=== PATIENT | female | born 1965 | race African-American/Black ===

== ENCOUNTER 2020-06-09 10:21 | Outpatient (REF) | payer MEDICAID, SELFPAY | END 2020-06-09 10:22 | disposition home or self-care (01) | LOC: HO.LAB 10:21 | PROVIDERS: Visit Provider Internal Medicine | DX: Z20.828 Contact with and (suspected) exposure to other viral communicable diseases (principal) | CPT/HCPCS: 87635 ==

== ENCOUNTER 2020-07-16 10:42 | Outpatient (REF) | payer MEDICAID, SELFPAY | END 2020-07-16 10:43 | disposition home or self-care (01) | LOC: HO.LAB 10:42 | PROVIDERS: Visit Provider Internal Medicine | DX: Z20.828 Contact with and (suspected) exposure to other viral communicable diseases (principal) | CPT/HCPCS: C9803; U0003 ==

== ENCOUNTER → 2020-08-24 13:26 | Outpatient (BNVA) | payer MEDICAID, SELFPAY | PROVIDERS: Visit Provider Orthopaedic Surgery | DX: M75.51 Bursitis of right shoulder (principal) | CPT/HCPCS: 20610; 99212; J1100 ==

== ENCOUNTER 2020-10-16 10:00 | Outpatient (RCR) | payer MEDICAID, SELFPAY ==
--- NOTE | 2020-09-09 13:52 | MHC.PT.EP ---
[facility] [place] Office [place] Office [place] Office [address] [phone] F: [phone] F: [phone] F: [phone] F: [phone] Physical Therapy Plan of Care Date of Evaluation: 09/09/20 Date of Surgery: Diagnosis: (R) Shoulder Bursitis Assessment: Pt is a 55 y.o.f. with chief complain of (R) shoulder pain with pain radiating into elbow and wrist. PMH is significant for prior ? (L) RTC repair following what the patient describes as similar pain. Pt presents today with significant limitations in ROM, strength deficits, pain located in anterior shoulder with supraspinatus, infraspinatus, coracoid process TTP. Pt ROM and strength currently limited due to severe pain. Pt emotionally labile throughout evaluation. Pt sxs are consistent with bursitisand ? RTC tear that has resulted in pain with movement and has limited ADLs. Pt will benefit from skilled physical therapy 2x/week for 5 weeks to improve pain, ROM, and strength withing (R) shoulder to aid in return to caregiver duties, playing with grandchildren, and assist in ADLs. Frequency and Duration: The patient will be seen 2x/week for 5 weeks Short Term Goals: 3 weeks: 1. I with HEP 2, Pt will demonstrate shoulder flexion and abduction AROM improvements by 15 degrees or greater Head Of Marketing Analytics Goals: 5 weeks: 1. I with HEP and self management of sx 2. Pt will be able to reach overhead and perform grooming tasks c pain < 3/10 3. Pt will improve shoulder abduction to >120 to be able to don/doff jacket with pain < 3/10 Treatment Plan: Modalities to reduce pain, spasms and effusion. Manual therapy to restore motion and function. Therapeutic exercise to improve strength and flexibility. Neuromuscular re-education for posture and balance. Therapeutic activities to return to functional activities of daily living. Electronically signed by: Christianne Brownlee PT DPT Please sign and return to therapist. Thank you for your referral.
--- NOTE | 2020-11-04 11:10 | MHC.PT.DC ---
[facility] [place] Office [place] Office [place] Office [address] Joe Sweet [address] [phone] F: [phone] F: [phone] F: [phone] F: [phone] Physical Therapy Discharge Report Diagnosis: (R) Shoulder Bursitis Date of Surgery: Date of Evaluation: 09/09/20 Date of Discharge: 11/04/20 Treatments to Date: 6 Cancellations to Date: 4 No Shows to Date: 2 Discharge Status: Visit Non-compliance Discharge Summary: Pt d/c secondary to noncompliance with scheduling policy with 4 cancels and 2 no shows. At time of last attended appointment, discussed compliance with HEP consistently and consistent attendance. Electronically signed by: Christianne Brownlee PT Please sign and return to therapist. Thank you for your referral.
== END 2020-11-04 11:11 | disposition home or self-care (01) ==
LOC: HO.PT 10:00
PROVIDERS: PCP Family Medicine; Visit Provider Orthopaedic Surgery
DX: M75.51 Bursitis of right shoulder (principal)
CPT/HCPCS: 97014; 97033; 97110; 97140; 97162

== ENCOUNTER → 2020-10-22 10:44 | Outpatient (BNVA) | payer MEDICAID, SELFPAY | PROVIDERS: Visit Provider Orthopaedic Surgery | DX: M75.01 Adhesive capsulitis of right shoulder (principal) | CPT/HCPCS: 99212 ==

== ENCOUNTER → 2020-11-09 09:06 | Outpatient (BNVA) | payer MEDICAID, SELFPAY | PROVIDERS: PCP Family Medicine; Referring Provider Family Medicine; Visit Provider Physician Assistant ==

== ENCOUNTER 2020-12-09 12:00 | Outpatient (RCR) | payer MEDICAID, SELFPAY ==
--- NOTE | 2020-11-18 15:30 | MHC.PT.EP ---
[facility] [place] Office [place] Office [place] Office [address] Joe Sweet [address] [phone] F: [phone] F: [phone] F: [phone] F: [phone] Physical Therapy Plan of Care Date of Evaluation: 11/18/20 Date of Surgery: N/A Diagnosis: R Shoulder Adhesive Capsulitis Assessment: Anuradha is a 55-year-old female presenting to physical therapy with a diagnosis of adhesive capsulitis. She presents with deficits in R shoulder ROM, R UE strength, impaired posture, and very high pain levels. She was repeatedly brought to tears do to pain during the evaluation. 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 Frequency and Duration: The patient will be seen 2 visits per week for 5 weeks. Short Term Goals: -Pt will report <2/10 pain at rest to allow her to sleep comfortably through the night within 3 weeks. -Pt will be able to lift arm overhead to be able to wash her hair within 3 weeks. Manager Ccu Goals: -Pt will be able to lift and carry 10 lbs. as needed for csm consultant within 5 weeks. -Pt will be independent with HEP for symptom management and maintenance following discharge from therapy within 5 weeks. Treatment Plan: Modalities to reduce pain, spasms and effusion. Manual therapy to restore motion and function. Therapeutic exercise to improve strength and flexibility. Neuromuscular re-education for posture and balance. Therapeutic activities to return to functional activities of daily living. Electronically signed by: Susy Mack PT,DPT Please sign and return to therapist. Thank you for your referral.
--- NOTE | 2021-01-06 15:54 | MHC.PT.DC ---
[facility] [place] Office [place] Office [place] Office [address] Joe Sweet [address] [phone] F: [phone] F: [phone] F: [phone] F: [phone] Physical Therapy Discharge Report Diagnosis: R Shoulder Adhesive Capsulitis Date of Surgery: N/A Date of Evaluation: 11/18/20 Date of Discharge: 12/21/20 Treatments to Date: 3 Cancellations to Date: 1 No Shows to Date: 3 Discharge Status: Visit Non-compliance Discharge Summary: Anuradha has missed 4 PT appointments. She has been d/c for non compliance. Electronically signed by: Susy Mack PT DPT Please sign and return to therapist. Thank you for your referral.
== END 2021-01-06 15:54 | disposition other institution (70) ==
LOC: HO.PT 12:00
PROVIDERS: PCP Family Medicine; Visit Provider Orthopaedic Surgery
DX: M75.01 Adhesive capsulitis of right shoulder (principal)
CPT/HCPCS: 97110; 97161; 97530

== ENCOUNTER → 2020-12-15 07:42 | Outpatient (BNVA) | payer MEDICAID, SELFPAY | PROVIDERS: Visit Provider Physician Assistant ==

== ENCOUNTER → 2020-12-30 11:20 | Outpatient (BNVA) | payer MEDICAID, SELFPAY | PROVIDERS: PCP Family Medicine; Referring Provider Family Medicine; Visit Provider Internal Medicine Cardiovascular Disease | DX: Z01.810 Encounter for preprocedural cardiovascular examination (principal); I25.10 Atherosclerotic heart disease of native coronary artery without angina pectoris | CPT/HCPCS: 93005; 99212 ==

== ENCOUNTER → 2021-01-22 09:57 | Day surgery (SDC) | payer MEDICAID, SELFPAY ==
--- NOTE | 2021-01-20 14:07 | HO.ANESPROP2 ---
HPI - Anesthesia Eval Consult details Narrative: 55yo F for Colonoscopy Cardiac cleared @ [facility]. OK to stop Plavix. Not to interrupt ASA. PMFSH Active Problems Active Problems: All Active Problems (Updated 01/18/21 @ 14:46 by Verónica Gilman) Encounter for screening colonoscopy (Acute) On chronic clopidogrel therapy (Acute) Poor historian (Acute) Coronary artery disease (Acute) Preoperative cardiovascular examination (Acute) Adhesive capsulitis of right shoulder (Acute) Bursitis of right shoulder (Acute) Past Medical History Medical History (Updated 01/20/21 @ 14:09 by Regina García) Adhesive capsulitis of right shoulder Back pain Bursitis of right shoulder CAD (coronary artery disease) Diabetes GERD (gastroesophageal reflux disease) Hepatitis C High cholesterol History of MRSA infection Hx of drug abuse Hyperthyroidism NSTEMI (non-ST elevated myocardial infarction) On beta tiffanie at home Family History Family History Father No problems noted. Mother No problems noted. Surgical History Surgical History (Updated 01/18/21 @ 14:44 by Verónica Gilman) History of back surgery History of umbilical hernia repair Hx of cholecystectomy Hx of heart artery stent Hx of repair of left rotator cuff Social History Social History Household Members: Spouse Alcohol intake: current Alcohol intake frequency: does not drink Cigarettes Per Day: 5 Advance Directives: No Advance Directives Information Provided: Yes Current occupational status: disabled Current occupation: right handed Meds Allergies Allergy/AdvReac Type Severity Reaction Status Date / Time No Known Allergies Allergy Verified 01/18/21 14:34 [No Known Allergies*] Home Medications Medication Instructions Recorded Confirmed Last Taken Type aspirin 81 mg tablet,delayed 81 mg PO DAILY 11/09/20 01/18/21 Unknown History release atorvastatin 80 mg tablet 80 mg PO DAILY 11/09/20 01/18/21 Unknown History furosemide 20 mg tablet 20 mg PO DAILY 11/09/20 01/18/21 Unknown History levothyroxine 88 mcg capsule 88 mcg PO DAILY 11/09/20 01/18/21 Unknown History metoprolol succinate 25 mg 25 mg PO BID 11/09/20 01/18/21 Unknown History tablet,extended release 24 hr metformin 500 mg tablet,extended 500 mg PO DAILY 12/30/20 01/18/21 Unknown History release 24 hr Exam Exam Date and Time: January 20, 2021 1407 Narrative Narrative: EKG 12/2020 Normal sinus rhythm, 88 beats per minute, normal axis, QTC 452 milliseconds. Assessment and Plan Assessment Anesthesia Assessment: Chart Reviewed
[2021-01-22] MEDS: Sodium Phosphate,Mono-Dibasic 133 ML ENEMA PR (10:15)
--- NOTE | 2021-01-22 10:26 | PC.NURSE ---
Patient ate spagetti and soup yesterday at 2:3-[address] Mooney informed. Fleets enema given with formed stool as a result, Dr Mooney informed. Procedure cancelled. Patient will follow up with office and reschedule.
== END ==
PROVIDERS: PCP Family Medicine; Visit Provider Internal Medicine Gastroenterology
DX: Z12.11 Encounter for screening for malignant neoplasm of colon (principal); Z53.8 Procedure and treatment not carried out for other reasons

== ENCOUNTER 2021-02-06 18:15 | Emergency (ER) | payer MEDICAID, SELFPAY ==
--- NOTE | ~2021-02-06 | XR_ITS ---
EXAMINATION: XR ABDOMEN KUB CLINICAL INDICATION: Left-sided abdominal pain and constipation COMPARISON: CT abdomen pelvis 06/19/2019 TECHNIQUE: AP view of the abdomen. FINDINGS: The bowel gas pattern is normal with no evidence of ileus or obstruction. A large stool burden does not appear to be present in the colon. Surgical clips present in the gallbladder fossa. Lumbar spine fixation hardware seen. Bilateral renal calculi or, much better visible on the left. Bilateral nonobstructing renal calculi were seen at the time of the prior CT scan. XR/XR abdomen 1V IMPRESSION: Unremarkable bowel gas pattern. Bilateral renal calculi, left greater than right
--- NOTE | ~2021-02-06 | CT_ITS ---
EXAMINATION: CT ABDOMEN AND PELVIS WITH CONTRAST CLINICAL INFORMATION: Abdominal pain. COMPARISON: CT of the abdomen and pelvis dated 04/15/2019. TECHNIQUE: Multidetector volumetric images were obtained from the superior aspect of the liver through the pubic symphysis following administration 85 mL of Omnipaque 350 intravenous contrast. Sagittal and coronal reformatted images were obtained on the technologist's workstation. Oral contrast: No This CT examination was performed using dose optimization techniques as appropriate, variously including the following: *Automated exposure control *Adjustment of mA and/or kV according to patient size (this includes techniques or standardized protocols for targeted exams where dose is matched to indication/reason for exam; i.e. extremities or head) *Use of iterative reconstruction technique DLP: 943 mGy-cm FINDINGS: LINES AND TUBES: None. LOWER THORAX: Lung bases are clear. Heart is normal in size. No pericardial effusion or thickening. HEPATOBILIARY: The liver is increased in size measuring up to 20 cm craniocaudal. Liver contour is normal. Hepatic attenuation is normal. No focal hepatic lesion. Gallbladder surgically absent. No intrahepatic or extra hepatic biliary ductal dilation. SPLEEN: Normal. PANCREAS: Normal. ADRENALS: Normal. KIDNEYS/URETERS: Bilateral nonobstructing nephrolithiasis with calculi noted in the upper mid and lower poles of the kidneys bilaterally. The largest calculus in the lower pole of left kidney measures up to 0.8 cm. Largest calculus in the right kidney is in the inferior pole measuring up to 0.4 cm. No hydronephrosis. No solid enhancing lesions. Symmetric nephrograms. The ureters are normal throughout their course bilaterally. BLADDER: Normal. No urinary bladder calculi. PELVIC ORGANS: Anteverted uterus. No adnexal mass. GI TRACT: Left lower quadrant approximately 5.4 cm segment of large bowel wall thickening mild fat stranding and mesenteric vascular congestion. No associated intraperitoneal free air or intra-abdominal collection. No dilated or thick walled loops of bowel. Appendix is mildly dilated and is noted along the right peritoneum inferior to the liver. Appearance of the appendix is of the same relative to comparison 06/19/2019 examination. PERITONEUM/RETROPERITONEUM AND MESENTERY: No free air or fluid. LYMPH NODES: No pathologically enlarged lymph nodes. VESSELS: Normal in caliber. Mild aortoiliac atherosclerotic calcification. BONES AND SOFT TISSUES: No aggressive osseous lesions. Postsurgical changes of L4-S1 posterior instrumentation. Hardware components are intact. Right breast asymmetric soft tissue (3:1). Correlate with prior mammographic examinations. No prior comparisons are available. Mammographic examination is recommended for further follow-up. Findings of this examination were discussed with and acknowledged by Dr. Antonio Lucas at 10:20 PM 02/06/2021. CT/CT abdomen pelvis w con IMPRESSION: Approximately 5.4 cm segment of large bowel wall thickening and mild associated fat stranding. Colonoscopy is recommended to exclude neoplasm in this location. No colonic diverticula in this location are appreciated to suggest acute diverticulitis. Asymmetric soft tissue attenuation in the right breast. Follow-up mammographic examination or comparison to prior mammographic examinations is recommended for further evaluation. Hepatomegaly. Cholecystectomy. Bilateral nonobstructive nephrolithiasis. No ureteral or urinary bladder calculi. L5/S1 posterior instrumentation without hardware abnormality.
[2021-02-06 18:16] VITALS: BP 127/69; PULSE 95; RESP 16; TEMP 36.7; O2SAT 99; BMI 41.1
--- NOTE | 2021-02-06 18:31 | ED.ABDPAIN ---
HPI - Abdominal Pain General Chief Complaint: Abdominal Pain Stated Complaint: ABD PAIN Time Seen by Provider: 02/06/21 18:26 Source: patient Mode of arrival: ambulatory Limitations: no limitations History of Present Illness HPI narrative: 55-year-old female with past medical history that is significant for diabetes, hepatitis c, hypercholesteremia, MRSA infection, hypothyroidism as well as other medical and surgical history as noted below she presents ambulatory via triage with complaint of left-sided abdominal pain going on for past 3 days. States she feels like she is constipated and this morning had bowel movement after forcing that was small and hard. She denies any rectal bleeding. States he has similar issues in the MD elicited complaint: abdominal pain Pertinent past history: constipation Onset (ago): day(s) Location: LLQ Severity: moderate Quality: aching Radiation: none Migration to: no migration Exacerbating factors: nothing Relieving factors: nothing Associated symptoms: denies other symptoms Related Data Home Medications Medication Instructions Recorded Confirmed aspirin 81 mg tablet,delayed 81 mg PO DAILY 11/09/20 01/18/21 release atorvastatin 80 mg tablet 80 mg PO DAILY 11/09/20 01/18/21 furosemide 20 mg tablet 20 mg PO DAILY 11/09/20 01/18/21 levothyroxine 88 mcg capsule 88 mcg PO DAILY 11/09/20 01/18/21 metoprolol succinate 25 mg 25 mg PO BID 11/09/20 01/18/21 tablet,extended release 24 hr metformin 500 mg tablet,extended 500 mg PO DAILY 12/30/20 01/18/21 release 24 hr Previous Rx's Medication Instructions Recorded acetaminophen 650 mg 650 mg PO Q8H PRN #60 tab 09/29/20 tablet,extended release clopidogrel 75 mg tablet 75 mg PO DAILY 90 Days #90 tab 11/13/20 bisacodyl 5 mg tablet,delayed 10 mg PO ONCE 1 Days #2 tab 02/04/21 release polyethylene glycol 3350 17 238 g PO ONCE 1 Days #238 g 02/04/21 gram/dose oral powder dicyclomine 20 mg PO BID PRN #20 tab 02/07/21 Allergies Allergy/AdvReac Type Severity Reaction Status Date / Time No Known Allergies Allergy Verified 01/18/21 14:34 [No Known Allergies*] Review of Systems Review of Systems Constitutional: No Weight loss, No Fever, No Chills, No Night Sweats, No Fatigue, No Malaise ENT/Mouth: No Hearing loss, No Ear Pain, No Nasal Congestion, No Sinus Pain, No Hoarseness, No sore throat, No Rhinorrhea, No Swallowing Difficulty Eyes: No Eye Pain, No Swelling, No Redness, No Foreign Body, No Discharge, No Vision Changes Cardiovascular: No Chest Pain, No SOB, No Dyspnea on Exertion, No Orthopnea, No Edema, No Palpitations Respiratory: No Cough, No Sputum, No Wheezing, No Smoke Exposure, No Dyspnea Gastrointestinal: No Nausea, No Vomiting, No Diarrhea, + Constipation, + abdominal Pain, No Hematochezia, No Melena Genitourinary: no irregular bleeding, No Dysuria, No Urinary Frequency, No Hematuria, No Urinary Incontinence, No Urgency, No Flank Pain, No Urinary Flow Changes, No Hesitancy Musculoskeletal: No joint pain, No Myalgias, No Joint Swelling Skin: No Skin Lesions, No rash Neuro: No Weakness, No Numbness, No Paresthesias, No Loss of Consciousness, No Dizziness, No Headache Psych: No Social Issues Heme/Lymph: No Bruising, No Bleeding,No Lymphadenopathy Endocrine: No Polyuria, No Polydipsia, No Temperature Intolerance Yes all other systems are reviewed and are negative Physical Exam Vital Signs: Vital Signs: Last Vital Signs Temp 98.2 F 02/06/21 22:00 Pulse 79 02/06/21 22:00 Resp 16 02/06/21 22:00 BP 128/67 02/06/21 22:00 Pulse Ox 96 02/06/21 22:00 Body Mass Index 41.1 Reviewed Const: General: cooperative; No acute distress or intoxicated appearing Nutritional Appearance: average body habitus Orientation/consciousness: patient oriented x3 HENMT: Head: Yes normal to inspection Ears: hearing grossly normal bilaterally Eyes: General: appearance normal, both eyes and all related structures Visual Benavidez: normal visual benavidez by confrontation Neck: Neck: Yes normal visual inspection, No positive Brudzinski's sign, No positive Kernig's sign and No tender Thyroid: Thyroid normal Chest: Chest palpation & inspection: normal inspection of the chest Resp: Effort & Inspection: normal respiratory effort Auscultation: clear to auscultation bilaterally Cardio: Jugular venous distension: no JVD Rhythm: regular rhythm Heart sounds: S1 normal heart sound present and S2 normal heart sound present GI: Inspection: Yes normal to inspection Palpation (GI): Soft to palpation and Tenderness to palpation present (GI) in the LUQ Percussion: Yes normal to percussion Auscultation: normal bowel sounds : General: Yes no CVA tenderness Back/Spine/Pelvis: Back: no CVA tenderness Skin: General skin exam: no rashes or lesions noted Neuro: General: patient oriented x3 Extrem: General: Yes normal to inspection Course Reevaluation(s) Reevaluation #1: initially reported this is a new issue for her constipated x-ray of the abdomen was negative. States she continues to have pain after drinking MiraLax did have bowel movement. Her pain was disproportionate to someone having constipation does EMR was reviewed and it appears that she has had this pain for several months now she was phos have colonoscopy and mist for some reason twice states 2nd time she did not drink her prep properly and was rescheduled for February 16. Given the indication for the colonoscopy was rule out neoplasm labs were ordered an abdominal pelvis CT was ordered as well. Reevaluation #2: Abdominal pelvis CT findings as noted Approximately 5.4 cm segment of large bowel wall thickening and mild associated fat stranding. Colonoscopy is recommended to exclude neoplasm in this location. No colonic diverticula in this location are appreciated to suggest acute diverticulitis. Asymmetric soft tissue attenuation in the right breast. Follow-up mammographic examination or comparison to prior mammographic examinations is recommended for further evaluation. Hepatomegaly. Cholecystectomy. Bilateral nonobstructive nephrolithiasis. No ureteral or urinary bladder calculi. L5/S1 posterior instrumentation without hardware abnormality page placed to GI Dr. Burnett Consultations Consultation #1: case reviewed with GI Dr. Burnett recommendation for close follow-up in the office known scheduled for colonoscopy to call office f/u closely with Dr. Mooney. Patient educated on CT findings concerning for neoplasm importance of needing to follow up and having colonoscopy to rule out cancerous cause of these findings and her symptoms. States she has an appointment on February 16 but she will call Monday to schedule appointment sooner. Copy of her CT scan was provided to her and urgency and importance of the findings were discussed with the patient in detail and she was given opportunity to ask questions. MDM - Abdominal Pain Lab Data Result diagrams: 02/06/21 20:17 02/06/21 20:17 Labs: Lab Results 06/02/06/21 02/06/21 Range/Units 20:12 20:17 20:17 WBC 11.1 H (4.8-10.8) X10*3/uL RBC 4.40 (4.20-5.50) X10*6/uL Hgb 13.1 (12.0-16.0) g/dl Hct 39.6 (37-47) % MCV 90.0 (80-98) fL MCH 29.8 (27.0-33.0) pg MCHC 33.1 (31.0-35.0) g/dl RDW 12.7 (11.0-16.0) % Plt Count 239 (160-400) X10*3/uL MPV 10.8 (9.4-12.3) fL Immature Gran % (Auto) 0.5 H (0.0-0.4) % Neut % (Auto) 75.3 H (45-73) % Lymph % (Auto) 16.9 L (20-40) % [place] % (Auto) 5.4 (2-11) % Eos % (Auto) 1.6 (0-4) % Baso % (Auto) 0.3 (0-2) % Lymph # (Auto) 1.9 (1.2-4.9) X10*3/uL [place] # (Auto) 0.6 (0.1-1.2) X10*3/uL Eos # (Auto) 0.2 (0.0-0.4) X10*3/uL Baso # (Auto) 0.0 (0.0-0.2) X10*3/uL Abs Immat Gran (auto) 0.05 H (0.00-0.03) X10*3/uL Absolute Neuts (auto) 8.4 H (2.0-8.3) X10*3/uL Absolute Nucleated RBC 0.000 (0.0-0.012) X10*3/uL Nucleated RBC % (auto) 0.0 (0.0-0.2) /100WBC Sodium 138 (135-145) mmol/L Potassium 4.9 (3.3-5.1) mmol/L Chloride 104 (96-108) mmol/L Carbon Dioxide 22 (22-29) mmol/L Anion Gap 17 (12-20) BUN 19 H (9-16) mg/dL Creatinine 1.03 (0.5-1.4) mg/dL Estim Creat Clear Calc 76.1 Estimated GFR 56 Random Glucose 165 H (60-115) mg/dL Calcium 9.6 (8.4-10.2) mg/dL Total Bilirubin 0.2 (0.0-1.0) mg/dL AST 78 H (5-31) U/L ALT 85 H (0-31) U/L Alkaline Phosphatase 146 H (39-117) U/L Total Protein 7.7 (6.5-8.0) g/dL Albumin 4.2 (3.5-5.0) g/dL Urine Color YELLOW Urine Appearance CLEAR Urine pH 7.5 (5.0-8.0) Ur Specific [place] 1.015 (1.005-1.025) Urine Protein NEG (NEG-TRACE) MG/DL Urine Glucose (UA) NEG (NEG) MG/DL Urine Ketones NEG (NEG) MG/DL Urine Blood NEG (NEG) Urine Nitrite NEG (NEG) Ur Leukocyte Esterase NEG (NEG) Discharge Plan Discharge Clinical Impression: Abdominal pain Patient Disposition: Home, Self-Care Instructions: Abdominal Pain (ED) Additional Instructions: please follow-up with her cylinder die machine operator for colonoscopy to evaluate and make sure that the abnormal findings on the CT scan are not reflecting any sort of cancer. It is very important for you to follow-up with cylinder die machine operator to have this colonoscopy so we can do a biopsy. In the meantime drink plenty of fluids high-fiber diet call this cylinder die machine operator on Monday to make an appointment- return if any concerns or worsening symptoms thank you Prescriptions: New dicyclomine 20 mg tablet 20 mg PO BID PRN (Reason: abdominal pain) Qty: 20 RF: 0 No Action acetaminophen 650 mg tablet extended release 650 mg PO Q8H PRN (Reason: for pain) Qty: 60 RF: 1 clopidogrel 75 mg tablet 75 mg PO DAILY 90 Days Qty: 90 RF: 1 polyethylene glycol 3350 [Miralax] 17 gram/dose powder 238 g PO ONCE 1 Days Qty: 238 RF: 0 bisacodyl [Dulcolax (bisacodyl)] 5 mg tablet,delayed release (DR/EC) 10 mg PO ONCE 1 Days Qty: 2 RF: 0 aspirin 81 mg tablet,delayed release (DR/EC) 81 mg PO DAILY RF: 0 metoprolol succinate 25 mg tablet extended release 24 hr 25 mg PO BID RF: 0 furosemide 20 mg tablet 20 mg PO DAILY RF: 0 atorvastatin 80 mg tablet 80 mg PO DAILY RF: 0 levothyroxine 88 mcg capsule 88 mcg PO DAILY RF: 0 metformin 500 mg tablet extended release 24 hr 500 mg PO DAILY RF: 0 Referrals: Trisha Mooney MD [Physician] - 2 days (Approximately 5.4 cm segment of large bowel wall thickening and mild associated fat stranding. Colonoscopy is recommended to exclude neoplasm in this location. No colonic diverticula in this location are appreciated to suggest acute diverticulitis. ) Interventions: ED Discharge Assessment Last Done: 02/07/21 00:45 Discharge Date/Time: 02/07/21 00:48 [facility] Past Medical History Medical History (Updated 02/07/21 @ 00:34 by Antonio Lucas NP) Adhesive capsulitis of right shoulder Back pain Bursitis of right shoulder CAD (coronary artery disease) Diabetes GERD (gastroesophageal reflux disease) Hepatitis C High cholesterol History of MRSA infection Hx of drug abuse Hyperthyroidism NSTEMI (non-ST elevated myocardial infarction) On beta tiffanie at home Surgical History (Updated 01/18/21 @ 14:44 by Verónica Gilman) History of back surgery History of umbilical hernia repair Hx of cholecystectomy Hx of heart artery stent Hx of repair of left rotator cuff Family History Family History Father No problems noted. Mother No problems noted. Social History Social History Household Members: Spouse Alcohol intake: current Alcohol intake frequency: does not drink Cigarettes Per Day: 5 Advance Directives: No Advance Directives Information Provided: Yes Patient : No Current occupational status: disabled Current occupation: right handed
[2021-02-06] MEDS: Magnesium Citrate 300 ML SOLUTION PO (18:50)
[2021-02-06 20:23] LABS: MANUAL DIFF FLAG NO
[2021-02-06 20:24] LABS: Basophils Percent Auto 0.3 % (0-2); Eosinophils Absolute Auto 0.2 X10*3/uL (0.0-0.4); Eosinophils Percent Auto 1.6 % (0-4); Hematocrit 39.6 % (37-47); Hemoglobin 13.1 g/dl (12.0-16.0); Imm Gran Abs Auto 0.05 X10*3/uL (0.00-0.03); Imm Gran Pct Auto 0.5 % (0.0-0.4); Lymphocytes Absolute Auto 1.9 X10*3/uL (1.2-4.9); Lymphocytes Percent Auto 16.9 % (20-40); Mean Corpuscular HGB Conc 33.1 g/dl (31.0-35.0); Mean Corpuscular Hemoglobin 29.8 pg (27.0-33.0); Mean Platelet Volume 10.8 fL (9.4-12.3); Monocytes Absolute Auto 0.6 X10*3/uL (0.1-1.2); Monocytes Percent Auto 5.4 % (2-11); Neutrophils Absolute Auto 8.4 X10*3/uL (2.0-8.3); Neutrophils Percent Auto 75.3 % (45-73); Platelet Count 239 X10*3/uL (160-400); Red Cell Distribution Width 12.7 % (11.0-16.0); White Blood Count 11.1 X10*3/uL (4.8-10.8)
[2021-02-06 20:28] LABS: Appearance Urine CLEAR; Color Urine YELLOW; Glucose Urine UA NEG (NEG); Leukocyte Esterase Urine NEG (NEG); Nitrite Urine NEG (NEG); PH 7.5 (5.0-8.0); Specific Gravity - Urine 1.015 (1.005-1.025); Urine Blood NEG (NEG); Urine Ketones NEG (NEG); Urine Protein NEG (NEG-TRACE)
[2021-02-06] MEDS: 0.9 % Sodium Chloride 1,000 ML 999 ML IV (20:32)
[2021-02-06 20:48] LABS: Alanine Aminotransferase 85 U/L (0-31); Albumin Level 4.2 g/dL (3.5-5.0); Alkaline Phosphatase 146 U/L (39-117); Anion Gap 17 (12-20); Aspartate Amino Transferase 78 U/L (5-31); Bilirubin Total 0.2 mg/dL (0.0-1.0); Blood Urea Nitrogen 19 mg/dL (9-16); Calcium 9.6 mg/dL (8.4-10.2); Carbon Dioxide 22 mmol/L (22-29); Chloride 104 mmol/L (96-108); Creatinine Clr Calc Pharmacy 76.1; Estimated Glomerular Filt Rate 56; Glucose Random 165 mg/dL (60-115); Potassium 4.9 mmol/L (3.3-5.1); Sodium 138 mmol/L (135-145); Total Protein 7.7 g/dL (6.5-8.0)
[2021-02-06] MEDS: Ketorolac Tromethamine 30 MG/ML VIAL IVPUSH (20:57)
[2021-02-06] MEDS: ondansetron HCL 4 MG/2 ML VIAL IVPUSH (21:49)
[2021-02-06 22:00] VITALS: BP 128/67; PULSE 79; RESP 16; TEMP 36.8; O2SAT 96
[2021-02-06] MEDS: iohexoL 350 MG/ML 100 ML INFUS..BTL IV (22:03)
[2021-02-06] MEDS: oxyCODONE HCl Immed Release 5 MG TABLET PO (23:32)
== END 2021-02-07 00:48 | disposition home or self-care (01) ==
PROVIDERS: Nurse Practitioner Primary Care; Emergency Provider Internal Medicine; PCP Family Medicine
DX: R10.9 Unspecified abdominal pain (principal); R93.3 Abnormal findings on diagnostic imaging of other parts of digestive tract; E11.9 Type 2 diabetes mellitus without complications; Z79.84 Long term (current) use of oral hypoglycemic drugs
CPT/HCPCS: 36415; 74018; 74177; 80053; 81003; 85025; 96361; 96374; 96375; 99285; J1885; J2405; Q9967

== ENCOUNTER 2021-02-10 07:34 | Day surgery (SDC) | payer MEDICAID, SELFPAY ==
--- NOTE | 2021-02-09 10:01 | HO.ANESPROP2 ---
HPI - Anesthesia Eval Consult details Narrative: 55yo F for Colonoscopy Cardiac cleared @ [facility]. OK to stop Plavix. Not to interrupt ASA. PMFSH Active Problems Active Problems: All Active Problems (Updated 02/08/21 @ 00:01 by Chaz Gonzalez) Encounter for screening colonoscopy (Acute) On chronic clopidogrel therapy (Acute) Poor historian (Acute) Coronary artery disease (Acute) Preoperative cardiovascular examination (Acute) Adhesive capsulitis of right shoulder (Acute) Bursitis of right shoulder (Acute) Past Medical History Medical History Adhesive capsulitis of right shoulder Back pain Bursitis of right shoulder CAD (coronary artery disease) Diabetes GERD (gastroesophageal reflux disease) Hepatitis C High cholesterol History of MRSA infection Hx of drug abuse Hyperthyroidism NSTEMI (non-ST elevated myocardial infarction) On beta tiffanie at home Family History Family History Father No problems noted. Mother No problems noted. Surgical History Surgical History History of back surgery History of umbilical hernia repair Hx of cholecystectomy Hx of heart artery stent Hx of repair of left rotator cuff Social History Social History Household Members: Spouse Alcohol intake: current Alcohol intake frequency: does not drink Patient Tobacco Use Status: Former Tobacco user Cigarettes Per Day: 5 Current occupational status: disabled Current occupation: right handed Meds Allergies Allergy/AdvReac Type Severity Reaction Status Date / Time No Known Allergies Allergy Verified 01/18/21 14:34 [No Known Allergies*] Home Medications Medication Instructions Recorded Confirmed Last Taken Type aspirin 81 mg tablet,delayed 81 mg PO DAILY 11/09/20 01/18/21 Unknown History release atorvastatin 80 mg tablet 80 mg PO DAILY 11/09/20 01/18/21 Unknown History furosemide 20 mg tablet 20 mg PO DAILY 11/09/20 01/18/21 Unknown History levothyroxine 88 mcg capsule 88 mcg PO DAILY 11/09/20 01/18/21 Unknown History metoprolol succinate 25 mg 25 mg PO BID 11/09/20 01/18/21 Unknown History tablet,extended release 24 hr metformin 500 mg tablet,extended 500 mg PO DAILY 12/30/20 01/18/21 Unknown History release 24 hr Exam Exam Date and Time: February 09, 2021 1001 Pertinent Lab Results Pertinent Lab Results: Laboratory Tests 02/06/21 02/06/21 20:17 20:17 WBC 11.1 H Hgb 13.1 Hct 39.6 Plt Count 239 Sodium 138 Potassium 4.9 Chloride 104 Carbon Dioxide 22 BUN 19 H Creatinine 1.03 Narrative Narrative: EKG 12/2020 Normal sinus rhythm, 88 beats per minute, normal axis, QTC 452 milliseconds. Assessment and Plan Assessment Anesthesia Assessment: Chart Reviewed
[2021-02-10 07:45] VITALS: BMI 40.3
[2021-02-10 07:53] LABS: Glucose, Whole Blood 210 mg/dL (60-115)
[2021-02-10 07:57] VITALS: BP 113/73; PULSE 90; RESP 18; TEMP 36.8; O2SAT 99
--- NOTE | 2021-02-10 08:07 | P.CONAN_ITS ---
[facility] Active Problems Active Problems: All Active Problems (Updated 02/08/21 @ 00:01 by Background Vik quarles) Encounter for screening colonoscopy (Acute) On chronic clopidogrel therapy (Acute) Poor historian (Acute) Coronary artery disease (Acute) Preoperative cardiovascular examination (Acute) Adhesive capsulitis of right shoulder (Acute) Bursitis of right shoulder (Acute) Past Medical History Medical History Adhesive capsulitis of right shoulder Back pain Bursitis of right shoulder CAD (coronary artery disease) Diabetes GERD (gastroesophageal reflux disease) Hepatitis C High cholesterol History of MRSA infection Hx of drug abuse Hyperthyroidism NSTEMI (non-ST elevated myocardial infarction) On beta tiffanie at home Family History Family History Father No problems noted. Mother No problems noted. Surgical History Surgical History History of back surgery History of umbilical hernia repair Hx of cholecystectomy Hx of heart artery stent Hx of repair of left rotator cuff Social History Social History Household Members: Spouse Alcohol intake: current Alcohol intake frequency: does not drink Patient Tobacco Use Status: Former Tobacco user Cigarettes Per Day: 5 Use of substances other than those prescribed or required for medical reasons: No Have you been hit, kicked, punched, or otherwise hurt by someone within the past year? If so, by whom?: No Are you DNR?: No Advance Directives: No Advance Directives Information Provided: Yes Current occupational status: disabled Current occupation: right handed Meds Allergies Allergy/AdvReac Type Severity Reaction Status Date / Time No Known Allergies Allergy Verified 01/18/21 14:34 [No Known Allergies*] Active Medications: Current Medications Generic Name Dose Route Start Last Admin Trade Name Freq PRN Reason Stop Dose Admin Albuterol Sulfate 2.5 mg 02/10/21 06:08 Albuterol Sulfate (0.083%) 2.5 Mg/3 Ml Vial.Neb INHALE ONCE PRN Shortness of Breath/Wheezing Lactated Ringer's 1,000 mls @ 100 mls/hr 02/10/21 06:15 Lr IVCONT .Q10H DARCY Home Medications Medication Instructions Recorded Confirmed Last Taken Type aspirin 81 mg tablet,delayed 81 mg PO DAILY 11/09/20 01/18/21 Unknown History release atorvastatin 80 mg tablet 80 mg PO DAILY 11/09/20 01/18/21 Unknown History furosemide 20 mg tablet 20 mg PO DAILY 11/09/20 01/18/21 Unknown History levothyroxine 88 mcg capsule 88 mcg PO DAILY 11/09/20 01/18/21 Unknown History metoprolol succinate 25 mg 25 mg PO BID 11/09/20 01/18/21 Unknown History tablet,extended release 24 hr metformin 500 mg tablet,extended 500 mg PO DAILY 12/30/20 01/18/21 Unknown History release 24 hr Exam Exam Date and Time: February 10, 2021 0807 Height,Weight and Vital Signs: Height 5 ft 4 in Weight 106.594 kg Last Vital Signs Temp 98.3 F 02/10/21 07:57 Pulse 90 02/10/21 07:57 Resp 18 02/10/21 07:57 BP 113/73 02/10/21 07:57 Pulse Ox 99 02/10/21 07:57 Pertinent Lab Results Pertinent Lab Results: Laboratory Tests 02/10/21 07:48 POC Glucose 210 H Airway Mallampati Class: IV TM Dist: >3cm Neck ROM: Full Denture: Upper and Lower Heart: RRR Lungs: CTA
--- NOTE | 2021-02-10 08:16 | PC.NURSE ---
PATIENT DRANK ALMOST A FULL BOTTLE OF WATER THIS AM. DR. XAVIER NOTIFIED AND IS OKAY WITH THE AMOUNT OF WATER THE PATIENT DRANK. PATIENT GIVEN A FLEETS ENEMA AT THIS TIME. PATIENT STATES SOFT STOOL HER LAST BOWEL MOVEMENT.
--- NOTE | 2021-02-10 08:22 | PC.NURSE ---
PATIENT'S BOWEL OUTPUT CLEAR AFTER FLEETS ENEMA GIVEN.
[2021-02-10] MEDS: Lactated Ringers 1,000 ML 100 ML IVCONT (08:31)
--- NOTE | 2021-02-10 08:36 | MHC.SHP ---
Pre-Procedural Eval Section A Date of Service: 02/10/21 Section B Chief Complaint: Screening Details of Present Illness: CT scan with abn left sided colon Relevant Family History (Specify if Yes): No Relevant Social History: Tobacco Use Present Medications: see Short Stay Collaborative assessment Medical History: Significant History (Adhesive capsulitis of right shoulder Back pain Bursitis of right shoulder CAD (coronary artery disease) Diabetes GERD (gastroesophageal reflux disease) Hepatitis C High cholesterol History of MRSA infection Hx of drug abuse Hyperthyroidism NSTEMI (non-ST elevated myocardial infarction) On beta bloc) History of Previous Operations: Relevant previous surgery/procedure and date(s) (istory of back surgery History of umbilical hernia repair Hx of cholecystectomy Hx of heart artery stent Hx of repair of left rotator cuff) Allergies: Allergies Allergy/AdvReac Type Severity Reaction Status Date / Time No Known Allergies Allergy Verified 01/18/21 14:34 [No Known Allergies*] Review of Systems Sugical H&P ROS: Negative: Constitution, Cardiovascular, Respiratory, Neurological, Psychiatric, Hem-Onc, Allergic/Immunologic, Gastrointestinal, Genitourinary, Musculoskeletal, Integumentary, Endocrine and Eyes/Ears/Nose/Throat Exam Surgical H&P Exam: Normal: HEENT, Normal: Heart, Normal: Lungs, Normal: Extremities, Normal: Abdomen, Normal: Skin and Normal: Neurological Plan Diagnosis/Plan: Unchanged I have reviewed the history and physical and performed a pertinent physical examination on my patient. No changes have occurred unless specified.
[2021-02-10] MEDS: Sodium Phosphate,Mono-Dibasic 133 ML ENEMA PR (08:40)
--- NOTE | 2021-02-10 09:33 | P.OP_ITS ---
Operative Note Operative Note Date of Service: 02/10/21 Narrative: Operative Information Procedure Description: Colonoscopy COLONOSCOPY Instrument: Olympus variable stiffness pediatric scope 190L Colonoscopy Monitoring: Vital signs and clinical assessment, continuous EKG monitoring, Pulse oximetry, Carbon Dioxide monitoring and blood pressure monitoring were done throughout the procedure. Colon withdrawal time was 13 minutes. Procedure: The patient was placed in the left lateral decubitis position and pre-procedure medications were administered. After a digital rectal examination of the ano-rectum, the video colonoscope was inserted into the rectum and advanced through the colon to the cecum/TI. The colonoscope was slowly withdrawn in a retrograde panoramic fashion and the colon mucosa was carefully examined including a retroflexed view of the rectum. Findings and interventions are described below. Procedure Difficulty:moderate Findings: Terminal Ileum-normal, bx taken random colon bx taken Cecum:normal Ascending Colon: 10 mm sessile polyp removed with cold snare Transverse Colon -normal Descending Colon: x 2 sessile polyps removed 8-10 mm, one was removed with cold snare and the other with forceps Sigmoid Colon: normal Rectum: Retroflexion done, nothing could be seen due to the poor prep Anorectum - normal Colon preparation: [place] Bowel Preparation Scale Right colon; 2 Transverse colon: 1 Left colon; 0 (0 = Unprepared colon segment with mucosa not seen due to solid stool that cannot be cleared. 1 = Portion of mucosa of the colon segment seen, but other areas of the colon segment not well seen due to staining, residual stool and/or opaque liquid. 2 = Minor amount of residual staining, small fragments of stool and/or opaque liquid, but mucosa of colon segment seen well. 3 = Entire mucosa of colon segment seen well with no residual staining, small fragments of stool or opaque liquid) Impression and Post Procedure Diagnosis: polyps poor prep Plan: Repeat Colonoscopy in 2-4 weeks and review prep, within limitations of prep no obvious large mass or luminal lesion seen. Above findings were reviewed with the patient and relevant handouts were provided if indicated.
--- NOTE | 2021-02-10 09:33 | PM.OP ---
Brief Operative Note Date of Service: 02/10/21 Pre-op diagnosis: abn imaging Post-op diagnosis: same Procedure: see op note Surgeon: Frank Walters MD Anesthesia: MAC Was an Associate Principal used for this Procedure?: No Estimated blood loss (mL): 0 Condition: stable Disposition: PACU
[2021-02-10 09:39] VITALS: BP 116/75; PULSE 94; RESP 16; TEMP 36.1; O2SAT 100
[2021-02-10 09:54] VITALS: BP 107/64; PULSE 88; RESP 18; O2SAT 99
== END 2021-02-10 10:49 | disposition home or self-care (01) ==
PROVIDERS: PCP Family Medicine; Visit Provider Internal Medicine Gastroenterology
PROC: 0DJD8ZZ Inspection of Lower Intestinal Tract, Via Natural or Artificial Opening Endoscopic (ICD-10-PCS; CPT 45378; principal; 2021-02-10 08:30)
DX: Z12.11 Encounter for screening for malignant neoplasm of colon (principal); D12.2 Benign neoplasm of ascending colon; K63.5 Polyp of colon; K59.00 Constipation, unspecified; K21.9 Gastro-esophageal reflux disease without esophagitis; E11.9 Type 2 diabetes mellitus without complications; B19.20 Unspecified viral hepatitis C without hepatic coma; I25.10 Atherosclerotic heart disease of native coronary artery without angina pectoris; Z98.61 Coronary angioplasty status; E78.00 Pure hypercholesterolemia, unspecified; Z86.14 Personal history of Methicillin resistant Staphylococcus aureus infection; M75.01 Adhesive capsulitis of right shoulder; Z79.82 Long term (current) use of aspirin; Z79.899 Other long term (current) drug therapy; Z90.49 Acquired absence of other specified parts of digestive tract; Z87.891 Personal history of nicotine dependence
CPT/HCPCS: 45385; 45380; 82947; 88305

== ENCOUNTER 2021-02-23 20:06 | Emergency (ER) | payer MEDICAID, SELFPAY ==
--- NOTE | ~2021-02-23 | XR_ITS ---
EXAMINATION: XR CHEST CLINICAL INFORMATION: Chest pain COMPARISON: Chest x-ray January 30, 2020 TECHNIQUE: Frontal portable view of the chest was obtained. 9:53 PM FINDINGS: No significant abnormality is noted involving the heart, lungs, mediastinum, bony thorax or soft tissues. XR/XR chest 1V IMPRESSION: Unremarkable examination.
--- NOTE | 2021-02-23 08:01 | ECG_ITS ---
Test Reason : CP Blood Pressure : / mmHG Vent. Rate : 103 BPM Atrial Rate : 103 BPM P-R Int : 124 ms QRS Dur : 070 ms QT Int : 354 ms P-R-T Axes : 047 054 051 degrees QTc Int : 463 ms Sinus tachycardia Otherwise normal ECG When compared to the previous EKG of No significant changes seen Referred By: Chitra Cedillo Electronically Signed By:Lex Escudero
[2021-02-23 21:25] VITALS: BP 99/78; PULSE 102; RESP 16; TEMP 36.8; O2SAT 98; BMI 38.6
[2021-02-23 21:51] LABS: Basophils Absolute Auto 0.1 X10*3/uL (0.0-0.2); Basophils Percent Auto 0.4 % (0-2); Eosinophils Absolute Auto 0.3 X10*3/uL (0.0-0.4); Eosinophils Percent Auto 2.4 % (0-4); Hematocrit 41.7 % (37-47); Hemoglobin 13.8 g/dl (12.0-16.0); Imm Gran Abs Auto 0.04 X10*3/uL (0.00-0.03); Imm Gran Pct Auto 0.3 % (0.0-0.4); Lymphocytes Absolute Auto 3.6 X10*3/uL (1.2-4.9); Lymphocytes Percent Auto 28.9 % (20-40); Mean Corpuscular HGB Conc 33.1 g/dl (31.0-35.0); Mean Corpuscular Hemoglobin 29.1 pg (27.0-33.0); Mean Corpuscular Volume 87.8 fL (80-98); Mean Platelet Volume 11.1 fL (9.4-12.3); Monocytes Absolute Auto 0.8 X10*3/uL (0.1-1.2); Monocytes Percent Auto 6.4 % (2-11); Neutrophils Absolute Auto 7.7 X10*3/uL (2.0-8.3); Neutrophils Percent Auto 61.6 % (45-73); Platelet Count 276 X10*3/uL (160-400); Red Blood Count 4.75 X10*6/uL (4.20-5.50); Red Cell Distribution Width 12.6 % (11.0-16.0); White Blood Count 12.5 X10*3/uL (4.8-10.8)
[2021-02-23 21:52] LABS: MANUAL DIFF FLAG NO
[2021-02-23 22:12] LABS: Anion Gap 17 (12-20); Blood Urea Nitrogen 16 mg/dL (9-16); Calcium 9.9 mg/dL (8.4-10.2); Carbon Dioxide 20 mmol/L (22-29); Chloride 108 mmol/L (96-108); Creatinine Clr Calc Pharmacy 58.1; Estimated Glomerular Filt Rate 43; Glucose Random 314 mg/dL (60-115); Potassium 4.8 mmol/L (3.3-5.1); Sodium 140 mmol/L (135-145)
[2021-02-23 22:18] LABS: Troponin-I High Sensitivity < 3.5 ng/L (<3.5-17.0)
[2021-02-23 22:55] VITALS: BP 102/63; PULSE 114; RESP 16; O2SAT 95
--- NOTE | 2021-02-23 23:57 | ED.CHESTPAIN ---
HPI - Chest Pain General Chief Complaint: Chest Pain Stated Complaint: cp Time Seen by Provider: 02/23/21 23:44 Source: patient Mode of arrival: ambulatory Limitations: no limitations History of Present Illness HPI narrative: Comes emergency room for an episode of chest pain that started 12 hours ago. Patient states she was at rest, had a sharp 8/10 pain, then resolved. Patient states that this time, she has achiness over the right and left side of the chest. Patient states she took aspirin prior to arrival and Advil. Patient denies shortness of breath, no abdominal pain. Related Data Home Medications Medication Instructions Recorded Confirmed aspirin 81 mg tablet,delayed 81 mg PO DAILY 11/09/20 01/18/21 release atorvastatin 80 mg tablet 80 mg PO DAILY 11/09/20 01/18/21 furosemide 20 mg tablet 20 mg PO DAILY 11/09/20 01/18/21 levothyroxine 88 mcg capsule 88 mcg PO DAILY 11/09/20 01/18/21 metoprolol succinate 25 mg 25 mg PO BID 11/09/20 01/18/21 tablet,extended release 24 hr metformin 500 mg tablet,extended 500 mg PO DAILY 12/30/20 01/18/21 release 24 hr Previous Rx's Medication Instructions Recorded acetaminophen 650 mg 650 mg PO Q8H PRN #60 tab 09/29/20 tablet,extended release clopidogrel 75 mg tablet 75 mg PO DAILY 90 Days #90 tab 11/13/20 polyethylene glycol 3350 17 238 g PO ONCE 1 Days #238 g 02/04/21 gram/dose oral powder dicyclomine 20 mg PO BID PRN #20 tab 02/07/21 bisacodyl 5 mg tablet,delayed 20 mg PO ONCE 1 Days #4 tab 02/10/21 release bisacodyl 5 mg tablet,delayed 10 mg PO ONCE 1 Days #2 tab 02/11/21 release polyethylene glycol 3350 17 238 g PO ONCE #238 g 02/11/21 gram/dose oral powder Allergies Allergy/AdvReac Type Severity Reaction Status Date / Time No Known Allergies Allergy Verified 02/23/21 21:24 [No Known Allergies*] Review of Systems Review of Systems: Constitutional : No Weight loss, No Fever, No Chills, No Night Sweats, No Fatigue, No Malaise ENT/Mouth : No Hearing loss, No Ear Pain, No Nasal Congestion, No Sinus Pain, No Hoarseness, No sore throat, No Rhinorrhea, No Swallowing Difficulty Eyes: No Eye Pain, No Swelling, No Redness, No Foreign Body, No Discharge, No Vision Changes Cardiovascular : Complaining of chest pain that is gradually improving, No SOB, No Dyspnea on Exertion, No Orthopnea, No Edema, No Palpitations Respiratory : No Cough, No Sputum, No Wheezing, No Smoke Exposure, No Dyspnea Gastrointestinal : No Nausea, No Vomiting, No Diarrhea, No Constipation, No abdominal Pain, No Hematochezia, No Melena Genitourinary : no irregular bleeding, No Dysuria, No Urinary Frequency, No Hematuria, No Urinary Incontinence, No Urgency, No Flank Pain, No Urinary Flow Changes, No Hesitancy Musculoskeletal : No joint pain, No Myalgias, No Joint Swelling Skin : No Skin Lesions, No rash Neuro : No Weakness, No Numbness, No Paresthesias, No Loss of Consciousness, No Dizziness, No Headache Psych : No Anxiety/Panic, No Depression, No SI/HI/AH/VH, No Social Issues, Heme/Lymph: No Bruising, No Bleeding,No Lymphadenopathy Endocrine : No Polyuria, No Polydipsia, No Temperature Intolerance [facility] Past Medical History Medical History Adhesive capsulitis of right shoulder Back pain Bursitis of right shoulder CAD (coronary artery disease) Diabetes GERD (gastroesophageal reflux disease) Hepatitis C High cholesterol History of MRSA infection Hx of drug abuse Hyperthyroidism NSTEMI (non-ST elevated myocardial infarction) On beta tiffanie at home Surgical History History of back surgery History of umbilical hernia repair Hx of cholecystectomy Hx of heart artery stent Hx of repair of left rotator cuff Family History Family History Father No problems noted. Mother No problems noted. Social History Social History Household Members: Spouse Alcohol intake: current Alcohol intake frequency: does not drink Patient Tobacco Use Status: Former Tobacco user Cigarettes Per Day: 5 Advance Directives: No Current occupational status: disabled Current occupation: right handed Physical Exam Vital Signs: Vital Signs: Last Vital Signs Temp 98.3 F 02/23/21 21:25 Pulse 98 07/14/21 00:43 Resp 16 02/24/21 00:37 BP 100/52 L 02/24/21 00:43 Pulse Ox 98 02/24/21 00:37 Body Mass Index 38.6 Appearance: Alert. Oriented X3. No acute distress. Sleeping comfortably, easily arousable Eyes: Pupils equal, round and reactive to light. ENT: Pharynx normal. Neck: Normal inspection. Neck supple. No lymph nodes noted. No crepitus CVS: Normal heart rate and rhythm. Pulses normal. Normal S1 and S2 Respiratory: No respiratory distress. Breath sounds normal. No Wheezing. No rales Abdomen: Soft and nontender. No rigidity. No distention. good BS x4 Skin: Skin warm and dry. Normal skin color. Normal skin turgor. Extremities: No lower extremity edema. No Lacerations. No Rash Neuro: Oriented X 3. No motor deficit. No sensory deficit. Moving all extermities. No slurred speech. Course Course Course Narrative: Patient continues sleeping comfortably, patient's troponin 3.8, negative, thus in Delta 50 increased. Patient instructed to follow-up with his primary care physician. MDM - Chest Pain Lab Data Result diagrams: 02/23/21 21:44 02/23/21 21:44 Labs: Lab Results 02/23/21 02/23/21 02/23/21 Range/Units 21:44 21:44 21:44 WBC 12.5 H (4.8-10.8) X10*3/uL RBC 4.75 (4.20-5.50) X10*6/uL Hgb 13.8 (12.0-16.0) g/dl Hct 41.7 (37-47) % MCV 87.8 (80-98) fL MCH 29.1 (27.0-33.0) pg MCHC 33.1 (31.0-35.0) g/dl RDW 12.6 (11.0-16.0) % Plt Count 276 (160-400) X10*3/uL MPV 11.1 (9.4-12.3) fL Immature Gran % (Auto) 0.3 (0.0-0.4) % Neut % (Auto) 61.6 (45-73) % Lymph % (Auto) 28.9 (20-40) % Pickett % (Auto) 6.4 (2-11) % Eos % (Auto) 2.4 (0-4) % Baso % (Auto) 0.4 (0-2) % Lymph # (Auto) 3.6 (1.2-4.9) X10*3/uL Pickett # (Auto) 0.8 (0.1-1.2) X10*3/uL Eos # (Auto) 0.3 (0.0-0.4) X10*3/uL Baso # (Auto) 0.1 (0.0-0.2) X10*3/uL Abs Immat Gran (auto) 0.04 H (0.00-0.03) X10*3/uL Absolute Neuts (auto) 7.7 (2.0-8.3) X10*3/uL Absolute Nucleated RBC 0.000 (0.0-0.012) X10*3/uL Nucleated RBC % (auto) 0.0 (0.0-0.2) /100WBC Sodium 140 (135-145) mmol/L Potassium 4.8 (3.3-5.1) mmol/L Chloride 108 (96-108) mmol/L Carbon Dioxide 20 L (22-29) mmol/L Anion Gap 17 (12-20) BUN 16 (9-16) mg/dL Creatinine 1.30 (0.5-1.4) mg/dL Estim Creat Clear Calc 58.1 Estimated GFR 43 Random Glucose 314 H D (60-115) mg/dL Calcium 9.9 (8.4-10.2) mg/dL Troponin I High Sens < 3.5 (<3.5-17.0) ng/L 02/24/21 Range/Units 00:47 WBC (4.8-10.8) X10*3/uL RBC (4.20-5.50) X10*6/uL Hgb (12.0-16.0) g/dl Hct (37-47) % MCV (80-98) fL MCH (27.0-33.0) pg MCHC (31.0-35.0) g/dl RDW (11.0-16.0) % Plt Count (160-400) X10*3/uL MPV (9.4-12.3) fL Immature Gran % (Auto) (0.0-0.4) % Neut % (Auto) (45-73) % Lymph % (Auto) (20-40) % Pickett % (Auto) (2-11) % Eos % (Auto) (0-4) % Baso % (Auto) (0-2) % Lymph # (Auto) (1.2-4.9) X10*3/uL Pickett # (Auto) (0.1-1.2) X10*3/uL Eos # (Auto) (0.0-0.4) X10*3/uL Baso # (Auto) (0.0-0.2) X10*3/uL Abs Immat Gran (auto) (0.00-0.03) X10*3/uL Absolute Neuts (auto) (2.0-8.3) X10*3/uL Absolute Nucleated RBC (0.0-0.012) X10*3/uL Nucleated RBC % (auto) (0.0-0.2) /100WBC Sodium (135-145) mmol/L Potassium (3.3-5.1) mmol/L Chloride (96-108) mmol/L Carbon Dioxide (22-29) mmol/L Anion Gap (12-20) BUN (9-16) mg/dL Creatinine (0.5-1.4) mg/dL Estim Creat Clear Calc Estimated GFR Random Glucose (60-115) mg/dL Calcium (8.4-10.2) mg/dL Troponin I High Sens 3.8 (<3.5-17.0) ng/L Imaging Data Chest x-ray: Radiologist's impression: No significant abnormality is noted involving the heart, lungs, mediastinum, bony thorax or soft tissues. XR/XR chest 1V IMPRESSION: Unremarkable examination. ECG Data ECG #1: Attestation: I personally reviewed and interpreted this ECG as follows: (Sinus rhythm, heart rate 103, no ST segment depression or elevation, no T-wave inversion, QTC 463) Discharge Plan Discharge Clinical Impression: Atypical chest pain Patient Disposition: Home, Self-Care Instructions: Chest Pain (ED) Additional Instructions: Please follow-up with your primary care physician tomorrow. If you have any worsening or new symptoms, please return to the emergency room or call 911 Prescriptions: No Action acetaminophen 650 mg tablet extended release 650 mg PO Q8H PRN (Reason: for pain) Qty: 60 RF: 1 clopidogrel 75 mg tablet 75 mg PO DAILY 90 Days Qty: 90 RF: 1 polyethylene glycol 3350 [Miralax] 17 gram/dose powder 238 g PO ONCE 1 Days Qty: 238 RF: 0 bisacodyl [Dulcolax (bisacodyl)] 5 mg tablet,delayed release (DR/EC) 20 mg PO ONCE 1 Days Qty: 4 RF: 0 bisacodyl [Dulcolax (bisacodyl)] 5 mg tablet,delayed release (DR/EC) 10 mg PO ONCE 1 Days Qty: 2 RF: 0 polyethylene glycol 3350 [Miralax] 17 gram/dose powder 238 g PO ONCE Qty: 238 RF: 0 dicyclomine 20 mg tablet 20 mg PO BID PRN (Reason: abdominal pain) Qty: 20 RF: 0 aspirin 81 mg tablet,delayed release (DR/EC) 81 mg PO DAILY RF: 0 metoprolol succinate 25 mg tablet extended release 24 hr 25 mg PO BID RF: 0 furosemide 20 mg tablet 20 mg PO DAILY RF: 0 atorvastatin 80 mg tablet 80 mg PO DAILY RF: 0 levothyroxine 88 mcg capsule 88 mcg PO DAILY RF: 0 metformin 500 mg tablet extended release 24 hr 500 mg PO DAILY RF: 0
[2021-02-24 00:37] VITALS: BP 103/33; PULSE 104; RESP 16; O2SAT 98
[2021-02-24 00:43] VITALS: BP 100/52; PULSE 98
[2021-02-24 01:17] LABS: Troponin-I High Sensitivity 3.8 ng/L (<3.5-17.0)
== END 2021-02-24 01:40 | disposition home or self-care (01) ==
PROVIDERS: Emergency Provider Emergency Medicine; PCP Family Medicine
DX: R07.89 Other chest pain (principal); E11.9 Type 2 diabetes mellitus without complications; E78.5 Hyperlipidemia, unspecified; Z79.82 Long term (current) use of aspirin; Z79.02 Long term (current) use of antithrombotics/antiplatelets; Z79.84 Long term (current) use of oral hypoglycemic drugs
CPT/HCPCS: 36415; 71045; 80048; 84484; 85025; 93005; 99283; 99284

== ENCOUNTER 2021-02-25 12:29 | Day surgery (SDC) | payer MEDICAID, SELFPAY ==
--- NOTE | 2021-02-24 12:09 | HO.ANESPROP2 ---
Documented by User: Regina García 02/24/21 12:15 HPI - Anesthesia Eval Consult details Narrative: 55yo F for Colonoscopy Pt in [facility] [place]23[place]21 with atypical CP. EKG, CXR, and trops WNL. Discharged home. Reviewed with Dr Syed. OK to proceed. Cardiology cleared 12/2020. (Reviewed ED visit with Dr Escudero. OK to proceed at [facility] as long as pt remains without symptoms.) [facility] Active Problems Active Problems: All Active Problems (Updated 02/24/21 @ 01:27 by Chitra Cedillo MD) Atypical chest pain (Acute) Encounter for screening colonoscopy (Acute) On chronic clopidogrel therapy (Acute) Poor historian (Acute) Coronary artery disease (Acute) Preoperative cardiovascular examination (Acute) Adhesive capsulitis of right shoulder (Acute) Bursitis of right shoulder (Acute) Past Medical History Medical History Adhesive capsulitis of right shoulder Back pain Bursitis of right shoulder CAD (coronary artery disease) Diabetes GERD (gastroesophageal reflux disease) Hepatitis C High cholesterol History of MRSA infection Hx of drug abuse Hyperthyroidism NSTEMI (non-ST elevated myocardial infarction) On beta tiffanie at home Family History Family History Father No problems noted. Mother No problems noted. Surgical History Surgical History History of back surgery History of umbilical hernia repair Hx of cholecystectomy Hx of heart artery stent Hx of repair of left rotator cuff Social History Social History Household Members: Spouse Alcohol intake: current Alcohol intake frequency: does not drink Patient Tobacco Use Status: Former Tobacco user Cigarettes Per Day: 5 Use of substances other than those prescribed or required for medical reasons: No Are you DNR?: No Advance Directives: No Advance Directives Information Provided: Yes Current occupational status: disabled Current occupation: right handed Meds Allergies Allergy/AdvReac Type Severity Reaction Status Date / Time No Known Allergies Allergy Verified 02/23/21 21:24 [No Known Allergies*] Home Medications Medication Instructions Recorded Confirmed Last Taken Type aspirin 81 mg tablet,delayed 81 mg PO DAILY 11/09/20 01/18/21 Unknown History release atorvastatin 80 mg tablet 80 mg PO DAILY 11/09/20 01/18/21 Unknown History furosemide 20 mg tablet 20 mg PO DAILY 11/09/20 01/18/21 Unknown History levothyroxine 88 mcg capsule 88 mcg PO DAILY 11/09/20 01/18/21 Unknown History metoprolol succinate 25 mg 25 mg PO BID 11/09/20 01/18/21 Unknown History tablet,extended release 24 hr metformin 500 mg tablet,extended 500 mg PO DAILY 12/30/20 01/18/21 Unknown History release 24 hr Exam Exam Date and Time: February 24, 2021 1209 Pertinent Lab Results Pertinent Lab Results: Laboratory Tests 02/23/21 02/23/21 21:44 21:44 WBC 12.5 H Hgb 13.8 Hct 41.7 Plt Count 276 Sodium 140 Potassium 4.8 Chloride 108 Carbon Dioxide 20 L BUN 16 Creatinine 1.30 Narrative Narrative: EKG 02/2021 Vent. Rate : 103 BPM Atrial Rate : 103 BPM P-R Int : 124 ms QRS Dur : 070 ms QT Int : 354 ms P-R-T Axes : 047 054 051 degrees QTc Int : 463 ms Sinus tachycardia Otherwise normal ECG Assessment and Plan Assessment Anesthesia Assessment: Chart Reviewed Documented by User: Manolo Darby MD 02/25/21 14:17 [facility] Past Medical History Medical History Adhesive capsulitis of right shoulder Back pain Bursitis of right shoulder CAD (coronary artery disease) Diabetes GERD (gastroesophageal reflux disease) Hepatitis C High cholesterol History of MRSA infection Hx of drug abuse Hyperthyroidism NSTEMI (non-ST elevated myocardial infarction) On beta tiffanie at home Family History Family History Father No problems noted. Mother No problems noted. Surgical History Surgical History History of back surgery History of umbilical hernia repair Hx of cholecystectomy Hx of heart artery stent Hx of repair of left rotator cuff Social History Social History Household Members: Spouse Alcohol intake: current Alcohol intake frequency: does not drink Patient Tobacco Use Status: Former Tobacco user Cigarettes Per Day: 5 Use of substances other than those prescribed or required for medical reasons: No Are you DNR?: No Advance Directives: No Advance Directives Information Provided: Yes Current occupational status: disabled Current occupation: right handed Meds Allergies Allergy/AdvReac Type Severity Reaction Status Date / Time No Known Allergies Allergy Verified 02/23/21 21:24 [No Known Allergies*] Home Medications Medication Instructions Recorded Confirmed Last Taken Type aspirin 81 mg tablet,delayed 81 mg PO DAILY 11/09/20 01/18/21 Unknown History release atorvastatin 80 mg tablet 80 mg PO DAILY 11/09/20 01/18/21 Unknown History furosemide 20 mg tablet 20 mg PO DAILY 11/09/20 01/18/21 Unknown History levothyroxine 88 mcg capsule 88 mcg PO DAILY 11/09/20 01/18/21 Unknown History metoprolol succinate 25 mg 25 mg PO BID 11/09/20 01/18/21 Unknown History tablet,extended release 24 hr metformin 500 mg tablet,extended 500 mg PO DAILY 12/30/20 01/18/21 Unknown History release 24 hr Exam Airway Mallampati Class: II TM Dist: >3cm Neck ROM: Full Assessment and Plan Assessment Anesthesia Assessment: Anesthesia Plan Discussed and Chart Reviewed (Mena richardson CP) Final Anesthetic Review NPO: Yes ASA Class: III Final Preanesthetic Review: No Changes in Pt Med Stat, Meds/Allgs Chart Reviewed, Consent Obtained/Reviewed and Anes Risks/Benef Reviewed Patient Risk: High Procedure Risk: Low Anesthetic Plan Anesthetic Plan: MAC: Disposition: Standard PACU
[2021-02-25 12:41] VITALS: BMI 38.6
--- NOTE | 2021-02-25 12:47 | P.HPSUR_ITS ---
Pre-Procedural Eval Section A Date of Service: 02/25/21 Section B Chief Complaint: Screening Relevant Family History (Specify if Yes): No Relevant Social History: None (ex smoker) Present Medications: see Short Stay Collaborative assessment Medical History: Significant History (Adhesive capsulitis of right shoulder Back pain Bursitis of right shoulder CAD (coronary artery disease) Diabetes GERD (gastroesophageal reflux disease) Hepatitis C High cholesterol History of MRSA infection Hx of drug abuse Hyperthyroidism NSTEMI (non-ST elevated myocardial infarction) On beta bloc) History of Previous Operations: Relevant previous surgery/procedure and date(s) (History of back surgery History of umbilical hernia repair Hx of cholecystectomy Hx of heart artery stent Hx of repair of left rotator cuff) Allergies: Allergies Allergy/AdvReac Type Severity Reaction Status Date / Time No Known Allergies Allergy Verified 02/23/21 21:24 [No Known Allergies*] Review of Systems Sugical H&P ROS: Negative: Constitution, Cardiovascular, Respiratory, Neurological, Psychiatric, Hem-Onc, Allergic/Immunologic, Gastrointestinal, Genitourinary, Musculoskeletal, Integumentary, Endocrine and Eyes/Ears/Nose/Throat Exam Surgical H&P Exam: Normal: HEENT, Normal: Heart, Normal: Lungs, Normal: Extrem ities, Normal: Abdomen, Normal: Skin and Normal: Neurological Plan Diagnosis/Plan: Unchanged I have reviewed the history and physical and performed a pertinent physical examination on my patient. No changes have occurred unless specified.
[2021-02-25 12:55] LABS: Glucose, Whole Blood 285 mg/dL (60-115)
[2021-02-25 13:02] VITALS: BP 133/89; PULSE 110; RESP 18; TEMP 35.8; O2SAT 98
--- NOTE | 2021-02-25 13:08 | PM.OP ---
Brief Operative Note Date of Service: 02/25/21 Pre-op diagnosis: prior colonoscopy with poor prep--abn imaging Post-op diagnosis: same Procedure: see op note Surgeon: Frank Walters MD Anesthesia: MAC Was an Assembled [employer] Repairer used for this Procedure?: No Estimated blood loss (mL): 0 Condition: stable Disposition: PACU
--- NOTE | 2021-02-25 13:08 | W.PM.OPN ---
Operative Note Operative Note Date of Service: 02/25/21 Narrative: Operative Information Procedure Description: Colonoscopy COLONOSCOPY Instrument: Olympus variable stiffness pediatric scope 190L Colonoscopy Monitoring: Vital signs and clinical assessment, continuous EKG monitoring, Pulse oximetry, Carbon Dioxide monitoring and blood pressure monitoring were done throughout the procedure. Colon withdrawal time was 30 minutes. Procedure: The patient was placed in the left lateral decubitis position and pre-procedure medications were administered. After a digital rectal examination of the ano-rectum, the video colonoscope was inserted into the rectum and advanced through the colon to the cecum/TI. The colonoscope was slowly withdrawn in a retrograde panoramic fashion and the colon mucosa was carefully examined including a retroflexed view of the rectum. Findings and interventions are described below. Procedure Difficulty: easy Findings: Terminal Ileum-normal Cecum:normal Ascending Colon: normal Transverse Colon - 10 mm sessile polyp removed with cold snare, 15 mm sessile polyp removed with cold snare, Descending Colon: normal Sigmoid Colon: mass lesion noted with ulcerated and excavated mid portion at 28-32 cm from anal verge, semi circumferential. Biopsies taken and bryn ink marked at distal and proximal margins. x 2 polyps removed with cold snare 8-10 mm. Rectum: Retroflexion with moderate sized internal hemorrhoids, grade I Anorectum - normal Colon preparation: Ballinger Bowel Preparation Scale Right colon; 2 Transverse colon: 2 Left colon; 2 (0 = Unprepared colon segment with mucosa not seen due to solid stool that cannot be cleared. 1 = Portion of mucosa of the colon segment seen, but other areas of the colon segment not well seen due to staining, residual stool and/or opaque liquid. 2 = Minor amount of residual staining, small fragments of stool and/or opaque liquid, but mucosa of colon segment seen well. 3 = Entire mucosa of colon segment seen well with no residual staining, small fragments of stool or opaque liquid) Impression and Post Procedure Diagnosis: sigmoid mass polyps internal hemorrhoids Plan: High fiber diet leaflet Avoid straining at stool, epsom salts and sitz bath, anusol supps or cream Repeat Colonoscopy in 1 year, refer colorectal surgery Above findings were reviewed with the patient and relevant handouts were provided if indicated.
[2021-02-25] MEDS: Lactated Ringers 1,000 ML 100 ML IVCONT (13:21)
[2021-02-25 14:17] VITALS: BP 102/62; PULSE 87; RESP 18; TEMP 37.1; O2SAT 98
[2021-02-25 14:32] VITALS: BP 102/71; PULSE 91; RESP 20; O2SAT 100
== END 2021-02-25 15:00 | disposition home or self-care (01) ==
PROVIDERS: PCP Family Medicine; Visit Provider Internal Medicine Gastroenterology
PROC: 0DJD8ZZ Inspection of Lower Intestinal Tract, Via Natural or Artificial Opening Endoscopic (ICD-10-PCS; CPT 45378; principal; 2021-02-25 13:40)
DX: Z12.11 Encounter for screening for malignant neoplasm of colon (principal); D12.3 Benign neoplasm of transverse colon; D12.5 Benign neoplasm of sigmoid colon; D37.4 Neoplasm of uncertain behavior of colon; K64.0 First degree hemorrhoids; K21.9 Gastro-esophageal reflux disease without esophagitis; E11.9 Type 2 diabetes mellitus without complications; I25.10 Atherosclerotic heart disease of native coronary artery without angina pectoris; Z98.61 Coronary angioplasty status; I25.2 Old myocardial infarction; B18.2 Chronic viral hepatitis C; Z79.84 Long term (current) use of oral hypoglycemic drugs; Z79.82 Long term (current) use of aspirin; Z86.14 Personal history of Methicillin resistant Staphylococcus aureus infection; Z90.49 Acquired absence of other specified parts of digestive tract; Z87.891 Personal history of nicotine dependence
CPT/HCPCS: 45385; 45380; 45381; 82947; 88305

== ENCOUNTER 2021-03-03 09:23 | Emergency (ER) | payer MEDICAID, SELFPAY ==
--- NOTE | ~2021-03-03 | CT_ITS ---
EXAMINATION: CT ABDOMEN AND PELVIS WITHOUT CONTRAST CLINICAL INFORMATION: Recent diagnosis of colon cancer. Pain constipation. Evaluate for obstruction. COMPARISON: Previous CT of the abdomen and pelvis most recent January 2021 TECHNIQUE: Multidetector volumetric imaging was performed from the superior aspect of the liver through the pubic symphysis. Sagittal and coronal reformatted images were obtained on the technologist's workstation. This CT examination was performed using dose optimization techniques as appropriate, variously including the following: *Automated exposure control *Adjustment of mA and/or kV according to patient size (this includes techniques or standardized protocols for targeted exams where dose is matched to indication/reason for exam; i.e. extremities or head) *Use of iterative reconstruction technique DLP: 763 mGy-cm FINDINGS: LUNG BASES: The visualized lung bases are unremarkable. LIVER, GALLBLADDER, AND BILIARY TREE: The liver is enlarged and low in attenuation suggestive of fatty infiltration. No focal liver lesion is seen. The gallbladder is been removed. There is no biliary duct dilatation. PANCREAS: Unremarkable. SPLEEN: Unremarkable. ADRENAL GLANDS: Unremarkable. KIDNEYS AND URETERS: There are numerous small bilateral renal stones. No hydronephrosis, ureteral dilatation or ureteral stone is seen BLADDER: Unremarkable. GASTROINTESTINAL TRACT: There is mild diverticulosis of the colon. There is an area of wall thickening of the proximal sigmoid colon again concerning for neoplasm. There is a stool in the colon suggestive of mild constipation. No caliber change or transition zone is seen to suggest mechanical obstruction. Small bowel is normal in the appendix is normal. The stomach is normal. ABDOMINAL WALL: No significant hernia is appreciated. LYMPH NODES: Normal. VASCULAR: Unremarkable. PELVIC VISCERA: Unremarkable. OSSEOUS STRUCTURES: There are postsurgical changes to the spine with anterior fusion hardware from L3 to S1 and disc interspace her at L3 L4-L5. There is degenerative disc disease at L5-S1. No fracture or bone lesion is seen. CT/CT abdomen pelvis wo con IMPRESSION: Constipation. Short segment wall thickening of the proximal sigmoid colon again worrisome for neoplasm. There is no caliber change to suggest mechanical obstruction. Diverticulosis of the colon. No evidence of diverticulitis. Multiple bilateral renal stones. No hydronephrosis. Enlarged fatty liver.
[2021-03-03 09:30] VITALS: BP 118/80; PULSE 108; RESP 20; TEMP 37.1; O2SAT 99; BMI 38.6
--- NOTE | 2021-03-03 09:53 | ED_ITS ---
HPI - Abdominal Pain General Chief Complaint: Abdominal Pain Stated Complaint: Cough abdominal pain Time Seen by Provider: 03/03/21 09:39 Source: patient Mode of arrival: ambulatory Limitations: no limitations History of Present Illness HPI narrative: 85-year-old female here with complaints of lower abdominal pain which she has had for quite some time. The patient tells me that she was seen here in this emergency department on February [address] scan that was concerning for a colon mass. She had a colonoscopy done on February 25 and was diagnosed after pathology with colon cancer. She has a follow-up on March [address] Grajeda as to discuss her surgical options. She tells me for the last few days she has had worsening pain in left lower abdomen. She does have chronic constipation and was able to have small bowel movement this morning. She is on MiraLax and Colace daily. She is passing gas. She denies any nausea or vomiting or fevers or chills. also c/o dry cough. No chest pain or shortness of breath. Using inhaler with continued cough MD elicited complaint: abdominal pain Related Data Home Medications Medication Instructions Recorded Confirmed aspirin 81 mg tablet,delayed 81 mg PO DAILY 11/09/20 01/18/21 release atorvastatin 80 mg tablet 80 mg PO DAILY 11/09/20 01/18/21 furosemide 20 mg tablet 20 mg PO DAILY 11/09/20 01/18/21 levothyroxine 88 mcg capsule 88 mcg PO DAILY 11/09/20 01/18/21 metoprolol succinate 25 mg 25 mg PO BID 11/09/20 01/18/21 tablet,extended release 24 hr metformin 500 mg tablet,extended 500 mg PO DAILY 12/30/20 01/18/21 release 24 hr Previous Rx's Medication Instructions Recorded acetaminophen 650 mg 650 mg PO Q8H PRN #60 tab 09/29/20 tablet,extended release clopidogrel 75 mg tablet 75 mg PO DAILY 90 Days #90 tab 11/13/20 polyethylene glycol 3350 17 238 g PO ONCE 1 Days #238 g 02/04/21 gram/dose oral powder dicyclomine 20 mg PO BID PRN #20 tab 02/07/21 bisacodyl 5 mg tablet,delayed 20 mg PO ONCE 1 Days #4 tab 02/10/21 release bisacodyl 5 mg tablet,delayed 10 mg PO ONCE 1 Days #2 tab 02/11/21 release polyethylene glycol 3350 17 238 g PO ONCE #238 g 02/11/21 gram/dose oral powder oxycodone 5 mg PO Q6H PRN #10 tab 03/03/21 prednisone 40 mg PO DAILY #10 tab 03/03/21 Allergies Allergy/AdvReac Type Severity Reaction Status Date / Time No Known Allergies Allergy Verified 02/23/21 21:24 [No Known Allergies*] Review of Systems Review of Systems Yes all other systems are reviewed and are negative Constitutional: Reports no additional constitutional complaints, Denies body ache(s), Denies chills, Denies fever(s), Denies headache(s) and Denies weakness Eyes: Reports no additional eye complaints and Denies change in vision Reports system reviewed and no additional complaints, except as documented, Denies dizziness, Denies headache(s), Denies nasal congestion, Denies nasal discharge and Denies neck pain Cardiovascular: Reports no additional cardiovascular complaints, Denies chest pain, Denies leg edema and Denies dyspnea Respiratory: Reports no additional respiratory complaints, Reports cough and Denies dyspnea Gastrointestinal: Reports no additional gastrointestinal complaints, Reports abdominal pain, Reports constipation, Denies diarrhea, Denies nausea and Denies vomiting Genitourinary: Reports no additional female genitourinary complaints and Denies urinary incontinence Musculoskeletal: Reports no additional musculoskeletal complaints, Denies back pain, Denies arthralgias, Denies joint swelling, Denies neck pain, Denies numbness and Denies tingling Skin/Breast: Reports system reviewed and no additional complaints, except as docu and Denies rash Reports system reviewed and no additional complaints, except as documented, Denies Abnormal speech present, Denies dizziness, Denies headache(s), Denies numbness, Denies tingling and Denies weakness Physical Exam Vital Signs: Vital Signs: Last Vital Signs Temp 98.7 F 03/03/21 10:57 Pulse 97 03/03/21 10:57 Resp 20 03/03/21 10:57 BP 122/73 03/03/21 10:57 Pulse Ox 99 03/03/21 10:57 Body Mass Index 38.6 Const: General: cooperative, healthy appearing, comfortable and no acute distress Orientation/consciousness: patient oriented x3 Limitations: no limitations HENMT: Head: Yes normal to inspection Ears: hearing grossly normal bilaterally General nose exam: Normal external nose present Face and sinus: Yes normal facial exam Mouth: Normal oral and palatal mucosa present Throat: Yes posterior oropharynx normal Eyes: General: appearance normal, both eyes and all related structures Pupils: Equal, round and reactive pupils present Neck: Neck: Yes normal visual inspection Chest: Chest palpation & inspection: normal inspection of the chest Resp: Effort & Inspection: normal respiratory effort Auscultation: clear to auscultation bilaterally Cardio: Rate: regular rate Rhythm: regular rhythm Peripheral pulses: Peripheral pulses 2+ throughout GI: Inspection: Yes normal to inspection Palpation (GI): Soft to palpation and Tenderness to palpation present (GI) (Tenderness moderate left lower quadrant. No rebound or guarding) Auscultation: normal bowel sounds Back/Spine/Pelvis: Thoracic/Lumbar Spine: thoracic and lumbar spine normal to inspection Skin: General skin exam: no rashes or lesions noted Neuro: General: patient oriented x3, no focal motor deficits and normal sensation to monofilament Cranial nerves: Yes Equal, round and reactive pupils present Cognition (Neuro): normal cognition Speech: No Abnormal speech present Gait exam (Neuro): Normal gait present Motor exam (neuro): 5/5 motor strength present throughout Extrem: General: Yes normal to inspection Course Course Course Narrative: 55-year-old female here with complaints of chronic abdominal pain worsening over the last 3 days with constipation. Of note, recent diagno sis of colon cancer pending surgical appointment March 08. Here due to pain. Did have small bowel movement this morning and is passing gas and denies any nausea or vomiting. Will check CT to rule out obstruction. Provide analgesia and re-assess. Also complaining of dry cough which patient contributes to her asthma not being well controlled. She is on albuterol MDI. No shortness of breath or chest pain. Stable saturation. Will need burst of prednisone 1140- CT shows IMPRESSION: Constipation. Short segment wall thickening of the proximal sigmoid colon again worrisome for neoplasm. There is no caliber change to suggest mechanical obstruction. Diverticulosis of the colon. No evidence of diverticulitis. Multiple bilateral renal stones. No hydronephrosis. Enlarged fatty liver. Pain is improved after receiving IM narcotic. Patient does have a opiate tolerance and is on Suboxone daily. Therefore, her and I had a discussion about pain management moving forward. She tells me that Motrin and Tylenol do not work for her. She feels like her pain is not well controlled at home. We discussed prescribing a short course of oxycodone and holding her Suboxone until she can follow-up with her outpatient providers. Again, she does have an appointment to discuss her surgical options on March 08. Reviewed worrisome signs and symptoms and when to return to the emergency department. Comfortable discharge home. MDM - Abdominal Pain Differential Diagnosis Differential diagnosis: Likely small bowel obstruction Medical Records Attestation: I reviewed the patient's medical records. Lab Data Attestation: I reviewed the patient's lab results. Labs: Lab Results 03/03/21 03/03/21 Range/Units 09:58 09:58 Urine Color YELLOW Cancelled Urine Appearance CLEAR Cancelled Urine pH 6.5 Cancelled (5.0-8.0) Ur Specific [place] 1.010 Cancelled (1.005-1.025) Urine Protein NEG Cancelled (NEG-TRACE) MG/DL Urine Glucose (UA) NEG Cancelled (NEG) MG/DL Urine Ketones NEG Cancelled (NEG) MG/DL Urine Blood 2+ H Cancelled (NEG) Urine Nitrite NEG Cancelled (NEG) Ur Leukocyte Esterase NEG Cancelled (NEG) Urine RBC 30-49 H (0) /HPF Urine WBC 0-2 (0-4) /HPF Ur Squamous Epith Cells 2+ /LPF Urine Bacteria TRACE /LPF Imaging Data CT scan - abdomen: Attestation: I personally reviewed and interpreted this imaging study as follows: Radiologist's impression: IMPRESSION: Constipation. Short segment wall thickening of the proximal sigmoid colon again worrisome for neoplasm. There is no caliber change to suggest mechanical obstruction. Diverticulosis of the colon. No evidence of diverticulitis. Multiple bilateral renal stones. No hydronephrosis. Enlarged fatty liver. Discharge Plan Discharge Clinical Impression: Colon neoplasm, Constipation, Asthma Patient Disposition: Home, Self-Care Instructions: Asthma (ED), Constipation (ED), Colorectal Cancer (DC) Additional Instructions: While taking the narcotic you need to increase your MiraLax and Colace to twice daily Continue to follow-up with Dr. Warner is a scheduled You need to let your suboxone prescriber that you are taking narcotic pain medication. We are only able to give you a small supply from the emergency department and if you need more you will need to follow-up with your outpatient providers. Prescriptions: New oxycodone 5 mg tablet 5 mg PO Q6H PRN (Reason: pain) Qty: 10 RF: 0 prednisone 20 mg tablet 40 mg PO DAILY Qty: 10 RF: 0 No Action acetaminophen 650 mg tablet extended release 650 mg PO Q8H PRN (Reason: for pain) Qty: 60 RF: 1 clopidogrel 75 mg tablet 75 mg PO DAILY 90 Days Qty: 90 RF: 1 polyethylene glycol 3350 [Miralax] 17 gram/dose powder 238 g PO ONCE 1 Days Qty: 238 RF: 0 bisacodyl [Dulcolax (bisacodyl)] 5 mg tablet,delayed release (DR/EC) 20 mg PO ONCE 1 Days Qty: 4 RF: 0 bisacodyl [Dulcolax (bisacodyl)] 5 mg tablet,delayed release (DR/EC) 10 mg PO ONCE 1 Days Qty: 2 RF: 0 polyethylene glycol 3350 [Miralax] 17 gram/dose powder 238 g PO ONCE Qty: 238 RF: 0 dicyclomine 20 mg tablet 20 mg PO BID PRN (Reason: abdominal pain) Qty: 20 RF: 0 aspirin 81 mg tablet,delayed release (DR/EC) 81 mg PO DAILY RF: 0 metoprolol succinate 25 mg tablet extended release 24 hr 25 mg PO BID RF: 0 furosemide 20 mg tablet 20 mg PO DAILY RF: 0 atorvastatin 80 mg tablet 80 mg PO DAILY RF: 0 levothyroxine 88 mcg capsule 88 mcg PO DAILY RF: 0 metformin 500 mg tablet extended release 24 hr 500 mg PO DAILY RF: 0 Referrals: Ericka Phillips DO [Primary Care Provider] - 2 days Interventions: ED Discharge Assessment Last Done: 03/03/21 11:39 Discharge Date/Time: 03/03/21 11:39 [facility] Past Medical History Attestation statement: The following information was validated with the patient. Source: old records reviewed and nursing notes reviewed Medical History Adhesive capsulitis of right shoulder Back pain Bursitis of right shoulder CAD (coronary artery disease) Diabetes GERD (gastroesophageal reflux disease) Hepatitis C High cholesterol History of MRSA infection Hx of drug abuse Hyperthyroidism NSTEMI (non-ST elevated myocardial infarction) On beta tiffanie at home Surgical History History of back surgery History of umbilical hernia repair Hx of cholecystectomy Hx of heart artery stent Hx of repair of left rotator cuff Family History Family History Father No problems noted. Mother No problems noted. Social History Social History Household Members: Spouse Alcohol intake: current Alcohol intake frequency: does not drink Patient Tobacco Use Status: Former Tobacco user Cigarettes Per Day: 5 Advance Directives: No Advance Directives Information Provided: Yes Patient : No Current occupational status: disabled Current occupation: right handed
[2021-03-03] MEDS: Acetaminophen 325 MG TABLET 975 MG PO (09:55)
[2021-03-03] MEDS: oxyCODONE HCl Immed Release 5 MG TABLET PO (09:56)
[2021-03-03 10:06] LABS: Glucose Urine UA NEG (NEG); Leukocyte Esterase Urine NEG (NEG); Nitrite Urine NEG (NEG); PH 6.5 (5.0-8.0); Urine Blood 2+ (NEG); Urine Ketones NEG (NEG); Urine Protein NEG (NEG-TRACE)
[2021-03-03 10:07] LABS: Appearance Urine CLEAR; Color Urine YELLOW
[2021-03-03 10:14] LABS: Bacteria Urine TRACE /LPF; RBC Urine 30-49 /HPF (0); Squamous Epithelial Cell Urine 2+ /LPF; WBC Urine 0-2 /HPF (0-4)
[2021-03-03] MEDS: Morphine Sulfate 4 MG/ML CARTRIDGE IM (10:56)
[2021-03-03 10:57] VITALS: BP 122/73; PULSE 97; RESP 20; TEMP 37.1; O2SAT 99
== END 2021-03-03 11:39 | disposition home or self-care (01) ==
PROVIDERS: Nurse Practitioner Family; Emergency Provider Emergency Medicine; PCP Family Medicine
DX: K59.00 Constipation, unspecified (principal); C18.9 Malignant neoplasm of colon, unspecified; J45.909 Unspecified asthma, uncomplicated; E11.9 Type 2 diabetes mellitus without complications; I25.2 Old myocardial infarction; Z79.82 Long term (current) use of aspirin; Z79.84 Long term (current) use of oral hypoglycemic drugs; Z79.899 Other long term (current) drug therapy
CPT/HCPCS: 74176; 81001; 96372; 99284; J2270

== ENCOUNTER → 2021-03-08 15:17 | Outpatient (BNVA) | payer MEDICAID, SELFPAY | PROVIDERS: PCP Family Medicine; Referring Provider Family Medicine; Visit Provider Surgery | DX: K63.89 Other specified diseases of intestine (principal) | CPT/HCPCS: 99202 ==

== ENCOUNTER 2021-03-30 11:18 | Inpatient (IN) | payer MEDICAID, SELFPAY ==
--- NOTE | 2021-03-18 12:07 | HO.ANESPROP2 ---
Documented by User: Regina García NP 03/19/21 11:57 HPI - Anesthesia Eval Consult details Narrative: 55yo F for Hand Assisted Laparoscopic Bowel Resection, Poss Open, Poss Stoma Pt with NSTEMI/SAMY 2020. Remains on DAPT. Cardiac cleared at [facility], [place] to hold plavix preop. Pt denies any cardiac symptoms. >4 mets Suboxone daily. Pt with plan to stop 03/28 PMFSH Active Problems Active Problems: All Active Problems (Updated 03/04/21 @ 00:02 by Background Lisa) Colonic mass (Acute) Encounter for screening colonoscopy (Acute) On chronic clopidogrel therapy (Acute) Poor historian (Acute) Coronary artery disease (Acute) Preoperative cardiovascular examination (Acute) Adhesive capsulitis of right shoulder (Acute) Bursitis of right shoulder (Acute) Past Medical History Medical History Adhesive capsulitis of right shoulder Back pain Bursitis of right shoulder CAD (coronary artery disease) Diabetes GERD (gastroesophageal reflux disease) Hepatitis C High cholesterol History of MRSA infection Hx of drug abuse Hyperthyroidism NSTEMI (non-ST elevated myocardial infarction) On beta tiffanie at home Family History Family History Father No problems noted. Mother No problems noted. Family history of problems with anesthesia: No Surgical History Surgical History History of back surgery History of umbilical hernia repair Hx of cholecystectomy Hx of colonoscopy Hx of heart artery stent Hx of repair of left rotator cuff History of Problems with Anesthesia: No Social History Social History Household Members: Spouse Are you a primary special needs child caregiver to a significant other at home: No Do you presently have visiting nurse or other home services: No Alcohol intake: current Alcohol intake frequency: does not drink Patient Tobacco Use Status: Current someday Tobacco user Tobacco use type: Cigarette Cigarette Packs Per Day: 0 Cigarettes Per Day: 0 Years Smoked: 35 Smoked in Last 30 Days: Yes Patient Interested in Nicotine Replacement: Yes (On chantix) Patient Given Instructions on How to Stop Smoking: Yes Date Education Initiated: 03/18/21 Second Hand Smoke Exposure: Yes Use of substances other than those prescribed or required for medical reasons: No Substance Use Type Other:: Quit 13 yrs ago - On Suboxone Have you been hit, kicked, punched, or otherwise hurt by someone within the past year? If so, by whom?: No Are you DNR?: No Advance Directives: No Advance Directives Information Provided: No Advance Directives on File: No Recently lost weight without trying: No Eating poorly because of decreased appetite: No Nutrition Risks: No Nutritional Risk Patient : No Current occupational status: disabled Current occupation: right handed Narrative Narrative: No recent illness. Mild nonproductive cough r/t asthma. Will notify surgeon if cough worsens or becomes productive. No CP/SOB with activity. >4 mets (climbs 2 flights of stairs to apartment) Meds Allergies Allergy/AdvReac Type Severity Reaction Status Date / Time No Known Allergies Allergy Verified 03/30/21 06:09 [No Known Allergies*] Home Medications Medication Instructions Recorded Confirmed Last Taken Type aspirin 81 mg tablet,delayed 81 mg PO DAILY 11/09/20 03/18/21 03/23/21 History release atorvastatin 80 mg tablet 80 mg PO DAILY 11/09/20 03/18/21 Unknown History furosemide 20 mg tablet 20 mg PO DAILY 11/09/20 03/18/21 Unknown History levothyroxine 88 mcg capsule 88 mcg PO DAILY 11/09/20 03/18/21 Unknown History metoprolol succinate 25 mg 25 mg PO BID 11/09/20 03/18/21 Unknown History tablet,extended release 24 hr metformin 500 mg tablet,extended 500 mg PO DAILY 12/30/20 03/18/21 Unknown History release 24 hr buprenorphine 8 mg-naloxone 2 mg 2 film BUCCAL DAILY 03/08/21 03/18/21 03/22/21 History sublingual film (Suboxone) albuterol sulfate 1 amp INHALATION Q6H PRN 03/18/21 03/18/21 Unknown History albuterol sulfate 90 mcg/actuation 2 puff PO Q4-6H PRN 03/18/21 03/18/21 Unknown History aerosol inhaler (ProAir HFA) baclofen 10 mg tablet 1 tab PO TID PRN 03/18/21 03/18/21 Unknown History fluticasone propionate 220 2 puff PO BID 03/18/21 03/18/21 Unknown History mcg/actuation HFA aerosol inhaler (Flovent HFA) fluticasone propionate 50 2 spray INTRANASAL DAILY 03/18/21 03/18/21 Unknown History mcg/actuation nasal spray,suspension gabapentin 300 mg capsule 1 cap PO TID 03/18/21 03/18/21 Unknown History insulin glargine 100 unit/mL (3 50 unit SUBCUT DAILY 03/18/21 03/18/21 Unknown History mL) subcutaneous pen (Lantus Solostar U-100 Insulin) insulin lispro 100 unit/mL unit SUBCUT 03/18/21 Unknown History subcutaneous pen (Humalog KwikPen (U-100) Insulin) quetiapine 100 mg tablet 1 tab PO BEDTIME 03/18/21 03/18/21 Unknown History varenicline 1 mg tablet (Chantix) 1 tab PO BID 03/18/21 03/18/21 Unknown History Exam Exam Date and Time: March 18, 2021 1207 Pertinent Lab Results Pertinent Lab Results: Laboratory Tests 02/23/21 02/23/21 21:44 21:44 WBC 12.5 H Hgb 13.8 Hct 41.7 Plt Count 276 Sodium 140 Potassium 4.8 Chloride 108 Carbon Dioxide 20 L BUN 16 Creatinine 1.30 Lab Results 03/18/21 03/18/21 Range/Units 13:55 13:55 Estimat Average Glucose 214 mg/dL Hemoglobin A1c % 9.1 % Blood Type B Positive Antibody Screen NEGATIVE (Previous A1C = 11% in 2018) Narrative Narrative: EKG 02/2021 Vent. Rate : 103 BPM ? ? Atrial Rate : 103 BPM ?? P-R Int : 124 ms? QRS Dur : 070 ms ? ? QT Int : 354 ms ? ? ? P-R-T Axes : 047 054 051 degrees ?? QTc Int : 463 ms ? Sinus tachycardia Otherwise normal ECG Airway Mallampati Class: II TM Dist: >3cm Neck ROM: Full Denture: Upper Partial: Lower Heart: RRR Lungs: CTAB Assessment and Plan Assessment Anesthesia Assessment: Anesthesia Plan Discussed (Discussed increase risk for periop and post op PR and to seek medical care for any cardiac symptoms once discharged home), Smoking Cess. Discussed and PAT Visit Final Anesthetic Review Family History of Problems with Anesthesia: No History of Problems with Anesthesia: No Documented by User: Jesenia Tineo MD 03/30/21 07:02 [facility] Past Medical History Medical History Adhesive capsulitis of right shoulder Back pain Bursitis of right shoulder CAD (coronary artery disease) Diabetes GERD (gastroesophageal reflux disease) Hepatitis C High cholesterol History of MRSA infection Hx of drug abuse Hyperthyroidism NSTEMI (non-ST elevated myocardial infarction) On beta tiffanie at home Family History Family History Father No problems noted. Mother No problems noted. Surgical History Surgical History History of back surgery History of umbilical hernia repair Hx of cholecystectomy Hx of colonoscopy Hx of heart artery stent Hx of repair of left rotator cuff Social History Social History Household Members: Spouse Are you a primary special needs child caregiver to a significant other at home: No Do you presently have visiting nurse or other home services: No Alcohol intake: current Alcohol intake frequency: does not drink Patient Tobacco Use Status: Current someday Tobacco user Tobacco use type: Cigarette Cigarette Packs Per Day: 0 Cigarettes Per Day: 0 Years Smoked: 35 Smoked in Last 30 Days: Yes Patient Interested in Nicotine Replacement: Yes (On chantix) Patient Given Instructions on How to Stop Smoking: Yes Date Education Initiated: 03/18/21 Second Hand Smoke Exposure: Yes Use of substances other than those prescribed or required for medical reasons: No Substance Use Type Other:: Quit 13 yrs ago - On Suboxone Have you been hit, kicked, punched, or otherwise hurt by someone within the past year? If so, by whom?: No Are you DNR?: No Advance Directives: No Advance Directives Information Provided: No Advance Directives on File: No Recently lost weight without trying: No Eating poorly because of decreased appetite: No Nutrition Risks: No Nutritional Risk Patient : No Current occupational status: disabled Current occupation: right handed Meds Allergies Allergy/AdvReac Type Severity Reaction Status Date / Time No Known Allergies Allergy Verified 03/30/21 06:09 [No Known Allergies*] Home Medications Medication Instructions Recorded Confirmed Last Taken Type aspirin 81 mg tablet,delayed 81 mg PO DAILY 11/09/20 03/18/21 03/23/21 History release atorvastatin 80 mg tablet 80 mg PO DAILY 11/09/20 03/18/21 Unknown History furosemide 20 mg tablet 20 mg PO DAILY 11/09/20 03/18/21 Unknown History levothyroxine 88 mcg capsule 88 mcg PO DAILY 11/09/20 03/18/21 Unknown History metoprolol succinate 25 mg 25 mg PO BID 11/09/20 03/18/21 Unknown History tablet,extended release 24 hr metformin 500 mg tablet,extended 500 mg PO DAILY 12/30/20 03/18/21 Unknown History release 24 hr buprenorphine 8 mg-naloxone 2 mg 2 film BUCCAL DAILY 03/08/21 03/18/21 03/22/21 History sublingual film (Suboxone) albuterol sulfate 1 amp INHALATION Q6H PRN 03/18/21 03/18/21 Unknown History albuterol sulfate 90 mcg/actuation 2 puff PO Q4-6H PRN 03/18/21 03/18/21 Unknown History aerosol inhaler (ProAir HFA) baclofen 10 mg tablet 1 tab PO TID PRN 03/18/21 03/18/21 Unknown History fluticasone propionate 220 2 puff PO BID 03/18/21 03/18/21 Unknown History mcg/actuation HFA aerosol inhaler (Flovent HFA) fluticasone propionate 50 2 spray INTRANASAL DAILY 03/18/21 03/18/21 Unknown History mcg/actuation nasal spray,suspension gabapentin 300 mg capsule 1 cap PO TID 03/18/21 03/18/21 Unknown History insulin glargine 100 unit/mL (3 50 unit SUBCUT DAILY 03/18/21 03/18/21 Unknown History mL) subcutaneous pen (Lantus Solostar U-100 Insulin) insulin lispro 100 unit/mL unit SUBCUT 03/18/21 Unknown History subcutaneous pen (Humalog KwikPen (U-100) Insulin) quetiapine 100 mg tablet 1 tab PO BEDTIME 03/18/21 03/18/21 Unknown History varenicline 1 mg tablet (Chantix) 1 tab PO BID 03/18/21 03/18/21 Unknown History Assessment and Plan Final Anesthetic Review NPO: Yes ASA Class: III Final Preanesthetic Review: No Changes in Pt Med Stat, Meds/Allgs Chart Reviewed, Consent Obtained/Reviewed and Anes Risks/Benef Reviewed Patient Risk: Intermediate Procedure Risk: Intermediate Assessment/Block/Sedation in SS: Assess/Block/Sedation-SS Anesthetic Plan Anesthetic Plan: GA Disposition: Standard PACU
[2021-03-18 12:12] VITALS: BP 115/65; PULSE 94; RESP 20; O2SAT 97; BMI 40.5
[2021-03-18 14:33] LABS: Estimated Average Glucose 214 mg/dL; Hemoglobin A1c % 9.1 %
[2021-03-30] VITALS (47 sets, daily range): BP systolic 78–127; BP diastolic 28–90; PULSE 93–112; RESP 10–106; TEMP 36.3–37.1; O2SAT 91–98
[2021-03-30] MEDS: Lactated Ringers 1,000 ML 100 ML IVCONT (06:45)
[2021-03-30 06:49] LABS: COVID-19 Test Negative (Negative)
--- NOTE | 2021-03-30 07:26 | MHC.SHP ---
Pre-Procedural Eval Section A Date of Service: 03/30/21 Section B Chief Complaint: Colonic Mass Allergies: Allergies Allergy/AdvReac Type Severity Reaction Status Date / Time No Known Allergies Allergy Verified 03/30/21 06:09 [No Known Allergies*] Plan I have reviewed the history and physical and performed a pertinent physical examination on my patient. No changes have occurred unless specified.
[2021-03-30 08:06] LABS: Glucose, Whole Blood 213 mg/dL (60-115)
--- NOTE | 2021-03-30 11:03 | P.OP_ITS ---
Operative Note Operative Note Date of Service: 03/30/21 Narrative: Preop diagnosis: Colon cancer, at the sigmoid Postop diagnosis: Colon cancer, at the sigmoid Procedure: Hand assisted laparoscopic sigmoid resection, with extensive lysis of adhesions, partial mobilization of the splenic flexure Surgeon: Glenroy Warner MD diversional therapist's assistant: IRAM Mullen The patient is a 55-year-old female who had recently undergone colonoscopy with Dr. Walters was noted to have mass in the sigmoid at level 32 cm. Biopsies of this showed an invasive adenocarcinoma. I therefore explained to her the technique of hand assisted laparoscopic sigmoid resection, with possible stoma. I reviewed the risks including but not limited to bleeding, infections, bowel injury, anastomotic leak, injury to the urinary tract, as well as benefits and alternatives. She understood that her perioperative risks were higher than average in view of her morbid obesity. She had given consent She was brought to the operating room and placed in modified lithotomy position under general anesthesia via endotracheal tube. We made sure that all pressure points on the extremities were protected. A surgical time-out was done. The patient received Cefotan 2 g IV preoperatively. A Sharma catheter was inserted. The abdomen and the perianal area were prepped and draped in the usual sterile fashion. I made a short low midline incision using blade 10 and this was carried down through the full-thickness of the skin and subcutaneous fat. The patient was morbidly obese so we had to go through very thick layer of subcutaneous fat before able to visualize the fascia. The fascia was incised. This was also lengthen to optimize the skin incision. The peritoneum was entered therefore. Immediately, we had noticed a lot of adhesions in the lower abdomen on both sides and this specially in the right side. The patient likely had a hysterectomy in the past as there was note of very dense adhesions. I carefully released the adhesions with electrocautery just enough so we could apply the Anson wound retractor. The Anson wound retractor and the GelPort were placed. We insufflated to a pressure of 15 mmHg through port on the GelPort. At this point, using a 30 degree angled scope. We were able to see most of the right lower quadrant please so I was able to insert 5 soft with male port through this via small stab incision. Examination of the rest of the abdomen showed very dense adhesions as well in the epigastric area and the right upper quadrant from her previous open cholecystectomy. I had to therefore angle the laparoscope to allow as to see the epigastric area clearly. I was able to see a window were in I safely could another 5 says mm port. I then moved the camera to this epigastric port. I examined the lower abdomen. Again there was note of dense adhesions in the pelvis. With my hand through the GelPort, proceeded to apply traction and counter traction to allow me to divide this adherent omentum from the pelvis. The patient at this point is being placed in head-down position to retract the bowel loops away from the pelvis. This part of the procedure took an extended period time because of the amount of dense adhesions. With careful dissection using the [place] LigaSure, I was able to achieve enough visualization of the lower abdomen to allow me to visualize the sigmoid and the rectum. The tattooed marking on the sigmoid at what appeared to be the mid sigmoid was noted. I was able to feel a bulky mass in this area as well. The sigmoid was looped on itself and was elongated. The area of the tattoo along with the bulky mass was also very adherently connected to the left pelvic sidewall. I therefore had to carefully divide the peritoneum of the pelvic sidewall adjacent to this segment of the sigmoid to allowed me to mobilize this and make sure that we have enough radial margins. There was note of was what appeared to be inflammatory versus desmoplastic changes on this segment so we had to carefully divide the attachments away from the radial margins of the sigmoid itself. This part of the procedure also took an extended period of time. Eventually, I was able to release this segment of sigmoid from the pelvic sidewall. I was able to pull it up and define this. I was able to see a lot more adhesions involving omentum to the area distal to the tumor. We had to do a lot more lysis of adhesions to separate this omentum off of the distal sigmoid. Eventually was able to reflect the omentum off of the distal sigmoid and achieve better visualization of the rectosigmoid margin At this point with the patient in head-down position and right side up position, I then proceeded to divide the ligamentous attachments along the white line of Toldt of the sigmoid and the left colon. We continued with dissection using the [place] LigaSure. I proceeded to separate the left colon from the retroperitoneum all the way to part of the splenic flexure to allow me to be able to bring this segment down and reach the pelvis for anastomosis. We carefully proceeded with this dissection, dividing more of the filamentous attachments of the left colon with the LigaSure off of the retroperitoneum. Eventually, I felt that we had adequate mobilization and enough length to allow as an some anastomosis. I had to divide more of the attachments of the sigmoid to the left pelvic sidewall with the LigaSure. I continued with the dissection on the lateral margin of there rectal sigmoid to allow more visualization distally Furthermore, the sigmoid was looped on itself in the distal sigmoid so we had to separate these adhesions with careful this section with him LigaSure to separate these loops from each other. Eventually was able to gain more length. I tested the length of the mobilized colon by bringing this down into the pelvis and appeared that we would be able to create a good end-to-end anastomosis all the way to the distal sigmoid from the left colon or proximal sigmoid. I therefore chose a point of resection in the very distal sigmoid. I incised the peritoneal lining on this segment. I created a mesenteric window. I then used an Endo-LUIS 60 linear stapler through the right lower quadrant port to divide this segment I then proceeded to use my point of dissection proximally. I created a mesenteric window on clear area of the proximal sigmoid/left colon and used an Endo-LUIS 60 mm stapler to divide this as well I then marked my planned line of dissection on the mesentery using the LigaSure to incise the peritoneum on the medial surface. I then serially divided the attached mesentery using the LigaSure, alternating sometimes from proximal to distal, following my marking earlier to make sure that we were including an adequate lymph node basin. I was able to then reach what appeared to be a pedicle so I dissected this carefully until I was able to apply the LigaSure across this. This was also divided. I observed for hemostasis. There seemed to be some oozing areas which I controlled with the LigaSure. I then proceeded to retrieve this sigmoid colon. I marked the proximal side and this was sent for immediate gross exam I replaced the ports including the GelPort. We examined both staple lines carefully. I brought down the proximal staple line down to the pelvis and the seemed to reach adequately I therefore had a 1st psychiatric technician assistant IRAM Mullen advance 25 mm dilator through the rectum and were able to follow this all the way to the staple line. We replaced this with the 28 mm stapler and this appeared to advance well with any problems although there was some angulation in the promontory. I then proceeded to prepare the proximal stump for anastomosis. I desufflated and removed the GelPort. I excised the staple line to enter the lumen. I created a pursestring using a Prolene 3-0 stitch. I used a 28 mm anvil and this was positioned into the lumen. The pursestring was tied and made snug around the anvil. This stump appeared to be viable and nonischemic. I replaced the anvil back into the peritoneal cavity. I replaced the GelPort. We then had the 1st psychiatric technician assistant advance the 28 mm EEA apparatus throughthe anus, into the rectum following the sacral promontory all the way to the very beginning of the long stump. The spike was activated on the anterior margin of the staple line. I connected the anvil into the spike and locked this into place. We gradually tighten the circular stapler, with care being taken so as to make sure that we were not catching any other bowel loop nor mesentery within the circular stapler. We were therefore directly visualizing as we tightened the staple line. I examined staple line as this was tightened. Once we confirmed that there was no bowel entrapped and that the circular stapler in good position, this was fired. The EEA stapler was then pulled out gently. I examined the anastomotic donuts and both appeared to be intact and complete I repositioned the GelPort. I immersed the staple line in irrigation fluid and had the 1st psychiatric technician assistant insufflate through the rectum with the bulb syringe until we were able to clearly see distension of the left colon. There was no bubbling from the staple line. I suctioned out the irrigant fluid. I then examined all 4 quadrants. Once we had observed good hemostasis on the area of dissection in the left side, proceeded to then desufflate through the port sites. We then removed all ports. I then incision the omentum into the lower abdomen. I removed the Anson wound retractor. I closed the fascia with the running Maxon 1 stitch. All skin incisions were then closed with skin olive All incisions were infiltrated with Marcaine 0.5% for postop analgesia. Dressings were applied and the procedure was completed The patient tolerated procedure well. There were no complication noted. Initial fine counts of sponges and instruments were correct. Estimated blood loss about 100 cc The patient is extubated without difficulty and transferred to recovery room with stable vital signs. Prior to completion of the case, we discussed the immediate gross exam of the specimen with the pathologist, Dr. Gilliland. There were more adequate proximal distal margins. He stated the radial margin appeared close so I removed more of this on the peritoneal side on the left sidewall and this was sent as additional radial margins.
--- NOTE | 2021-03-30 11:16 | P.BOP_ITS ---
Brief Operative Note Date of Service: 03/30/21 Pre-op diagnosis: colon CA Post-op diagnosis: same Procedure: hand assisted laparoscopic sigmoid resection Surgeon: AZRA MATHEWS MD Anesthesia: GETA Was an Chief Cloth Finishing Range Operator used for this Procedure?: No Chief Cloth Finishing Range Operator: Alia Mullen Estimated blood loss (mL): 300 Pathology: other (sigmoid) Condition: stable Disposition: PACU
[2021-03-30] MEDS: HYDROmorphone HCl 0.5 MG/0.5 ML SYRINGE IVPUSH ×9 (11:18→16:59)
--- NOTE | 2021-03-30 11:23 | P.BOP_ITS ---
Brief Operative Note Date of Service: 03/30/21 Pre-op diagnosis: Sigmoid cancer Post-op diagnosis: same Procedure: Hand assisted laparoscopic sigmoid resection Surgeon: Glenroy Warner MD Anesthesia: GETA Was an Cryptologic Support Specialist used for this Procedure?: Yes Cryptologic Support Specialist: Alia Mullen Estimated blood loss (mL): 100 Pathology: other (1. Sigmoid 2. Additional radial margin ) Condition: stable Disposition: PACU
[2021-03-30] MEDS: fentaNYL citrate/PF 100 MCG/2 ML VIAL 50 MCG IVPUSH ×2 (13:22→13:29)
[2021-03-30] MEDS: Lactated Ringers 1,000 ML 80 ML IVCONT (13:53)
[2021-03-30] MEDS: LORazepam 2 MG/ML VIAL 1 MG IVPUSH (14:04)
[2021-03-30] MEDS: 0.9 % Sodium Chloride Flush 3 ML SYRINGE IVFLUSH (16:22)
[2021-03-30 16:32] LABS: Glucose, Whole Blood 259 mg/dL (60-115)
--- NOTE | 2021-03-30 16:35 | P.CONCC_ITS ---
History of Present Illness Data of Consult Service Date: 03/30/21 Requesting physician: Glenroy Warner Primary Care Provider: DO JOSE ELIAS Montenegro Reason for consult: Suboxone dependent with difficult pain control 55-year-old obese type 2 diabetic and replaced hypothyroid with history of coronary disease and cardiac stent on clopidogrel and aspirin with underlying hypertension and now status post sigmoid resection for carcinoma done laparoscopically and has been off of her Suboxone and having difficulty with pain control but long periods of apnea and oxygen desaturation after narcotic Review of Systems Review of Systems: Abdominal pain noted in the hypogastric am with positive colonoscopy for sigmoid carcinoma now status post resection Most importantly no history of exertional nor recumbent dyspnea nor premature chest discomfort and no history of sleep apnea Yes all other systems are reviewed and are negative [facility] Past Medical History Medical History (Updated 03/30/21 @ 16:40 by Jaiden August MD) Adhesive capsulitis of right shoulder Back pain Bursitis of right shoulder CAD (coronary artery disease) Diabetes Diabetes mellitus GERD (gastroesophageal reflux disease) Hepatitis C High cholesterol History of MRSA infection Hx of drug abuse Hypertensive cardiovascular disease Hyperthyroidism Hypothyroidism NSTEMI (non-ST elevated myocardial infarction) On beta tiffanie at home Family History Family History Father No problems noted. Mother No problems noted. Surgical History Surgical History (Updated 03/30/21 @ 16:40 by Jaiden August MD) History of back surgery History of umbilical hernia repair Hx of cholecystectomy Hx of colonoscopy Hx of heart artery stent Hx of repair of left rotator cuff Stented coronary artery Social History Social History Household Members: Spouse Are you a primary long term care social worker to a significant other at home: No Do you presently have visiting nurse or other home services: No Alcohol intake: current Alcohol intake frequency: does not drink Patient Tobacco Use Status: Current someday Tobacco user Tobacco use type: Cigarette Cigarette Packs Per Day: 0 Cigarettes Per Day: 0 Years Smoked: 35 Smoked in Last 30 Days: Yes Patient Interested in Nicotine Replacement: Yes (On chantix) Patient Given Instructions on How to Stop Smoking: Yes Date Education Initiated: 03/18/21 Second Hand Smoke Exposure: Yes Use of substances other than those prescribed or required for medical reasons: No Substance Use Type Other:: Quit 13 yrs ago - On Suboxone Currently Displaying Signs/Symptoms of Drug Intoxication Withdrawal: No Have you been hit, kicked, punched, or otherwise hurt by someone within the past year? If so, by whom?: No Are you DNR?: No Advance Directives: No Advance Directives Information Provided: No Advance Directives on File: No Do you have thoughts of harming others: None Do you have a plan to hurt others: No Plan Recently lost weight without trying: No Eating poorly because of decreased appetite: No Nutrition Risks: No Nutritional Risk Patient : No Current occupational status: disabled Current occupation: right handed Meds Allergies Allergy/AdvReac Type Severity Reaction Status Date / Time No Known Allergies Allergy Verified 03/30/21 06:09 [No Known Allergies*] Active Medications: Current Medications Generic Name Dose Route Start Last Admin Trade Name Freq PRN Reason Stop Dose Admin Albuterol Sulfate 2.5 mg 03/30/21 06:08 Albuterol Sulfate (0.083%) 2.5 Mg/3 Ml Vial.Neb INHALE ONCE PRN Shortness of Breath/Wheezing Albuterol Sulfate 2.5 mg 03/30/21 15:33 Albuterol Sulfate (0.083%) 2.5 Mg/3 Ml Vial.Neb INHALE Q6H PRN Wheezing Albuterol Sulfate 2 puff 03/30/21 15:33 Albuterol Sulfate 90 Mcg 8 Gm Inhaler INHALE Q4H PRN wheezing Aspirin 81 mg 03/31/21 09:00 Aspirin Enteric Coated 81 Mg Tablet. PO DAILY [facility] Atorvastatin Calcium 80 mg 03/31/21 09:00 Atorvastatin Calcium 80 Mg Tablet PO DAILY [facility] Dextrose 25 gm 03/30/21 11:26 Dextrose 50 % 25 Gm/50 Ml Vial IVPUSH Q15M PRN per Hypoglycemia Standing Ord. Protocol Fluticasone Propionate 2 puff 03/30/21 20:00 Fluticasone Propionate 250 Mcg Blst.W.Dev INHALE RBID [facility] Fluticasone Propionate 2 spray 03/31/21 09:00 Fluticasone Propionate Nasal 16 Gm [place] NOSTRIL-B DAILY [facility] Glucose 15 gm 03/30/21 11:26 Glucose Gel 15 Gm Gel..Gram. PO Q15M PRN per Hypoglycemia Standing Ord. Protocol Heparin Sodium (Porcine) 5,000 unit 03/31/21 12:00 Heparin Sodium,Porcine 5,000 Unit/Ml Vial SUBCUT Q12H DARCY Hydromorphone HCl 0.5 mg 03/30/21 13:14 Hydromorphone Hcl 0.5 Mg/0.5 Ml Syringe IVPUSH Q3H PRN Pain, Severe (Pain Scale 7-10) Protocol Lactated Ringer's 1,000 mls @ 125 mls/hr 03/30/21 11:30 03/30/21 16:29 Lr IVCONT 500 mls/hr .Q8H DARCY Infusion Acetaminophen 1,000 mg in 100 mls @ 400 mls/hr 03/30/21 11:30 03/30/21 14:15 Ofirmev IV Infused Q6H [facility] Infusion Lactated Ringer's 500 mls @ 999 mls/hr 03/30/21 16:45 Lr IV 03/30/21 17:15 .Q31M [facility] Insulin Human Lispro 0 unit 03/30/21 11:30 03/30/21 15:39 Insulin Lispro 100 Unit/Ml 3 Ml Vial SUBCUT Not Given QIDACHS [facility] Protocol Levothyroxine Sodium 37.5 mcg 03/31/21 06:00 Levothyroxine Sodium 100 Mcg/5 Ml Vial IVPUSH DAILY@0600 [facility] Ondansetron HCl 4 mg 03/30/21 11:20 Ondansetron Hcl 4 Mg/2 Ml Vial IVPUSH Q8H PRN Nausea and Vomiting Quetiapine Fumarate 100 mg 03/30/21 21:00 Quetiapine Fumarate 100 Mg Tablet PO BEDTIME [facility] Sodium Chloride 3 ml 03/30/21 16:00 03/30/21 16:22 0.9 % Sodium Chloride Flush 3 Ml Syringe IVFLUSH 3 ml [facility] Administration Sodium Chloride 3 ml 03/31/21 00:00 0.9 % Sodium Chloride Flush 3 Ml Syringe IVFLUSH QSTHE [facility] Home Medications Medication Instructions Recorded Confirmed Last Taken Type aspirin 81 mg tablet,delayed 81 mg PO DAILY 11/09/20 03/18/21 03/23/21 History release atorvastatin 80 mg tablet 80 mg PO DAILY 11/09/20 03/18/21 Unknown History furosemide 20 mg tablet 20 mg PO DAILY 11/09/20 03/18/21 Unknown History levothyroxine 88 mcg capsule 88 mcg PO DAILY 11/09/20 03/18/21 Unknown History metoprolol succinate 25 mg 25 mg PO BID 11/09/20 03/18/21 Unknown History tablet,extended release 24 hr metformin 500 mg tablet,extended 500 mg PO DAILY 12/30/20 03/18/21 Unknown History release 24 hr buprenorphine 8 mg-naloxone 2 mg 2 film BUCCAL DAILY 03/08/21 03/18/21 03/22/21 History sublingual film (Suboxone) albuterol sulfate 1 amp INHALATION Q6H PRN 03/18/21 03/18/21 Unknown History albuterol sulfate 90 mcg/actuation 2 puff PO Q4-6H PRN 03/18/21 03/18/21 Unknown History aerosol inhaler (ProAir HFA) baclofen 10 mg tablet 1 tab PO TID PRN 03/18/21 03/18/21 Unknown History fluticasone propionate 220 2 puff PO BID 03/18/21 03/18/21 Unknown History mcg/actuation HFA aerosol inhaler (Flovent HFA) fluticasone propionate 50 2 spray INTRANASAL DAILY 03/18/21 03/18/21 Unknown History mcg/actuation nasal spray,suspension gabapentin 300 mg capsule 1 cap PO TID 03/18/21 03/18/21 Unknown History insulin glargine 100 unit/mL (3 50 unit SUBCUT DAILY 03/18/21 03/18/21 Unknown History mL) subcutaneous pen (Lantus Solostar U-100 Insulin) insulin lispro 100 unit/mL unit SUBCUT 03/18/21 Unknown History subcutaneous pen (Humalog KwikPen (U-100) Insulin) quetiapine 100 mg tablet 1 tab PO BEDTIME 03/18/21 03/18/21 Unknown History varenicline 1 mg tablet (Chantix) 1 tab PO BID 03/18/21 03/18/21 Unknown History Physical Exam Vital Signs: Vital Signs: Last Vital Signs Temp 97.3 F 03/30/21 15:40 Pulse 105 H 03/30/21 15:40 Resp 106 H 03/30/21 15:40 BP 102/57 L 03/30/21 15:40 Pulse Ox 95 03/30/21 15:40 Body Mass Index 40.5 Currently awake and alert but on Ringer's lactate 80 cc/hour with blood pressure 80/50 with sinus tachycardia and of course complaining of pain Alert oriented x3 and nonfocal neurologically Abdomen is silent and distended Cardiac exam with no gallops no murmurs no neck vein distension and good bilateral carotid upstrokes Chest without adventitious sounds Assessment and Plan (1) On chronic clopidogrel therapy: Status: Acute (2) Coronary artery disease: Status: Acute (3) Stented coronary artery: Status: Acute (4) Colonic mass: Status: Acute (5) Diabetes mellitus: Status: Acute (6) Hypertensive cardiovascular disease: Status: Acute (7) Hypothyroidism: Status: Acute Will observe after some hydromorphone for pain control and because of anastomosis surgery wishes that we not use any nonsteroidals and if we do have apneic issues we might initiate CPAP
[2021-03-30] MEDS: Lactated Ringers 500 ML 999 ML IV (16:36)
[2021-03-30] MEDS: Insulin Lispro 100 UNIT/ML 3 ML VIAL SUBCUT ×2 (16:40→22:21)
--- NOTE | 2021-03-30 16:49 | PM.EVENT ---
Event Note Date of Service: 03/30/21 Event Note: Patient seen multiple times postop She underwent hand assisted laparoscopic sigmoid resection with extensive lysis of adhesions for colon cancer Has had very poor pain control immediately postop Has required large amounts of narcotics Some decrease in O2 sats, blood pressure her for noticed Patient is on Suboxone at home In view of this, I discussed case with the data architect manager It is best for the patient to stay in the ICU overnight in view of high narcotic requirements Family updated - Ana Aguillonvedo, sister [phone]
[2021-03-30] MEDS: Fluticasone Propionate 250 MCG BLST.W.DEV 2 PUFF INHALE (19:58)
[2021-03-30] MEDS: QUEtiapine Fumarate 100 MG TABLET PO (20:24)
[2021-03-30] MEDS: Morphine Sulfate 2 MG/ML CARTRIDGE IVPUSH (20:25)
[2021-03-30] MEDS: Lactated Ringers 1,000 ML 125 ML IVCONT (20:27)
[2021-03-30] MEDS: Morphine Sulfate 2 MG/ML CARTRIDGE 1 MG IVPUSH (20:47)
[2021-03-30 21:32] LABS: Glucose, Whole Blood 210 mg/dL (60-115)
[2021-03-30] MEDS: Lactated Ringers 1,000 ML 999 ML IV (22:16)
[2021-03-31] VITALS (17 sets, daily range): BP systolic 89–137; BP diastolic 47–89; PULSE 99–109; RESP 14–20; TEMP 36.1–36.8; O2SAT 92–98; BMI 40.4
[2021-03-31] MEDS: HYDROmorphone HCl 0.5 MG/0.5 ML SYRINGE IVPUSH ×5 (02:25→22:15)
[2021-03-31] MEDS: Lactated Ringers 1,000 ML 125 ML IVCONT ×3 (03:32→15:28)
[2021-03-31 05:25] LABS: MANUAL DIFF FLAG NO
[2021-03-31 05:29] LABS: Basophils Percent Auto 0.2 % (0-2); Eosinophils Percent Auto 0.1 % (0-4); Hematocrit 32.4 % (37-47); Hemoglobin 10.4 g/dl (12.0-16.0); Imm Gran Abs Auto 0.04 X10*3/uL (0.00-0.03); Imm Gran Pct Auto 0.4 % (0.0-0.4); Lymphocytes Absolute Auto 1.7 X10*3/uL (1.2-4.9); Lymphocytes Percent Auto 17.3 % (20-40); Mean Corpuscular HGB Conc 32.1 g/dl (31.0-35.0); Mean Corpuscular Hemoglobin 29.3 pg (27.0-33.0); Mean Corpuscular Volume 91.3 fL (80-98); Mean Platelet Volume 11.2 fL (9.4-12.3); Monocytes Absolute Auto 0.8 X10*3/uL (0.1-1.2); Monocytes Percent Auto 8.6 % (2-11); Neutrophils Absolute Auto 7.2 X10*3/uL (2.0-8.3); Neutrophils Percent Auto 73.4 % (45-73); Platelet Count 204 X10*3/uL (160-400); Red Blood Count 3.55 X10*6/uL (4.20-5.50); Red Cell Distribution Width 13.3 % (11.0-16.0); White Blood Count 9.8 X10*3/uL (4.8-10.8)
[2021-03-31 05:29] LABS: VBG Base Excess -4.9 mmol/L; VBG HCO3 18 mmol/L (22-26); VBG pCO2 27 mmHg; VBG pH 7.42 (7.32-7.43); VBG pO2 67 mmHg
[2021-03-31 05:59] LABS: Anion Gap 12 (12-20); Blood Urea Nitrogen 17 mg/dL (9-16); Calcium 8.2 mg/dL (8.4-10.2); Carbon Dioxide 18 mmol/L (22-29); Chloride 114 mmol/L (96-108); Creatinine Clr Calc Pharmacy 80.1; Estimated Glomerular Filt Rate > 60; Glucose Random 119 mg/dL (60-115); Potassium 4.1 mmol/L (3.3-5.1); Sodium 140 mmol/L (135-145)
[2021-03-31] MEDS: Levothyroxine Sodium 100 MCG VIAL 37.5 MCG IVPUSH (06:11)
--- NOTE | 2021-03-31 06:42 | PM.CCPN ---
Subjective Subjective Date of Service: 03/31/21 Interval History: 55-year-old female now 1 day status post laparoscopic sigmoid resection for carcinoma which was uncomplicated but brought to the ICU because of difficulty with pain control She was on an outpatient Suboxone program which she has not taken for several days because she has been on oxycodone and and she required a lot of combined fentanyl and hydromorphone and they gave her Ativan as well because they thought there was a superimposed anxiety and she was having apneic periods that was completely resolved overnight she has been either exclusively on hydromorphone or instead morphine doing well no hypoxia blood pressure currently 114/62 just repaired on IV fluids Just has a mild hyperchloremic metabolic acidosis which is a non gap acidosis with preserved renal function Tolerating clear liquids and diet will be advanced by surgery Critical Care Time (minutes): 25 Physical Exam Vital Signs: Vital Signs: Last Vital Signs Temp 98.2 F 03/31/21 03:49 Pulse 106 H 03/31/21 05:53 Resp 14 03/31/21 05:53 BP 115/57 L 03/31/21 05:53 Pulse Ox 97 03/31/21 05:53 Body Mass Index 40.4 Awake alert and oriented and nonfocal neurologically Lungs clear bilaterally no adventitious sounds Abdomen obese and no audible bowel sounds but soft no organomegaly Skin intact Cardiac exam with good bilateral carotid upstrokes and symmetric and no neck vein distension and no gallops Objective Data Labs CBC & Chem 7: 03/31/21 05:18 03/31/21 05:18 Labs: Laboratory Results - last 24 hr 03/30/21 03/30/21 03/30/21 06:18 06:24 16:26 WBC RBC Hgb Hct MCV MCH MCHC RDW Plt Count MPV Immature Gran % (Auto) Neut % (Auto) Lymph % (Auto) Mcpherson % (Auto) Eos % (Auto) Baso % (Auto) Lymph # (Auto) Mcpherson # (Auto) Eos # (Auto) Baso # (Auto) Abs Immat Gran (auto) Absolute Neuts (auto) Absolute Nucleated RBC Nucleated RBC % (auto) VBG pH VBG pCO2 VBG pO2 VBG HCO3 VBG O2 Saturation VBG Base Excess Sodium Potassium Chloride Carbon Dioxide Anion Gap BUN Creatinine Estim Creat Clear Calc Estimated GFR POC Glucose 213 H 259 H Random Glucose Calcium COVID-19 (MYKE) Negative COVID-19 Clin Com See Note 03/30/21 03/31/21 03/31/21 21:03 05:18 05:18 WBC 9.8 RBC 3.55 L D Hgb 10.4 L D Hct 32.4 L D MCV 91.3 MCH 29.3 MCHC 32.1 RDW 13.3 Plt Count 204 D MPV 11.2 Immature Gran % (Auto) 0.4 Neut % (Auto) 73.4 H Lymph % (Auto) 17.3 L Mcpherson % (Auto) 8.6 Eos % (Auto) 0.1 Baso % (Auto) 0.2 Lymph # (Auto) 1.7 Mcpherson # (Auto) 0.8 Eos # (Auto) 0.0 Baso # (Auto) 0.0 Abs Immat Gran (auto) 0.04 H Absolute Neuts (auto) 7.2 Absolute Nucleated RBC 0.000 Nucleated RBC % (auto) 0.0 VBG pH VBG pCO2 VBG pO2 VBG HCO3 VBG O2 Saturation VBG Base Excess Sodium 140 Potassium 4.1 Chloride 114 H Carbon Dioxide 18 L Anion Gap 12 BUN 17 H Creatinine 0.97 Estim Creat Clear Calc 80.1 Estimated GFR > 60 POC Glucose 210 H Random Glucose 119 H D Calcium 8.2 L D COVID-19 (MYKE) COVID-[employer] 03/31/21 05:20 WBC RBC Hgb Hct MCV MCH MCHC RDW Plt Count MPV Immature Gran % (Auto) Neut % (Auto) Lymph % (Auto) Mcpherson % (Auto) Eos % (Auto) Baso % (Auto) Lymph # (Auto) Mcpherson # (Auto) Eos # (Auto) Baso # (Auto) Abs Immat Gran (auto) Absolute Neuts (auto) Absolute Nucleated RBC Nucleated RBC % (auto) VBG pH 7.42 VBG pCO2 27 VBG pO2 67 VBG HCO3 18 L VBG O2 Saturation 91.0 VBG Base Excess -4.9 Sodium Potassium Chloride Carbon Dioxide Anion Gap BUN Creatinine Estim Creat Clear Calc Estimated GFR POC Glucose Random Glucose Calcium COVID-19 (MYKE) COVID-19 [employer] Quality Stroke Does the patient have a stroke diagnosis?: No VTE Prior VTE?: No VTE Risk Level:: Medical - moderate - high VTE Device Contraindication: Treatment Not Indicated VTE Drug Contraindication: N/A - Med Ordered Progress Note: A&P Assessment and plan (1) Hypothyroidism: Status: Acute (2) Hypertensive cardiovascular disease: Status: Acute (3) Diabetes mellitus: Status: Acute (4) Stented coronary artery: Status: Acute (5) On chronic clopidogrel therapy: Status: Acute (6) Coronary artery disease: Status: Acute (7) Colonic mass: Status: Acute Assessment and Plan: Plan is to transfer to the floor and have diet advanced and activity advanced per surgery and Pain Management hopefully with tapering opioids and and a return to her buprenorphine
[2021-03-31 06:56] LABS: Venous Blood Gas Refer to POC result
--- NOTE | 2021-03-31 07:12 | PC.NURSE ---
Assumed care of pt at 1900. Pt A&O x3. Was asking for morphine instead of dilaudid for pain control. Provider Inés WALDEN at bedside and spoke to pt. Pt received a dose of morphine 2 mg IV but was still having 8/10 pain. Another 1 mg IV given and pt had good effect but BP dropped. Pt received 1 liter LR IV bolus. Pt also received seroquel at HS and was in a deep sleep with low Bp's. O2 sats dropped to low 80's while asleep and o2 was applied at 2L via NC with good response. There is a question of sleep apnea. Monitor showed SR-ST, 80-110, no ectopy. U/O good via gallegos cath, dilute urine 200-400 ml/hr. LR infusing at 125 ml/hr. Exercise Rider Dr August in this morning and orders given to tx pt to med-surg. Report given to Sharda QUEVEDO and pt transferred to room 354 at 0700.
[2021-03-31 07:59] LABS: Glucose, Whole Blood 127 mg/dL (60-115)
[2021-03-31] MEDS: Atorvastatin Calcium 80 MG TABLET PO (09:43)
[2021-03-31] MEDS: Aspirin Enteric Coated 81 MG TABLET.DR PO (09:43)
[2021-03-31] MEDS: Heparin Sodium,Porcine 5,000 UNIT/ML VIAL 5000 UNIT SUBCUT (11:29)
--- NOTE | 2021-03-31 11:55 | PM.PNGS ---
Subjective Subjective Date of Service: 04/01/21 Interval history: Was sent to the ICU postop for pain management as she was requiring high doses of narcotics Had good pain control overnight Transferred to the regular floor this morning She says she feels well Denies flatus Physical Exam Vital Signs: Vital Signs: Last Vital Signs Temp 96.9 F 03/31/21 11:46 Pulse 103 H 03/31/21 11:46 Resp 16 03/31/21 11:46 BP 134/67 03/31/21 11:46 Pulse Ox 96 03/31/21 11:46 Body Mass Index 40.4 Const: Other: Chemistry 03/31/21 05:18 Sodium 140 Potassium 4.1 Carbon Dioxide 18 L BUN 17 H Creatinine 0.97 Calcium 8.2 L D Hematology 03/31/21 05:18 WBC 9.8 Hgb 10.4 L D Plt Count 204 D General: comfortable and no acute distress Resp: Effort & Inspection: normal respiratory effort Cardio: Rate: regular rate GI: Other: Soft, no guarding or rebound, incisions tender but clean Procedures Date of Service Date of Service: 03/31/21 Progress Note: A&P Assessment and plan (1) Colon cancer: Status: Acute Assessment and Plan: Status post sigmoid resection Now with better control Ambulate Keep on clear liquids Incentive spirometry Continue pain management Await return of GI functions Followed the hospitalist service in view of multiple medical problems Fall Risk Details Current Medications: Current Medications Generic Name Dose Route Start Last Admin Trade Name Freq PRN Reason Stop Dose Admin Albuterol Sulfate 2.5 mg 03/30/21 06:08 Albuterol Sulfate (0.083%) 2.5 Mg/3 Ml Vial.Neb INHALE ONCE PRN Shortness of Breath/Wheezing Albuterol Sulfate 2.5 mg 03/30/21 15:33 Albuterol Sulfate (0.083%) 2.5 Mg/3 Ml Vial.Neb INHALE Q6H PRN Wheezing Albuterol Sulfate 2 puff 03/30/21 15:33 Albuterol Sulfate 90 Mcg 8 Gm Inhaler INHALE Q4H PRN wheezing Aspirin 81 mg 03/31/21 09:00 03/31/21 09:43 Aspirin Enteric Coated 81 Mg Tablet. PO 81 mg DAILY DARCY Administration Atorvastatin Calcium 80 mg 03/31/21 09:00 03/31/21 09:43 Atorvastatin Calcium 80 Mg Tablet PO 80 mg DAILY DARCY Administration Dextrose 25 gm 03/30/21 11:26 Dextrose 50 % 25 Gm/50 Ml Vial IVPUSH Q15M PRN per Hypoglycemia Standing Ord. Protocol Fluticasone Propionate 2 puff 03/30/21 20:00 03/31/21 08:16 Fluticasone Propionate 250 Mcg Blst.W.Dev INHALE Not Given RBID [facility] Fluticasone Propionate 2 spray 03/31/21 09:00 03/31/21 10:55 Fluticasone Propionate Nasal 16 Gm [place] NOSTRIL-B Not Given DAILY [facility] Glucose 15 gm 03/30/21 11:26 Glucose Gel 15 Gm Gel..Gram. PO Q15M PRN per Hypoglycemia Standing Ord. Protocol Heparin Sodium (Porcine) 5,000 unit 03/31/21 12:00 03/31/21 11:29 Heparin Sodium,Porcine 5,000 Unit/Ml Vial SUBCUT 5,000 unit Q12H DARCY Administration Hydromorphone HCl 0.5 mg 03/30/21 13:14 03/31/21 09:42 Hydromorphone Hcl 0.5 Mg/0.5 Ml Syringe IVPUSH 0.5 mg Q3H PRN Administration Pain, Severe (Pain Scale 7-10) Protocol Lactated Ringer's 1,000 mls @ 125 mls/hr 03/30/21 11:30 03/31/21 11:21 Lr IVCONT 125 mls/hr .Q8H DARCY Administration Acetaminophen 1,000 mg in 100 mls @ 400 mls/hr 03/30/21 11:30 03/31/21 11:21 Ofirmev IV 400 mls/hr Q6H D[facility]Y Administration Insulin Human Lispro 0 unit 03/30/21 11:30 03/31/21 09:55 Insulin Lispro 100 Unit/Ml 3 Ml Vial SUBCUT Not Given QIDACHS [facility] Protocol Levothyroxine Sodium 37.5 mcg 03/31/21 06:00 03/31/21 06:11 Levothyroxine Sodium 100 Mcg Vial IVPUSH 37.5 mcg DAILY@0600 DARCY Administration Ondansetron HCl 4 mg 03/30/21 11:20 Ondansetron Hcl 4 Mg/2 Ml Vial IVPUSH Q8H PRN Nausea and Vomiting Quetiapine Fumarate 100 mg 03/30/21 21:00 03/30/21 20:24 Quetiapine Fumarate 100 Mg Tablet PO 100 mg BEDTIME DARCY Administration Sodium Chloride 3 ml 03/30/21 16:00 03/31/21 09:55 0.9 % Sodium Chloride Flush 3 Ml Syringe IVFLUSH Not Given QSHIFT DARCY Sodium Chloride 3 ml 03/31/21 00:00 03/31/21 09:55 0.9 % Sodium Chloride Flush 3 Ml Syringe IVFLUSH Not Given QSHIFT DARCY Time Spent With Patient Time: Total time spent is greater than 50% in coordination of care (as documented) at patient's floor/unit and/or counseling patient: Time with patient: 15 - 24 minutes Quality Stroke Does the patient have a stroke diagnosis?: No VTE Prior VTE?: No VTE Risk Level:: Medical - moderate - high VTE Device Contraindication: Treatment Not Indicated VTE Drug Contraindication: N/A - Med Ordered
[2021-03-31 11:58] LABS: Glucose, Whole Blood 176 mg/dL (60-115)
[2021-03-31] MEDS: Insulin Lispro 100 UNIT/ML 3 ML VIAL SUBCUT ×3 (12:18→20:41)
--- NOTE | 2021-03-31 14:55 | HO.POSTANES ---
Post Anesthesia Evaluation Post Anesthesia Evaluation Vital Signs: Vital Signs Temp Pulse Resp BP Pulse Ox 03/31/21 11:46 96.9 F 103 H 16 134/67 96 03/31/21 07:00 97.5 F 108 H 16 118/55 L 94 03/31/21 05:53 106 H 14 115/57 L 97 03/31/21 04:58 108 H 14 106/58 L 96 03/31/21 04:06 91/50 L 03/31/21 03:49 98.2 F 103 H 18 89/47 L 96 03/31/21 02:57 103 H 18 89/49 L 95 Anesthesia: General Endotracheal-GETA Mental Status: Awake Pain Control: Satisfactory (improved, was admitted last night to ICU for pain control) Nausea/Vomiting: Mild Hydration: Adequate Anesthesia-Related Issues: No Anes. Related Issues
[2021-03-31] MEDS: oxyCODONE HCl Immed Release 5 MG TABLET PO ×2 (15:29→20:42)
--- NOTE | 2021-03-31 16:09 | HO.PM.IMPN ---
Subjective Subjective Date of Service: 03/31/21 Interval History: Patient is status post laparoscopic sigmoid resection for carcinoma. Patient was on Suboxone 2 weeks ago and was off since 2 weeks and was managing with the pain medications so far as per the patient. Review of Systems Some Still has abdominal soreness on the left side but otherwise denies any nausea vomiting or fever or chills or cough or phlegm. Physical Exam Vital Signs: Vital Signs: Last Vital Signs Temp 97.2 F 03/31/21 15:23 Pulse 105 H 03/31/21 15:23 Resp 19 03/31/21 15:23 BP 137/77 03/31/21 15:23 Pulse Ox 93 03/31/21 15:23 Body Mass Index 40.4 Awake alert and oriented and nonfocal neurologically Lungs clear bilaterally no adventitious sounds cvs: rrr,s1s2 heard. Abdomen obese and no audible bowel sounds but soft no organomegaly Skin intact ext: no caynosis or edema Objective Data Current Medications Generic Name Dose Route Start Last Admin Trade Name Freq PRN Reason Stop Dose Admin Albuterol Sulfate 2.5 mg 03/30/21 15:33 Albuterol Sulfate (0.083%) 2.5 Mg/3 Ml Vial.Neb INHALE Q6H PRN Wheezing Albuterol Sulfate 2 puff 03/30/21 15:33 Albuterol Sulfate 90 Mcg 8 Gm Inhaler INHALE Q4H PRN wheezing Aspirin 81 mg 03/31/21 09:00 03/31/21 09:43 Aspirin Enteric Coated 81 Mg Tablet.Dr PO 81 mg DAILY DARCY Administration Atorvastatin Calcium 80 mg 03/31/21 09:00 03/31/21 09:43 Atorvastatin Calcium 80 Mg Tablet PO 80 mg DAILY DARCY Administration Dextrose 25 gm 03/30/21 11:26 Dextrose 50 % 25 Gm/50 Ml Vial IVPUSH Q15M PRN per Hypoglycemia Standing Ord. Protocol Fluticasone Propionate 2 puff 03/30/21 20:00 03/31/21 08:16 Fluticasone Propionate 250 Mcg Blst.W.Dev INHALE Not Given RBID DARYC Fluticasone Propionate 2 spray 03/31/21 09:00 03/31/21 10:55 Fluticasone Propionate Nasal 16 Gm [place] NOSTRIL-B Not Given DAILY [facility] Glucose 15 gm 03/30/21 11:26 Glucose Gel 15 Gm Gel..Gram. PO Q15M PRN per Hypoglycemia Standing Ord. Protocol Heparin Sodium (Porcine) 5,000 unit 03/31/21 12:00 03/31/21 11:29 Heparin Sodium,Porcine 5,000 Unit/Ml Vial SUBCUT 5,000 unit Q12H DARCY Administration Hydromorphone HCl 0.5 mg 03/30/21 13:14 03/31/21 12:45 Hydromorphone Hcl 0.5 Mg/0.5 Ml Syringe IVPUSH 0.5 mg Q3H PRN Administration Pain, Severe (Pain Scale 7-10) Protocol Lactated Ringer's 1,000 mls @ 80 mls/hr 03/30/21 11:30 03/31/21 15:28 Lr IVCONT 125 mls/hr .[id number] DARCY Administration Acetaminophen 1,000 mg in 100 mls @ 400 mls/hr 03/30/21 11:30 03/31/21 12:01 Ofirmev IV Infused Q6H DARCY Infusion Insulin Human Lispro 0 unit 03/30/21 11:30 03/31/21 12:18 Insulin Lispro 100 Unit/Ml 3 Ml Vial SUBCUT 2 unit QIDACHS DARCY Administration Protocol Levothyroxine Sodium 37.5 mcg 03/31/21 06:00 03/31/21 06:11 Levothyroxine Sodium 100 Mcg Vial IVPUSH 37.5 mcg DAILY@0600 DARCY Administration Ondansetron HCl 4 mg 03/30/21 11:20 Ondansetron Hcl 4 Mg/2 Ml Vial IVPUSH Q8H PRN Nausea and Vomiting Oxycodone HCl 5 mg 03/31/21 14:37 03/31/21 15:29 Oxycodone Hcl Immed Release 5 Mg Tablet PO 5 mg Q4H PRN Administration Pain, Moderate (Pain Scale 4-6 Quetiapine Fumarate 100 mg 03/30/21 21:00 03/30/21 20:24 Quetiapine Fumarate 100 Mg Tablet PO 100 mg BEDTIME DARCY Administration Sodium Chloride 3 ml 03/30/21 16:00 03/31/21 15:28 0.9 % Sodium Chloride Flush 3 Ml Syringe IVFLUSH Not Given QSHIFT DARCY Sodium Chloride 3 ml 03/31/21 00:00 03/31/21 15:29 0.9 % Sodium Chloride Flush 3 Ml Syringe IVFLUSH Not Given QSHIFT [facility] Labs CBC & Chem 7: 03/31/21 05:18 03/31/21 05:18 Labs: Laboratory Results - last 24 hr 03/30/21 03/30/21 03/31/21 16:26 21:03 05:18 MCV 91.3 MCH 29.3 MCHC 32.1 RDW 13.3 Plt Count 204 D MPV 11.2 Immature Gran % (Auto) 0.4 Neut % (Auto) 73.4 H Lymph % (Auto) 17.3 L [place] % (Auto) 8.6 Eos % (Auto) 0.1 Baso % (Auto) 0.2 Lymph # (Auto) 1.7 [place] # (Auto) 0.8 Eos # (Auto) 0.0 Baso # (Auto) 0.0 Abs Immat Gran (auto) 0.04 H Absolute Neuts (auto) 7.2 Absolute Nucleated RBC 0.000 Nucleated RBC % (auto) 0.0 VBG pH VBG pCO2 VBG pO2 VBG HCO3 VBG O2 Saturation VBG Base Excess Anion Gap Estim Creat Clear Calc Estimated GFR POC Glucose 259 H 210 H Random Glucose Calcium 03/31/21 03/31/21 03/31/21 05:18 05:20 07:39 MCV MCH MCHC RDW Plt Count MPV Immature Gran % (Auto) Neut % (Auto) Lymph % (Auto) [place] % (Auto) Eos % (Auto) Baso % (Auto) Lymph # (Auto) [place] # (Auto) Eos # (Auto) Baso # (Auto) Abs Immat Gran (auto) Absolute Neuts (auto) Absolute Nucleated RBC Nucleated RBC % (auto) VBG pH 7.42 VBG pCO2 27 VBG pO2 67 VBG HCO3 18 L VBG O2 Saturation 91.0 VBG Base Excess -4.9 Anion Gap 12 Estim Creat Clear Calc 80.1 Estimated GFR > 60 POC Glucose 127 H Random Glucose 119 H D Calcium 8.2 L D 03/31/21 11:53 MCV MCH MCHC RDW Plt Count MPV Immature Gran % (Auto) Neut % (Auto) Lymph % (Auto) [place] % (Auto) Eos % (Auto) Baso % (Auto) Lymph # (Auto) [place] # (Auto) Eos # (Auto) Baso # (Auto) Abs Immat Gran (auto) Absolute Neuts (auto) Absolute Nucleated RBC Nucleated RBC % (auto) VBG pH VBG pCO2 VBG pO2 VBG HCO3 VBG O2 Saturation VBG Base Excess Anion Gap Estim Creat Clear Calc Estimated GFR POC Glucose 176 H Random Glucose Calcium Assessment and Plan (1) Colon cancer: Status: Acute (2) Diabetes mellitus: Status: Acute Assessment and Plan: Patient is status post laparoscopic sigmoid resection for carcinoma. Continue pain management, weight GI return Drug use: Quit around 10 years ago- was on Suboxone 2 weeks ago and was off since 2 weeks and was managing with the pain medications so far as per the patient. Was in ICU overnight because of increased opioid use-advised for increases activity, pain management with hopefully tapering opioid and return to her Suboxone, today she refused to go back on Suboxone. Will add care team a evaluation Diabetes mellitus: in 160-200's: Fingersticks with coverage. CAD (coronary artery disease): On aspirin and atorvastatin, will add metoprolol home dose back, Plavix can be added back as per his surgery. High cholesterol: Continue statin Hypertension: Added metoprolol home dose. Hypothyroidism: Continue levothyroxine. Quality Stroke Does the patient have a stroke diagnosis?: No VTE Prior VTE?: No VTE Risk Level:: Medical - moderate - high VTE Device Contraindication: Treatment Not Indicated VTE Drug Contraindication: N/A - Med Ordered
[2021-03-31 16:15] LABS: Glucose, Whole Blood 163 mg/dL (60-115)
[2021-03-31] MEDS: Fluticasone Propionate 250 MCG BLST.W.DEV 2 PUFF INHALE (19:21)
[2021-03-31 20:09] LABS: Glucose, Whole Blood 163 mg/dL (60-115)
[2021-03-31] MEDS: QUEtiapine Fumarate 100 MG TABLET PO (20:42)
[2021-03-31] MEDS: Lactated Ringers 1,000 ML 80 ML IVCONT (23:46)
[2021-04-01] VITALS (12 sets, daily range): BP systolic 122–155; BP diastolic 62–84; PULSE 94–113; RESP 14–20; TEMP 36.1–37.3; O2SAT 95–97; BMI 39.8
[2021-04-01] MEDS: Heparin Sodium,Porcine 5,000 UNIT/ML VIAL 5000 UNIT SUBCUT ×2 (00:41→12:58)
[2021-04-01] MEDS: HYDROmorphone HCl 0.5 MG/0.5 ML SYRINGE IVPUSH ×6 (01:17→20:31)
[2021-04-01] MEDS: Omeprazole 20 MG CAPSULE.DR PO (06:37)
[2021-04-01] MEDS: Levothyroxine Sodium 100 MCG VIAL 37.5 MCG IVPUSH (06:37)
[2021-04-01 07:55] LABS: Glucose, Whole Blood 195 mg/dL (60-115)
--- NOTE | 2021-04-01 08:02 | PM.PNGS ---
Subjective Subjective Date of Service: 04/01/21 <Alia Mullen PA-C - Last Filed: 04/01/21 08:08> 04/01/21 <Glenroy Warner MD - Last Filed: 04/01/21 08:44> Interval history: Reports having pain at incision site. Medication helps but wears off too quickly. She is able to get up and OOB and ambulate on own per nursing. Tolerating clear liquids. Denies nausea. Denies flatus. <Alia Mullen PA-C - Last Filed: 04/01/21 08:08> Physical Exam Vital Signs: Vital Signs: Last Vital Signs Temp 97.0 F 04/01/21 03:36 Pulse 103 H 04/01/21 03:36 Resp 20 04/01/21 05:56 BP 133/65 04/01/21 03:36 Pulse Ox 95 04/01/21 03:36 Body Mass Index 39.8 <Alia Mullen PA-C - Last Filed: 04/01/21 08:08> Const: General: no acute distress and alert <Alia Mullen PA-C - Last Filed: 04/01/21 08:08> Orientation/consciousness: patient oriented x3 <Alia Mullen PA-C - Last Filed: 04/01/21 08:08> Resp: Effort & Inspection: normal respiratory effort <Alia Mullen PA-C - Last Filed: 04/01/21 08:08> Cardio: Rate: regular rate <Alia Mullen PA-C - Last Filed: 04/01/21 08:08> GI: Inspection: No distended, Yes incision (clean) and Yes other (round) <Alia Mullen PA-C - Last Filed: 04/01/21 08:08> Palpation (GI): Soft to palpation, Tenderness to palpation present (GI) (incisional), no guarding, not rigid and No Rebound tenderness present <LINDSEY Ibrahim Last Filed: 04/01/21 08:08> Percussion: Yes normal to percussion <LINDSEY Ibrahim Last Filed: 04/01/21 08:08> Skin: General skin exam: no rashes or lesions noted <Alia Mullen PA-C - Last Filed: 04/01/21 08:08> Neuro: General: patient oriented x3 <Alia Mullen PA-C - Last Filed: 04/01/21 08:08> Extrem: General: Yes no clubbing, cyanosis or edema <Alia Mullen PA-C - Last Filed: 04/01/21 08:08> Procedures Date of Service Date of Service: 04/01/21 <Alia Mullen PA-C - Last Filed: 04/01/21 08:08> Progress Note: A&P Assessment and plan (1) Colon cancer: Status: Acute <LINDSEY Ibrahim Last Filed: 04/01/21 08:08> (2) Status post laparoscopic-assisted sigmoidectomy: Status: Acute <Alia Mullen PA-C - Last Filed: 04/01/21 08:08> Assessment and Plan: Continues to have pain issues from incision Denies flatus Looks well otherwise Has been ambulating Abdomen soft Incisions clean Await return of GI function Keep on clear liquids Patient seen and examined - agree with IRAM Mullen <Glenroy Warner MD - Last Filed: 04/01/21 08:44> (3) Diabetes mellitus: Status: Acute <Alia Mullen PA-C - Last Filed: 04/01/21 08:08> (4) Coronary artery disease: Status: Acute <Alia Mullen PA-C - Last Filed: 04/01/21 08:08> Assessment and Plan: 55 year old female with multiple medical comorbidities admitted s/p ROSE sigmoid resection for colon CA. She is doing fairly well post op. Incision clean, appropriate post op tenderness. Reports analgesics wearing off too quickly- will add oxycodone 10mg. Encouraged OOB/ambulation. Await return of GI function- continue clear liquids. Cont IVF. Await pathology. Hospitalists following for medical comorbidities. Appreciate recs. <LINDSEY Ibrahim Last Filed: 04/01/21 08:08> Fall Risk Details Current Medications: Current Medications Generic Name Dose Route Start Last Admin Trade Name Freq PRN Reason Stop Dose Admin Albuterol Sulfate 2.5 mg 03/30/21 15:33 Albuterol Sulfate (0.083%) 2.5 Mg/3 Ml Vial.Neb INHALE Q6H PRN Wheezing Albuterol Sulfate 2 puff 03/30/21 15:33 Albuterol Sulfate 90 Mcg 8 Gm Inhaler INHALE Q4H PRN wheezing Aspirin 81 mg 03/31/21 09:00 03/31/21 09:43 Aspirin Enteric Coated 81 Mg Tablet. PO 81 mg DAILY DARCY Administration Atorvastatin Calcium 80 mg 03/31/21 09:00 03/31/21 09:43 Atorvastatin Calcium 80 Mg Tablet PO 80 mg DAILY DARCY Administration Dextrose 25 gm 03/30/21 11:26 Dextrose 50 % 25 Gm/50 Ml Vial IVPUSH Q15M PRN per Hypoglycemia Standing Ord. Protocol Fluticasone Propionate 2 puff 03/30/21 20:00 03/31/21 19:21 Fluticasone Propionate 250 Mcg Blst.W.Dev INHALE 2 puff RBID DARCY Administration Fluticasone Propionate 2 spray 03/31/21 09:00 03/31/21 10:55 Fluticasone Propionate Nasal 16 Gm [place] NOSTRIL-B Not Given DAILY DARCY Glucose 15 gm 03/30/21 11:26 Glucose Gel 15 Gm Gel..Gram. PO Q15M PRN per Hypoglycemia Standing Ord. Protocol Heparin Sodium (Porcine) 5,000 unit 03/31/21 12:00 04/01/21 00:41 Heparin Sodium,Porcine 5,000 Unit/Ml Vial SUBCUT 5,000 unit Q12H DARCY Administration Hydromorphone HCl 0.5 mg 03/30/21 13:14 04/01/21 04:30 Hydromorphone Hcl 0.5 Mg/0.5 Ml Syringe IVPUSH 0.5 mg Q3H PRN Administration Pain, Severe (Pain Scale 7-10) Protocol Lactated Ringer's 1,000 mls @ 80 mls/hr 03/30/21 11:30 03/31/21 23:46 Lr IVCONT 80 mls/hr .[id number] DARCY Administration Acetaminophen 1,000 mg in 100 mls @ 400 mls/hr 03/30/21 11:30 04/01/21 06:55 Ofirmev IV Infused Q6H DARCY Infusion Insulin Human Lispro 0 unit 03/30/21 11:30 03/31/21 20:41 Insulin Lispro 100 Unit/Ml 3 Ml Vial SUBCUT 2 unit QIDACHS [facility] Administration Protocol Levothyroxine Sodium 37.5 mcg 03/31/21 06:00 04/01/21 06:37 Levothyroxine Sodium 100 Mcg Vial IVPUSH 37.5 mcg DAILY@0600 [facility] Administration Metoprolol Succinate 25 mg 04/01/21 09:00 Metoprolol Succinate Er 25 Mg Tab.Er.24h PO DAILY [facility] Protocol Omeprazole 20 mg 04/01/21 06:30 04/01/21 06:37 Omeprazole 20 Mg Capsule.Dr PO 20 mg DAILY@0630 [facility] Administration Ondansetron HCl 4 mg 03/30/21 11:20 Ondansetron Hcl 4 Mg/2 Ml Vial IVPUSH Q8H PRN Nausea and Vomiting Oxycodone HCl 5 mg 03/31/21 14:37 03/31/21 20:42 Oxycodone Hcl Immed Release 5 Mg Tablet PO 5 mg Q4H PRN Administration Pain, Moderate (Pain Scale 4-6 Quetiapine Fumarate 100 mg 03/30/21 21:00 03/31/21 20:42 Quetiapine Fumarate 100 Mg Tablet PO 100 mg BEDTIME [facility] Administration Sodium Chloride 3 ml 03/30/21 16:00 03/31/21 23:45 0.9 % Sodium Chloride Flush 3 Ml Syringe IVFLUSH Not Given QSHIFT DARCY Sodium Chloride 3 ml 03/31/21 00:00 03/31/21 23:45 0.9 % Sodium Chloride Flush 3 Ml Syringe IVFLUSH Not Given QSHIFT [facility] <Alia Mullen PA-C - Last Filed: 04/01/21 08:08> Time Spent With Patient Time: Total time spent is greater than 50% in coordination of care (as documented) at patient's floor/unit and/or counseling patient: <LINDSEY Ibrahim Last Filed: 04/01/21 08:08> Time with patient: 15 - 24 minutes <LINDSEY Ibrahim Last Filed: 04/01/21 08:08> Quality Stroke Does the patient have a stroke diagnosis?: No <LINDSEY Ibrahim Last Filed: 04/01/21 08:08> VTE Prior VTE?: No <Alia Mullen PA-C - Last Filed: 04/01/21 08:08> VTE Risk Level:: Medical - moderate - high <Alia Mullen PA-C - Last Filed: 04/01/21 08:08> VTE Device Contraindication: Treatment Not Indicated <LINDSEY Ibrahim Last Filed: 04/01/21 08:08> VTE Drug Contraindication: N/A - Med Ordered <LINDSEY Ibrahim Last Filed: 04/01/21 08:08>
[2021-04-01] MEDS: Fluticasone Propionate Nasal 16 GM SPRAY 2 SPRAY NOSTRIL-B (08:06)
[2021-04-01] MEDS: Aspirin Enteric Coated 81 MG TABLET.DR PO (08:06)
[2021-04-01] MEDS: Metoprolol Succinate ER 25 MG TAB.ER.24H PO (08:06)
[2021-04-01] MEDS: Atorvastatin Calcium 80 MG TABLET PO (08:06)
[2021-04-01] MEDS: Insulin Lispro 100 UNIT/ML 3 ML VIAL SUBCUT ×4 (08:07→20:31)
[2021-04-01] MEDS: Fluticasone Propionate 250 MCG BLST.W.DEV 2 PUFF INHALE ×2 (09:21→19:49)
--- NOTE | 2021-04-01 10:00 | MHC.RECOVRN ---
55 year old female admitted to [facility] s/p?ROSE sigmoid resection for colon CA. Prior to admission, pt reported being prescribed Suboxone.?T/w met with pt in 354 after consult placed to Addiction Medicine. Pt reports being a patient at the [facility] and receiving Suboxone, 8/2 mg BID x a few months. Per [facility], last script filled 03/16 for a 21 day supply.? Pt reports prior to that had been on and off Suboxone for some time. Most recently, pt reports taking 's oxycodone which prompted patient to reconnect with [facility]. Pt reports last Suboxone dose was over 1 week ago. Pt would like to return to [facility] and restart Suboxone after acute pain management.? Discussed with Dee Escalante APRN. Will continue to follow.??
--- NOTE | 2021-04-01 10:26 | PC.NURSE ---
Skin assessment completed today. Patient has midline bandage and 3 large band-aids from surgery. No other skin issues noted at this time.
[2021-04-01 11:47] LABS: Glucose, Whole Blood 217 mg/dL (60-115)
[2021-04-01] MEDS: Lactated Ringers 1,000 ML 80 ML IVCONT (12:56)
--- NOTE | 2021-04-01 15:03 | P.PNIM_ITS ---
Subjective Subjective Date of Service: 04/01/21 Interval History: Passing flatus, no bowel movement asking for regular food , offers no other acute complaints. Review of Systems General no headache, no dizziness, no fever chills. CVS no chest pain, no palpitation. Respiratory no cough, no sob. Gastrointestinal no nausea, no vomiting, abdominal pain at site of incision Physical Exam Vital Signs: Vital Signs: Last Vital Signs Temp 99.1 F 04/01/21 11:45 Pulse 107 H 04/01/21 11:45 Resp 17 04/01/21 11:45 BP 133/62 04/01/21 11:45 Pulse Ox 95 04/01/21 11:45 Body Mass Index 39.8 General resting comfortably in no acute distress. Neck supple no JVD. CVS regular rate rhythm, Respiratory lungs clear to auscultation, no respiratory distress Gastrointestinal abdomen soft, mild tenderness at site of incision,bowel sounds audible, no guarding , no rigidity. Extremities no edema. Neuro nonfocal Skin no rash Objective Data Current Medications Generic Name Dose Route Start Last Admin Trade Name Freq PRN Reason Stop Dose Admin Albuterol Sulfate 2.5 mg 03/30/21 15:33 Albuterol Sulfate (0.083%) 2.5 Mg/3 Ml Vial.Neb INHALE Q6H PRN Wheezing Albuterol Sulfate 2 puff 03/30/21 15:33 Albuterol Sulfate 90 Mcg 8 Gm Inhaler INHALE Q4H PRN wheezing Aspirin 81 mg 03/31/21 09:00 04/01/21 08:06 Aspirin Enteric Coated 81 Mg Tablet. PO 81 mg DAILY DARCY Administration Atorvastatin Calcium 80 mg 03/31/21 09:00 04/01/21 08:06 Atorvastatin Calcium 80 Mg Tablet PO 80 mg DAILY DARCY Administration Dextrose 25 gm 03/30/21 11:26 Dextrose 50 % 25 Gm/50 Ml Vial IVPUSH Q15M PRN per Hypoglycemia Standing Ord. Protocol Fluticasone Propionate 2 puff 03/30/21 20:00 04/01/21 09:21 Fluticasone Propionate 250 Mcg Blst.W.Dev INHALE 2 puff RBID DARCY Administration Fluticasone Propionate 2 spray 03/31/21 09:00 04/01/21 08:06 Fluticasone Propionate Nasal 16 Gm [place] NOSTRIL-B 2 spray DAILY DARCY Administration Glucose 15 gm 03/30/21 11:26 Glucose Gel 15 Gm Gel..Gram. PO Q15M PRN per Hypoglycemia Standing Ord. Protocol Heparin Sodium (Porcine) 5,000 unit 03/31/21 12:00 04/01/21 12:58 Heparin Sodium,Porcine 5,000 Unit/Ml Vial SUBCUT 5,000 unit Q12H DARCY Administration Hydromorphone HCl 0.5 mg 03/30/21 13:14 04/01/21 11:55 Hydromorphone Hcl 0.5 Mg/0.5 Ml Syringe IVPUSH 0.5 mg Q3H PRN Administration Pain, Severe (Pain Scale 7-10) Protocol Lactated Ringer's 1,000 mls @ 80 mls/hr 03/30/21 11:30 04/01/21 12:56 Lr IVCONT 80 mls/hr .[id number] DARCY Administration Acetaminophen 1,000 mg in 100 mls @ 400 mls/hr 03/30/21 11:30 04/01/21 12:53 Ofirmev IV Infused Q6H [facility] Infusion Insulin Human Lispro 0 unit 03/30/21 11:30 04/01/21 11:54 Insulin Lispro 100 Unit/Ml 3 Ml Vial SUBCUT 4 unit QIDACHS [facility] Administration Protocol Levothyroxine Sodium 37.5 mcg 03/31/21 06:00 04/01/21 06:37 Levothyroxine Sodium 100 Mcg Vial IVPUSH 37.5 mcg DAILY@0600 [facility] Administration Metoprolol Succinate 12.5 mg 04/01/21 09:00 04/01/21 11:47 Metoprolol Succinate Er 12.5 Mg Halftab.Er.24h PO Not Given DAILY [facility] Protocol Omeprazole 20 mg 04/01/21 06:30 04/01/21 06:37 Omeprazole 20 Mg Capsule.Dr PO 20 mg DAILY@0630 [facility] Administration Ondansetron HCl 4 mg 03/30/21 11:20 Ondansetron Hcl 4 Mg/2 Ml Vial IVPUSH Q8H PRN Nausea and Vomiting Oxycodone HCl 5 mg 03/31/21 14:37 03/31/21 20:42 Oxycodone Hcl Immed Release 5 Mg Tablet PO 5 mg Q4H PRN Administration Pain, Moderate (Pain Scale 4-6 Oxycodone HCl 10 mg 04/01/21 08:01 Oxycodone Hcl Immed Release 5 Mg Tablet PO Q4H PRN Pain, Severe (Pain Scale 7-10) Quetiapine Fumarate 100 mg 03/30/21 21:00 03/31/21 20:42 Quetiapine Fumarate 100 Mg Tablet PO 100 mg BEDTIME DARCY Administration Sodium Chloride 3 ml 03/30/21 16:00 04/01/21 10:50 0.9 % Sodium Chloride Flush 3 Ml Syringe IVFLUSH Not Given QSHIFT DARCY Sodium Chloride 3 ml 03/31/21 00:00 04/01/21 10:50 0.9 % Sodium Chloride Flush 3 Ml Syringe IVFLUSH Not Given QSHIFT DARCY Labs CBC & Chem 7: 03/31/21 05:18 03/31/21 05:18 Labs: Laboratory Results - last 24 hr 03/31/21 03/31/21 04/01/21 16:06 20:04 07:43 POC Glucose 163 H 163 H 195 H 04/01/21 11:22 POC Glucose 217 H Assessment and Plan (1) Status post laparoscopic-assisted sigmoidectomy: Status: Acute (2) Colon cancer: Status: Acute (3) Hypothyroidism: Status: Acute (4) Hypertensive cardiovascular disease: Status: Acute (5) Diabetes mellitus: Status: Acute Assessment and Plan: Patient is status post laparoscopic sigmoid resection for colon cancer Good pain control, passing flatus, no bowel movement, diet as per General surgery, continue IV fluid History of substance use:? Quit around 10 years ago-? was on Suboxone 2 weeks ago,and was managing with pain medications,was in ICU overnight because of increased opioid use-advised for increases activity, continue current pain medication and wean gradually ,return to her Suboxone, once better pain control Diabetes mellitus: BS 160-200 range Continue insulin sliding scale and monitor blood sugar CAD (coronary artery disease):? On aspirin , metoprolol and atorvastatin, will resume Plavix as per General surgery High cholesterol:? Continue statin Hypertension:? Noted to have low blood pressure therefore will lower dose of metoprolol to 12.5 b.i.d. mild tachycardia likely due to pain and anxiety Hypothyroidism:? Continue levothyroxine. Quality Stroke Does the patient have a stroke diagnosis?: No VTE Prior VTE?: No VTE Risk Level:: Medical - moderate - high VTE Device Contraindication: Treatment Not Indicated VTE Drug Contraindication: N/A - Med Ordered
[2021-04-01 16:24] LABS: Glucose, Whole Blood 152 mg/dL (60-115)
--- NOTE | 2021-04-01 16:40 | PM.EVENT ---
Event Note Date of Service: 04/01/21 Event Note: Seen on afternoon rounds Says she has been ambulating Still has pain issues with the incision Says that she has passed flatus and had a bowel movement Encouraged to ambulate more Continue pain management Doing well overall Advance diet slowly
[2021-04-01 20:17] LABS: Glucose, Whole Blood 194 mg/dL (60-115)
[2021-04-01] MEDS: QUEtiapine Fumarate 100 MG TABLET PO (20:31)
[2021-04-02] VITALS (9 sets, daily range): BP systolic 104–163; BP diastolic 59–82; PULSE 100–112; RESP 18–20; TEMP 36.1–37.1; O2SAT 92–98; BMI 38.3
[2021-04-02] MEDS: 0.9 % Sodium Chloride Flush 3 ML SYRINGE IVFLUSH ×2 (00:22)
[2021-04-02] MEDS: Heparin Sodium,Porcine 5,000 UNIT/ML VIAL 5000 UNIT SUBCUT (00:23)
[2021-04-02] MEDS: HYDROmorphone HCl 0.5 MG/0.5 ML SYRINGE IVPUSH ×2 (00:36→09:06)
[2021-04-02] MEDS: Levothyroxine Sodium 100 MCG VIAL 37.5 MCG IVPUSH (05:29)
[2021-04-02] MEDS: Lactated Ringers 1,000 ML 80 ML IVCONT (05:33)
[2021-04-02] MEDS: Omeprazole 20 MG CAPSULE.DR PO (06:27)
[2021-04-02] MEDS: oxyCODONE HCl Immed Release 5 MG TABLET 10 MG PO (06:37)
[2021-04-02 07:52] LABS: Glucose, Whole Blood 225 mg/dL (60-115)
[2021-04-02] MEDS: Metoprolol Succinate ER 12.5 MG HALFTAB.ER.24H PO ×2 (08:09→09:07)
[2021-04-02] MEDS: Aspirin Enteric Coated 81 MG TABLET.DR PO (08:09)
[2021-04-02] MEDS: Atorvastatin Calcium 80 MG TABLET PO (08:09)
[2021-04-02] MEDS: Insulin Lispro 100 UNIT/ML 3 ML VIAL SUBCUT ×2 (08:10→11:45)
--- NOTE | 2021-04-02 08:10 | PM.PNGS ---
Subjective Subjective Date of Service: 04/02/21 <Alia Mullen PA-C - Last Filed: 04/02/21 08:15> 04/02/21 <Glenroy Warner MD - Last Filed: 04/02/21 09:30> Interval history: Feeling better this morning. Had multiple loose BM yesterday. Feels hungry. Pain better controlled. <Alia Mullen PA-C - Last Filed: 04/02/21 08:15> Physical Exam Vital Signs: Vital Signs: Last Vital Signs Temp 96.9 F 04/02/21 07:27 Pulse 100 04/02/21 07:27 Resp 18 04/02/21 07:27 BP 144/82 H 04/02/21 07:27 Pulse Ox 98 04/02/21 07:27 Body Mass Index 38.3 <LINDSEY Ibrahim Last Filed: 04/02/21 08:15> Const: General: comfortable and no acute distress <Alia Mullen PA-C - Last Filed: 04/02/21 08:15> Orientation/consciousness: patient oriented x3 <Alia Mullen PA-C - Last Filed: 04/02/21 08:15> Resp: Effort & Inspection: normal respiratory effort <Alia Mullen PA-C - Last Filed: 04/02/21 08:15> GI: Inspection: No distended, Yes incision (clean) and Yes other (protuberant) <Alia Mullen PA-C - Last Filed: 04/02/21 08:15> Palpation (GI): Soft to palpation, Tenderness to palpation present (GI) (incisional), no guarding and not rigid <Alia Mullen PA-C - Last Filed: 04/02/21 08:15> Percussion: Yes normal to percussion <LINDSEY Ibrahim Last Filed: 04/02/21 08:15> Skin: General skin exam: no rashes or lesions noted <LINDSEY Ibrahim Last Filed: 04/02/21 08:15> Neuro: General: patient oriented x3 <LINDSEY Ibrahim Last Filed: 04/02/21 08:15> Procedures Date of Service Date of Service: 04/02/21 <Alia Mullen PA-C - Last Filed: 04/02/21 08:15> Progress Note: A&P Assessment and plan (1) Status post laparoscopic-assisted sigmoidectomy: Status: Acute <Alia Mullen PA-C - Last Filed: 04/02/21 08:15> Assessment and Plan: Continues to have good flatus Has had BMs Says pain is well controlled Says she feels well Abdomen soft Incisions clean and dry Clinically looks well Advance diet If she continues do well, likely home later today or tomorrow Seen and examined - agree with IRAM Mullen <Glenroy Warner MD - Last Filed: 04/02/21 09:30> (2) Colon cancer: Status: Acute <Alia Mullen PA-C - Last Filed: 04/02/21 08:15> (3) Diabetes mellitus: Status: Acute <Alia Mullen PA-C - Last Filed: 04/02/21 08:15> Assessment and Plan: 55 year old female with multiple medical comorbidities admitted s/p ROSE sigmoid resection for colon CA. She continues to do well post op. Incision clean, appropriate post op tenderness. Now with good GI function. Will advance to low residue diet. D/c IVF. If tolerating diet, possible home later today. Patient comfortable with plan. Resume home metformin, plavix. Await pathology. Hospitalists following for medical comorbidities. Appreciate recs. <Alia Mullen PA-C - Last Filed: 04/02/21 08:15> Fall Risk Details Current Medications: Current Medications Generic Name Dose Route Start Last Admin Trade Name Freq PRN Reason Stop Dose Admin Albuterol Sulfate 2.5 mg 03/30/21 15:33 Albuterol Sulfate (0.083%) 2.5 Mg/3 Ml Vial.Neb INHALE Q6H PRN Wheezing Albuterol Sulfate 2 puff 03/30/21 15:33 Albuterol Sulfate 90 Mcg 8 Gm Inhaler INHALE Q4H PRN wheezing Aspirin 81 mg 03/31/21 09:00 04/01/21 08:06 Aspirin Enteric Coated 81 Mg Tablet. PO 81 mg DAILY DARCY Administration Atorvastatin Calcium 80 mg 03/31/21 09:00 04/01/21 08:06 Atorvastatin Calcium 80 Mg Tablet PO 80 mg DAILY DARCY Administration Dextrose 25 gm 03/30/21 11:26 Dextrose 50 % 25 Gm/50 Ml Vial IVPUSH Q15M PRN per Hypoglycemia Standing Ord. Protocol Fluticasone Propionate 2 puff 03/30/21 20:00 04/01/21 19:49 Fluticasone Propionate 250 Mcg Blst.W.Dev INHALE 2 puff RBID DARCY Administration Fluticasone Propionate 2 spray 03/31/21 09:00 04/01/21 08:06 Fluticasone Propionate Nasal 16 Gm [place] NOSTRIL-B 2 spray DAILY DARCY Administration Glucose 15 gm 03/30/21 11:26 Glucose Gel 15 Gm Gel..Gram. PO Q15M PRN per Hypoglycemia Standing Ord. Protocol Heparin Sodium (Porcine) 5,000 unit 03/31/21 12:00 04/02/21 00:23 Heparin Sodium,Porcine 5,000 Unit/Ml Vial SUBCUT 5,000 unit Q12H DARCY Administration Hydromorphone HCl 0.5 mg 03/30/21 13:14 04/02/21 00:36 Hydromorphone Hcl 0.5 Mg/0.5 Ml Syringe IVPUSH 0.5 mg Q3H PRN Administration Pain, Severe (Pain Scale 7-10) Protocol Lactated Ringer's 1,000 mls @ 80 mls/hr 03/30/21 11:30 04/02/21 05:33 Lr IVCONT 80 mls/hr .[id number] DARCY Administration Acetaminophen 1,000 mg in 100 mls @ 400 mls/hr 03/30/21 11:30 04/02/21 05:49 Ofirmev IV Infused Q6H DARCY Infusion Insulin Human Lispro 0 unit 03/30/21 11:30 04/01/21 20:31 Insulin Lispro 100 Unit/Ml 3 Ml Vial SUBCUT 2 unit QIDACHS DARCY Administration Protocol Levothyroxine Sodium 37.5 mcg 03/31/21 06:00 04/02/21 05:29 Levothyroxine Sodium 100 Mcg Vial IVPUSH 37.5 mcg DAILY@0600 DARCY Administration Metoprolol Succinate 12.5 mg 04/01/21 09:00 04/01/21 11:47 Metoprolol Succinate Er 12.5 Mg Halftab.Er.24h PO Not Given DAILY DARCY Protocol Omeprazole 20 mg 04/01/21 06:30 04/02/21 06:27 Omeprazole 20 Mg Capsule.Dr PO 20 mg DAILY@0630 DARCY Administration Ondansetron HCl 4 mg 03/30/21 11:20 Ondansetron Hcl 4 Mg/2 Ml Vial IVPUSH Q8H PRN Nausea and Vomiting Oxycodone HCl 5 mg 03/31/21 14:37 03/31/21 20:42 Oxycodone Hcl Immed Release 5 Mg Tablet PO 5 mg Q4H PRN Administration Pain, Moderate (Pain Scale 4-6 Oxycodone HCl 10 mg 04/01/21 08:01 04/02/21 06:37 Oxycodone Hcl Immed Release 5 Mg Tablet PO 10 mg Q4H PRN Administration Pain, Severe (Pain Scale 7-10) Quetiapine Fumarate 100 mg 03/30/21 21:00 04/01/21 20:31 Quetiapine Fumarate 100 Mg Tablet PO 100 mg BEDTIME DARCY Administration Sodium Chloride 3 ml 03/30/21 16:00 04/02/21 00:22 0.9 % Sodium Chloride Flush 3 Ml Syringe IVFLUSH 3 ml QSHIFT DARCY Administration Sodium Chloride 3 ml 03/31/21 00:00 04/02/21 00:22 0.9 % Sodium Chloride Flush 3 Ml Syringe IVFLUSH 3 ml QSHIFT DARCY Administration <Alia Mullen PA-C - Last Filed: 04/02/21 08:15> Time Spent With Patient Time: Total time spent is greater than 50% in coordination of care (as documented) at patient's floor/unit and/or counseling patient: <LINDSEY Ibrahim Last Filed: 04/02/21 08:15> Time with patient: 15 - 24 minutes <Alia Mullen PA-C - Last Filed: 04/02/21 08:15> Quality Stroke Does the patient have a stroke diagnosis?: No <LINDSEY Ibrahim Last Filed: 04/02/21 08:15> VTE Prior VTE?: No <LINDSEY Ibrahim Last Filed: 04/02/21 08:15> VTE Risk Level:: Medical - moderate - high <Alia Mullen PA-C - Last Filed: 04/02/21 08:15> VTE Device Contraindication: Treatment Not Indicated <Alia Mullen PA-C - Last Filed: 04/02/21 08:15> VTE Drug Contraindication: N/A - Med Ordered <Alia Mullen PA-C - Last Filed: 04/02/21 08:15>
[2021-04-02] MEDS: Fluticasone Propionate 250 MCG BLST.W.DEV 2 PUFF INHALE (08:34)
[2021-04-02] MEDS: metFORMIN HCl ER 500 MG TAB.ER.24H PO (09:06)
[2021-04-02] MEDS: Clopidogrel Bisulfate 75 MG TABLET PO (09:07)
--- NOTE | 2021-04-02 09:35 | MHC.CM.PN ---
PATIENT LIVES WITH HER SPOUSE. SHE USES A CANE AND A WALKER. NO VNA SERVICES. SHE DOES USE [facility] FOR HER SUBOXONE PATIENT EDUCATED ON IMPORTANCE OF HCP DESIGNATION. PATIENT DENIES NEED FOR COMPLETING ONE AT THIS TIME. SPOUSE WILL PROVIDE TRANSPORT HOME. PATIENT IS HOPING THAT SHE IS DISCHARGED TODAY. CASE MANAGEMENT FOLLOWING. CURRENTLY NO SERVICES NEEDED.
--- NOTE | 2021-04-02 09:40 | MHC.CLN ---
FOLLOW UP DIET ADVANCED TO DIABETIC 1800 KCAL, LOW RESIDUE/SOFT. GOOD INTAKE NOTED X 2 MEALS. CONTINUE TO FOLLOW.
--- NOTE | 2021-04-02 11:21 | MHC.CM.PN ---
PLAN IS FOR G.I. INPUT AND LIKELY DISCHARGE TO HOME TODAY - SELF CARE. SPOUSE TO PROVIDE TRANSPORTATION.
[2021-04-02 11:43] LABS: Glucose, Whole Blood 200 mg/dL (60-115)
--- NOTE | 2021-04-02 12:19 | PM.EVENT ---
Event Note Date of Service: 04/02/21 Event Note: continues to feel well tolerating diet denies significant pain abd soft incisions clean looks well she states she wants to go home ok to dc given discharge instructions ffup in office dw hospitalist
--- NOTE | 2021-04-02 13:21 | HO.PM.IMPN ---
Subjective Subjective Date of Service: 04/02/21 Interval History: Feels better this morning eating breakfast, had a regular bowel movement, less abdominal pain. Review of Systems General no headache, no dizziness, no fever chills.? CVS no chest pain, no palpitation.? Respiratory no cough, no sob.? Gastrointestinal no nausea, no vomiting,mild abdominal pain at site of incision Physical Exam Vital Signs: Vital Signs: Last Vital Signs Temp 97.3 F 04/02/21 11:24 Pulse 107 H 04/02/21 11:24 Resp 18 04/02/21 11:24 BP 104/62 04/02/21 11:24 Pulse Ox 96 04/02/21 11:24 Body Mass Index 38.3 General resting comfortably in no acute distress.? Neck supple no JVD. CVS? regular rate rhythm, Respiratory lungs clear to auscultation, no respiratory distress Gastrointestinal abdomen soft, mild tenderness at site of incision,bowel sounds audible, no guarding , no rigidity. Extremities no edema. Neuro nonfocal Skin no rash Objective Data Current Medications Generic Name Dose Route Start Last Admin Trade Name Freq PRN Reason Stop Dose Admin Albuterol Sulfate 2.5 mg 03/30/21 15:33 Albuterol Sulfate (0.083%) 2.5 Mg/3 Ml Vial.Neb INHALE Q6H PRN Wheezing Albuterol Sulfate 2 puff 03/30/21 15:33 Albuterol Sulfate 90 Mcg 8 Gm Inhaler INHALE Q4H PRN wheezing Aspirin 81 mg 03/31/21 09:00 04/02/21 08:09 Aspirin Enteric Coated 81 Mg Tablet. PO 81 mg DAILY DARCY Administration Atorvastatin Calcium 80 mg 03/31/21 09:00 04/02/21 08:09 Atorvastatin Calcium 80 Mg Tablet PO 80 mg DAILY DARCY Administration Clopidogrel Bisulfate 75 mg 04/02/21 09:00 04/02/21 09:07 Clopidogrel Bisulfate 75 Mg Tablet PO 75 mg DAILY DARCY Administration Dextrose 25 gm 03/30/21 11:26 Dextrose 50 % 25 Gm/50 Ml Vial IVPUSH Q15M PRN per Hypoglycemia Standing Ord. Protocol Fluticasone Propionate 2 puff 03/30/21 20:00 04/02/21 08:34 Fluticasone Propionate 250 Mcg Blst.W.Dev INHALE 2 puff RBID DARCY Administration Fluticasone Propionate 2 spray 03/31/21 09:00 04/02/21 09:12 Fluticasone Propionate Nasal 16 Gm [place] NOSTRIL-B Not Given DAILY REPLACED BY [facility] Glucose 15 gm 03/30/21 11:26 Glucose Gel 15 Gm Gel..Gram. PO Q15M PRN per Hypoglycemia Standing Ord. Protocol Insulin Human Lispro 0 unit 03/30/21 11:30 04/02/21 11:45 Insulin Lispro 100 Unit/Ml 3 Ml Vial SUBCUT 2 unit QIDACHS REPLACED BY [facility] Administration Protocol Levothyroxine Sodium 37.5 mcg 03/31/21 06:00 04/02/21 05:29 Levothyroxine Sodium 100 Mcg Vial IVPUSH 37.5 mcg DAILY@0600 REPLACED BY [facility] Administration Metformin HCl 500 mg 04/02/21 09:00 04/02/21 09:06 Metformin Hcl Er 500 Mg Tab.Er.24h PO 500 mg DAILY DARCY Administration Metoprolol Succinate 25 mg 04/03/21 09:00 Metoprolol Succinate Er 25 Mg Tab.Er.24h PO DAILY REPLACED BY [facility] Protocol Omeprazole 20 mg 04/01/21 06:30 04/02/21 06:27 Omeprazole 20 Mg Capsule.Dr PO 20 mg DAILY@0630 REPLACED BY [facility] Administration Ondansetron HCl 4 mg 03/30/21 11:20 Ondansetron Hcl 4 Mg/2 Ml Vial IVPUSH Q8H PRN Nausea and Vomiting Oxycodone HCl 5 mg 03/31/21 14:37 03/31/21 20:42 Oxycodone Hcl Immed Release 5 Mg Tablet PO 5 mg Q4H PRN Administration Pain, Moderate (Pain Scale 4-6 Oxycodone HCl 10 mg 04/01/21 08:01 04/02/21 06:37 Oxycodone Hcl Immed Release 5 Mg Tablet PO 10 mg Q4H PRN Administration Pain, Severe (Pain Scale 7-10) Quetiapine Fumarate 100 mg 03/30/21 21:00 04/01/21 20:31 Quetiapine Fumarate 100 Mg Tablet PO 100 mg BEDTIME REPLACED BY [facility] Administration Sodium Chloride 3 ml 03/30/21 16:00 04/02/21 08:11 0.9 % Sodium Chloride Flush 3 Ml Syringe IVFLUSH Not Given QSHIFT REPLACED BY [facility] Sodium Chloride 3 ml 03/31/21 00:00 04/02/21 09:03 0.9 % Sodium Chloride Flush 3 Ml Syringe IVFLUSH Not Given QSHIFT DARCY Labs CBC & Chem 7: 03/31/21 05:18 03/31/21 05:18 Labs: Laboratory Results - last 24 hr 04/01/21 04/01/21 04/02/21 16:19 20:12 07:27 POC Glucose 152 H 194 H 225 H 04/02/21 11:24 POC Glucose 200 H Assessment and Plan (1) Status post laparoscopic-assisted sigmoidectomy: Status: Acute (2) Colon cancer: Status: Acute (3) Hypothyroidism: Status: Acute (4) Diabetes mellitus: Status: Acute (5) Hypertensive cardiovascular disease: Status: Acute Assessment and Plan: Patient is status post laparoscopic sigmoid resection for colon cancer Good pain control, had a regular bowel movement tolerating diet, will DC IV fluid, DC planning as per general surgeon History of substance use:? Quit around 10 years ago-? was on Suboxone 2 weeks ago,and was managing with pain medications, postop required ICU stay because of increased opioid use Now pain under good control, being discharged home with pain medication can resume Suboxone as outpatient, will DC IV Dilaudid Diabetes mellitus: BS 200 this a.m., may resume outpatient medication Lantus and metformin may reduce dose of Lantus if have decreased by mouth intake CAD (coronary artery disease):? On aspirin , metoprolol and atorvastatin, resume Plavix once okay with General surgery High cholesterol:? Continue statin Hypertension:? Stable BP continue metoprolol home dose Hypothyroidism:? Continue levothyroxine. Patient medically stable for discharge Quality Stroke Does the patient have a stroke diagnosis?: No VTE Prior VTE?: No VTE Risk Level:: Medical - moderate - high VTE Device Contraindication: Treatment Not Indicated VTE Drug Contraindication: N/A - Med Ordered
--- NOTE | 2021-04-02 13:26 | MHC.RECOVRN ---
Pt has telehealth appt Thursday 04/05 at 2:[address] Sidhu at [facility] to discuss restarting Suboxone. Pt aware.
--- NOTE | 2021-05-06 09:29 | PM.DS ---
DS: Providers Provider Date of Service: 05/03/21 Date of admission: 03/30/21 11:18 Primary care physician: Ericka Phillips DO Attending physician on admission: Glenroy Warner Consults: 03/30/21 11:20 Consult to Hospitalist Routine Consulting Provider: Hospitalist Reason For Exam: diabetes mellitus, CAD, asthma 03/31/21 16:30 Addiction Medicine Routine Consulting Provider: Dee Escalante Reason for consultation: Drug abuse, on Suboxone Has provider been notified: No DS: Diagnosis Discharge Diagnosis (1) Status post laparoscopic-assisted sigmoidectomy: Status: Resolved (2) Colon cancer: Status: Acute (3) Hypothyroidism: Status: Acute (4) Diabetes mellitus: Status: Acute (5) Hypertensive cardiovascular disease: Status: Acute DS: Summary Hospital Course Hospital Course: BRIEF HPI: Anuradha Pinto is a 55-year-old female who had an abnormal CT scan with approximately 5.4 cm segment of large bowel wall thickening and mild associated fat stranding for abdominal pain. She had therefore undergone colonoscopy with Dr. Walters in February 2021 and was noted to have mass in the sigmoid at level 32 cm.? Biopsies of this showed an invasive adenocarcinoma.? It was therefore recommended to proceed with hand assisted laparoscopic sigmoid resection, with possible stoma. She now presents for the procedure. HOSPITAL COURSE: On 03/30/21, a hand assisted laparoscopic sigmoid resection was performed by Dr. Warner without complication. The patient tolerated the procedure well. The patient had a history of suboxone use and was having difficulty with pain in recovery as she was requiring high dose narcotics. She was therefore sent to the ICU postop for pain management. She stayed overnight and her pain management became more adequate and she was then transferred to the medical surgical floor. She had an uncomplicated recovery course following this. A hospitalist consult was obtained for management of her medical comorbidities. Her pain became better controlled on PO/IV PRN analgesics. She was ambulated. She was tolerating a clear liquid diet and began to pass flatus and had multiple bowel movements. She was then advanced to a solid diet. She was restarted on her plavix. ?The patient refused to go back on Suboxone and a Addiction Medicine evaluation was obtained. After being seen, she agreed to restart her suboxone therapy and an appointment was made at [facility] for this. On the day of discharge, the patient was tolerating a solid diet without nausea or vomiting. Her pain was well controlled. She was ambulating without difficulty. Her abdomen remained benign with clean incisions. She felt ready for discharge. She was discharged to home on 04/02/21 in stable condition. Surgical pathology was still pending at that time. Status at Discharge Functional status at discharge: independent ambulation Overall status at discharge: patient is progressing back to baseline Time Spent with Patient Time attestation: Total time spent providing and/or coordinating discharge services: Discharge coordination time: Greater than 30 minutes Quality: Stroke Does the patient have a stroke diagnosis?: No Physical Exam Vital Signs: Vital Signs: Last Vital Signs Temp 97.3 F 04/02/21 11:24 Pulse 107 H 04/02/21 11:24 Resp 18 04/02/21 11:24 BP 104/62 04/02/21 11:24 Pulse Ox 96 04/02/21 11:24 Body Mass Index 38.3 DS: Data Data Completed and Pending Completed studies during hospitalization [Text1]: Pending at discharge 03/30/21 09:59 Surgical [PTH] Routine A.? Colon, sigmoid, segmental resection: - Invasive colonic adenocarcinoma, moderately differentiated (G2), 3.5 cm. - Tumor invades through the muscularis propria into pericolorectal tissue. - Lymphovascular invasion is identified. - Surgical resection margins, negative for tumor (proximal, distal and radial/mesenteric margins). - Two of ten lymph nodes, positive for metastatic adenocarcinoma (2/10). - AJCC staging (8th edition):? [id number] B.? Colon, additional radial margin, re-excision:? Benign adipose tissue and acute serositis; negative for tumor. Procedures Resection of Sigmoid Colon, Open Approach (03/30/21) Discharge Plan Discharge Patient Disposition: Home, Self-Care Discharge Diagnosis: colon cancer Referrals: Ericka Phillips DO [Primary Care Provider] - 1 Week Discharge Medications: Continued acetaminophen 650 mg tablet extended release 650 mg PO Q8H PRN (Reason: for pain) Qty: 60 RF: 1 clopidogrel 75 mg tablet 75 mg PO DAILY 90 Days Qty: 90 RF: 1 bisacodyl [Dulcolax (bisacodyl)] 5 mg tablet,delayed release (DR/EC) 10 mg PO ONCE 1 Days Qty: 2 RF: 0 polyethylene glycol 3350 [Miralax] 17 gram/dose powder 238 g PO ONCE Qty: 238 RF: 0 dicyclomine 20 mg tablet 20 mg PO BID PRN (Reason: abdominal pain) Qty: 20 RF: 0 albuterol sulfate 2.5 mg /3 mL (0.083 %) solution for nebulization 1 amp inhalation Q6H PRN (Reason: Wheezing) RF: 0 quetiapine 100 mg tablet 1 tab PO BEDTIME RF: 0 baclofen 10 mg tablet 1 tab PO TID PRN (Reason: Pain) RF: 0 gabapentin 300 mg capsule 1 cap PO TID RF: 0 Flovent HFA 220 mcg/actuation HFA aerosol inhaler 2 puff PO BID RF: 0 albuterol sulfate [ProAir HFA] 90 mcg/actuation HFA aerosol inhaler 2 puff PO Q4-6H PRN (Reason: wheezing) RF: 0 fluticasone propionate 50 mcg/actuation spray,suspension 2 spray intranasal DAILY RF: 0 insulin lispro [Humalog KwikPen Insulin] 100 unit/mL insulin pen 100 unit subcut DAILY RF: 0 varenicline [Chantix] 1 mg tablet 1 tab PO BID RF: 0 Lantus Solostar U-100 Insulin 100 unit/mL (3 mL) insulin pen 25 unit subcut DAILY RF: 0 aspirin 81 mg tablet,delayed release (DR/EC) 81 mg PO DAILY RF: 0 metoprolol succinate 25 mg tablet extended release 24 hr 25 mg PO BID RF: 0 furosemide 20 mg tablet 20 mg PO DAILY RF: 0 atorvastatin 80 mg tablet 80 mg PO DAILY RF: 0 levothyroxine 88 mcg capsule 88 mcg PO DAILY RF: 0 metformin 500 mg tablet extended release 24 hr 500 mg PO DAILY RF: 0 Held buprenorphine-naloxone [Suboxone] 8-2 mg film 3 film buccal DAILY RF: 0 Hold Instructions: Resume on 04/07/21. No Action ondansetron HCl [Zofran] 4 mg Tablet 4 mg PO Q6H PRN (Reason: Nausea) Qty: 60 RF: 3 dexamethasone 4 mg Tablet 4 mg PO BID Qty: 30 RF: 2 Discharge Orders: Discharge Order (Routine); Ordered 04/02/21 Ordered By: Glenroy Warner Activity on Discharge: No heavy lifting Stand Alone Forms: Patient Portal Discharge page Activity Restrictions/Additional Instructions: If the incision area is tender, you may apply an ice pack for short intervals (No more than 20 minutes on, followed by at least 20 minutes off). Do not apply heat. Do not use creams, lotions, or topical antibiotics unless instructed to do so by your surgeon. These can cause infection or allergic reaction. OK to shower Okay to keep incisions open to air No lifting more than 20 lb No strenuous activities Call the office for follow-up in 2 weeks - with Dr. Warner Call Your Doctor If: -Your temperature exceeds 101.5? F -You experience excessive pain or swelling -You have an unexpected reaction to medication -You have excessive bleeding -You experience continued vomiting/nausea -Your incision begins to separate -Your incision shows signs of infection such as increased redness, swelling, excessive pain, drainage (light blood or clear fluid is normal) or heat Care Plan Goals: pain management control DM Health Concerns: blood sugar control pain management Plan of Treatment: oral pain meds ffup in office Assessment: doing very well postop Discharge Date/Time: 04/02/21 13:26
== END 2021-04-02 13:26 | disposition home or self-care (01) | DRG 231 ==
LOC: HO.SSSA 11:44 → HO.S3 14:24 → HO.ICU 15:32 → HO.S3 03-31 07:58
PROVIDERS: Nurse Practitioner; Physician Assistant; Physician Assistant Surgical; Admitting Provider Surgery; PCP Family Medicine; Visit Provider Surgery
PROC: 0DTN0ZZ Resection of Sigmoid Colon, Open Approach (ICD-10-PCS; principal; 2021-03-30 07:30)
DX: C18.7 Malignant neoplasm of sigmoid colon (principal); F11.20 Opioid dependence, uncomplicated; I11.9 Hypertensive heart disease without heart failure; E11.9 Type 2 diabetes mellitus without complications; F17.210 Nicotine dependence, cigarettes, uncomplicated; K21.9 Gastro-esophageal reflux disease without esophagitis; I25.10 Atherosclerotic heart disease of native coronary artery without angina pectoris; Z20.822 Contact with and (suspected) exposure to COVID-19; E03.9 Hypothyroidism, unspecified; I25.2 Old myocardial infarction; Z71.6 Tobacco abuse counseling; Z79.4 Long term (current) use of insulin; Z79.02 Long term (current) use of antithrombotics/antiplatelets; Z79.51 Long term (current) use of inhaled steroids; Z79.82 Long term (current) use of aspirin; Z79.890 Hormone replacement therapy; Z79.899 Other long term (current) drug therapy
CPT/HCPCS: 36415; 80048; 82803; 82947; 83036; 85025; 86850; 86900; 86901; 87635; 88309; 88329; 88341; 88342; 99024; J0131; J1100; J1170; J1885; J2060; J2250; J2270; J2370; J2405; J3010

== ENCOUNTER → 2021-04-07 13:28 | Outpatient (BNVA) | payer MEDICAID, SELFPAY | PROVIDERS: PCP Family Medicine; Visit Provider Surgery | DX: C18.9 Malignant neoplasm of colon, unspecified (principal) | CPT/HCPCS: 99212 ==

== ENCOUNTER → 2021-04-12 11:20 | Outpatient (BNVA) | payer MEDICAID, SELFPAY | PROVIDERS: PCP Family Medicine; Visit Provider Surgery | DX: Z48.815 Encounter for surgical aftercare following surgery on the digestive system (principal); Z87.19 Personal history of other diseases of the digestive system | CPT/HCPCS: 99212 ==

== ENCOUNTER → 2021-04-27 09:52 | Outpatient (BNV) | payer MEDICAID, SELFPAY | PROVIDERS: PCP Family Medicine; Referring Provider Surgery; Visit Provider Internal Medicine | DX: C18.7 Malignant neoplasm of sigmoid colon (principal); Z92.21 Personal history of antineoplastic chemotherapy; G60.9 Hereditary and idiopathic neuropathy, unspecified | CPT/HCPCS: 99204; 99213; 99214 ==

== ENCOUNTER 2021-05-10 12:31 | Day surgery (SDC) | payer MEDICAID, SELFPAY ==
--- NOTE | ~2021-05-10 | IR_ITS ---
PROCEDURE: IR INSERTION OF TUNNEL CATHETER CLINICAL INFORMATION: Colon cancer. COMPARISON: None. TECHNIQUE: Procedure and risks and benefits including bleeding, infection and pneumothorax were discussed with the patient and informed consent was obtained. The right neck and upper chest were prepped and draped in usual sterile fashion. All elements of maximal sterile barrier technique followed including use of cap, mask, sterile gown, sterile gloves, a sterile full body drape and hand hygiene. Also followed skin preparation with 2% chlorhexidine for cutaneous antisepsis, and sterile ultrasound preparation with sterile gel and probe cover when applicable. The skin and soft tissues of the right lower neck were anesthetized with 1% lidocaine with epinephrine. A small incision was made. Using ultrasound guidance and a 5 Chinese micropuncture system, right internal jugular vein access was obtained. Over a 0.018 wire, a 5 Chinese dilator was positioned in the SVC. The skin and soft tissues of the right upper anterior chest were anesthetized with 1% lidocaine with epinephrine. A small incision was made. Using blunt dissection, subcutaneous pocket was created. A subcutaneous tunnel from the chest to the neck incision was anesthetized using 1% lidocaine with epinephrine. Using a tunneler, a 6.6 Chinese single-lumen catheter was tunneled from the chest to the neck incision. The catheter was attached to the port. Port and catheter were flushed. The port was positioned in the subcutaneous pocket and secured using two 2-0 nonabsorbable sutures. A 0.035 guidewire was advanced through the 5 Chinese dilator into the IVC. The 5 Chinese dilator was exchanged for a 7 Chinese peel-away sheath. Using bent wire technique, catheter length was estimated and the catheter was cut. Catheter length is 21 cm. The catheter was fed through the peel-away sheath. The neck incision was closed using a 4-0 absorbable subcuticular suture. Chest incision was closed using three 3-0 absorbable interrupted sutures followed by a running subcuticular 4-0 absorbable suture. The port was accessed. The port had good blood return, flushed easily and was instilled with heparin 5 mL 100 unit per mL solution. Real-time ultrasound guidance was used to document vein patency and for needle entry. A formal ultrasound picture was recorded. Patient received Versed 2 mg and fentanyl 100 mcg intravenously during the procedure. Total sedation time was 33 minutes. Fluoroscopy time 0.7 minutes. DAP 199 cGy/cm2. One saved fluoroscopic image. FINDINGS: There is a right internal jugular port with tip projecting over the cavoatrial junction. IR/IR cvc insert tunnel w prt/gas desulfurizer IMPRESSION: Right internal jugular 6.6 Chinese single-lumen Dignity Port-A-Cath placement.
[2021-05-10 13:07] VITALS: BP 109/74; PULSE 93; RESP 18; TEMP 36.3; O2SAT 97; BMI 37.9
[2021-05-10 13:22] LABS: MANUAL DIFF FLAG NO
[2021-05-10 13:24] LABS: Basophils Percent Auto 0.4 % (0-2); Eosinophils Absolute Auto 0.2 X10*3/uL (0.0-0.4); Eosinophils Percent Auto 1.8 % (0-4); Hematocrit 38.7 % (37-47); Hemoglobin 12.7 g/dl (12.0-16.0); Imm Gran Abs Auto 0.04 X10*3/uL (0.00-0.03); Imm Gran Pct Auto 0.4 % (0.0-0.4); Lymphocytes Absolute Auto 2.9 X10*3/uL (1.2-4.9); Lymphocytes Percent Auto 26.9 % (20-40); Mean Corpuscular HGB Conc 32.8 g/dl (31.0-35.0); Mean Corpuscular Hemoglobin 29.3 pg (27.0-33.0); Mean Corpuscular Volume 89.2 fL (80-98); Mean Platelet Volume 11.5 fL (9.4-12.3); Monocytes Absolute Auto 0.5 X10*3/uL (0.1-1.2); Monocytes Percent Auto 4.7 % (2-11); Neutrophils Percent Auto 65.8 % (45-73); Platelet Count 279 X10*3/uL (160-400); Red Blood Count 4.34 X10*6/uL (4.20-5.50); Red Cell Distribution Width 13.2 % (11.0-16.0); White Blood Count 10.6 X10*3/uL (4.8-10.8)
[2021-05-10 13:30] LABS: Prothrombin Time 11.1 SEC (9.9-13.0)
[2021-05-10 13:33] LABS: Partial Thromboplastin Time 37.3 SEC (24.1-38.0)
[2021-05-10 13:41] LABS: Glucose, Whole Blood 186 mg/dL (60-115)
[2021-05-10 16:15] VITALS: BP 103/58; PULSE 83; RESP 16; TEMP 36.4; O2SAT 98
--- NOTE | 2021-05-10 16:29 | HO.RADPN ---
RADIOLOGY Narrative Narrative: RIJ 6.6 fr Dignity portacath placed. Tip at cavoarial junction.
[2021-05-10 16:30] VITALS: BP 107/73; PULSE 92; RESP 16; O2SAT 97
[2021-05-10 16:45] VITALS: BP 117/83; PULSE 98; RESP 18; O2SAT 100
[2021-05-10 17:00] VITALS: BP 118/76; PULSE 99; RESP 18; O2SAT 100
== END 2021-05-10 17:08 | disposition home or self-care (01) ==
LOC: HO.SSS 12:32
PROVIDERS: PCP Family Medicine; Visit Provider Radiology Diagnostic Radiology
DX: C18.7 Malignant neoplasm of sigmoid colon (principal); E11.9 Type 2 diabetes mellitus without complications; I11.9 Hypertensive heart disease without heart failure; I25.2 Old myocardial infarction; Z79.4 Long term (current) use of insulin; Z79.82 Long term (current) use of aspirin; Z79.899 Other long term (current) drug therapy
CPT/HCPCS: 36415; 36561; 76937; 82947; 85025; 85610; 85730; 99152; 99153; C1769; C1788; J0690; J1642; J2250; J3010

== ENCOUNTER 2021-05-13 13:52 | Outpatient (REF) | payer MEDICAID, SELFPAY ==
--- NOTE | ~2021-05-13 | CT_ITS ---
EXAMINATION: CT CHEST WITH CONTRAST CLINICAL INFORMATION: Colon cancer. Staging. COMPARISON: Previous chest x-ray March 02 TECHNIQUE: Multidetector volumetric CT imaging of the chest was obtained after the administration of 65 mL of Omnipaque 350 intravenous contrast without immediate adverse reactions. Axial MIP volume rendering provided. Sagittal and coronal reformatted images were obtained. This CT examination was performed using dose optimization techniques as appropriate, variously including the following: *Automated exposure control *Adjustment of mA and/or kV according to patient size (this includes techniques or standardized protocols for targeted exams where dose is matched to indication/reason for exam; i.e. extremities or head) *Use of iterative reconstruction technique DLP: 208 mGy-cm FINDINGS: LUNGS: There is a 4 mm left upper lobe nodule axial image 119 series 9. There is a 1 to 2 mm peripheral left upper lobe nodule axial image 46 series 9. The lungs are otherwise clear. MEDIASTINUM: There are small mediastinal lymph nodes. No enlarged lymph nodes are seen. Mediastinum is otherwise normal. There is a right jugular port with tip projecting over the SVC. PLEURA: There is no pleural effusion. No pleural mass or thickening. AXILLA: No lymphadenopathy. UPPER ABDOMEN: There may be fatty infiltration of the liver. The gallbladder has been removed. OSSEOUS STRUCTURES: There are postsurgical changes to the left shoulder. There are mild degenerative changes of the spine. CT/CT chest w con IMPRESSION: 2 small left upper lobe nodules or micronodules, largest measuring 4 mm.
[2021-05-13] MEDS: iohexoL 350 MG/ML 100 ML INFUS..BTL 65 ML IV (16:03)
== END 2021-05-13 13:53 | disposition home or self-care (01) ==
LOC: HO.CT 13:52
PROVIDERS: Visit Provider Internal Medicine
DX: C18.9 Malignant neoplasm of colon, unspecified (principal)
CPT/HCPCS: 71260; 99212; Q9967

== ENCOUNTER 2021-05-23 09:42 | Emergency (ER) | payer MEDICAID, SELFPAY ==
--- NOTE | ~2021-05-23 | CT_ITS ---
EXAMINATION: CT ABDOMEN AND PELVIS WITHOUT CONTRAST CLINICAL INFORMATION: Hematuria. COMPARISON: CT 03/03/2021. TECHNIQUE: Multidetector volumetric imaging was performed from the superior aspect of the liver through the pubic symphysis. Sagittal and coronal reformatted images were obtained on the technologist's workstation. This CT examination was performed using dose optimization techniques as appropriate, variously including the following: *Automated exposure control *Adjustment of mA and/or kV according to patient size (this includes techniques or standardized protocols for targeted exams where dose is matched to indication/reason for exam; i.e. extremities or head) *Use of iterative reconstruction technique DLP: 795 mGy-cm. FINDINGS: LUNG BASES: The visualized lung bases are unremarkable. LIVER, GALLBLADDER, AND BILIARY TREE: Diffuse fatty infiltration of the liver. The gallbladder is surgically absent. PANCREAS: Unremarkable. SPLEEN: Unremarkable. ADRENAL GLANDS: Unremarkable. KIDNEYS AND URETERS: Numerable small renal calculi bilaterally, which appears similar to the previous study. The largest is located in the lower pole of the left kidney and measures 6 mm. There are no ureteral calculi and there is no hydronephrosis. BLADDER: Unremarkable. No calculi. GASTROINTESTINAL TRACT: Interval surgery with sigmoid anastomosis. No obstruction. Hazy attenuation of the adjacent fat extending to the abdominal wall anteriorly, where there is soft tissue thickening over an area measuring 3.6 x 4.6 cm, presumably representing recent postsurgical changes. There is reticulation/linear stranding in the subcutaneous fat extending to the infraumbilical skin surface. Normal appendix. ABDOMINAL WALL: No significant hernia is appreciated. LYMPH NODES: Normal. VASCULAR: Scattered atherosclerotic calcifications. PELVIC VISCERA: Unremarkable. OSSEOUS STRUCTURES: No suspicious bone lesions. CT/CT abdomen pelvis wo con IMPRESSION: Bilateral nephrolithiasis, which appears similar to 03/03/2021. There is no hydronephrosis. Postsurgical changes related to recent partial sigmoid resection and anastomosis. No obstruction.
[2021-05-23 10:34] VITALS: BP 117/72; PULSE 104; RESP 18; TEMP 35.7; O2SAT 99; BMI 37.8
[2021-05-23 11:32] LABS: Appearance Urine CLOUDY; Glucose Urine UA NEG (NEG); Leukocyte Esterase Urine NEG (NEG); Nitrite Urine NEG (NEG); PH 6.5 (5.0-8.0); Specific Gravity - Urine 1.015 (1.005-1.025); UACC Culture Trigger NO; Urine Blood 3+ (NEG); Urine Ketones NEG (NEG); Urine Protein 2+ MG/DL (NEG-TRACE)
[2021-05-23 11:33] LABS: Color Urine RED
[2021-05-23 11:36] LABS: Bacteria Urine TRACE /LPF; RBC Urine TNTC /HPF (0); Squamous Epithelial Cell Urine TRACE /LPF; WBC Urine 0 /HPF (0-4)
--- NOTE | 2021-05-23 13:53 | ED.FEMALEGU ---
HPI - Female Genitourinary General Chief complaint: Urogenital-Female Stated complaint: blood in urine Time Seen by Provider: 05/23/21 13:24 Source: patient and old records reviewed History of Present Illness HPI Narrative: Patient presenting with madhavi hematuria which started last night. No prior history of hematuria. Some suprapubic discomfort but no madhavi dysuria. No fevers or chills. No significant flank discomfort. Some nausea. No vomiting. Patient has a recent diagnosis of colon cancer. She is 1 month status post partial colectomy from which he is recovering well per patient. She just started on chemotherapy 6 days ago. Related Data Home Medications Medication Instructions Recorded Confirmed aspirin 81 mg tablet,delayed 81 mg PO DAILY 11/09/20 05/17/21 release atorvastatin 80 mg tablet 80 mg PO DAILY 11/09/20 05/17/21 furosemide 20 mg tablet 20 mg PO DAILY 11/09/20 05/17/21 levothyroxine 88 mcg capsule 88 mcg PO DAILY 11/09/20 05/17/21 metoprolol succinate 25 mg 25 mg PO BID 11/09/20 05/17/21 tablet,extended release 24 hr metformin 500 mg tablet,extended 500 mg PO DAILY 12/30/20 05/17/21 release 24 hr buprenorphine 8 mg-naloxone 2 mg 3 film BUCCAL DAILY 03/08/21 04/27/21 sublingual film (Suboxone) albuterol sulfate 1 amp INHALATION Q6H PRN 03/18/21 05/17/21 albuterol sulfate 90 mcg/actuation 2 puff PO Q4-6H PRN 03/18/21 05/17/21 aerosol inhaler (ProAir HFA) baclofen 10 mg tablet 1 tab PO TID PRN 03/18/21 05/17/21 fluticasone propionate 220 2 puff PO BID 03/18/21 05/17/21 mcg/actuation HFA aerosol inhaler (Flovent HFA) fluticasone propionate 50 2 spray INTRANASAL DAILY 03/18/21 05/17/21 mcg/actuation nasal spray,suspension gabapentin 300 mg capsule 1 cap PO TID 03/18/21 05/17/21 insulin glargine 100 unit/mL (3 25 unit SUBCUT DAILY 03/18/21 04/27/21 mL) subcutaneous pen (Lantus Solostar U-100 Insulin) insulin lispro 100 unit/mL 25 unit SUBCUT DAILY 03/18/21 05/17/21 subcutaneous pen (Humalog KwikPen (U-100) Insulin) quetiapine 100 mg tablet 1 tab PO BEDTIME 03/18/21 05/17/21 Previous Rx's Medication Instructions Recorded acetaminophen 650 mg 650 mg PO Q8H PRN #60 tab 09/29/20 tablet,extended release clopidogrel 75 mg tablet 75 mg PO DAILY 90 Days #90 tab 11/13/20 dicyclomine 20 mg tablet 20 mg PO BID PRN #20 tab 02/07/21 bisacodyl 5 mg tablet,delayed 10 mg PO ONCE 1 Days #2 tab 03/15/21 release (Dulcolax (bisacodyl)) polyethylene glycol 3350 17 238 g PO ONCE #238 g 03/15/21 gram/dose oral powder (Miralax) dexamethasone 4 mg tablet 4 mg PO BID #30 tab 05/05/21 ondansetron HCl 4 mg tablet 4 mg PO Q6H PRN #60 tab 05/05/21 (Zofran) Allergies Allergy/AdvReac Type Severity Reaction Status Date / Time No Known Allergies Allergy Verified 05/13/21 10:47 [No Known Allergies*] Review of Systems Constitutional: Constitutional: Reports fatigue and Denies fever(s) Comments: Awake alert no acute distress Cardiovascular: Cardiovascular: Denies chest pain and Denies dyspnea Respiratory: Respiratory: Denies dyspnea Gastrointestinal: Comments: Nausea but no vomiting Genitourinary: Comments: Hematuria Musculoskeletal: Comments: No leg swelling Integumentary/Breasts: Comments: No rash Neurologic: Comments: No focal weakness Endocrine: Endocrine: Reports fatigue PMFSH Past Medical History Medical History Adhesive capsulitis of right shoulder Back pain Bursitis of right shoulder CAD (coronary artery disease) Colon cancer Diabetes Diabetes mellitus GERD (gastroesophageal reflux disease) Hepatitis C High cholesterol History of MRSA infection Hx of drug abuse Hypertensive cardiovascular disease Hyperthyroidism Hypothyroidism NSTEMI (non-ST elevated myocardial infarction) On beta tiffanie at home Surgical History History of back surgery History of umbilical hernia repair Hx of cholecystectomy Hx of colonoscopy Hx of heart artery stent Hx of repair of left rotator cuff Stented coronary artery Family History Family History Father No problems noted. Mother No problems noted. Social History Social History (Updated 04/27/21 @ 10:28 by Lorri Trinidad) Household Members: Spouse Are you a primary client care specialist to a significant other at home: No Do you presently have visiting nurse or other home services: No Alcohol intake: former Patient Tobacco Use Status: Current someday Tobacco user Tobacco use type: Cigarette Years Smoked: 35 Second Hand Smoke Exposure: Yes Advance Directives: No service: No Current occupational status: disabled Current occupation: right handed Physical Exam Vital Signs: Vital Signs: Last Vital Signs Temp 96.2 F L 05/23/21 10:34 Pulse 104 H 05/23/21 10:34 Resp 18 05/23/21 10:34 BP 117/72 05/23/21 10:34 Pulse Ox 99 05/23/21 10:34 Body Mass Index 37.8 Const: Other: Awake alert no acute distress Neck: Other: No meningismus Resp: Other: Clear and equal bilaterally Cardio: Other: Regular rate and rhythm without murmurs rubs or gallops GI: Other: Soft. Minimal suprapubic tenderness without guarding or rebound. No flank tenderness to percussion. Nondistended. Normal bowel sounds Skin: Other: Warm pink and dry Neuro: Other: Alert and oriented x3. No obvious focal deficits Course Course Course Narrative: Hematuria Case discussed with Dr. chow from Oncology. No obvious chemotherapeutic agents that would cause gross hematuria in the absence of coagulopathy. Await labs. Urinalysis shows hematuria but no evidence of urinary tract infection. Labs are reassuring with a normal cbc including platelets, INR of 1, and normal chemistries. Hg of 12.8 CT Scan shows no obvious cause of hematuria. She has bilateral nephrolithiasis but no evidence of hydronephrosis or ureterolithiasis. Stable for discharge home with urologic follow-up for painless hematuria MDM - Female Genitourinary Lab Data Result diagrams: 05/23/21 14:39 05/23/21 14:39 Labs: Lab Results 05/23/21 05/23/21 05/23/21 Range/Units 11:09 14:39 14:39 WBC 8.5 (4.8-10.8) X10*3/uL RBC 4.40 (4.20-5.50) X10*6/uL Hgb 12.8 (12.0-16.0) g/dl Hct 38.2 (37-47) % MCV 86.8 (80-98) fL MCH 29.1 (27.0-33.0) pg MCHC 33.5 (31.0-35.0) g/dl RDW 12.7 (11.0-16.0) % Plt Count 194 D (160-400) X10*3/uL MPV 11.2 (9.4-12.3) fL Immature Gran % (Auto) 0.2 (0.0-0.4) % Neut % (Auto) 65.2 (45-73) % Lymph % (Auto) 26.6 (20-40) % Stone % (Auto) 2.0 (2-11) % Eos % (Auto) 5.9 H (0-4) % Baso % (Auto) 0.1 (0-2) % Lymph # (Auto) 2.3 (1.2-4.9) X10*3/uL Stone # (Auto) 0.2 (0.1-1.2) X10*3/uL Eos # (Auto) 0.5 H (0.0-0.4) X10*3/uL Baso # (Auto) 0.0 (0.0-0.2) X10*3/uL Abs Immat Gran (auto) 0.02 (0.00-0.03) X10*3/uL Absolute Neuts (auto) 5.6 (2.0-8.3) X10*3/uL Absolute Nucleated RBC 0.000 (0.0-0.012) X10*3/uL Nucleated RBC % (auto) 0.0 (0.0-0.2) /100WBC Smear Tech's Comments VERIFIED PT (9.9-13.0) SEC INR (0.9-1.1) Sodium 138 (135-145) mmol/L Potassium 4.5 (3.3-5.1) mmol/L Chloride 109 H (96-108) mmol/L Carbon Dioxide 19 L (22-29) mmol/L Anion Gap 15 (12-20) BUN 18 H (9-16) mg/dL Creatinine 0.95 (0.5-1.4) mg/dL Estim Creat Clear Calc 78.6 Estimated GFR > 60 Random Glucose 224 H (60-115) mg/dL Calcium 9.1 D (8.4-10.2) mg/dL Total Bilirubin 0.5 (0.0-1.0) mg/dL AST 20 (5-31) U/L ALT 25 (0-31) U/L Alkaline Phosphatase 102 (39-117) U/L Total Protein 7.6 (6.5-8.0) g/dL Albumin 4.4 (3.5-5.0) g/dL Urine Color RED Urine Appearance CLOUDY Urine pH 6.5 (5.0-8.0) Ur Specific [place] 1.015 (1.005-1.025) Urine Protein 2+ H (NEG-TRACE) MG/DL Urine Glucose (UA) NEG (NEG) MG/DL Urine Ketones NEG (NEG) MG/DL Urine Blood 3+ H (NEG) Urine Nitrite NEG (NEG) Ur Leukocyte Esterase NEG (NEG) Urine RBC TNTC H (0) /HPF Urine WBC 0 (0-4) /HPF Ur Squamous Epith Cells TRACE /LPF Urine Bacteria TRACE /LPF 05/23/21 Range/Units 14:45 WBC (4.8-10.8) X10*3/uL RBC (4.20-5.50) X10*6/uL Hgb (12.0-16.0) g/dl Hct (37-47) % MCV (80-98) fL MCH (27.0-33.0) pg MCHC (31.0-35.0) g/dl RDW (11.0-16.0) % Plt Count (160-400) X10*3/uL MPV (9.4-12.3) fL Immature Gran % (Auto) (0.0-0.4) % Neut % (Auto) (45-73) % Lymph % (Auto) (20-40) % Stone % (Auto) (2-11) % Eos % (Auto) (0-4) % Baso % (Auto) (0-2) % Lymph # (Auto) (1.2-4.9) X10*3/uL Stone # (Auto) (0.1-1.2) X10*3/uL Eos # (Auto) (0.0-0.4) X10*3/uL Baso # (Auto) (0.0-0.2) X10*3/uL Abs Immat Gran (auto) (0.00-0.03) X10*3/uL Absolute Neuts (auto) (2.0-8.3) X10*3/uL Absolute Nucleated RBC (0.0-0.012) X10*3/uL Nucleated RBC % (auto) (0.0-0.2) /100WBC Smear Tech's Comments PT 11.6 (9.9-13.0) SEC INR 1.0 (0.9-1.1) Sodium (135-145) mmol/L Potassium (3.3-5.1) mmol/L Chloride (96-108) mmol/L Carbon Dioxide (22-29) mmol/L Anion Gap (12-20) BUN (9-16) mg/dL Creatinine (0.5-1.4) mg/dL Estim Creat Clear Calc Estimated GFR Random Glucose (60-115) mg/dL Calcium (8.4-10.2) mg/dL Total Bilirubin (0.0-1.0) mg/dL AST (5-31) U/L ALT (0-31) U/L Alkaline Phosphatase (39-117) U/L Total Protein (6.5-8.0) g/dL Albumin (3.5-5.0) g/dL Urine Color Urine Appearance Urine pH (5.0-8.0) Ur Specific [place] (1.005-1.025) Urine Protein (NEG-TRACE) MG/DL Urine Glucose (UA) (NEG) MG/DL Urine Ketones (NEG) MG/DL Urine Blood (NEG) Urine Nitrite (NEG) Ur Leukocyte Esterase (NEG) Urine RBC (0) /HPF Urine WBC (0-4) /HPF Ur Squamous Epith Cells /LPF Urine Bacteria /LPF Discharge Plan Discharge Clinical Impression: Hematuria Qualifiers: Hematuria type: gross Qualified Code(s): R31.0 - Gross hematuria Patient Disposition: Home, Self-Care Instructions: Hematuria (ED) Additional Instructions: Continue your current medications. Follow-up with your oncologist early next week. Call the urologist, Dr. Cornell, for follow-up as well. See phone number provided Prescriptions: No Action acetaminophen 650 mg tablet extended release 650 mg PO Q8H PRN (Reason: for pain) Qty: 60 RF: 1 clopidogrel 75 mg tablet 75 mg PO DAILY 90 Days Qty: 90 RF: 1 bisacodyl [Dulcolax (bisacodyl)] 5 mg tablet,delayed release (DR/EC) 10 mg PO ONCE 1 Days Qty: 2 RF: 0 polyethylene glycol 3350 [Miralax] 17 gram/dose powder 238 g PO ONCE Qty: 238 RF: 0 dicyclomine 20 mg tablet 20 mg PO BID PRN (Reason: abdominal pain) Qty: 20 RF: 0 albuterol sulfate 2.5 mg /3 mL (0.083 %) solution for nebulization 1 amp inhalation Q6H PRN (Reason: Wheezing) RF: 0 quetiapine 100 mg tablet 1 tab PO BEDTIME RF: 0 baclofen 10 mg tablet 1 tab PO TID PRN (Reason: Pain) RF: 0 gabapentin 300 mg capsule 1 cap PO TID RF: 0 Flovent HFA 220 mcg/actuation HFA aerosol inhaler 2 puff PO BID RF: 0 albuterol sulfate [ProAir HFA] 90 mcg/actuation HFA aerosol inhaler 2 puff PO Q4-6H PRN (Reason: wheezing) RF: 0 fluticasone propionate 50 mcg/actuation spray,suspension 2 spray intranasal DAILY RF: 0 insulin lispro [Humalog KwikPen Insulin] 100 unit/mL insulin pen 25 unit subcut DAILY RF: 0 Lantus Solostar U-100 Insulin 100 unit/mL (3 mL) insulin pen 25 unit subcut DAILY RF: 0 ondansetron HCl [Zofran] 4 mg Tablet 4 mg PO Q6H PRN (Reason: Nausea) Qty: 60 RF: 3 dexamethasone 4 mg Tablet 4 mg PO BID Qty: 30 RF: 2 aspirin 81 mg tablet,delayed release (DR/EC) 81 mg PO DAILY RF: 0 metoprolol succinate 25 mg tablet extended release 24 hr 25 mg PO BID RF: 0 furosemide 20 mg tablet 20 mg PO DAILY RF: 0 atorvastatin 80 mg tablet 80 mg PO DAILY RF: 0 levothyroxine 88 mcg capsule 88 mcg PO DAILY RF: 0 metformin 500 mg tablet extended release 24 hr 500 mg PO DAILY RF: 0 buprenorphine-naloxone [Suboxone] 8-2 mg film 3 film buccal DAILY RF: 0 Hold Instructions: Resume on 04/07/21. Referrals: Gavin Cornell MD [Physician] - 2 days
[2021-05-23 14:52] LABS: Hemoglobin 12.8 g/dl (12.0-16.0); Imm Gran Abs Auto 0.02 X10*3/uL (0.00-0.03); Imm Gran Pct Auto 0.2 % (0.0-0.4); MANUAL DIFF FLAG SCAN; Mean Corpuscular Volume 86.8 fL (80-98); Mean Platelet Volume 11.2 fL (9.4-12.3); PLT CLUMP 1; SCAN SMEAR FLAG 1
[2021-05-23 14:53] LABS: Basophils Percent Auto 0.1 % (0-2); Eosinophils Absolute Auto 0.5 X10*3/uL (0.0-0.4); Eosinophils Percent Auto 5.9 % (0-4); Hematocrit 38.2 % (37-47); Lymphocytes Absolute Auto 2.3 X10*3/uL (1.2-4.9); Lymphocytes Percent Auto 26.6 % (20-40); Mean Corpuscular HGB Conc 33.5 g/dl (31.0-35.0); Mean Corpuscular Hemoglobin 29.1 pg (27.0-33.0); Monocytes Absolute Auto 0.2 X10*3/uL (0.1-1.2); Neutrophils Absolute Auto 5.6 X10*3/uL (2.0-8.3); Neutrophils Percent Auto 65.2 % (45-73); Red Cell Distribution Width 12.7 % (11.0-16.0); White Blood Count 8.5 X10*3/uL (4.8-10.8)
[2021-05-23 15:00] LABS: Prothrombin Time 11.6 SEC (9.9-13.0)
[2021-05-23 15:05] LABS: Alanine Aminotransferase 25 U/L (0-31); Albumin Level 4.4 g/dL (3.5-5.0); Alkaline Phosphatase 102 U/L (39-117); Anion Gap 15 (12-20); Aspartate Amino Transferase 20 U/L (5-31); Bilirubin Total 0.5 mg/dL (0.0-1.0); Blood Urea Nitrogen 18 mg/dL (9-16); Calcium 9.1 mg/dL (8.4-10.2); Carbon Dioxide 19 mmol/L (22-29); Chloride 109 mmol/L (96-108); Creatinine Clr Calc Pharmacy 78.6; Estimated Glomerular Filt Rate > 60; Glucose Random 224 mg/dL (60-115); Potassium 4.5 mmol/L (3.3-5.1); Sodium 138 mmol/L (135-145); Total Protein 7.6 g/dL (6.5-8.0)
[2021-05-23 15:19] LABS: Platelet Count 194 X10*3/uL (160-400)
[2021-05-23 15:20] LABS: SLIDE REVIEW VERIFIED
[2021-05-23 16:34] VITALS: BP 126/85; PULSE 102; RESP 16; TEMP 36.5; O2SAT 99
== END 2021-05-23 16:48 | disposition home or self-care (01) ==
PROVIDERS: Emergency Provider Emergency Medicine; PCP Family Medicine
DX: R31.0 Gross hematuria (principal); E11.9 Type 2 diabetes mellitus without complications; I25.10 Atherosclerotic heart disease of native coronary artery without angina pectoris; Z85.038 Personal history of other malignant neoplasm of large intestine; I25.2 Old myocardial infarction; Z79.4 Long term (current) use of insulin; Z79.82 Long term (current) use of aspirin; Z79.899 Other long term (current) drug therapy
CPT/HCPCS: 36415; 74176; 80053; 81001; 85025; 85610; 99283; 99284

== ENCOUNTER → 2021-06-23 10:50 | Outpatient (BNVA) | payer MEDICAID, SELFPAY | PROVIDERS: PCP Family Medicine; Referring Provider Family Medicine; Visit Provider Internal Medicine Cardiovascular Disease ==

== ENCOUNTER 2021-07-13 12:39 | Emergency (ER) | payer MEDICAID, SELFPAY ==
--- NOTE | 2021-07-13 | ECG_ITS ---
Test Reason : CHEST PAIN Blood Pressure : / mmHG Vent. Rate : 085 BPM Atrial Rate : 085 BPM P-R Int : 140 ms QRS Dur : 078 ms QT Int : 356 ms P-R-T Axes : 026 039 038 degrees QTc Int : 423 ms Normal sinus rhythm Normal ECG No significant changes when compared with the previous EKG of 23 february 2021 Referred By: Generic ED Physician Electronically Signed By:OZ SANDHU
--- NOTE | ~2021-07-13 | XR_ITS ---
EXAMINATION: XR CHEST CLINICAL INFORMATION: Chest pain COMPARISON: Previous chest x-ray was recent February [address] April 2020 TECHNIQUE: . view of the chest was obtained. FINDINGS: The cardiac and mediastinal contours are normal. The lungs are clear. There is no pleural effusion or pneumothorax. There are degenerative changes of the spine. There is a right jugular port with tip projecting over the SVC. XR/XR chest 1V IMPRESSION: No evidence for acute disease in the chest.
[2021-07-13 12:52] VITALS: BP 77/45; BP 80/50; PULSE 85; PULSE 88; RESP 18; TEMP 36.6; O2SAT 99; BMI 36.6
--- NOTE | 2021-07-13 13:09 | ED_ITS ---
HPI - Chest Pain General Chief Complaint: Chest Pain Stated Complaint: chest pain Time Seen by Provider: 07/13/21 13:08 Source: patient and old records reviewed Mode of arrival: ambulatory Limitations: no limitations History of Present Illness HPI narrative: [age] year female came in for evaluation chest pain. Patient was at the clinic when she started to have the chest pain, pain started 90 minutes ago, pain is localized to mid chest, with no radiation, described as burning pain in the mid chest, when pain in its maximal have some shortness of breath, patient was given nitro at the clinic for chest pain causing blood pressure to drop. Pain started at rest, no aggravating factor. No other associated symptoms, patient had similar pain in the past when she had a heart attack and patient was transferred to [facility] reportedly patient was treated by placing stent in her heart's artery. Old record was reviewed patient had non STEMI with severe left circumflex artery stenosis and treated with drug eluted stent. Related Data Home Medications Medication Instructions Recorded Confirmed aspirin 81 mg tablet,delayed 81 mg PO DAILY 11/09/20 07/12/21 release atorvastatin 80 mg tablet 80 mg PO DAILY 11/09/20 07/12/21 furosemide 20 mg tablet 20 mg PO DAILY 11/09/20 07/12/21 levothyroxine 88 mcg capsule 88 mcg PO DAILY 11/09/20 07/12/21 metoprolol succinate 25 mg 25 mg PO BID 11/09/20 07/12/21 tablet,extended release 24 hr metformin 500 mg tablet,extended 500 mg PO DAILY 12/30/20 07/12/21 release 24 hr buprenorphine 8 mg-naloxone 2 mg 3 film BUCCAL DAILY 03/08/21 07/12/21 sublingual film (Suboxone) albuterol sulfate 1 amp INHALATION Q6H PRN 03/18/21 07/12/21 albuterol sulfate 90 mcg/actuation 2 puff PO Q4-6H PRN 03/18/21 07/12/21 aerosol inhaler (ProAir HFA) baclofen 10 mg tablet 1 tab PO TID PRN 03/18/21 07/12/21 fluticasone propionate 220 2 puff PO BID 03/18/21 07/12/21 mcg/actuation HFA aerosol inhaler (Flovent HFA) fluticasone propionate 50 2 spray INTRANASAL DAILY 03/18/21 07/12/21 mcg/actuation nasal spray,suspension gabapentin 300 mg capsule 1 cap PO TID 03/18/21 07/12/21 insulin glargine 100 unit/mL (3 See Rx Instructions .ROUTE .COMPLEX 03/18/21 07/12/21 mL) subcutaneous pen (Lantus Solostar U-100 Insulin) insulin lispro 100 unit/mL 25 unit SUBCUT DAILY 03/18/21 07/12/21 subcutaneous pen (Humalog KwikPen (U-100) Insulin) quetiapine 100 mg tablet 1 tab PO BEDTIME 03/18/21 07/12/21 Previous Rx's Medication Instructions Recorded acetaminophen 650 mg 650 mg PO Q8H PRN #60 tab 09/29/20 tablet,extended release clopidogrel 75 mg tablet 75 mg PO DAILY 90 Days #90 tab 11/13/20 dicyclomine 20 mg tablet 20 mg PO BID PRN #20 tab 02/07/21 bisacodyl 5 mg tablet,delayed 10 mg PO ONCE 1 Days #2 tab 03/15/21 release (Dulcolax (bisacodyl)) polyethylene glycol 3350 17 238 g PO ONCE #238 g 03/15/21 gram/dose oral powder (Miralax) dexamethasone 4 mg tablet 4 mg PO BID #30 tab 05/05/21 ondansetron HCl 4 mg tablet 4 mg PO Q6H PRN #60 tab 05/05/21 (Zofran) amoxicillin 500 mg-potassium 1 tab PO Q12H #20 tab 06/02/21 clavulanate 125 mg tablet (Augmentin) Allergies Allergy/AdvReac Type Severity Reaction Status Date / Time No Known Allergies Allergy Verified 06/23/21 10:52 [No Known Allergies*] Review of Systems Review of Systems: All other systems are reviewed and are negative Constitutional: Reports as per HPI and Reports no additional constitutional complaints Eyes: Reports as per HPI and Reports no additional eye complaints Reports system reviewed and no additional complaints, except as documented Cardiovascular: Reports as per HPI and Reports no additional cardiovascular complaints Respiratory: Reports as per HPI and Reports no additional respiratory complaints Gastrointestinal: Reports as per HPI and Reports no additional gastrointestinal complaints Genitourinary: Reports no additional female genitourinary complaints Musculoskeletal: Reports no additional musculoskeletal complaints Skin/Breast: Reports system reviewed and no additional complaints, except as docu Psychiatric: Reports no additional psychiatric complaints Endocrine: Reports no additional endocrine complaints Hematologic/Lymphatic: Reports no additional hematologic/lymphatic complaints Allergic/Immunologic: Reports no additional allergic/immunologic complaints Reports system reviewed and no additional complaints, except as documented and Reports Abnormal speech present [facility] Past Medical History Medical History Adhesive capsulitis of right shoulder Back pain Bursitis of right shoulder CAD (coronary artery disease) Colon cancer Diabetes Diabetes mellitus GERD (gastroesophageal reflux disease) Hepatitis C High cholesterol History of MRSA infection Hx of drug abuse Hypertensive cardiovascular disease Hyperthyroidism Hypothyroidism NSTEMI (non-ST elevated myocardial infarction) On beta tiffanie at home Surgical History History of back surgery History of umbilical hernia repair Hx of cholecystectomy Hx of colonoscopy Hx of heart artery stent Hx of repair of left rotator cuff Stented coronary artery Family History Family History Father No problems noted. Mother No problems noted. Social History Social History Household Members: Spouse Are you a primary resident care supervisor to a significant other at home: No Do you presently have visiting nurse or other home services: No Alcohol intake: former Patient Tobacco Use Status: Current someday Tobacco user Tobacco use type: Cigarette Years Smoked: 35 Second Hand Smoke Exposure: Yes Advance Directives: No Advance Directives Information Provided: Yes service: No Current occupational status: disabled Current occupation: right handed Physical Exam Vital Signs: Vital Signs: Last Vital Signs Temp 98 F 07/13/21 12:52 Pulse 81 07/13/21 14:38 Resp 20 07/13/21 14:38 BP 102/54 L 07/13/21 14:38 Pulse Ox 99 07/13/21 12:52 Body Mass Index 36.6 Vital signs have been reviewed as appeared to be correct. Blood pressure low after patient was given nitro. Heart rate normal. Respiration rate normal. Temperature normal. Oxygen saturation normal. Appearance: Alert. Oriented X3. No acute distress. Head: Normal external exam. Normocephalic. Atraumatic. No Andrews signs noted. No raccoon eyes noted Eyes: PERRLA. EOMI. Conjunctiva and sclera normal. Eyelids normal. ENT: TM's Normal. Pharynx normal. Uvula midline. Moist mucous membranes. No trismus noted. No drooling noted. No muffled voice noted. Neck: Normal inspection. Neck supple. FROM. No adenopathy. Thyroid Normal. No meningeal signs. No neck mass noted. CVS: Normal heart rate and rhythm. Heart sound normal. No murmurs noted. Pulses normal throughout. Respiratory: No respiratory distress. Painless inspiration. Breath sounds normal. No wheezes/rales/rhonchi noted. Chest nontender. No accessory muscle usage noted or decreased air movement noted. Abdomen: Soft and nontender. Bowel sounds normal in all 4 quadrants. No distention noted. No organomegaly noted. No visible injury noted. Back: No CVA tenderness. Full range of motion noted. Skin: Skin warm and dry. Normal skin color. Normal skin turgor. No rashes/lesions/lacerations noted. Extremities: No lower extremity edema. Extremities exhibit normal range of motion. Extremities nontender. Neuro: Oriented X 3. Cranial nerve exam: II-XII are grossly intact No motor deficit. No sensory deficit. Reflexes normal. Course Course Course Narrative: Assessment and plan. 56-year-old female history of colon cancer on chemotherapy came in for chest pain similar to her previous heart attack that require stent and her left coronary circumferentially heart rate. Patient was given nitroglycerin at the clinic which dropped her blood pressure, patient emergency room had an EKG was unremarkable, and her troponin was negative, patient needed another troponin within 3 hours apart, patient does not want to await for the 2nd troponin to be drawn. I explained the patient risk of leaving without repeating troponin that may diagnosed another heart attack. Patient understand that missing heart attack can lead to patient still insisting to be discharged against medical advic e. [facility] - Chest Pain Medical Records Data Attestation: I reviewed the patient's medical records. Lab Data Attestation: I reviewed the patient's lab results. Result diagrams: 07/13/21 13:32 07/13/21 13:32 Labs: Lab Results 07/13/21 07/13/21 07/13/21 Range/Units 13:32 13:32 13:32 WBC 10.5 (4.8-10.8) X10*3/uL RBC 3.21 L (4.20-5.50) X10*6/uL Hgb 10.1 L (12.0-16.0) g/dl Hct 31.1 L (37.0-47.0) % MCV 96.9 (80.0-98.0) fL MCH 31.5 (27.0-33.0) pg MCHC 32.5 (31.0-35.0) g/dl RDW 18.6 H (11.0-16.0) % Plt Count 125 L (160-400) X10*3/uL MPV 10.7 (9.4-12.3) fL Immature Gran % (Auto) 0.5 H (0.0-0.4) % Neut % (Auto) 62.2 (45-73) % Lymph % (Auto) 24.6 (20-40) % [place] % (Auto) 11.3 H (2-11) % Eos % (Auto) 1.1 (0-4) % Baso % (Auto) 0.3 (0-2) % Lymph # (Auto) 2.6 (1.2-4.9) X10*3/uL [place] # (Auto) 1.2 (0.1-1.2) X10*3/uL Eos # (Auto) 0.1 (0.0-0.4) X10*3/uL Baso # (Auto) 0.0 (0.0-0.2) X10*3/uL Abs Immat Gran (auto) 0.05 H (0.00-0.03) X10*3/uL Absolute Neuts (auto) 6.5 (2.0-8.3) x10*3/uL Absolute Nucleated RBC 0.000 (0.0-0.012) X10*3/uL Nucleated RBC % (auto) 0.0 (0.0-0.2) /100WBC Sodium 137 (135-145) mmol/L Potassium 4.1 (3.3-5.1) mmol/L Chloride 106 (96-108) mmol/L Carbon Dioxide 21 L (22-29) mmol/L Anion Gap 14 (12-20) BUN 22 H D (9-16) mg/dL Creatinine 1.12 (0.5-1.4) mg/dL Estim Creat Clear Calc 64.8 Estimated GFR 51 Random Glucose 191 H (60-115) mg/dL Calcium 9.2 (8.4-10.2) mg/dL Total Bilirubin 0.4 (0.0-1.0) mg/dL Direct Bilirubin 0.2 (0.0-0.5) mg/dL AST 44 H (5-31) U/L ALT 49 H (0-31) U/L Alkaline Phosphatase 102 (39-117) U/L Troponin I High Sens 4.1 (<3.5-17.0) ng/L B-Natriuretic Peptide 77 (<100) pg/mL Total Protein 6.6 (6.5-8.0) g/dL Albumin 3.9 (3.5-5.0) g/dL Lipase 27 (8-78) U/L COVID-19 ([facility]) (Negative) COVID-19 Clin Com 07/13/21 Range/Units 13:32 WBC (4.8-10.8) X10*3/uL RBC (4.20-5.50) X10*6/uL Hgb (12.0-16.0) g/dl Hct (37.0-47.0) % MCV (80.0-98.0) fL MCH (27.0-33.0) pg MCHC (31.0-35.0) g/dl RDW (11.0-16.0) % Plt Count (160-400) X10*3/uL MPV (9.4-12.3) fL Immature Gran % (Auto) (0.0-0.4) % Neut % (Auto) (45-73) % Lymph % (Auto) (20-40) % [place] % (Auto) (2-11) % Eos % (Auto) (0-4) % Baso % (Auto) (0-2) % Lymph # (Auto) (1.2-4.9) X10*3/uL [place] # (Auto) (0.1-1.2) X10*3/uL Eos # (Auto) (0.0-0.4) X10*3/uL Baso # (Auto) (0.0-0.2) X10*3/uL Abs Immat Gran (auto) (0.00-0.03) X10*3/uL Absolute Neuts (auto) (2.0-8.3) x10*3/uL Absolute Nucleated RBC (0.0-0.012) X10*3/uL Nucleated RBC % (auto) (0.0-0.2) /100WBC Sodium (135-145) mmol/L Potassium (3.3-5.1) mmol/L Chloride (96-108) mmol/L Carbon Dioxide (22-29) mmol/L Anion Gap (12-20) BUN (9-16) mg/dL Creatinine (0.5-1.4) mg/dL Estim Creat Clear Calc Estimated GFR Random Glucose (60-115) mg/dL Calcium (8.4-10.2) mg/dL Total Bilirubin (0.0-1.0) mg/dL Direct Bilirubin (0.0-0.5) mg/dL AST (5-31) U/L ALT (0-31) U/L Alkaline Phosphatase (39-117) U/L Troponin I High Sens (<3.5-17.0) ng/L B-Natriuretic Peptide (<100) pg/mL Total Protein (6.5-8.0) g/dL Albumin (3.5-5.0) g/dL Lipase (8-78) U/L COVID-19 ([facility]) Negative (Negative) COVID-19 Clin Com See Note Imaging Data Chest x-ray: Radiologist's impression: No evidence for acute disease in the chest. ECG Data ECG #1: Interpretation: Normal sinus rhythm at 85 beats per minute, normal intervals, normal axis deviation, no ST-T changes. Discharge Plan Discharge Clinical Impression: Hypotension due to drugs Chest pain Qualifiers: Chest pain type: unspecified Qualified Code(s): R07.9 - Chest pain, unspecified Patient Disposition: Left Against Medical Advice Instructions: Hypotension (ED), Chest Pain (ED) Prescriptions: No Action acetaminophen 650 mg tablet extended release 650 mg PO Q8H PRN (Reason: for pain) Qty: 60 RF: 1 clopidogrel 75 mg tablet 75 mg PO DAILY 90 Days Qty: 90 RF: 1 bisacodyl [Dulcolax (bisacodyl)] 5 mg tablet,delayed release (DR/EC) 10 mg PO ONCE 1 Days Qty: 2 RF: 0 polyethylene glycol 3350 [Miralax] 17 gram/dose powder 238 g PO ONCE Qty: 238 RF: 0 dicyclomine 20 mg tablet 20 mg PO BID PRN (Reason: abdominal pain) Qty: 20 RF: 0 albuterol sulfate 2.5 mg /3 mL (0.083 %) solution for nebulization 1 amp inhalation Q6H PRN (Reason: Wheezing) RF: 0 quetiapine 100 mg tablet 1 tab PO BEDTIME RF: 0 baclofen 10 mg tablet 1 tab PO TID PRN (Reason: Pain) RF: 0 gabapentin 300 mg capsule 1 cap PO TID RF: 0 Flovent HFA 220 mcg/actuation HFA aerosol inhaler 2 puff PO BID RF: 0 albuterol sulfate [ProAir HFA] 90 mcg/actuation HFA aerosol inhaler 2 puff PO Q4-6H PRN (Reason: wheezing) RF: 0 fluticasone propionate 50 mcg/actuation spray,suspension 2 spray intranasal DAILY RF: 0 insulin lispro [Humalog KwikPen Insulin] 100 unit/mL insulin pen 25 unit subcut DAILY RF: 0 Lantus Solostar U-100 Insulin 100 unit/mL (3 mL) insulin pen See Rx Instructions .ROUTE .COMPLEX RF: 0 ondansetron HCl [Zofran] 4 mg Tablet 4 mg PO Q6H PRN (Reason: Nausea) Qty: 60 RF: 3 dexamethasone 4 mg Tablet 4 mg PO BID Qty: 30 RF: 2 amoxicillin-pot clavulanate [Augmentin] 500-125 mg Tablet 1 tab PO Q12H Qty: 20 RF: 0 aspirin 81 mg tablet,delayed release (DR/EC) 81 mg PO DAILY RF: 0 metoprolol succinate 25 mg tablet extended release 24 hr 25 mg PO BID RF: 0 furosemide 20 mg tablet 20 mg PO DAILY RF: 0 atorvastatin 80 mg tablet 80 mg PO DAILY RF: 0 levothyroxine 88 mcg capsule 88 mcg PO DAILY RF: 0 metformin 500 mg tablet extended release 24 hr 500 mg PO DAILY RF: 0 buprenorphine-naloxone [Suboxone] 8-2 mg film 3 film buccal DAILY RF: 0 Hold Instructions: Resume on 04/07/21. Referrals: Physician,Unknown J [Primary Care Provider] - 2 days
[2021-07-13] MEDS: 0.9 % Sodium Chloride 1,000 ML 999 ML IVCONT (13:36)
[2021-07-13 13:41] LABS: MANUAL DIFF FLAG NO
[2021-07-13 13:42] LABS: Basophils Percent Auto 0.3 % (0-2); Eosinophils Absolute Auto 0.1 X10*3/uL (0.0-0.4); Eosinophils Percent Auto 1.1 % (0-4); Hematocrit 31.1 % (37.0-47.0); Hemoglobin 10.1 g/dl (12.0-16.0); Imm Gran Abs Auto 0.05 X10*3/uL (0.00-0.03); Imm Gran Pct Auto 0.5 % (0.0-0.4); Lymphocytes Absolute Auto 2.6 X10*3/uL (1.2-4.9); Lymphocytes Percent Auto 24.6 % (20-40); Mean Corpuscular HGB Conc 32.5 g/dl (31.0-35.0); Mean Corpuscular Hemoglobin 31.5 pg (27.0-33.0); Mean Corpuscular Volume 96.9 fL (80.0-98.0); Mean Platelet Volume 10.7 fL (9.4-12.3); Monocytes Absolute Auto 1.2 X10*3/uL (0.1-1.2); Monocytes Percent Auto 11.3 % (2-11); Neutrophils Absolute Auto 6.5 x10*3/uL (2.0-8.3); Neutrophils Percent Auto 62.2 % (45-73); Platelet Count 125 X10*3/uL (160-400); Red Blood Count 3.21 X10*6/uL (4.20-5.50); Red Cell Distribution Width 18.6 % (11.0-16.0); White Blood Count 10.5 X10*3/uL (4.8-10.8)
[2021-07-13 13:57] LABS: COVID-19 Test Negative (Negative)
[2021-07-13 13:58] LABS: Alanine Aminotransferase 49 U/L (0-31); Albumin Level 3.9 g/dL (3.5-5.0); Alkaline Phosphatase 102 U/L (39-117); Anion Gap 14 (12-20); Aspartate Amino Transferase 44 U/L (5-31); Bilirubin Direct 0.2 mg/dL (0.0-0.5); Bilirubin Total 0.4 mg/dL (0.0-1.0); Blood Urea Nitrogen 22 mg/dL (9-16); Calcium 9.2 mg/dL (8.4-10.2); Carbon Dioxide 21 mmol/L (22-29); Chloride 106 mmol/L (96-108); Creatinine Clr Calc Pharmacy 64.8; Estimated Glomerular Filt Rate 51; Glucose Random 191 mg/dL (60-115); Lipase 27 U/L (8-78); Potassium 4.1 mmol/L (3.3-5.1); Sodium 137 mmol/L (135-145); Total Protein 6.6 g/dL (6.5-8.0)
[2021-07-13 14:03] LABS: B Type Natriuretic Peptide 77 pg/mL (<100); Troponin-I High Sensitivity 4.1 ng/L (<3.5-17.0)
[2021-07-13 14:38] VITALS: BP 102/54; PULSE 81; RESP 20
== END 2021-07-13 15:16 | disposition left against medical advice (07) ==
PROVIDERS: Emergency Provider Emergency Medicine
DX: R07.9 Chest pain, unspecified (principal); I95.2 Hypotension due to drugs; R06.02 Shortness of breath; F11.20 Opioid dependence, uncomplicated; Z20.822 Contact with and (suspected) exposure to COVID-19; E11.9 Type 2 diabetes mellitus without complications; E78.5 Hyperlipidemia, unspecified; B19.20 Unspecified viral hepatitis C without hepatic coma; I25.2 Old myocardial infarction; F17.200 Nicotine dependence, unspecified, uncomplicated; Z79.82 Long term (current) use of aspirin; Z79.02 Long term (current) use of antithrombotics/antiplatelets; Z79.899 Other long term (current) drug therapy; Z79.4 Long term (current) use of insulin; Z86.14 Personal history of Methicillin resistant Staphylococcus aureus infection
CPT/HCPCS: 36415; 71045; 80048; 80076; 83690; 83880; 84484; 85025; 87635; 93005; 96360; 99283; 99284

== ENCOUNTER 2021-08-11 09:49 | Outpatient (REF) | payer MEDICAID, SELFPAY ==
--- NOTE | ~2021-08-11 | US_ITS ---
EXAMINATION: US RETROPERITONEAL LIMITED (RENAL ONLY) CLINICAL INFORMATION: Gross hematuria. COMPARISON: CT abdomen and pelvis 05/23/2021 TECHNIQUE: Real-time imaging of the kidneys. FINDINGS: RIGHT KIDNEY: 10.9 x 3.9 x 4.8 cm (SAG x AP x TRV). The kidney is normal in size, contour, and echogenicity. Renal cortical thickness is normal. No focal parenchymal lesions. Minimal pelviectasis without madhavi hydronephrosis.. Bilateral nonobstructing stones measuring up to 5 mm in the mid and lower pole. LEFT KIDNEY: 10.0 x 4.9 x 4.6 cm (SAG x AP x TRV). The kidney is normal in size, contour, and echogenicity. Renal cortical thickness is normal. No focal parenchymal lesions or hydronephrosis. Bilateral nonobstructing renal stones measuring up to 8 mm in the lower pole. Partially imaged liver appears echogenic. US/US renal BI IMPRESSION: Bilateral nonobstructing renal stones measuring up to 5 mm on the right and 8 mm in the left. Mild right renal pelviectasis without madhavi hydronephrosis..
== END 2021-08-11 09:50 | disposition home or self-care (01) ==
LOC: HO.US 09:49
PROVIDERS: Visit Provider Family Medicine
DX: R31.0 Gross hematuria (principal); N20.0 Calculus of kidney
CPT/HCPCS: 76775

== ENCOUNTER 2021-10-07 09:00 | Day surgery (SDC) | payer MEDICAID, SELFPAY ==
--- NOTE | ~2021-10-07 | IR_ITS ---
EXAMINATION: IR REMOVAL OF TUNNELED PORT CATHETER CLINICAL INFORMATION: Colon cancer. Chemotherapy is not needed anymore. COMPARISON: None. TECHNIQUE: Following explaining removal of Port-A-Cath procedure, benefits and risks, a written consent was obtained. 1% lidocaine was injected along the previous skin incision site along the right anterior chest wall and a skin incision performed. With blunt dissection, both stitches were identified holding the port and there were severed and removed. The port was then loosened around its borders and gently retracted with forceps and the entire chamber and catheter removed. Subcuticular 3-0 absorbable sutures were placed followed by 4-0 skin sutures. Sterile dressing was applied postprocedure. Conscious sedation with 25 mg of fentanyl and 1 mcg of Versed administered during the exam and patient monitored by the IR nurse and the radiologist. Sedation time: 30 minutes. A single image was obtained prior to the exam. Subsequent fluoroscopy revealed removal of the entire catheter. IR/IR cvc remove tunnel w prt/neck skewer FINDINGS/IMPRESSION: Successful removal of right Port-A-Cath without extensive bleeding.
[2021-10-07 09:18] VITALS: BMI 36.3
[2021-10-07 09:51] LABS: MANUAL DIFF FLAG NO
[2021-10-07 09:55] LABS: Basophils Percent Auto 0.4 % (0-2); Eosinophils Absolute Auto 0.3 X10*3/uL (0.0-0.4); Eosinophils Percent Auto 4.2 % (0-4); Hematocrit 41.8 % (37.0-47.0); Hemoglobin 13.6 g/dl (12.0-16.0); Imm Gran Abs Auto 0.05 X10*3/uL (0.00-0.03); Imm Gran Pct Auto 0.6 % (0.0-0.4); Lymphocytes Absolute Auto 2.7 X10*3/uL (1.2-4.9); Lymphocytes Percent Auto 32.6 % (20-40); Mean Corpuscular HGB Conc 32.5 g/dl (31.0-35.0); Mean Corpuscular Hemoglobin 32.6 pg (27.0-33.0); Mean Corpuscular Volume 100.2 fL (80.0-98.0); Mean Platelet Volume 10.7 fL (9.4-12.3); Monocytes Absolute Auto 0.6 X10*3/uL (0.1-1.2); Monocytes Percent Auto 6.8 % (2-11); Neutrophils Absolute Auto 4.5 x10*3/uL (2.0-8.3); Neutrophils Percent Auto 55.4 % (45-73); Platelet Count 193 X10*3/uL (160-400); Red Blood Count 4.17 X10*6/uL (4.20-5.50); White Blood Count 8.1 X10*3/uL (4.8-10.8)
[2021-10-07 10:01] LABS: INTERNATIONAL NORM RATIO 0.9 (0.9-1.1); Prothrombin Time 10.3 SEC (9.9-13.0)
[2021-10-07 10:03] LABS: Partial Thromboplastin Time 38.6 SEC (24.1-38.0)
[2021-10-07 10:08] LABS: Anion Gap 14 (12-20); Carbon Dioxide 26 mmol/L (22-29); Chloride 106 mmol/L (96-108); Potassium 4.8 mmol/L (3.3-5.1); Sodium 141 mmol/L (135-145)
[2021-10-07] MEDS: Lidocaine HCl 1 % 20 ML VIAL 5 ML INFILTRATI (11:36)
[2021-10-07 11:55] VITALS: BP 115/70; PULSE 95; RESP 16; TEMP 36.3; O2SAT 98
[2021-10-07 12:05] LABS: Glucose, Whole Blood 191 mg/dL (60-115)
[2021-10-07 12:10] VITALS: BP 129/75; PULSE 99; RESP 16; TEMP 36.4; O2SAT 98
== END 2021-10-07 12:41 | disposition home or self-care (01) ==
PROVIDERS: PCP Family Medicine; Visit Provider Radiology Diagnostic Radiology
PROC: (CPT 36590; principal; 2021-10-07 10:30)
DX: Z45.2 Encounter for adjustment and management of vascular access device (principal); C18.7 Malignant neoplasm of sigmoid colon; I25.10 Atherosclerotic heart disease of native coronary artery without angina pectoris; Z98.61 Coronary angioplasty status; I10 Essential (primary) hypertension; F17.210 Nicotine dependence, cigarettes, uncomplicated; E11.9 Type 2 diabetes mellitus without complications; Z79.4 Long term (current) use of insulin; Z79.899 Other long term (current) drug therapy
CPT/HCPCS: 36415; 36590; 80051; 82947; 85025; 85610; 85730; 99152; 99153; J2250; J3010

== ENCOUNTER → 2021-10-28 11:28 | Outpatient (BNVA) | payer MEDICAID, SELFPAY | PROVIDERS: PCP Family Medicine | DX: N20.0 Calculus of kidney (principal) | CPT/HCPCS: 99202 ==

== ENCOUNTER → 2021-11-17 14:56 | Outpatient (BNVA) | payer MEDICAID, SELFPAY | PROVIDERS: PCP Family Medicine; Referring Provider Family Medicine; Visit Provider Nurse Practitioner Family | DX: Z01.810 Encounter for preprocedural cardiovascular examination (principal); I25.10 Atherosclerotic heart disease of native coronary artery without angina pectoris; N20.0 Calculus of kidney; Z95.5 Presence of coronary angioplasty implant and graft | CPT/HCPCS: 93005; 99212 ==

== ENCOUNTER 2021-12-01 06:46 | Day surgery (SDC) | payer MEDICAID, SELFPAY ==
[2021-11-25 10:28] VITALS: BMI 38.4
--- NOTE | 2021-11-26 10:46 | HO.ANESPROP2 ---
Documented by User: Regina García NP 11/26/21 10:56 HPI - Anesthesia Eval Consult details Narrative: 56yo F for Left ESWL Optimized per cardiology. OK to hold plavix, preferably continue ASA. (NSTEMI with stent 2020) Suboxone daily PMFSH Active Problems Active Problems: All Active Problems (Updated 11/24/21 @ 11:26 by Sybil Small MD) Encounter for screening colonoscopy (Acute) On chronic clopidogrel therapy (Acute) Poor historian (Acute) Coronary artery disease (Acute) Preoperative cardiovascular examination (Acute) Stable angina (Acute) Renal calculi (Acute) Colon cancer (Chronic) Hypothyroidism (Acute) Hypertensive cardiovascular disease (Acute) Diabetes mellitus (Acute) Stented coronary artery (Acute) Adhesive capsulitis of right shoulder (Acute) Bursitis of right shoulder (Acute) Past Medical History Medical History (Updated 11/24/21 @ 11:26 by Sybil Small MD) Adhesive capsulitis of right shoulder Back pain Bursitis of right shoulder CAD (coronary artery disease) Colon cancer Diabetes Diabetes mellitus GERD (gastroesophageal reflux disease) Hepatitis C High cholesterol History of MRSA infection Hx of drug abuse Hypertensive cardiovascular disease Hyperthyroidism Hypothyroidism NSTEMI (non-ST elevated myocardial infarction) On beta tiffanie at home Renal calculi Family History Family History Father No problems noted. Mother No problems noted. Family history of problems with anesthesia: No Surgical History Surgical History (Updated 11/25/21 @ 10:27 by Doris Guardado RN) History of back surgery History of colon surgery History of umbilical hernia repair Hx of cholecystectomy Hx of colonoscopy Hx of heart artery stent Hx of repair of left rotator cuff Stented coronary artery History of Problems with Anesthesia: No Social History Social History (Updated 11/24/21 @ 11:20 by Dia Browne CMA) Household Members: Spouse Housing: Apartment Are you a primary pediatric critical care nurse to a significant other at home: No Do you presently have visiting nurse or other home services: No Alcohol intake: former Patient Tobacco Use Status: Former Tobacco user Quit Date: 09/2021 Tobacco use type: Cigarette Years Smoked: 35 Second Hand Smoke Exposure: Yes Use of substances other than those prescribed or required for medical reasons: No Have you been hit, kicked, punched, or otherwise hurt by someone within the past year? If so, by whom?: No Are you DNR?: No Advance Directives: No Advance Directives Information Provided: Yes Advance Directives on File: No service: No Current occupational status: disabled Current occupation: right handed Meds Allergies Allergy/AdvReac Type Severity Reaction Status Date / Time No Known Allergies Allergy Verified 11/25/21 10:26 [No Known Allergies*] Home Medications Medication Instructions Recorded Confirmed Last Taken Type aspirin 81 mg tablet,delayed 81 mg PO DAILY 11/09/20 11/25/21 03/23/21 History release atorvastatin 80 mg tablet 80 mg PO DAILY 11/09/20 11/25/21 Unknown History furosemide 20 mg tablet 20 mg PO DAILY 11/09/20 11/25/21 Unknown History levothyroxine 88 mcg capsule 88 mcg PO DAILY 11/09/20 11/25/21 Unknown History metoprolol succinate 25 mg 12.5 mg PO BID 11/09/20 11/25/21 Unknown History tablet,extended release 24 hr metformin 500 mg tablet,extended 500 mg PO DAILY 12/30/20 11/25/21 Unknown History release 24 hr buprenorphine 8 mg-naloxone 2 mg 3 film BUCCAL DAILY 03/08/21 11/25/21 03/22/21 History sublingual film (Suboxone) albuterol sulfate 1 amp INHALATION Q6H PRN 03/18/21 11/25/21 Unknown History albuterol sulfate 90 mcg/actuation 2 puff PO Q4-6H PRN 03/18/21 11/25/21 Unknown History aerosol inhaler (ProAir HFA) fluticasone propionate 220 2 puff PO BID 03/18/21 11/25/21 Unknown History mcg/actuation HFA aerosol inhaler (Flovent HFA) fluticasone propionate 50 2 spray INTRANASAL DAILY 03/18/21 11/25/21 Unknown History mcg/actuation nasal spray,suspension insulin glargine 100 unit/mL (3 See Rx Instructions .ROUTE .COMPLEX 03/18/21 11/25/21 Unknown History mL) subcutaneous pen (Lantus Solostar U-100 Insulin) insulin lispro 100 unit/mL 25 unit SUBCUT DAILY 03/18/21 11/25/21 Unknown History subcutaneous pen (Humalog KwikPen (U-100) Insulin) quetiapine 100 mg tablet (Seroquel) 1 tab PO BEDTIME 03/18/21 11/25/21 Unknown History blood sugar diagnostic (FreeStyle #10 ea 10/28/21 11/24/21 Unknown History Lite Strips) docusate sodium 100 mg capsule 100 mg PO BID 10/28/21 11/25/21 Unknown History lancets 33 gauge (TRUEplus Lancets) #100 ea 10/28/21 11/24/21 Unknown History loratadine 10 mg tablet 10 mg PO DAILY 10/28/21 11/25/21 Unknown History pantoprazole 40 mg tablet,delayed 40 mg PO DAILY 10/28/21 11/25/21 Unknown History release pen needle, diabetic 32 gauge x #50 ea 10/28/21 11/24/21 Unknown History (Pentips) Exam Exam Date and Time: November 26, 2021 1046 Height,Weight and Vital Signs: Height 5 ft 4 in Weight 101.605 kg Pertinent Lab Results Pertinent Lab Results: Laboratory Tests 08/23/21 10/07/21 10/07/21 08:10 09:40 09:40 WBC 8.1 Hgb 13.6 Hct 41.8 Plt Count 193 D Sodium 141 Potassium 4.8 Chloride 106 Carbon Dioxide 26 BUN 15 Creatinine 1.08 Narrative Narrative: EKG 11/2021 normal sinus rhythm, no acute ST or T-wave abnormalities, QTC 477 milliseconds, rate 95 Echocardiogram done 11/06/2019 showed EF 50-55%, regional wall motion abnormality in the RCA/circumflex territory.? A cardiac catheterization was done showing obstructive circumflex stenosis and SAMY was placed.? Assessment and Plan Assessment Anesthesia Assessment: Chart Reviewed Final Anesthetic Review Family History of Problems with Anesthesia: No History of Problems with Anesthesia: No Documented by User: Shaheen Syed MD 12/01/21 08:10 [facility] Past Medical History Medical History (Updated 11/24/21 @ 11:26 by Sybil Small MD) Adhesive capsulitis of right shoulder Back pain Bursitis of right shoulder CAD (coronary artery disease) Colon cancer Diabetes Diabetes mellitus GERD (gastroesophageal reflux disease) Hepatitis C High cholesterol History of MRSA infection Hx of drug abuse Hypertensive cardiovascular disease Hyperthyroidism Hypothyroidism NSTEMI (non-ST elevated myocardial infarction) On beta tiffanie at home Renal calculi Family History Family History Father No problems noted. Mother No problems noted. Surgical History Surgical History (Updated 11/25/21 @ 10:27 by Doris Guardado RN) History of back surgery History of colon surgery History of umbilical hernia repair Hx of cholecystectomy Hx of colonoscopy Hx of heart artery stent Hx of repair of left rotator cuff Stented coronary artery Social History Social History (Updated 11/24/21 @ 11:20 by Dia Browne CMA) Household Members: Spouse Housing: Apartment Are you a primary pediatric critical care nurse to a significant other at home: No Do you presently have visiting nurse or other home services: No Alcohol intake: former Patient Tobacco Use Status: Former Tobacco user Quit Date: 09/2021 Tobacco use type: Cigarette Years Smoked: 35 Second Hand Smoke Exposure: Yes Use of substances other than those prescribed or required for medical reasons: No Have you been hit, kicked, punched, or otherwise hurt by someone within the past year? If so, by whom?: No Are you DNR?: No Advance Directives: No Advance Directives Information Provided: Yes Advance Directives on File: No service: No Current occupational status: disabled Current occupation: right handed Meds Allergies Allergy/AdvReac Type Severity Reaction Status Date / Time No Known Allergies Allergy Verified 11/25/21 10:26 [No Known Allergies*] Home Medications Medication Instructions Recorded Confirmed Last Taken Type aspirin 81 mg tablet,delayed 81 mg PO DAILY 11/09/20 11/25/21 03/23/21 History release atorvastatin 80 mg tablet 80 mg PO DAILY 11/09/20 11/25/21 Unknown History furosemide 20 mg tablet 20 mg PO DAILY 11/09/20 11/25/21 Unknown History levothyroxine 88 mcg capsule 88 mcg PO DAILY 11/09/20 11/25/21 Unknown History metoprolol succinate 25 mg 12.5 mg PO BID 11/09/20 11/25/21 Unknown History tablet,extended release 24 hr metformin 500 mg tablet,extended 500 mg PO DAILY 12/30/20 11/25/21 Unknown History release 24 hr buprenorphine 8 mg-naloxone 2 mg 3 film BUCCAL DAILY 03/08/21 11/25/21 03/22/21 History sublingual film (Suboxone) albuterol sulfate 1 amp INHALATION Q6H PRN 03/18/21 11/25/21 Unknown History albuterol sulfate 90 mcg/actuation 2 puff PO Q4-6H PRN 03/18/21 11/25/21 Unknown History aerosol inhaler (ProAir HFA) fluticasone propionate 220 2 puff PO BID 03/18/21 11/25/21 Unknown History mcg/actuation HFA aerosol inhaler (Flovent HFA) fluticasone propionate 50 2 spray INTRANASAL DAILY 03/18/21 11/25/21 Unknown History mcg/actuation nasal spray,suspension insulin glargine 100 unit/mL (3 See Rx Instructions .ROUTE .COMPLEX 03/18/21 11/25/21 Unknown History mL) subcutaneous pen (Lantus Solostar U-100 Insulin) insulin lispro 100 unit/mL 25 unit SUBCUT DAILY 03/18/21 11/25/21 Unknown History subcutaneous pen (Humalog KwikPen (U-100) Insulin) quetiapine 100 mg tablet (Seroquel) 1 tab PO BEDTIME 03/18/21 11/25/21 Unknown History blood sugar diagnostic (FreeStyle #10 ea 10/28/21 11/24/21 Unknown History Lite Strips) docusate sodium 100 mg capsule 100 mg PO BID 10/28/21 11/25/21 Unknown History lancets 33 gauge (TRUEplus Lancets) #100 ea 10/28/21 11/24/21 Unknown History loratadine 10 mg tablet 10 mg PO DAILY 10/28/21 11/25/21 Unknown History pantoprazole 40 mg tablet,delayed 40 mg PO DAILY 10/28/21 11/25/21 Unknown History release pen needle, diabetic 32 gauge x #50 ea 10/28/21 11/24/21 Unknown History (Pentips) Exam Airway Mallampati Class: II TM Dist: >3cm Neck ROM: Full Denture: Upper and Lower Loose/Missing/Broken Teeth: Yes Heart: [id number] Lungs: cta b/l Assessment and Plan Assessment Anesthesia Assessment: Anesthesia Plan Discussed Final Anesthetic Review NPO: Yes ASA Class: III Final Preanesthetic Review: No Changes in Pt Med Stat, Meds/Allgs Chart Reviewed, Consent Obtained/Reviewed and Anes Risks/Benef Reviewed Patient Risk: Intermediate Procedure Risk: Low Assessment/Block/Sedation in SS: Assess/Block/Sedation-SS Anesthetic Plan Anesthetic Plan: MAC: and Agree w/ Assess. and Plan Disposition: Standard PACU
--- NOTE | ~2021-12-01 | XR_ITS ---
EXAMINATION: XR ABDOMEN KUB CLINICAL INDICATION: ESWL COMPARISON: CT of May 23, 2021 TECHNIQUE: AP view of the abdomen. FINDINGS: The bowel gas pattern is normal with no evidence of ileus or obstruction. Status post cholecystectomy. Overlying the region of the right L4 transverse process there is a faintly seen 4 mm densely likely representing a calculus. Other known right renal calculi are not identified as are seen on CT study. Overlying the location of the left kidney there is a 5 mm calcification, a 4 mm calcification, and 2 3 mm calcifications. About the upper portion of the left pelvis about the inferior aspect of the sacroiliac joints there are multiple calcifications present however on CT scan these appear to be vascular in nature and external to the ureters. Patient is status post pedicle screw and jose fixation L4-S1. XR/XR KUB IMPRESSION: Bilateral nephrolithiasis as described. No definite ureteral calculus appreciated.
[2021-12-01] MEDS: Acetaminophen 325 MG TABLET 650 MG PO (07:18)
[2021-12-01 07:22] VITALS: BP 123/68; PULSE 78; RESP 16; TEMP 36.6; O2SAT 99
[2021-12-01 07:22] LABS: Glucose, Whole Blood 120 mg/dL (60-115)
[2021-12-01] MEDS: Lactated Ringers 1,000 ML 100 ML IVCONT (07:26)
--- NOTE | 2021-12-01 07:42 | MHC.SHP ---
Pre-Procedural Eval Section A Date of Service: 12/01/21 The patient is an INPATIENT: No Changes since office visit: No Cold of Flu in the past 2 weeks, No New Medical Problems, No Changes in Medication and No Patient answered all questions The History & Physical has been completed within 30 days and I have reviewed it.: Yes Section B Chief Complaint: Calculus of kidney Details of Present Illness: left renal stone Allergies: Allergies Allergy/AdvReac Type Severity Reaction Status Date / Time No Known Allergies Allergy Verified 11/25/21 10:26 [No Known Allergies*] Plan Diagnosis/Plan: Unchanged (left renal ESWL) I have reviewed the history and physical and performed a pertinent physical examination on my patient. No changes have occurred unless specified.
--- NOTE | 2021-12-01 07:57 | W.PM.OPN ---
Operative Note Operative Note Date of Service: 12/01/21 Narrative: PreOperative Diagnosis: Left Renal stones Post Operative Diagnosis: Renal stones Procedure: Left ESWL Surgeon: Dr Gavin Cornell Anesthesia: mac/sedation Indications for procedure: The patient understands ESWL may be a staged procedure and subsequent intervention may be required based on imaging after ESWL. They also understand there is a risk of bleeding to the kidney, infection, damage to adjacent organs, and stone migration following the procedure. - Imaging - KUB 6 mm lower pole left Procedure: After informed consent was verified the patient was brought to the operating room and placed in a supine position. Anesthesia was performed per protocol. Safety pause time-out was performed. Imaging was displayed in the room and laterality confirmed. ESWL was performed. The 1st 500 shocks were performed at 60 hertz. These were performed with increasing power. Once maximum power was reached the rate was increased to 180 hertz. A total of 2500 shocks were given. Targetted imaging with ultrasound/fluoroscopy showed stone smudging suggestive of disintegration. The patient tolerated the procedure well and was transferred to the recovery area upon completion. Post procedure imaging will be organized. There was no evidence for flank discoloration.
[2021-12-01 08:15] VITALS: BP 115/65; PULSE 81; RESP 16; TEMP 36; O2SAT 98
[2021-12-01 08:20] VITALS: BP 105/65; PULSE 82; RESP 16; O2SAT 95
[2021-12-01 08:25] VITALS: BP 121/72; PULSE 80; RESP 16; O2SAT 96
[2021-12-01 08:30] VITALS: BP 115/82; PULSE 81; RESP 16; O2SAT 96
[2021-12-01 08:45] VITALS: BP 120/72; PULSE 86; RESP 16; TEMP 35.9; O2SAT 97
== END 2021-12-01 09:42 | disposition home or self-care (01) ==
PROVIDERS: PCP Family Medicine; Visit Provider Urology
PROC: (CPT 50590; principal; 2021-12-01 09:10)
DX: N20.0 Calculus of kidney (principal); M54.9 Dorsalgia, unspecified; E11.9 Type 2 diabetes mellitus without complications; I25.10 Atherosclerotic heart disease of native coronary artery without angina pectoris; Z98.61 Coronary angioplasty status; I11.9 Hypertensive heart disease without heart failure; E03.9 Hypothyroidism, unspecified; Z79.4 Long term (current) use of insulin; Z79.82 Long term (current) use of aspirin; Z79.899 Other long term (current) drug therapy; Z85.038 Personal history of other malignant neoplasm of large intestine; Z86.14 Personal history of Methicillin resistant Staphylococcus aureus infection; Z87.891 Personal history of nicotine dependence
CPT/HCPCS: 50590; 74018; 82947; J2250

== ENCOUNTER 2022-02-08 12:46 | Outpatient (REF) | payer MEDICAID, SELFPAY ==
--- NOTE | ~2022-02-08 | MM_ITS ---
EXAMINATION: MM SCREENING DIGITAL BREAST TOMOSYNTHESIS, BILATERAL CLINICAL INFORMATION: Screening. Asymptomatic. The lifetime risk of breast cancer based on the Tyrer-Cuzick Model is 9%. COMPARISON: Mammography: 05/20/2019, 05/14/2018, 09/07/2016 TECHNIQUE: Digital breast tomosynthesis is performed in both the craniocaudal and mediolateral oblique views along with computer-aided detection (CAD). Synthesized 2D images are generated from the tomosynthesis. FINDINGS: The breasts are heterogeneously dense, which may obscure small masses (ACR BI-RADS breast composition Category c). There is fine fibronodular parenchymal pattern similar to prior exams. No developing density or architectural abnormality. Low axillary tail nodes are stable. No abnormal calcifications. Skin contours are smooth. MM/MM tomosynthesis screening BI IMPRESSION: No mammographic evidence of malignancy. ASSESSMENT: BI-RADS 2: Benign RECOMMENDATION: Routine annual mammography screening. This patient's information was entered into a reminder system with a target due date for their next mammogram.
== END 2022-02-08 12:47 | disposition home or self-care (01) ==
LOC: HO.MAMMO 12:46
PROVIDERS: Visit Provider Family Medicine
DX: Z12.31 Encounter for screening mammogram for malignant neoplasm of breast (principal)
CPT/HCPCS: 77063; 77067

== ENCOUNTER 2022-05-12 20:02 | Emergency (ER) | payer MEDICAID, SELFPAY ==
--- NOTE | ~2022-05-12 | XR_ITS ---
EXAMINATION: XR CHEST CLINICAL INFORMATION: Pain COMPARISON: 07/13/2021 TECHNIQUE: Frontal view of the chest was obtained. FINDINGS: Normal symmetric lung volumes. No parenchymal consolidation. No pleural effusion. No pneumothorax. Cardiomediastinal silhouette and pulmonary vascularity are within normal limits. No acute osseous abnormalities. XR/XR chest 1V IMPRESSION: No acute findings
--- NOTE | ~2022-05-12 | CT_ITS ---
EXAMINATION: CT ABDOMEN AND PELVIS WITH CONTRAST CLINICAL INFORMATION: Elevated WBCs COMPARISON: CT scan abdomen pelvis 05/23/2021 TECHNIQUE: Multidetector volumetric images were obtained from the superior aspect of the liver through the pubic symphysis following administration 85 mL of Omnipaque 350 intravenous contrast. Sagittal and coronal reformatted images were obtained on the technologist's workstation. Oral contrast: No This CT examination was performed using dose optimization techniques as appropriate, variously including the following: *Automated exposure control *Adjustment of mA and/or kV according to patient size (this includes techniques or standardized protocols for targeted exams where dose is matched to indication/reason for exam; i.e. extremities or head) *Use of iterative reconstruction technique DLP: 684 mGy-cm FINDINGS: LUNG BASES: The visualized lung bases are unremarkable. LIVER, GALLBLADDER, AND BILIARY TREE: The liver is normal in size, shape, and attenuation. No focal hepatic lesion or biliary ductal dilatation is present. Status post cholecystectomy. There is no bile duct dilatation. PANCREAS: Unremarkable. SPLEEN: Unremarkable. ADRENAL GLANDS: Unremarkable. KIDNEYS AND URETERS: Numerous tiny stones present in both kidneys. There is no ureteral calculus. There is no hydronephrosis. Kidneys are normal in size and contour with normal enhancement of the cortex. BLADDER: Unremarkable. GASTROINTESTINAL TRACT: Status post partial sigmoidectomy. Anastomosis intact. No acute change of the bowel. No bowel obstruction. No bowel wall thickening or edema. Moderate volume of stool in the colon. The appendix is normal. The small bowel loops are unremarkable. Stomach is normal ABDOMINAL WALL: No significant hernia is appreciated. LYMPH NODES: Normal. VASCULAR: Small volume of scattered vascular calcifications of the abdomen and the pelvis. There is no aneurysm. PELVIC VISCERA: Unremarkable. OSSEOUS STRUCTURES: Status post fusion and laminectomy lower lumbar spine L4-S1. Disc spacer at L4-L5. No acute osseous abnormality. CT/CT abdomen pelvis w IV con IMPRESSION: Bilateral nephrolithiasis. Status post partial sigmoidectomy. No acute abnormality of the bowel. Status post cholecystectomy. No acute abnormality the abdomen or the pelvis. Fleischner guidelines were followed.
--- NOTE | 2022-05-12 20:07 | ED_ITS ---
HPI - Abdominal Pain General Chief Complaint: Nausea/Vomiting/Diarrhea Stated Complaint: epigastric pain Source: patient and EMS Mode of arrival: EMS Limitations: no limitations History of Present Illness HPI narrative: 56-year-old female presents via EMS for 05/23 abdominal pain that started after eating rice. Patient is an insulin-dependent diabetic and has not been taking her medications on a regular basis, and is crying in pain. Patient is a poor historian and difficult to get information out of her, and she is answering every question with I want pain medications. MD elicited complaint: abdominal pain Pertinent past history: kidney stones and myocardial infarction Onset (ago): hour(s) (Several hours prior to arrival) Pain Consistency: intermittent Location: diffuse Severity: severe Pain scale (0-10): 10 Quality: stabbing and aching Exacerbating factors: eating and movement Relieving factors: nothing Context: possible food poisoning Associated symptoms: nausea, vomiting and chills Related Data Home Medications Medication Instructions Recorded Confirmed aspirin 81 mg tablet,delayed 81 mg PO DAILY 11/09/20 11/25/21 release atorvastatin 80 mg tablet 80 mg PO DAILY 11/09/20 11/25/21 furosemide 20 mg tablet 20 mg PO DAILY 11/09/20 11/25/21 levothyroxine 88 mcg capsule 88 mcg PO DAILY 11/09/20 11/25/21 metoprolol succinate 25 mg 12.5 mg PO BID 11/09/20 11/25/21 tablet,extended release 24 hr metformin 500 mg tablet,extended 500 mg PO DAILY 12/30/20 11/25/21 release 24 hr buprenorphine 8 mg-naloxone 2 mg 3 film buccal DAILY 03/08/21 11/25/21 sublingual film (Suboxone) albuterol sulfate 2.5 mg/3 mL 1 amp inhalation Q6H PRN Wheezing 03/18/21 11/25/21 (0.083 %) solution for nebulization albuterol sulfate 90 mcg/actuation 2 puff PO Q4-6H PRN wheezing 03/18/21 11/25/21 aerosol inhaler (ProAir HFA) fluticasone propionate 220 2 puff PO BID 03/18/21 11/25/21 mcg/actuation HFA aerosol inhaler (Flovent HFA) fluticasone propionate 50 2 spray intranasal DAILY 03/18/21 11/25/21 mcg/actuation nasal spray,suspension insulin glargine 100 unit/mL (3 See Rx Instructions .Route .COMPLEX 03/18/21 11/25/21 mL) subcutaneous pen (Lantus Solostar U-100 Insulin) insulin lispro 100 unit/mL 25 unit subcut DAILY 03/18/21 11/25/21 subcutaneous pen (Humalog KwikPen (U-100) Insulin) quetiapine 100 mg tablet (Seroquel) 1 tab PO BEDTIME 03/18/21 11/25/21 blood sugar diagnostic (FreeStyle #10 ea 10/28/21 11/24/21 Lite Strips) docusate sodium 100 mg capsule 100 mg PO BID 10/28/21 11/25/21 lancets 33 gauge (TRUEplus Lancets) #100 ea 10/28/21 11/24/21 loratadine 10 mg tablet 10 mg PO DAILY 10/28/21 11/25/21 pantoprazole 40 mg tablet,delayed 40 mg PO DAILY 10/28/21 11/25/21 release pen needle, diabetic 32 gauge x #50 ea 10/28/21 11/24/21 5/32 (Pentips) Previous Rx's Medication Instructions Recorded acetaminophen 650 mg 650 mg PO Q8H PRN for pain #60 tabs 09/29/20 tablet,extended release gabapentin 300 mg capsule 1 cap PO TID #90 caps 11/05/21 duloxetine 30 mg capsule,delayed 30 mg PO DAILY #60 caps 11/24/21 release (Cymbalta) tamsulosin 0.4 mg capsule 0.4 mg PO BEDTIME 14 days #14 caps 12/01/21 clopidogrel 75 mg tablet 75 mg PO DAILY 90 days #90 tabs 02/01/22 Allergies Allergy/AdvReac Type Severity Reaction Status Date / Time No Known Allergies Allergy Verified 11/25/21 10:26 [No Known Allergies*] Review of Systems Review of Systems Constitutional: No Fever, No Chills ENT/Mouth: No Ear Pain, No Hoarseness, No sore throat Eyes: No Eye Pain, No Swelling, No Redness, No Foreign Body Cardiovascular: No Chest Pain, No SOB Respiratory: No Cough, No Dyspnea Gastrointestinal: No Nausea, No Vomiting, No Diarrhea, positive diffuse abdominal Pain Genitourinary: No Dysuria, No Hematuria Musculoskeletal: No joint pain, No Myalgias, No Joint Swelling Skin: No Skin lacerations, No rash Neuro: No Weakness, No Numbness, No Paresthesias, No Loss of Consciousness, No Dizziness, No Headache Psych: No Anxiety/Panic, No Depression Heme/Lymph: no easy bruising, no Lymphadenopathy Endocrine: No Polyuria, No Polydipsia Yes all other systems are reviewed and are negative PMFSH Past Medical History Attestation statement: The following information was validated with the patient. Source: old records reviewed Medical History Adhesive capsulitis of right shoulder Back pain Bursitis of right shoulder CAD (coronary artery disease) Colon cancer Diabetes Diabetes mellitus GERD (gastroesophageal reflux disease) Hepatitis C High cholesterol History of MRSA infection Hx of drug abuse Hypertensive cardiovascular disease Hyperthyroidism Hypothyroidism NSTEMI (non-ST elevated myocardial infarction) On beta tiffanie at home Renal calculi Surgical History History of back surgery History of colon surgery History of umbilical hernia repair Hx of cholecystectomy Hx of colonoscopy Hx of heart artery stent Hx of repair of left rotator cuff Stented coronary artery Family History Family History Father No problems noted. Mother No problems noted. Social History Social History Household Members: Spouse Housing: Apartment Are you a primary customer care specialist to a significant other at home: No Do you presently have visiting nurse or other home services: No Alcohol intake: former Patient Tobacco Use Status: Former Tobacco user Quit Date: 09/2021 Tobacco use type: Cigarette Years Smoked: 35 Second Hand Smoke Exposure: Yes Advance Directives: No Advance Directives Information Provided: No service: No Current occupational status: disabled Current occupation: right handed Physical Exam ED Vital Signs: Vital Signs - 24 hr 05/12/22 20:15 05/12/22 21:57 05/12/22 23:28 Temperature 97.8 F 97.9 F Pulse Rate 77 74 72 Respiratory Rate 16 16 18 Blood Pressure 149/83 H 150/76 H 137/68 Pulse Oximetry 99 100 94 Oxygen Delivery Method Room Air Room Air Room Air BMI result Body Mass Index 35.5 Appearance: Alert. Oriented X3. Moderate emotional distress. Eyes: Pupils equal, round and reactive to light. ENT: Pharynx normal. Neck: Normal inspection. Neck supple. CVS: Normal heart rate and rhythm. Pulses normal. Respiratory: No respiratory distress. Breath sounds normal. Abdomen: Soft and diffusely tender. Obese. No rigidity or distention. Skin: Skin warm and dry. Normal skin color. Normal skin turgor. Extremities: No lower extremity edema. Moves all extremities against resist ance. Gait well-balanced well coordinated. Neuro: No motor deficit. No sensory deficit. Cranial nerves 2-12 intact. Course Course Course Narrative: 56-year-old female presents via EMS for diffuse abdominal pain that started after eating. Patient requires multiple redirections to answer questions asked, patient states the pain started after eating rice, states that she has not taken any of her medication because sometimes she forgets. She did not report any fevers or chills, dysuria, hematuria, changes in vision, or trauma. Physical exam indicates and diffusely tender abdomen, without rigidity or distention. Will order CT scan of abdomen pelvis, labs, and urinalysis. 20:50 fingerstick blood sugar 455, patient normally takes 25 subQ of Lispro, metformin 500 b.i.d., and Lantus. Will give insulin per home dosage, and L fluids. 21:15 white count 16.7, H&H 14.1/40.7 H&H is normally 10.5/32.1, I am suspecting reactive elevation and dehydration versus infection. Patient is afebrile, with heart rate of 77, even unlabored respirations. 22:00 CT scan indicate bilateral nonobstructing kidney stones without indication of hydronephrosis or pyelonephritis. No indication of acute abdomen at this time. Chest x-ray is velia. 22:45 urinalysis negative for UTI, does show some glucose. 23:50 2 L almost complete. Will repeat lab values. 01:21 patient continues with nausea, repeat chemistries indicates a closed gap of 17, BUN of 15, blood sugars 227. Sign-out to Dr. Nash. MDM - Abdominal Pain Differential Diagnosis Differential diagnosis: Likely abdominal pain, acute appendicitis, calculus of kidney, constipation, diverticulitis, gastroenteritis, pancreatitis and small bowel obstruction Medical Records Attestation: I reviewed the patient's medical records. Lab Data Attestation: I reviewed the patient's lab results. Result diagrams: 05/12/22 20:27 05/12/22 20:27 Labs: Lab Results 05/12/22 05/12/22 05/12/22 Range/Units 20:27 20:27 20:27 WBC 16.7 H (4.8-10.8) X10*3/uL RBC 4.75 (4.20-5.50) X10*6/uL Hgb 14.1 (12.0-16.0) g/dl Hct 40.7 (37.0-47.0) % MCV 85.7 (80.0-98.0) fL MCH 29.7 (27.0-33.0) pg MCHC 34.6 (31.0-35.0) g/dl RDW 12.9 (11.0-16.0) % Plt Count 194 (160-400) X10*3/uL MPV 11.8 (9.4-12.3) fL Immature Gran % (Auto) 0.5 H (0.0-0.4) % Neut % (Auto) 82.9 H (45-73) % Lymph % (Auto) 12.6 L (20-40) % Ralls % (Auto) 3.5 (2-11) % Eos % (Auto) 0.3 (0-4) % Baso % (Auto) 0.2 (0-2) % Lymph # (Auto) 2.1 (1.2-4.9) X10*3/uL [place]alls # (Auto) 0.6 (0.1-1.2) X10*3/uL Eos # (Auto) 0.1 (0.0-0.4) X10*3/uL Baso # (Auto) 0.0 (0.0-0.2) X10*3/uL Abs Immat Gran (auto) 0.08 H (0.00-0.03) X10*3/uL Absolute Neuts (auto) 13.8 H (2.0-8.3) x10*3/uL Absolute Nucleated RBC 0.000 (0.0-0.012) X10*3/uL Nucleated RBC % (auto) 0.0 (0.0-0.2) /100WBC Sodium 137 (135-145) mmol/L Potassium 4.6 (3.3-5.1) mmol/L Chloride 99 (96-108) mmol/L Carbon Dioxide 18 L (22-29) mmol/L Anion Gap 25 H (12-20) BUN 17 H (9-16) mg/dL Creatinine 1.26 (0.5-1.4) mg/dL Estim Creat Clear Calc 56.7 Estimated GFR 44 POC Glucose (60-115) mg/dL Random Glucose 478 H* (60-115) mg/dL Calcium 9.3 (8.4-10.2) mg/dL Magnesium 1.8 (1.6-2.6) mg/dL Total Bilirubin 0.5 (0.0-1.0) mg/dL Direct Bilirubin 0.2 (0.0-0.5) mg/dL AST 25 D (5-31) U/L ALT 26 (0-31) U/L Alkaline Phosphatase 129 H (39-117) U/L Troponin I High Sens < 3.5 (<3.5-17.0) ng/L Total Protein 8.1 H (6.5-8.0) g/dL Albumin 4.5 (3.5-5.0) g/dL Lipase 26 (8-78) U/L Urine Color Urine Appearance Urine pH (5.0-9.0) Ur Specific [place] (1.005-1.025) Urine Protein (Neg-Trace) mg/dL Urine Glucose (UA) (Negative) mg/dL Urine Ketones (Negative) mg/dL Urine Blood (Negative) Urine Nitrite (Negative) Ur Leukocyte Esterase (Negative) 05/12/22 05/12/22 05/12/22 Range/Units 20:44 21:55 22:29 WBC (4.8-10.8) X10*3/uL RBC (4.20-5.50) X10*6/uL Hgb (12.0-16.0) g/dl Hct (37.0-47.0) % MCV (80.0-98.0) fL MCH (27.0-33.0) pg MCHC (31.0-35.0) g/dl RDW (11.0-16.0) % Plt Count (160-400) X10*3/uL MPV (9.4-12.3) fL Immature Gran % (Auto) (0.0-0.4) % Neut % (Auto) (45-73) % Lymph % (Auto) (20-40) % Ralls % (Auto) (2-11) % Eos % (Auto) (0-4) % Baso % (Auto) (0-2) % Lymph # (Auto) (1.2-4.9) X10*3/uL [place] # (Auto) (0.1-1.2) X10*3/uL Eos # (Auto) (0.0-0.4) X10*3/uL Baso # (Auto) (0.0-0.2) X10*3/uL Abs Immat Gran (auto) (0.00-0.03) X10*3/uL Absolute Neuts (auto) (2.0-8.3) x10*3/uL Absolute Nucleated RBC (0.0-0.012) X10*3/uL Nucleated RBC % (auto) (0.0-0.2) /100WBC Sodium (135-145) mmol/L Potassium (3.3-5.1) mmol/L Chloride (96-108) mmol/L Carbon Dioxide (22-29) mmol/L Anion Gap (12-20) BUN (9-16) mg/dL Creatinine (0.5-1.4) mg/dL Estim Creat Clear Calc Estimated GFR POC Glucose 455 H* 425 H* (60-115) mg/dL Random Glucose (60-115) mg/dL Calcium (8.4-10.2) mg/dL Magnesium (1.6-2.6) mg/dL Total Bilirubin (0.0-1.0) mg/dL Direct Bilirubin (0.0-0.5) mg/dL AST (5-31) U/L ALT (0-31) U/L Alkaline Phosphatase (39-117) U/L Troponin I High Sens (<3.5-17.0) ng/L Total Protein (6.5-8.0) g/dL Albumin (3.5-5.0) g/dL Lipase (8-78) U/L Urine Color Yellow Urine Appearance Clear Urine pH 8.5 (5.0-9.0) Ur Specific [place] >= 1.030 H (1.005-1.025) Urine Protein Trace (Neg-Trace) mg/dL Urine Glucose (UA) 500 H (Negative) mg/dL Urine Ketones 15 (Negative) mg/dL Urine Blood Negative (Negative) Urine Nitrite Negative (Negative) Ur Leukocyte Esterase Negative (Negative) 05/12/22 05/13/22 Range/Units 23:02 01:00 WBC (4.8-10.8) X10*3/uL RBC (4.20-5.50) X10*6/uL Hgb (12.0-16.0) g/dl Hct (37.0-47.0) % MCV (80.0-98.0) fL MCH (27.0-33.0) pg MCHC (31.0-35.0) g/dl RDW (11.0-16.0) % Plt Count (160-400) X10*3/uL MPV (9.4-12.3) fL Immature Gran % (Auto) (0.0-0.4) % Neut % (Auto) (45-73) % Lymph % (Auto) (20-40) % [place] % (Auto) (2-11) % Eos % (Auto) (0-4) % Baso % (Auto) (0-2) % Lymph # (Auto) (1.2-4.9) X10*3/uL [place] # (Auto) (0.1-1.2) X10*3/uL Eos # (Auto) (0.0-0.4) X10*3/uL Baso # (Auto) (0.0-0.2) X10*3/uL Abs Immat Gran (auto) (0.00-0.03) X10*3/uL Absolute Neuts (auto) (2.0-8.3) x10*3/uL Absolute Nucleated RBC (0.0-0.012) X10*3/uL Nucleated RBC % (auto) (0.0-0.2) /100WBC Sodium (135-145) mmol/L Potassium (3.3-5.1) mmol/L Chloride (96-108) mmol/L Carbon Dioxide (22-29) mmol/L Anion Gap (12-20) BUN (9-16) mg/dL Creatinine (0.5-1.4) mg/dL Estim Creat Clear Calc Estimated GFR POC Glucose 308 H 209 H (60-115) mg/dL Random Glucose (60-115) mg/dL Calcium (8.4-10.2) mg/dL Magnesium (1.6-2.6) mg/dL Total Bilirubin (0.0-1.0) mg/dL Direct Bilirubin (0.0-0.5) mg/dL AST (5-31) U/L ALT (0-31) U/L Alkaline Phosphatase (39-117) U/L Troponin I High Sens (<3.5-17.0) ng/L Total Protein (6.5-8.0) g/dL Albumin (3.5-5.0) g/dL Lipase (8-78) U/L Urine Color Urine Appearance Urine pH (5.0-9.0) Ur Specific [place] (1.005-1.025) Urine Protein (Neg-Trace) mg/dL Urine Glucose (UA) (Negative) mg/dL Urine Ketones (Negative) mg/dL Urine Blood (Negative) Urine Nitrite (Negative) Ur Leukocyte Esterase (Negative) Imaging Data Chest x-ray: Attestation: I personally reviewed and interpreted this imaging study as f obies: Radiologist's impression: EXAMINATION: XR CHEST CLINICAL INFORMATION: Pain COMPARISON: 07/13/2021 TECHNIQUE: Frontal view of the chest was obtained. FINDINGS: Normal symmetric lung volumes. No parenchymal consolidation. No pleural effusion. No pneumothorax.? Cardiomediastinal silhouette and pulmonary vascularity are within normal limits. No acute osseous abnormalities. XR/XR chest 1V IMPRESSION: No acute findings ? CT scan - abdomen: Attestation: I personally reviewed and interpreted this imaging study as follows: Radiologist's impression: FINDINGS: LUNG BASES: The visualized lung bases are unremarkable.? LIVER, GALLBLADDER, AND BILIARY TREE: The liver is normal in size, shape, and attenuation. No focal hepatic lesion or biliary ductal dilatation is present. Status post cholecystectomy. There is no bile duct dilatation.? PANCREAS: Unremarkable.? SPLEEN: Unremarkable.? ADRENAL GLANDS: Unremarkable.? KIDNEYS AND URETERS: Numerous tiny stones present in both kidneys. There is no ureteral calculus. There is no hydronephrosis. Kidneys are normal in size and contour with normal enhancement of the cortex.? BLADDER: Unremarkable.? GASTROINTESTINAL TRACT: Status post partial sigmoidectomy. Anastomosis intact. No acute change of the bowel. No bowel obstruction. No bowel wall thickening or edema. Moderate volume of stool in the colon. The appendix is normal. The small bowel loops are unremarkable. Stomach is normal? ABDOMINAL WALL: No significant hernia is appreciated.? LYMPH NODES: Normal. VASCULAR: Small volume of scattered vascular calcifications of the abdomen and the pelvis. There is no aneurysm. PELVIC VISCERA: Unremarkable.? OSSEOUS STRUCTURES: Status post fusion and laminectomy lower lumbar spine L4-S1. Disc spacer at L4-L5. No acute osseous abnormality.? CT/CT abdomen pelvis w IV con IMPRESSION: Bilateral nephrolithiasis. Status post partial sigmoidectomy. No acute abnormality of the bowel. Status post cholecystectomy. No acute abnormality the abdomen or the pelvis.? ? Fleischner guidelines were followed. ECG Data Attestation: I personally reviewed and interpreted this ECG as follows: ECG interpretation date: 05/12/22 ECG interpretation time: 20:41 Prior ECG tracings: available for review Interpretation: Vent. rate 67 BPM WV interval 160 ms QRS duration 74 ms QT/QTc 446/471 ms P-R-T axes 70 43 38 Normal sinus rhythm with sinus arrhythmia Normal ECG When compare d with ECG of 13-JUL-2021 12:56, QT has lengthened Discharge Plan Discharge Clinical Impression: Dehydration, Abdominal pain Patient Disposition: Still a Patient Prescriptions: No Action acetaminophen 650 mg tablet extended release 650 mg PO Q8H PRN (Reason: for pain) Qty: 60 1RF clopidogrel 75 mg tablet 75 mg PO DAILY 90 Days Qty: 90 3RF albuterol sulfate 2.5 mg /3 mL (0.083 %) solution for nebulization 1 amp inhalation Q6H PRN (Reason: Wheezing) quetiapine [Seroquel] 100 mg tablet 1 tab PO BEDTIME Flovent HFA 220 mcg/actuation HFA aerosol inhaler 2 puff PO BID albuterol sulfate [ProAir HFA] 90 mcg/actuation HFA aerosol inhaler 2 puff PO Q4-6H PRN (Reason: wheezing) fluticasone propionate 50 mcg/actuation spray,suspension 2 spray intranasal DAILY insulin lispro [Humalog KwikPen Insulin] 100 unit/mL insulin pen 25 unit subcut DAILY Lantus Solostar U-100 Insulin 100 unit/mL (3 mL) insulin pen See Rx Instructions .ROUTE .COMPLEX Rx Instructions: Pt states she takes 50units SC at night gabapentin 300 mg capsule 1 cap PO TID Qty: 90 3RF duloxetine [Cymbalta] 30 mg Capsule,Delayed Release(Dr/Ec) 30 mg PO DAILY Qty: 60 3RF tamsulosin 0.4 mg capsule 0.4 mg PO BEDTIME 14 Days Qty: 14 0RF aspirin 81 mg tablet,delayed release (DR/EC) 81 mg PO DAILY metoprolol succinate 25 mg tablet extended release 24 hr 12.5 mg PO BID furosemide 20 mg tablet 20 mg PO DAILY atorvastatin 80 mg tablet 80 mg PO DAILY levothyroxine 88 mcg capsule 88 mcg PO DAILY metformin 500 mg tablet extended release 24 hr 500 mg PO DAILY buprenorphine-naloxone [Suboxone] 8-2 mg film 3 film buccal DAILY Hold Instructions: Resume on 04/07/21. Rx Instructions: place 1 film on inside of (each) cheek (DME) lancets [TRUEplus Lancets] 33 gauge misc See Rx Instructions Not Applicable TID Qty: 100 Rx Instructions: As directed (DME) pen needle, diabetic [Pentips] 32 gauge x 5/32 needle See Rx Instructions .ROUTE TID Qty: 50 Rx Instructions: As directed loratadine 10 mg tablet 10 mg PO DAILY docusate sodium 100 mg capsule 100 mg PO BID pantoprazole 40 mg tablet,delayed release (DR/EC) 40 mg PO DAILY (DME) FreeStyle Lite Strips Strip See Rx Instructions Not Applicable TID Qty: 10 Rx Instructions: As directed
--- NOTE | 2022-05-12 20:09 | ECG_ITS ---
Test Reason : EPI GASTRIC Blood Pressure : / mmHG Vent. Rate : 067 BPM Atrial Rate : 067 BPM P-R Int : 160 ms QRS Dur : 074 ms QT Int : 446 ms P-R-T Axes : 070 043 038 degrees QTc Int : 471 ms Normal sinus rhythm with sinus arrhythmia Normal ECG When compared with ECG of 13-JUL-2021 12:56, QT has lengthened Referred By: Verito Davis Electronically Signed By:MARIMAR VOGEL
[2022-05-12 20:15] VITALS: BP 149/83; PULSE 77; RESP 16; O2SAT 99; BMI 35.5
[2022-05-12 20:31] LABS: MANUAL DIFF FLAG NO
[2022-05-12 20:32] LABS: Basophils Percent Auto 0.2 % (0-2); Eosinophils Absolute Auto 0.1 X10*3/uL (0.0-0.4); Eosinophils Percent Auto 0.3 % (0-4); Hematocrit 40.7 % (37.0-47.0); Hemoglobin 14.1 g/dl (12.0-16.0); Imm Gran Abs Auto 0.08 X10*3/uL (0.00-0.03); Imm Gran Pct Auto 0.5 % (0.0-0.4); Lymphocytes Absolute Auto 2.1 X10*3/uL (1.2-4.9); Lymphocytes Percent Auto 12.6 % (20-40); Mean Corpuscular HGB Conc 34.6 g/dl (31.0-35.0); Mean Corpuscular Hemoglobin 29.7 pg (27.0-33.0); Mean Corpuscular Volume 85.7 fL (80.0-98.0); Mean Platelet Volume 11.8 fL (9.4-12.3); Monocytes Absolute Auto 0.6 X10*3/uL (0.1-1.2); Monocytes Percent Auto 3.5 % (2-11); Neutrophils Absolute Auto 13.8 x10*3/uL (2.0-8.3); Neutrophils Percent Auto 82.9 % (45-73); Platelet Count 194 X10*3/uL (160-400); Red Blood Count 4.75 X10*6/uL (4.20-5.50); Red Cell Distribution Width 12.9 % (11.0-16.0); White Blood Count 16.7 X10*3/uL (4.8-10.8)
[2022-05-12] MEDS: ondansetron HCL 4 MG/2 ML VIAL IVPUSH (20:33)
[2022-05-12] MEDS: Ketorolac Tromethamine 30 MG/ML VIAL IVPUSH (20:33)
[2022-05-12 20:51] LABS: Troponin-I High Sensitivity < 3.5 ng/L (<3.5-17.0)
[2022-05-12 20:53] LABS: Glucose, Whole Blood 455 mg/dL (60-115)
--- OUTSIDE RECORDS SUMMARY | 2022-05-12 21:00 | XMS_ITS | Continuity of Care Document ---
:1965 Author Organization [facility] Address [address] [place] [id number] Care Team Providers Name Role Phone Meghan SHANNON, Arin Primary Care Physician Encounter [facility] Date(s): 11/06/19 - 11/07/[address] [address]- [facility] Discharge Disposition: A-D/C Home Attending Physician: Franklin Ramos MD Admitting Physician: Sahra Borja MD Referring Physician: Sahra Borja MD Allergies, Adverse Reactions, Alerts Substance Reaction Severity Status NKA Active Immunizations Given and Recorded Vaccine Date Status Refusal Reason pneumococcal 23-valent vaccine1 09/18/09 Given influenza virus vaccine, inactivated2 09/18/09 Given Not Given Vaccine Date Status Refusal Reason influenza virus vaccine, inactivated 11/07/19 Not Given Patient Refuses 1Result Comment: lot no. [id number] Comment: lot no. [id number] Medications aspirin 81 mg oral delayed release tablet = 81 mg, By Mouth, Daily, # 30 tablet, 0 Refills, Maintenance, 11/07/19 15:58:00 EDT, EC Tablet, [facility], 162, cm, 11/07/19 13:38:00 EDT, Height Start Date: 11/07/19 Stop Date: 12/07/19 Status: Orderedatorvastatin 80 mg oral tablet 1 tablet = 80 mg, By Mouth, Daily, 0 Refills, Maintenance, 11/06/19 17:04:00 EDT Start Date: 11/06/19 Status: OrderedChantix Starter Pack 0.5 mg-1 mg oral tablet 1 tablet, By Mouth, 2 times a day, as directed on package labeling, # 53 tablet, 0 Refills, Maintenance, 11/07/19 16:10:00 EDT, Tablet, [facility], 1 tablet By Mouth 2 times a day,Instr:as directed on package labeling, 162, cm, ... Start Date: 11/07/19 Status: OrderedDoculase 100 mg oral capsule 1 capsule = 100 mg, By Mouth, 2 times a day, 0 Refills, Maintenance, 11/06/19 17:05:00 EDT Start Date: 11/06/19 Status: Orderedfurosemide 20 mg oral tablet 20 mg, 1, tablet, By Mouth, Daily, PRN, for 30 days, take if shortness of breath, lower leg swelling, unable to lie flat in bed. notify PCP, # 30 tablet, Refills 0, Tot. Refills 0, Acute 12/07/19 15:18:00 EDT, Wheezing/Shortness of Breath, 11/07/19 15... Start Date: 11/07/19 Stop Date: 12/07/19 Status: Orderedgabapentin 300 mg oral capsule 1 capsule = 300 mg, By Mouth, 3 times a day, 0 Refills, Maintenance Start Date: 07/12/11 Status: OrderedGlipiZIDE = 20 mg, By Mouth, 2 times a day before breakfast and dinne, 0 Refills, Maintenance, 11/06/19 17:06:00 EDT Start Date: 11/06/19 Status: OrderedInsulin Glargine = 45 units, Subcutaneous Injection, Daily at bedtime, 0 Refills, Maintenance, 11/06/19 17:07:00 EDT Start Date: 11/06/19 Status: Orderedlevothyroxine 0.088 mg oral tablet 1 tablet = 88 mcg, By Mouth, Daily, 0 Refills, Maintenance, 11/06/19 17:02:00 EDT Start Date: 11/06/19 Status: Orderedlithium 300 mg oral capsule 1 capsule = 300 mg, By Mouth, 2 times a day, 0 Refills, Maintenance, 11/06/19 17:00:00 EDT, Capsule Start Date: 11/06/19 Status: Orderedmetoprolol 25 mg oral tablet 12.5 mg, 0.5, tablet, By Mouth, 2 times a day, # 30 tablet, Refills 0, Tot. Refills 0, Maintenance, 11/07/19 15:58:00 EDT, Route to Pharmacy Electronically, [facility], 162, cm, 11/07/19 13:38:00 EDT, Height Start Date: 11/07/19 Status: OrderedNexium 40 mg oral enteric coated capsule 1 capsule = 40 mg, By Mouth, Daily, 0 Refills, Maintenance Start Date: 07/12/11 Status: Orderedpantoprazole 40 mg oral delayed release tablet 1 tablet = 40 mg, By Mouth, Daily, # 30 tablet, 0 Refills, Maintenance, 11/06/19 17:03:00 EDT, EC Tablet Start Date: 11/06/19 Status: OrderedSEROquel 100 mg oral tablet 100 mg, 1, tablet, By Mouth, Daily at bedtime, Refills 0, Maintenance, 11/06/19 17:04:00 EDT Start Date: 11/06/19 Status: Orderedticagrelor 90 mg oral tablet 1 tablet = 90 mg, By Mouth, 2 times a day, # 60 tablet, 0 Refills, Maintenance, 11/07/19 15:57:00 EDT, Tablet, [facility], 162, cm, 11/07/19 13:38:00 EDT, Height Start Date: 11/07/19 Status: Ordered Problem List Condition Effective Dates Status Health Status Informant Depression(Confirmed) Active GERD (gastroesophageal reflux Active disease)(Confirmed) Hyperlipidemia(Confirmed) Active Hypothyroidism(Confirmed) Active Type II diabetes mellitus(Confirmed) Active Results Radiology Reports Exam Date Time Procedure Performing Provider Status 11/07/19 3:52 AM Chest Portable Sharon Gonzalez; Auth (Verterese d) Notes:(Chest Portable) Reason For Exam: Shortness of BreathRESULT: Chest Portable Chest Portable INDICATION: Shortness of Breath. CLINICAL QUESTION: CHF COMPARISON: 10/22/2014. FINDINGS: LINES AND TUBES: None. LUNGS AND PLEURA: Underpenetrated study without evidence of consolidation. Normal pulmonary vascularity. No pleural effusion. No pneumothorax. HEART, MEDIASTINUM AND HAILE: Heart is normal in size. Normal mediastinal and hilar contour. BONES AND SOFT TISSUES: No acute osseous abnormality. Left humeral head surgical anchors are present. IMPRESSION: Underpenetrated study without evidence of acute cardiopulmonary process. I have personally reviewed the images and I agree with this report. WSN: [id number] Ordering Physician: Ron Pulido Dictated By: Rubens Griffith MD Dictated Date/Time: 11/07/19 8:27 am Reviewed By: Falguni Galvez MD Signed By: Falguni Galvez MD Signed Date/Time: 11/07/19 8:32 am Transcribed By: ISABELLA Transcribed Date/Time: 11/07/19 7:53 am Vital Signs Most recent to oldest 1 2 3 [Reference Range]: Height 162 cm 162 cm 162 cm (11/07/19 1:38 PM) (11/07/19 8:41 AM) (11/07/19 1:4 4 AM) Weight 111 kg 111 kg 111 kg (11/07/19 5:48 AM) (11/06/19 5:09 PM) (11/06/19 3:3 4 PM) Oxygen Saturation [94-100 %] 98 % 100 % 100 % (11/07/19 1:38 PM) (11/07/19 8:41 AM) (11/07/19 1:4 4 AM) Pulse Rate [55-90 bpm] 92 bpm 70 bpm 70 bpm *H* (11/07/19 9:13 AM) (11/07/19 8:41 AM) (11/07/19 1:38 PM) Body Mass Index [18.5-24.99] 42.3 *>HHI* (11/06/19 3:34 PM) Blood Pressure [90-138/55-84 mm 129/86 mm Hg 113/70 mm Hg 113/70 mm Hg Hg] (11/07/19 1:38 PM) (11/07/19 9:13 AM) (11/07/19 8:4 1 AM) Respiratory Rate [16-30 br/min] 20 br/min 20 br/min 18 br/min (11/07/19 1:38 PM) (11/07/19 8:41 AM) (11/07/19 1:4 4 AM) Temperature [96.8-100.4 DegF] 98.8 DegF 98.2 DegF 97 .6 DegF (11/07/19 1:38 PM) (11/07/19 8:41 AM) (11/07/19 1:4 4 AM) Mode of Delivery (Oxygen) Room air Room air Room a ir (11/07/19 1:38 PM) (11/07/19 8:41 AM) (11/07/19 1:4 4 AM) Blood pressure sites Arm, left Arm, left Arm, left (11/07/19 1:38 PM) (11/07/19 8:41 AM) (11/07/19 1:4 4 AM) Temperature Route Oral Oral Oral (11/07/19 1:38 PM) (11/07/19 8:41 AM) (11/07/19 1:4 4 AM) Weight Obtained Via Bed scale (11/07/19 5:48 AM) Sensory deficits None (11/06/19 3:34 PM) Mobility assistance Independent (11/06/19 3:34 PM)
[2022-05-12] MEDS: 0.9 % Sodium Chloride 1,000 ML 999 ML IVCONT ×2 (21:06→22:43)
[2022-05-12] MEDS: Insulin Lispro 100 UNIT/ML 3 ML VIAL 25 UNIT SUBCUT (21:06)
[2022-05-12 21:13] LABS: Alanine Aminotransferase 26 U/L (0-31); Albumin Level 4.5 g/dL (3.5-5.0); Alkaline Phosphatase 129 U/L (39-117); Anion Gap 25 (12-20); Aspartate Amino Transferase 25 U/L (5-31); Bilirubin Direct 0.2 mg/dL (0.0-0.5); Bilirubin Total 0.5 mg/dL (0.0-1.0); Blood Urea Nitrogen 17 mg/dL (9-16); Calcium 9.3 mg/dL (8.4-10.2); Carbon Dioxide 18 mmol/L (22-29); Chloride 99 mmol/L (96-108); Creatinine Clr Calc Pharmacy 56.7; Estimated Glomerular Filt Rate 44; Glucose Random 478 mg/dL (60-115); Lipase 26 U/L (8-78); Magnesium 1.8 mg/dL (1.6-2.6); Potassium 4.6 mmol/L (3.3-5.1); Sodium 137 mmol/L (135-145); Total Protein 8.1 g/dL (6.5-8.0)
[2022-05-12] MEDS: iohexoL 350 MG/ML 100 ML INFUS..BTL 85 ML IV (21:33)
[2022-05-12] MEDS: Morphine Sulfate 2 MG/ML CARTRIDGE IVPUSH (21:47)
[2022-05-12 21:57] VITALS: BP 150/76; PULSE 74; RESP 16; TEMP 36.6; O2SAT 100
[2022-05-12] MEDS: Metoclopramide HCl 10 MG/2 ML VIAL IVPUSH (21:57)
[2022-05-12] MEDS: diphenhydrAMINE HCL 50 MG/ML VIAL 25 MG IVPUSH (21:57)
[2022-05-12 22:02] LABS: Glucose, Whole Blood 425 mg/dL (60-115)
[2022-05-12] MEDS: Insulin Regular, Human 100 UNIT/ML 3 ML VIAL IVPUSH (22:29)
[2022-05-12] MEDS: Morphine Sulfate 4 MG/ML CARTRIDGE IVPUSH (22:30)
[2022-05-12 22:39] LABS: Appearance Urine Clear; Color Urine Yellow; Glucose Urine UA 500 mg/dL (Negative); Leukocyte Esterase Urine Negative (Negative); Nitrite Urine Negative (Negative); PH 8.5 (5.0-9.0); Specific Gravity - Urine >= 1.030 (1.005-1.025); Urine Blood Negative (Negative); Urine Ketones 15 mg/dL (Negative); Urine Protein Trace mg/dL (Neg-Trace)
[2022-05-12 23:07] LABS: Glucose, Whole Blood 308 mg/dL (60-115)
[2022-05-12 23:28] VITALS: BP 137/68; PULSE 72; RESP 18; TEMP 36.6; O2SAT 94
[2022-05-13 01:05] LABS: Glucose, Whole Blood 209 mg/dL (60-115)
[2022-05-13 01:34] LABS: Basophils Absolute Auto 0.1 X10*3/uL (0.0-0.2); Lymphocytes Percent Auto 9.5 % (20-40); Neutrophils Percent Auto 85.9 % (45-73); PLT CLUMP 1; Red Cell Distribution Width 13.1 % (11.0-16.0); SCAN SMEAR FLAG 1
[2022-05-13 01:36] LABS: Basophils Percent Auto 0.3 % (0-2); Eosinophils Percent Auto 0.1 % (0-4); Hematocrit 40.6 % (37.0-47.0); Hemoglobin 13.5 g/dl (12.0-16.0); Imm Gran Abs Auto 0.11 X10*3/uL (0.00-0.03); Imm Gran Pct Auto 0.7 % (0.0-0.4); Lymphocytes Absolute Auto 1.4 X10*3/uL (1.2-4.9); MANUAL DIFF FLAG SCAN; Mean Corpuscular HGB Conc 33.3 g/dl (31.0-35.0); Mean Corpuscular Hemoglobin 29.2 pg (27.0-33.0); Mean Corpuscular Volume 87.9 fL (80.0-98.0); Mean Platelet Volume 11.9 fL (9.4-12.3); Monocytes Absolute Auto 0.5 X10*3/uL (0.1-1.2); Monocytes Percent Auto 3.5 % (2-11); Neutrophils Absolute Auto 12.9 x10*3/uL (2.0-8.3); Red Blood Count 4.62 X10*6/uL (4.20-5.50)
[2022-05-13 01:46] LABS: Anion Gap 17 (12-20); Blood Urea Nitrogen 15 mg/dL (9-16); Calcium 8.8 mg/dL (8.4-10.2); Carbon Dioxide 20 mmol/L (22-29); Chloride 106 mmol/L (96-108); Creatinine Clr Calc Pharmacy 75.1; Estimated Glomerular Filt Rate > 60; Glucose Random 227 mg/dL (60-115); Platelet Count 167 X10*3/uL (160-400); Potassium 4.6 mmol/L (3.3-5.1); Sodium 138 mmol/L (135-145)
[2022-05-13 01:56] LABS: SLIDE REVIEW VERIFIED
[2022-05-13 02:00] VITALS: BP 146/71; PULSE 93; RESP 16; TEMP 36.7; O2SAT 93
[2022-05-13] MEDS: Famotidine/PF 20 MG/2 ML VIAL IVPUSH (02:18)
[2022-05-13] MEDS: Midazolam HCl/PF 2 MG/2 ML VIAL IVPUSH (02:18)
[2022-05-13 05:47] VITALS: BP 158/68; PULSE 69; RESP 14; TEMP 37.1; O2SAT 96
[2022-05-13 06:00] LABS: Acetone, serum QL Negative (Negative)
--- NOTE | 2022-05-13 06:04 | PC.NURSE ---
PO challenge provided, pt tolerated ice water and crackers without issue. disposition pending acetone level per MD
== END 2022-05-13 06:30 | disposition home or self-care (01) ==
PROVIDERS: Internal Medicine; Nurse Practitioner Family; Emergency Provider Emergency Medicine; PCP Family Medicine
DX: E86.0 Dehydration (principal); R10.10 Upper abdominal pain, unspecified; C18.9 Malignant neoplasm of colon, unspecified; E11.9 Type 2 diabetes mellitus without complications; I10 Essential (primary) hypertension; E78.00 Pure hypercholesterolemia, unspecified; F11.20 Opioid dependence, uncomplicated; B19.20 Unspecified viral hepatitis C without hepatic coma; E66.9 Obesity, unspecified; Z68.35 Body mass index [BMI] 35.0-35.9, adult; Z92.21 Personal history of antineoplastic chemotherapy; Z87.891 Personal history of nicotine dependence; Z95.5 Presence of coronary angioplasty implant and graft; Z79.01 Long term (current) use of anticoagulants; Z79.4 Long term (current) use of insulin; Z79.82 Long term (current) use of aspirin; Z79.02 Long term (current) use of antithrombotics/antiplatelets; Z79.899 Other long term (current) drug therapy
CPT/HCPCS: 36415; 71045; 74177; 80048; 80076; 81003; 82009; 82947; 83690; 83735; 84484; 85025; 93005; 96361; 96374; 96375; 96376; 99285; J1200; J1885; J2250; J2270; J2405; J2765; Q9967

== ENCOUNTER 2023-04-19 11:55 | Outpatient (REF) | payer MEDICAID, SELFPAY ==
[2023-04-19 13:07] LABS: MANUAL DIFF FLAG NO
[2023-04-19 13:25] LABS: Basophils Absolute Auto 0.1 X10*3/uL (0.0-0.2); Basophils Percent Auto 0.7 % (0-2); Eosinophils Absolute Auto 0.2 X10*3/uL (0.0-0.4); Eosinophils Percent Auto 2.3 % (0-4); Hematocrit 39.6 % (37.0-47.0); Hemoglobin 13.2 g/dl (12.0-16.0); Imm Gran Abs Auto 0.09 X10*3/uL (0.00-0.03); Imm Gran Pct Auto 0.9 % (0.0-0.4); Lymphocytes Absolute Auto 3.1 X10*3/uL (1.2-4.9); Lymphocytes Percent Auto 32.7 % (20-40); Mean Corpuscular HGB Conc 33.3 g/dl (31.0-35.0); Mean Corpuscular Hemoglobin 29.9 pg (27.0-33.0); Mean Corpuscular Volume 89.8 fL (80.0-98.0); Mean Platelet Volume 11.4 fL (9.4-12.3); Monocytes Absolute Auto 0.5 X10*3/uL (0.1-1.2); Monocytes Percent Auto 5.7 % (2-11); Neutrophils Absolute Auto 5.5 x10*3/uL (2.0-8.3); Neutrophils Percent Auto 57.7 % (45-73); Platelet Count 239 X10*3/uL (160-400); Red Blood Count 4.41 X10*6/uL (4.20-5.50); White Blood Count 9.5 X10*3/uL (4.8-10.8)
[2023-04-19 13:31] LABS: Estimated Average Glucose 223 mg/dL; Hemoglobin A1c % 9.4 % (<6.0)
[2023-04-19 14:17] LABS: Alanine Aminotransferase 30 U/L (0-31); Albumin Level 4.3 g/dL (3.5-5.0); Alkaline Phosphatase 113 U/L (39-117); Anion Gap 13 (12-20); Aspartate Amino Transferase 23 U/L (5-31); Bilirubin Direct 0.1 mg/dL (0.0-0.5); Bilirubin Total 0.3 mg/dL (0.0-1.0); Blood Urea Nitrogen 21 mg/dL (9-16); Calcium 9.5 mg/dL (8.4-10.2); Carbon Dioxide 19 mmol/L (22-29); Chloride 111 mmol/L (96-108); Cholesterol 258 mg/dL (<200); Estimated Glomerular Filt Rate 42; Glucose Random 339 mg/dL (60-115); HDL Cholesterol 44 mg/dL (>40); LDL Cholesterol Calculated 156 mg/dL (<100); Potassium 4.1 mmol/L (3.3-5.1); Sodium 139 mmol/L (135-145); Total Protein 7.9 g/dL (6.5-8.0); Triglycerides 294 mg/dL (<150)
[2023-04-19 14:34] LABS: Free T4 (Free Thyroxine) 0.85 ng/dL (0.71-1.85); Vitamin D 25-OH Total 19.8 ng/mL (>30)
[2023-04-19 15:02] LABS: Creatinine Urine 127.92 mg/dL; Microalbum/Creatinine Ratio Ur 30.4 ug/mg cr (<30)
[2023-04-19 15:08] LABS: CT PCR NOT DETECTED (Not Detect.); NG PCR NOT DETECTED (Not Detect.)
[2023-04-20 08:18] LABS: HBS Num1 4.99 mIU/mL (0-7.99); HBsAGNum1 0.27 S/CO (0.00-0.99); HIV AB/AG Nonreactive (Nonreactive); HIV Num 1 0.05 S/CO (0.00-0.99); Hepatitis B Surface Antigen Negative (Negative); ~Hepatitis B Surface Antibody NONREACTIVE (Nonreactive)
[2023-04-20 08:27] LABS: ~HepC Num1 13.85 S/CO (0.00-0.79); ~Hepatitis C Antibody Reactive (Nonreactive)
[2023-04-21 04:47] LABS: Syphilis Screen Reactive (Nonreactive)
[2023-04-23 09:28] LABS: HCV Log PCR <1.18 NOT DETECTED Log IU/mL (NOT DETECTED); HepC Viral Load <15 NOT DETECTED IU/mL (NOT DETECTED)
[2023-04-27 15:05] LABS: RPR Quantitative Non-Reactive (Nonreactive); T.Pallidum Particle Agg Test Reactive (Nonreactive)
== END 2023-04-19 11:56 | disposition home or self-care (01) ==
LOC: HO.HHCL 11:55
PROVIDERS: Visit Provider Family Medicine
DX: Z11.4 Encounter for screening for human immunodeficiency virus [HIV] (principal); Z11.3 Encounter for screening for infections with a predominantly sexual mode of transmission; E11.22 Type 2 diabetes mellitus with diabetic chronic kidney disease; N18.30 Chronic kidney disease, stage 3 unspecified
CPT/HCPCS: 0353U; 36415; 80048; 80061; 80076; 82043; 82306; 82570; 83036; 84439; 84443; 85025; 86592; 86706; 86780; 86803; 87340; 87389; 87522

== ENCOUNTER 2023-05-08 15:02 | Outpatient (REF) | payer MEDICAID, SELFPAY | END 2023-05-08 15:03 | disposition home or self-care (01) | LOC: HO.MAMMO 15:02 | PROVIDERS: PCP Family Medicine; Visit Provider Family Medicine | DX: Z12.31 Encounter for screening mammogram for malignant neoplasm of breast (principal) | CPT/HCPCS: 77063; 77067 ==

== ENCOUNTER → 2023-05-08 15:45 | Outpatient (BNV) | payer MEDICAID, SELFPAY | PROVIDERS: PCP Family Medicine; Visit Provider Radiology Diagnostic Radiology | DX: Z12.31 Encounter for screening mammogram for malignant neoplasm of breast (principal) | CPT/HCPCS: 77063; 77067 ==

== ENCOUNTER 2023-05-14 13:35 | Emergency (ER) | payer MEDICAID, SELFPAY ==
--- NOTE | ~2023-05-14 | CT_ITS ---
EXAMINATION: CT ANGIOGRAM OF THE CHEST WITH AND WITHOUT CONTRAST (CT PULMONARY ANGIOGRAM FOR PE) CLINICAL INFORMATION: Reason for Exam Pleuritic chest pain, history of Colon CA COMPARISON: None available. TECHNIQUE: Prior to contrast administration, noncontrast localization images were obtained. Subsequently, multidetector volumetric imaging was performed from the thoracic inlet to below the diaphragms following the administration of 80 mL Omnipaque 350 intravenous contrast. No contrast reaction reported Sagittal, coronal, and MIP oblique sagittal reformatted images were obtained on the CT workstation, uploaded to PACS, and reviewed. This CT examination was performed using dose optimization techniques as appropriate, variously including the following: *Automated exposure control *Adjustment of mA and/or kV according to patient size (this includes techniques or standardized protocols for targeted exams where dose is matched to indication/reason for exam; i.e. extremities or head) *Use of iterative reconstruction technique Total exam dose-length product 326 mGy-cm FINDINGS: QUALITY OF STUDY/CONTRAST BOLUS: Unsatisfactory. There is significantly more contrast in the aorta than the pulmonary artery system. The thoracic inlet is within normal limits. The axillary regions are unremarkable. Partially visualized upper abdominal structures are within normal limits. There is no deviation of the septum. There is no reflux into the hepatic veins. Centrally there is no bulky adenopathy. Moderate coronary calcification. Imaging of the lung morrison. Right lung; There is no infiltrate or effusion. Some scattered micronodularity. There is no nodule over 3 mm. Left lung; There is no infiltrate or effusion. Scattered areas of micronodularity. No nodule over 4 mm. 4 mm nodule on image 32 series 5 Review of the bone windows does not demonstrate suspicion for a bony lesion. CT/CT angio chest PE protocol IMPRESSION: Nondiagnostic exam. There is more contrast in the aorta than the pulmonary artery by 100 Hounsfield units. PE cannot be excluded. No infiltrate or effusion in the lungs. Scattered nodularity. Largest 4 mm.. Follow-up as per Fleischner protocol Reference: The Fleischner Society recommendations for management of incidentally detected pulmonary nodules in adults age 35 and greater are based on average nodule size and patient risk category. The recommendations do not apply to lung cancer screening, patients with immunosuppression, or patients with known primary cancer. Single solid nodule average size < 6 mm: Low Risk Patient: No routine follow-up. High Risk Patient: Optional CT at 12 months. Certain patients at high risk with suspicious nodule morphology, upper lobe location, or both may warrant 12-month follow-up. Single solid nodule average size 6-8 mm: Low Risk Patient: CT at 6-12 months; then consider CT at 18-24 months. High Risk Patient: CT at 6-12 months, then CT at 18-24 months. Certain patients at high risk with suspicious nodule morphology, upper lobe location, or both may warrant 12-month follow-up. Single solid nodule average size > 8 mm: Low Risk Patient: Consider CT at 3 months, PET/CT, or tissue sampling. High Risk Patient: Same as for low-risk patients. Multiple solid nodules average size < 6 mm: Low Risk Patient: No routine follow-up. High Risk Patient: Optional CT at 12 months. Use most suspicious nodule as guide to management. Follow-up intervals may vary according to size and risk. Multiple solid nodules average size 6-8 mm: Low Risk Patient: CT at 3-6 months; then consider CT at 18-24 months. High Risk Patient: CT at 3-6 months; then CT at 18-24 months. Use most suspicious nodule as guide to management. Follow-up intervals may vary according to size and risk. Multiple solid nodules > 8 mm: Low Risk Patient: CT at 3-6 months; then consider CT at 18-24 months. High Risk Patient: CT at 3-6 months, then CT at 18-24 months. Use most suspicious nodule as guide to management. Follow-up intervals may vary according to size and risk. Ground Glass Nodule: Average size < 6 mm: No routine follow-up. Average size 6 mm or greater: CT at 6-12 months to confirm persistence. Then CT every 2 years until 5 years. In certain suspicious nodules < 6 mm, consider follow-up at 2 years and 4 years. If solid component(s) or growth develops, consider resection. Part-Solid Nodule: Average size < 6 mm: No routine follow-up. Average size 6 mm or greater: CT at 3-6 months to confirm persistence. If unchanged and solid component remains under 6 mm, then annual CT should be performed for 5 years. In practice, part-solid nodules cannot be defined as such until 6 mm or greater in size, and nodules under 6 mm do not usually require follow-up. Persistent part-solid nodules with solid components 6 mm or more should be considered highly suspicious. Multiple Subsolid Nodules: Average size < 6 mm: CT at 3-6 months. If stable, consider CT at 2 years and 4 years. Average size 6 mm or greater: CT at 3-6 months. Subsequent management based on the most suspicious nodule(s). Multiple < 6 mm pure ground glass nodules are usually benign, but consider follow-up in selected patients at high risk at 2 years and 4 years. VTE: Inconclusive
--- NOTE | 2023-05-14 13:37 | ECG_ITS ---
Test Reason : CHEST PAIN Blood Pressure : / mmHG Vent. Rate : 091 BPM Atrial Rate : 091 BPM P-R Int : 124 ms QRS Dur : 072 ms QT Int : 368 ms P-R-T Axes : 033 044 038 degrees QTc Int : 452 ms Normal sinus rhythm Normal ECG When compared with ECG of 12-MAY-2022 20:41, No significant change was found Referred By: Xin Santamaria Electronically Signed By:MARIMAR VOGEL
[2023-05-14 13:51] VITALS: BP 156/82; PULSE 108; RESP 20; TEMP 37.4; O2SAT 99; BMI 34.0
--- NOTE | 2023-05-14 14:31 | ED_ITS ---
HPI - General Adult General Chief complaint: Upper Respiratory Symptoms Stated complaint: SOB, chest pain this morning Time Seen by Provider: 05/14/23 14:05 Source: patient, RN notes reviewed and old records reviewed Mode of arrival: ambulatory History of Present Illness HPI narrative: 57-year-old female with a past medical history of CAD s/p stent on Plavix/Aspirin, Colon cancer currently in remission, diabetes, history of substance abuse, HLD, hyperthyroid, hepatitis-C, presenting to the ED complaining of left upper back/lung pain since this morning worse with deep inspiration, moving and breathing. Reports mild SOB. Also reports mild LE pitting edema. Denies known injury/trauma or fall, abdominal pain, vomiting/diarrhea, calf pain, recent travel, history of clots. Related Data Home Medications Medication Instructions Recorded Confirmed aspirin 81 mg tablet,delayed 81 mg PO DAILY 11/09/20 11/25/21 release atorvastatin 80 mg tablet 80 mg PO DAILY 11/09/20 11/25/21 furosemide 20 mg tablet 20 mg PO DAILY 11/09/20 11/25/21 levothyroxine 88 mcg capsule 88 mcg PO DAILY 11/09/20 11/25/21 metoprolol succinate 25 mg 12.5 mg PO BID 11/09/20 11/25/21 tablet,extended release 24 hr metformin 500 mg tablet,extended 500 mg PO DAILY 12/30/20 11/25/21 release 24 hr buprenorphine 8 mg-naloxone 2 mg 3 film buccal DAILY 03/08/21 11/25/21 sublingual film (Suboxone) albuterol sulfate 2.5 mg/3 mL 1 amp inhalation Q6H PRN Wheezing 03/18/21 11/25/21 (0.083 %) solution for nebulization albuterol sulfate 90 mcg/actuation 2 puff PO Q4-6H PRN wheezing 03/18/21 11/25/21 aerosol inhaler (ProAir HFA) fluticasone propionate 220 2 puff PO BID 03/18/21 11/25/21 mcg/actuation HFA aerosol inhaler (Flovent HFA) fluticasone propionate 50 2 spray intranasal DAILY 03/18/21 11/25/21 mcg/actuation nasal spray,suspension insulin glargine 100 unit/mL (3 See Rx Instructions .Route .COMPLEX 03/18/21 11/25/21 mL) subcutaneous pen (Lantus Solostar U-100 Insulin) insulin lispro 100 unit/mL 25 unit subcut DAILY 03/18/21 11/25/21 subcutaneous pen (Humalog KwikPen (U-100) Insulin) quetiapine 100 mg tablet (Seroquel) 1 tab PO BEDTIME 03/18/21 11/25/21 blood sugar diagnostic (FreeStyle #10 ea 10/28/21 11/24/21 Lite Strips) docusate sodium 100 mg capsule 100 mg PO BID 10/28/21 11/25/21 lancets 33 gauge (TRUEplus Lancets) #100 ea 10/28/21 11/24/21 loratadine 10 mg tablet 10 mg PO DAILY 10/28/21 11/25/21 pantoprazole 40 mg tablet,delayed 40 mg PO DAILY 10/28/21 11/25/21 release pen needle, diabetic 32 gauge x #50 ea 10/28/21 11/24/21/32 (Pentips) Previous Rx's Medication Instructions Recorded acetaminophen 650 mg 650 mg PO Q8H PRN for pain #60 tabs 09/29/20 tablet,extended release tamsulosin 0.4 mg capsule 0.4 mg PO BEDTIME 14 days #14 caps 12/01/21 ondansetron 4 mg disintegrating 4 mg PO Q6-8H PRN Vomiting #10 tabs 05/13/22 tablet clopidogrel 75 mg tablet 75 mg PO DAILY 90 days #90 tabs 01/26/23 duloxetine 30 mg capsule,delayed 30 mg PO DAILY #60 caps 01/30/23 release (Cymbalta) gabapentin 300 mg capsule 1 cap PO TID #90 caps 01/30/23 Allergies Allergy/AdvReac Type Severity Reaction Status Date / Time No Known Allergies Allergy Verified 11/25/21 10:26 [No Known Allergies*] Review of Systems 2 Review of Systems: Constitutional: No Fever, No Chills, No Fatigue, No Malaise ENT/Mouth: No Hearing loss, No Ear Pain, No Nasal Congestion, No sore throat, No Rhinorrhea, No Swallowing Difficulty Eyes: No Eye Pain, No Swelling, No Redness, No Vision Changes Cardiovascular: +Chest Pain, +SOB, No Dyspnea on Exertion, No Orthopnea, No Edema, No Palpitations Respiratory: No Cough, No Sputum, No Wheezing, No Dyspnea Gastrointestinal: No Nausea, No Vomiting, No Diarrhea, No Constipation, No Abdominal pain Genitourinary: No Dysuria, No Urinary Frequency, No Hematuria, No Flank Pain, No Urinary Flow Changes Musculoskeletal: No joint pain, No Myalgias, No Joint Swelling Skin: No Skin Lesions, No rash Neuro: No Weakness, No Numbness, No Paresthesias, No Dizziness, No Headache Yes all other systems are reviewed and are negative Constitutional: Constitutional: Reports as per [facility] Past Medical History Attestation statement: The following information was validated with the patient. Source: old records reviewed Medical History Renal calculi Colon cancer Hypothyroidism Hypertensive cardiovascular disease Diabetes mellitus Hx of drug abuse Back pain GERD (gastroesophageal reflux disease) CAD (coronary artery disease) On beta tiffanie at home NSTEMI (non-ST elevated myocardial infarction) Adhesive capsulitis of right shoulder Bursitis of right shoulder History of MRSA infection High cholesterol Diabetes Hyperthyroidism Hepatitis C Surgical History History of colon surgery Stented coronary artery Hx of colonoscopy Hx of repair of left rotator cuff Hx of heart artery stent Hx of cholecystectomy History of umbilical hernia repair History of back surgery Family History Family History Father No problems noted. Mother No problems noted. Social History Social History Household Members: Spouse Housing: Apartment Are you a primary healthcare administrative assistant to a significant other at home: No Do you presently have visiting nurse or other home services: No Alcohol intake: former Patient Tobacco Use Status: Former Tobacco user Quit Date: 09/2021 Tobacco use type: Cigarette Years Smoked: 35 Second Hand Smoke Exposure: Yes Advance Directives: No Advance Directives Information Provided: No service: No Current occupational status: disabled Current occupation: right handed Physical Exam ED Vital Signs: Vital Signs - 24 hr 05/14/23 13:51 05/14/23 16:32 Temperature 99.3 F Pulse Rate 108 H 101 H Respiratory Rate 20 16 Blood Pressure 156/82 H 128/71 Pulse Oximetry 99 96 Oxygen Delivery Method Room Air Room Air BMI result Body Mass Index 34.0 Const General: cooperative, healthy appearing and no acute distress Orientation/consciousness: patient oriented x3 Limitations: no limitations HENMT Head: Yes normal to inspection and Yes atraumatic Ears: hearing grossly normal bilaterally General nose exam: Normal external nose present Face and sinus: Yes normal facial exam Eyes General: appearance normal, both eyes and all related structures EOM: EOMs intact bilaterally Neck Neck: Yes normal visual inspection and Yes no meningeal signs Chest Other: Left posterior lateral ribs. No ecchymosis/erythema or flail chest Chest palpation & inspection: normal inspection of the chest, no crepitus and tenderness Resp Effort & Inspection: normal respiratory effort and no respiratory distress Auscultation: clear to auscultation bilaterally, no crackles, no rales and no wheezes Cardio Rate: regular rate Heart sounds: S1 normal heart sound present and S2 normal heart sound present GI Inspection: Yes normal to inspection Palpation (GI): Soft to palpation, nontender, no guarding and not rigid General: Yes no CVA tenderness Back/Spine/Pelvis Other: No midline cervical/thoracic/lumbar spinous tenderness/step-off or deformity Back: no CVA tenderness Skin Rashes: no rashes Wounds: no wounds Neuro General: patient oriented x3, tone normal and no meningeal signs Cranial nerves: Yes CN's II-XII intact bilaterally Gait exam (Neuro): Normal gait present Extrem General: Yes normal to inspection, Yes no calf tenderness and Yes edema (1+ pitting bilaterally) Course Course Course Narrative: -1623--mild leukocytosis of 13. H&H stable. --1630--ED care transferred to MIRTH[facility] Beyer pending remaining labs, UA, CT PE and dispo per results Reevaluation(s) Reevaluation #1: Patient signed out to me by IRAM Gracia. CTA chest nondiagnostic, more contrast in the aorta and the pulmonary artery, PE cannot be excluded. Discussed case with Dr. Iniguez who recommends adding D-dimer. No D-dimer ordered initially, will order at this time. No elevation of BNP. Time: 19:48 Reevaluation #2: Patient refusing blood draw for repeat troponin and D-dimer, stating she wishes to be discharged home at this time. Advised patient that leaving prior to blood work would be against medical advice. Risks of leaving AMA were discussed at bedside up to and including . Patient signed AMA form. Return precautions discussed. Time: 20:20 Medications Administered Discontinued Medications Generic Name Dose Route Start Last Admin Trade Name Jaja PRN Reason Stop Dose Admin Acetaminophen 650 mg 05/14/23 14:31 05/14/23 15:14 Acetaminophen 325 Mg Tablet PO 05/14/23 14:32 650 mg ONCE ONE Administration Sodium Chloride 1,000 mls @ 999 mls/hr 05/14/23 18:00 05/14/23 19:23 Ns IV 05/14/23 19:00 Infused .Q1H1M DARCY Infusion Iohexol 100 ml 05/14/23 17:09 05/14/23 17:09 Iohexol 350 Mg/Ml 100 Ml Infus..Btl IV 05/14/23 17:10 65 ml ONCE ONE Administration Morphine Sulfate 2 mg 05/14/23 15:44 05/14/23 15:49 Morphine Sulfate 2 Mg/Ml Cartridge IVPUSH 05/14/23 15:45 2 mg ONCE ONE Administration Protocol Morphine Sulfate 2 mg 05/14/23 18:38 05/14/23 18:42 Morphine Sulfate 2 Mg/Ml Cartridge IVPUSH 05/14/23 18:39 2 mg ONCE ONE Administration Protocol Medical Decision Making Medical Decision Making [facility] Narrative: 57-year-old female with a past medical history of CAD s/p stent on Plavix/Aspirin, Colon cancer currently in remission, diabetes, history of substance abuse, HLD, hyperthyroid, hepatitis-C, presenting to the ED complaining of left upper back/lung pain since this morning worse with deep inspiration, moving and breathing. Reports mild SOB. On exam low-grade temp 99.3 degrees, tachycardic, appears uncomfortable, lungs CTA, reproducible posterior lateral chest wall tenderness. 1+ bilaterally pitting edema without calf tenderness. Concern for pulmonary embolism vs pneumonia vs ACS vs renal stone vs viral syndrome or CHF. Rule out UTI/pyelonephritis. Unlikely pancreatitis/cholecystitis/lithiasis Plan: EKG, labs, CTA to rule out PE, viral testing, re-evaluate Please refer to course for remaining clinical decision making, interpretation of labs/imaging results, and discussions with consultants and/or family members. Differential Diagnosis Differential Diagnoses: The differential diagnosis associated with the presentation includes As above Admission/Observation Consideration of admission/observation: Escalation of care including admission/observation considered Lab Data MDM Lab Attestation statement: I reviewed the patient's lab results. 05/14/23 14:55 05/14/23 16:22 Labs: Lab Results 05/14/23 05/14/23 Range/Units 14:55 16:22 WBC 13.0 H (4.8-10.8) X10*3/uL RBC 3.99 L (4.20-5.50) X10*6/uL Hgb 12.5 (12.0-16.0) g/dl Hct 37.9 (37.0-47.0) % MCV 95.0 (80.0-98.0) fL MCH 31.3 (27.0-33.0) pg MCHC 33.0 (31.0-35.0) g/dl RDW 13.1 (11.0-16.0) % Plt Count 237 (160-400) X10*3/uL MPV 10.8 (9.4-12.3) fL Immature Gran % (Auto) 1.8 H (0.0-0.4) % Neut % (Auto) 58.6 (45-73) % Lymph % (Auto) 29.6 (20-40) % Daggett % (Auto) 6.9 (2-11) % Eos % (Auto) 2.5 (0-4) % Baso % (Auto) 0.6 (0-2) % Lymph # (Auto) 3.8 (1.2-4.9) X10*3/uL Daggett # (Auto) 0.9 (0.1-1.2) X10*3/uL Eos # (Auto) 0.3 (0.0-0.4) X10*3/uL Baso # (Auto) 0.1 (0.0-0.2) X10*3/uL Abs Immat Gran (auto) 0.24 H (0.00-0.03) X10*3/uL Absolute Neuts (auto) 7.6 (2.0-8.3) x10*3/uL Absolute Nucleated RBC 0.000 (0.0-0.012) X10*3/uL Nucleated RBC % (auto) 0.0 (0.0-0.2) /100WBC PT 9.5 L (11.1-13.3) SEC INR 0.8 L (0.9-1.1) Sodium 139 (135-145) mmol/L Potassium 3.9 (3.3-5.1) mmol/L Chloride 107 (96-108) mmol/L Carbon Dioxide 20 L (22-29) mmol/L Anion Gap 16 (12-20) BUN 28 H (9-16) mg/dL Creatinine 1.40 (0.5-1.4) mg/dL Estim Creat Clear Calc 49.2 Estimated GFR 39 Random Glucose 82 (60-115) mg/dL Calcium 8.9 D (8.4-10.2) mg/dL Total Bilirubin 0.3 (0.0-1.0) mg/dL Direct Bilirubin 0.1 (0.0-0.5) mg/dL AST 29 (5-31) U/L ALT 29 (0-31) U/L Alkaline Phosphatase 107 (39-117) U/L Troponin I High Sens < 2.7 (<3.5-17.0) ng/L B-Natriuretic Peptide 34 (<100) pg/mL Total Protein 7.8 (6.5-8.0) g/dL Albumin 4.2 (3.5-5.0) g/dL COVID-19 (MYKE) Negative (Negative) COVID-19 Clin Com See Note Influenza Type A (JESSICA) Negative (Negative) Influenza Type B (JESSICA) Negative (Negative) Influenza A & B Note See Note Independent Interpretation I performed an independent interpretation of an: EKG (EKG normal sinus rhythm at a rate of 91. OR interval 124. QTC 452. No significant change when compared to prior. No STEMI) Radiology Impression Discussion of test interpretation with radiology: I have reviewed the radiologist's reading. Radiologist Impression: CT/CT angio chest PE protocol IMPRESSION: Nondiagnostic exam. There is more contrast in the aorta than the pulmonary artery by 100 Hounsfield units. PE cannot be excluded. No infiltrate or effusion in the lungs. Scattered nodularity. Largest 4 mm.. Follow-up as per Fleischner protocol External Record Review External record reviewed: Inpatient record, Office record, Outpatient record, Prior outpatient labs, Prior outpatient radiology, Primary care record and Outside ED record Tests considered The following testing was considered but not selected: As above Chronic Conditions Patient?s care impacted by: Cancer Discharge Plan Discharge Clinical Impression: Pleuritic chest pain, Shortness of breath Patient Disposition: Left Against Medical Advice Additional Instructions: You were evaluated in the emergency department today for chest pain. You chose to leave against medical advice prior to completion of your evaluation. Please schedule an appointment for follow-up with your primary care physician as soon as possible. Return to the emergency department if you experience worsening or uncontrolled chest pain, shortness of breath, lightheadedness, feeling faint, loss of consciousness, nausea, vomiting, or any other concerning symptoms. Prescriptions: No Action acetaminophen 650 mg tablet extended release 650 mg PO Q8H PRN (Reason: for pain) Qty: 60 1RF clopidogrel 75 mg tablet 75 mg PO DAILY 90 Days Qty: 90 0RF Rx Instructions: Please call to reschedule cardiology appt for refills albuterol sulfate 2.5 mg /3 mL (0.083 %) solution for nebulization 1 amp inhalation Q6H PRN (Reason: Wheezing) quetiapine [Seroquel] 100 mg tablet 1 tab PO BEDTIME Flovent HFA 220 mcg/actuation HFA aerosol inhaler 2 puff PO BID albuterol sulfate [ProAir HFA] 90 mcg/actuation HFA aerosol inhaler 2 puff PO Q4-6H PRN (Reason: wheezing) fluticasone propionate 50 mcg/actuation spray,suspension 2 spray intranasal DAILY insulin lispro [Humalog KwikPen Insulin] 100 unit/mL insulin pen 25 unit subcut DAILY Lantus Solostar U-100 Insulin 100 unit/mL (3 mL) insulin pen See Rx Instructions .ROUTE .COMPLEX Rx Instructions: Pt states she takes 50units SC at night duloxetine [Cymbalta] 30 mg Capsule,Delayed Release(Dr/Ec) 30 mg PO DAILY Qty: 60 2RF gabapentin 300 mg capsule 1 cap PO TID Qty: 90 3RF tamsulosin 0.4 mg capsule 0.4 mg PO BEDTIME 14 Days Qty: 14 0RF ondansetron 4 mg tablet,disintegrating 4 mg PO Q6-8H PRN (Reason: Vomiting) Qty: 10 0RF aspirin 81 mg tablet,delayed release (DR/EC) 81 mg PO DAILY metoprolol succinate 25 mg tablet extended release 24 hr 12.5 mg PO BID furosemide 20 mg tablet 20 mg PO DAILY atorvastatin 80 mg tablet 80 mg PO DAILY levothyroxine 88 mcg capsule 88 mcg PO DAILY metformin 500 mg tablet extended release 24 hr 500 mg PO DAILY buprenorphine-naloxone [Suboxone] 8-2 mg film 3 film buccal DAILY Hold Instructions: Resume on 04/07/21. Rx Instructions: place 1 film on inside of (each) cheek (DME) lancets [TRUEplus Lancets] 33 gauge misc See Rx Instructions Not Applicable TID Qty: 100 Rx Instructions: As directed (DME) pen needle, diabetic [Pentips] 32 gauge x 5/32 needle See Rx Instructions .ROUTE TID Qty: 50 Rx Instructions: As directed loratadine 10 mg tablet 10 mg PO DAILY docusate sodium 100 mg capsule 100 mg PO BID pantoprazole 40 mg tablet,delayed release (DR/EC) 40 mg PO DAILY (DME) FreeStyle Lite Strips Strip See Rx Instructions Not Applicable TID Qty: 10 Rx Instructions: As directed Stand Alone Forms: Against Medical Advice
[2023-05-14 15:00] LABS: MANUAL DIFF FLAG NO
[2023-05-14 15:02] LABS: Basophils Absolute Auto 0.1 X10*3/uL (0.0-0.2); Basophils Percent Auto 0.6 % (0-2); Eosinophils Absolute Auto 0.3 X10*3/uL (0.0-0.4); Eosinophils Percent Auto 2.5 % (0-4); Hematocrit 37.9 % (37.0-47.0); Hemoglobin 12.5 g/dl (12.0-16.0); Imm Gran Abs Auto 0.24 X10*3/uL (0.00-0.03); Imm Gran Pct Auto 1.8 % (0.0-0.4); Lymphocytes Absolute Auto 3.8 X10*3/uL (1.2-4.9); Lymphocytes Percent Auto 29.6 % (20-40); Mean Corpuscular Hemoglobin 31.3 pg (27.0-33.0); Mean Platelet Volume 10.8 fL (9.4-12.3); Monocytes Absolute Auto 0.9 X10*3/uL (0.1-1.2); Monocytes Percent Auto 6.9 % (2-11); Neutrophils Absolute Auto 7.6 x10*3/uL (2.0-8.3); Neutrophils Percent Auto 58.6 % (45-73); Platelet Count 237 X10*3/uL (160-400); Red Blood Count 3.99 X10*6/uL (4.20-5.50); Red Cell Distribution Width 13.1 % (11.0-16.0)
[2023-05-14] MEDS: Acetaminophen 325 MG TABLET 650 MG PO (15:14)
[2023-05-14 15:15] LABS: INTERNATIONAL NORM RATIO 0.8 (0.9-1.1); Prothrombin Time 9.5 SEC (11.1-13.3)
--- NOTE | 2023-05-14 15:16 | PC.NURSE ---
alert and oriented, respirations even and unlabored. ambulating with steady gait to the bathroom. multiple attempts at IV, pt difficult stick. lab work obtained. pt remains nsr on the monitor. awaiting CT scan at this time. medicated per the MAR for pain.
[2023-05-14] MEDS: Morphine Sulfate 2 MG/ML CARTRIDGE IVPUSH ×2 (15:49→18:42)
--- NOTE | 2023-05-14 15:53 | PC.NURSE ---
IV established, swabs obtained and sent. medicated per the MAR for pain. call fernando within reach.
[2023-05-14 16:15] LABS: COVID-19 Test Negative (Negative); IDNOW Serial# 08D9AD1C
[2023-05-14 16:16] LABS: IDNOW Serial# 6674DD1D; Influenza A Negative (Negative); Influenza B2 Negative (Negative)
[2023-05-14 16:32] VITALS: BP 128/71; PULSE 101; RESP 16; O2SAT 96
[2023-05-14 16:43] LABS: Alanine Aminotransferase 29 U/L (0-31); Albumin Level 4.2 g/dL (3.5-5.0); Alkaline Phosphatase 107 U/L (39-117); Anion Gap 16 (12-20); Aspartate Amino Transferase 29 U/L (5-31); Bilirubin Direct 0.1 mg/dL (0.0-0.5); Bilirubin Total 0.3 mg/dL (0.0-1.0); Blood Urea Nitrogen 28 mg/dL (9-16); Calcium 8.9 mg/dL (8.4-10.2); Carbon Dioxide 20 mmol/L (22-29); Chloride 107 mmol/L (96-108); Creatinine Clr Calc Pharmacy 49.2; Estimated Glomerular Filt Rate 39; Glucose Random 82 mg/dL (60-115); Potassium 3.9 mmol/L (3.3-5.1); Sodium 139 mmol/L (135-145); Total Protein 7.8 g/dL (6.5-8.0)
[2023-05-14 16:48] LABS: B Type Natriuretic Peptide 34 pg/mL (<100)
[2023-05-14 16:50] LABS: Troponin-I High Sensitivity < 2.7 ng/L (<3.5-17.0)
[2023-05-14] MEDS: iohexoL 350 MG/ML 100 ML INFUS..BTL IV (17:09)
[2023-05-14] MEDS: 0.9 % Sodium Chloride 1,000 ML 999 ML IV (18:01)
--- NOTE | 2023-05-14 20:36 | PC.NURSE ---
Provider at bedside discussing results of CT and how to f/u. Pt continues to request to leave AMA. Pt signing AMA paperwork with OCTAVIO.
[2023-05-14 21:08] LABS: D Dimer High Sensitivity < 150 NG/ML
== END 2023-05-14 20:44 | disposition left against medical advice (07) ==
PROVIDERS: Physician Assistant; Emergency Provider Emergency Medicine
DX: R07.89 Other chest pain (principal); R06.02 Shortness of breath; R60.0 Localized edema; I25.10 Atherosclerotic heart disease of native coronary artery without angina pectoris; Z20.822 Contact with and (suspected) exposure to COVID-19; Z20.828 Contact with and (suspected) exposure to other viral communicable diseases; Z87.891 Personal history of nicotine dependence; Z79.899 Other long term (current) drug therapy; Z79.01 Long term (current) use of anticoagulants
CPT/HCPCS: 36415; 71275; 80048; 80076; 83880; 84484; 85025; 85379; 85610; 87502; 87635; 93005; 96361; 96374; 96375; 99284; 99285; J2270; Q9967

== ENCOUNTER 2023-05-19 13:55 | Outpatient (REF) | payer MEDICAID, SELFPAY | END 2023-05-19 13:56 | disposition home or self-care (01) | LOC: HO.HHCL 13:55 | PROVIDERS: Visit Provider Family Medicine | DX: Z11.1 Encounter for screening for respiratory tuberculosis (principal) | CPT/HCPCS: 36415; 86481 ==

== ENCOUNTER 2023-05-24 15:04 | Emergency (ER) | payer MEDICAID, SELFPAY ==
--- NOTE | ~2023-05-24 | XR_ITS ---
EXAMINATION: XR CHEST CLINICAL INFORMATION: Shortness of breath. Chest pain. COMPARISON: 05/12/2022. TECHNIQUE: 2 views of the chest were obtained. FINDINGS: The cardiomediastinal silhouette is normal. There is no focal lung consolidation or pleural effusion. The bony structures and soft tissues are unremarkable. XR/XR chest 2V IMPRESSION: No active cardiopulmonary disease.
--- NOTE | 2023-05-24 15:05 | ECG_ITS ---
Test Reason : CHEST PAIN Blood Pressure : / mmHG Vent. Rate : 109 BPM Atrial Rate : 109 BPM P-R Int : 132 ms QRS Dur : 078 ms QT Int : 344 ms P-R-T Axes : 045 027 037 degrees QTc Int : 463 ms Sinus tachycardia RSR' or QR pattern in V1 suggests right ventricular conduction delay Low voltage QRS Borderline ECG When compared with ECG of 14-MAY-2023 13:43, Heart rate has increased Referred By: Generic ED Physician Electronically Signed By:RALEIGH ROGEL MD
--- NOTE | 2023-05-24 16:01 | ED.GENADULT ---
HPI - General Adult General Chief complaint: Chest Pain Stated complaint: CP, swollen feet, sob Time Seen by Provider: 05/24/23 21:27 Source: patient Mode of arrival: ambulatory Limitations: no limitations History of Present Illness HPI narrative: Patient is 57 years old with history of colon cancer in remission for last 18 months diabetes hypothyroidism hypertension comes in for few days of body aches. Patient does have history of substance abuse on Suboxone does get pain off and on in the past all over the body with patient upper back and lower back no fever no chills no cough no shortness of breath patient had labs workup done prior to my evaluation which was normal troponin and BNP patient did not complain of ankle edema earlier today but none now no history of fibromyalgia no history of depression no recent use of any substance no history of rheumatoid arthritis Related Data Home Medications Medication Instructions Recorded Confirmed aspirin 81 mg tablet,delayed 81 mg PO DAILY 11/09/20 11/25/21 release atorvastatin 80 mg tablet 80 mg PO DAILY 11/09/20 11/25/21 furosemide 20 mg tablet 20 mg PO DAILY 11/09/20 11/25/21 levothyroxine 88 mcg capsule 88 mcg PO DAILY 11/09/20 11/25/21 metoprolol succinate 25 mg 12.5 mg PO BID 11/09/20 11/25/21 tablet,extended release 24 hr metformin 500 mg tablet,extended 500 mg PO DAILY 12/30/20 11/25/21 release 24 hr buprenorphine 8 mg-naloxone 2 mg 3 film buccal DAILY 03/08/21 11/25/21 sublingual film (Suboxone) albuterol sulfate 2.5 mg/3 mL 1 amp inhalation Q6H PRN Wheezing 03/18/21 11/25/21 (0.083 %) solution for nebulization albuterol sulfate 90 mcg/actuation 2 puff PO Q4-6H PRN wheezing 03/18/21 11/25/21 aerosol inhaler (ProAir HFA) fluticasone propionate 220 2 puff PO BID 03/18/21 11/25/21 mcg/actuation HFA aerosol inhaler (Flovent HFA) fluticasone propionate 50 2 spray intranasal DAILY 03/18/21 11/25/21 mcg/actuation nasal spray,suspension insulin glargine 100 unit/mL (3 See Rx Instructions .Route .COMPLEX 03/18/21 11/25/21 mL) subcutaneous pen (Lantus Solostar U-100 Insulin) insulin lispro 100 unit/mL 25 unit subcut DAILY 03/18/21 11/25/21 subcutaneous pen (Humalog KwikPen (U-100) Insulin) quetiapine 100 mg tablet (Seroquel) 1 tab PO BEDTIME 03/18/21 11/25/21 blood sugar diagnostic (FreeStyle #10 ea 10/28/21 11/24/21 Lite Strips) docusate sodium 100 mg capsule 100 mg PO BID 10/28/21 11/25/21 lancets 33 gauge (TRUEplus Lancets) #100 ea 10/28/21 11/24/21 loratadine 10 mg tablet 10 mg PO DAILY 10/28/21 11/25/21 pantoprazole 40 mg tablet,delayed 40 mg PO DAILY 10/28/21 11/25/21 release pen needle, diabetic 32 gauge x #50 ea 10/28/21 11/24/21 (Pentips) Previous Rx's Medication Instructions Recorded acetaminophen 650 mg 650 mg PO Q8H PRN for pain #60 tabs 09/29/20 tablet,extended release tamsulosin 0.4 mg capsule 0.4 mg PO BEDTIME 14 days #14 caps 12/01/21 ondansetron 4 mg disintegrating 4 mg PO Q6-8H PRN Vomiting #10 tabs 05/13/22 tablet clopidogrel 75 mg tablet 75 mg PO DAILY 90 days #90 tabs 01/26/23 duloxetine 30 mg capsule,delayed 30 mg PO DAILY #60 caps 01/30/23 release (Cymbalta) gabapentin 300 mg capsule 1 cap PO TID #90 caps 01/30/23 cyclobenzaprine 10 mg tablet 10 mg PO Q8H #20 tabs 05/24/23 tramadol 50 mg tablet 50 mg PO Q6H PRN pain #20 tabs 05/24/23 Allergies Allergy/AdvReac Type Severity Reaction Status Date / Time No Known Allergies Allergy Verified 11/25/21 10:26 [No Known Allergies*] Review of Systems Review of Systems: Yes all other systems are reviewed and are negative PMFSH Past Medical History Medical History Renal calculi Colon cancer Hypothyroidism Hypertensive cardiovascular disease Diabetes mellitus Hx of drug abuse Back pain GERD (gastroesophageal reflux disease) CAD (coronary artery disease) On beta tiffanie at home NSTEMI (non-ST elevated myocardial infarction) Adhesive capsulitis of right shoulder Bursitis of right shoulder History of MRSA infection High cholesterol Diabetes Hyperthyroidism Hepatitis C Surgical History History of colon surgery Stented coronary artery Hx of colonoscopy Hx of repair of left rotator cuff Hx of heart artery stent Hx of cholecystectomy History of umbilical hernia repair History of back surgery Family History Family History Father No problems noted. Mother No problems noted. Social History Social History Household Members: Spouse Housing: Apartment Are you a primary child care attendant to a significant other at home: No Do you presently have visiting nurse or other home services: No Alcohol intake: former Patient Tobacco Use Status: Former Tobacco user Quit Date: 09/2021 Tobacco use type: Cigarette Years Smoked: 35 Second Hand Smoke Exposure: Yes Advance Directives: No Advance Directives Information Provided: No service: No Current occupational status: disabled Current occupation: right handed Physical Exam ED Vital Signs: Vital Signs - 24 hr 05/24/23 16:02 05/24/23 20:01 05/24/23 21:52 Temperature 98.2 F 96.5 F L 98.4 F Pulse Rate 101 H 102 H 97 Respiratory Rate 20 20 17 Blood Pressure 115/88 144/98 H 108/68 Pulse Oximetry 96 97 97 Oxygen Delivery Method Room Air Room Air Room Air BMI result Body Mass Index 37.0 Appearance: Alert. Oriented X3. No acute distress. Eyes: PERRLA, No Nystagmus ENT: Pharynx normal. Oral Mucosa moist Neck: Normal inspection. Neck supple. CVS: Normal heart rate and rhythm. Pulses normal. Respiratory: No respiratory distress. Equal air entry bilateral, no wheezing/rales/rhonchi Abdomen: Soft and nontender. Bowel sounds are present, no mass palpable, no CVA tenderness Skin: Skin warm and dry. Normal skin color. Normal skin turgor. Extremities: No lower extremity edema. No calf tenderness normal joints no joint swelling Neuro: Oriented X 3. No motor deficit. No sensory deficit.No cerebellar signs , cranial nerves II-XII intact Course Course Course Narrative: This is an RME: Additional HPI, ROS, PE not included below will be deferred to primary provider. This is a 41-gpam[age]lyx-female, with a hx of CAD s/p stent on Plavix/Aspirin, Colon cancer currently in remission, diabetes, history of substance abuse, HLD, hyperthyroid, hepatitis-C, presenting to the ED with complaints of chest pain, cough, SOB, neck pain, body aches since yesterday. No fevers. Plan: Labs, CXR, EKG, viral swabs Medications Administered Discontinued Medications Generic Name Dose Route Start Last Admin Trade Name Freq PRN Reason Stop Dose Admin Acetaminophen 975 mg 05/24/23 18:30 05/24/23 18:32 Acetaminophen 325 Mg Tablet PO 05/24/23 18:31 975 mg ONCE ONE Administration Cyclobenzaprine HCl 10 mg 05/24/23 22:03 05/24/23 22:34 Cyclobenzaprine Hcl 10 Mg Tablet PO 05/24/23 22:04 10 mg ONCE ONE Administration Tramadol HCl 50 mg 05/24/23 22:03 05/24/23 22:34 Tramadol Hcl 50 Mg Tablet PO 05/24/23 22:04 50 mg ONCE ONE Administration Medical Decision Making Medical Decision Making [facility] Narrative: Patient has stable labs likely fibromyalgia with tenderness in upper back paraspinal area. Will discharge patient home on tramadol and Flexeril Differential Diagnosis Differential Diagnoses: The differential diagnosis associated with the presentation includes Arthritis/fibromyalgia/metabolic etiology /rhabdomyolysis Lab Data [facility] Lab Attestation statement: I reviewed the patient's lab results. 05/24/23 16:58 05/24/23 16:58 Labs: Lab Results 05/24/23 05/24/23 Range/Units 16:58 22:04 WBC 12.4 H (4.8-10.8) X10*3/uL RBC 4.13 L (4.20-5.50) X10*6/uL Hgb 12.5 (12.0-16.0) g/dl Hct 38.1 (37.0-47.0) % MCV 92.3 (80.0-98.0) fL MCH 30.3 (27.0-33.0) pg MCHC 32.8 (31.0-35.0) g/dl RDW 13.1 (11.0-16.0) % Plt Count 250 (160-400) X10*3/uL MPV 10.2 (9.4-12.3) fL Immature Gran % (Auto) 0.6 H (0.0-0.4) % Neut % (Auto) 71.6 (45-73) % Lymph % (Auto) 19.4 L (20-40) % [place] % (Auto) 5.7 (2-11) % Eos % (Auto) 2.3 (0-4) % Baso % (Auto) 0.4 (0-2) % Lymph # (Auto) 2.4 (1.2-4.9) X10*3/uL [place] # (Auto) 0.7 (0.1-1.2) X10*3/uL Eos # (Auto) 0.3 (0.0-0.4) X10*3/uL Baso # (Auto) 0.1 (0.0-0.2) X10*3/uL Abs Immat Gran (auto) 0.07 H (0.00-0.03) X10*3/uL Absolute Neuts (auto) 8.8 H (2.0-8.3) x10*3/uL Absolute Nucleated RBC 0.000 (0.0-0.012) X10*3/uL Nucleated RBC % (auto) 0.0 (0.0-0.2) /100WBC Sodium 138 (135-145) mmol/L Potassium 3.9 (3.3-5.1) mmol/L Chloride 105 (96-108) mmol/L Carbon Dioxide 21 L (22-29) mmol/L Anion Gap 16 (12-20) BUN 30 H (9-16) mg/dL Creatinine 1.29 (0.5-1.4) mg/dL Estim Creat Clear Calc 55.8 Estimated GFR 43 Random Glucose 142 H (60-115) mg/dL Calcium 9.9 D (8.4-10.2) mg/dL Total Bilirubin 0.4 (0.0-1.0) mg/dL Direct Bilirubin 0.1 (0.0-0.5) mg/dL AST 44 H (5-31) U/L ALT 44 H (0-31) U/L Alkaline Phosphatase 129 H (39-117) U/L Troponin I High Sens 3.3 (<3.5-17.0) ng/L B-Natriuretic Peptide < 10 (<100) pg/mL Total Protein 8.4 H (6.5-8.0) g/dL Albumin 4.4 (3.5-5.0) g/dL Urine Color Yellow Urine Appearance Clear Urine pH 6.0 (5.0-9.0) Ur Specific [place] 1.015 (1.005-1.025) Urine Protein Negative (Neg-Trace) mg/dL Urine Glucose (UA) Negative (Negative) mg/dL Urine Ketones Negative (Negative) mg/dL Urine Blood Trace H (Negative) Urine Nitrite Negative (Negative) Ur Leukocyte Esterase Small (1+) H (Negative) Urine RBC 3-5 H (0-2) /HPF Urine WBC 21-50 H (0-5) /HPF Ur Squamous Epith Cells 3-5 (0-2) /HPF Urine Bacteria 1+ (None Seen) Hyaline Casts 0-2 (0-2) /LPF Influenza Type A (PCR) NEGATIVE (Negative) Influenza Type B (PCR) NEGATIVE (Negative) RSV RNA Qual (PCR) NEGATIVE (Negative) SARS-CoV-2 RNA (RT-PCR) NEGATIVE (Negative) Independent Interpretation I performed an independent interpretation of an: EKG Interpretation: Sinus tachycardia heart rate 109 beats per minute normal interval normal axis no acute ST-T changes no acute ischemia Discharge Plan Discharge Clinical Impression: Musculoskeletal pain Patient Disposition: Home, Self-Care Instructions: Fibromyalgia (ED) Additional Instructions: Possibly have fibromyalgia/muscular pain You may hold Lipitor as this could be the cause of the pain and see whether your pain gets better Drink plenty of fluids Medication for muscle relaxant and pain Prescriptions: New cyclobenzaprine 10 mg tablet 10 mg PO Q8H Qty: 20 0RF tramadol 50 mg tablet 50 mg PO Q6H PRN (Reason: pain) Qty: 20 0RF No Action acetaminophen 650 mg tablet extended release 650 mg PO Q8H PRN (Reason: for pain) Qty: 60 1RF clopidogrel 75 mg tablet 75 mg PO DAILY 90 Days Qty: 90 0RF Rx Instructions: Please call to reschedule cardiology appt for refills albuterol sulfate 2.5 mg /3 mL (0.083 %) solution for nebulization 1 amp inhalation Q6H PRN (Reason: Wheezing) quetiapine [Seroquel] 100 mg tablet 1 tab PO BEDTIME Flovent HFA 220 mcg/actuation HFA aerosol inhaler 2 puff PO BID albuterol sulfate [ProAir HFA] 90 mcg/actuation HFA aerosol inhaler 2 puff PO Q4-6H PRN (Reason: wheezing) fluticasone propionate 50 mcg/actuation spray,suspension 2 spray intranasal DAILY insulin lispro [Humalog KwikPen Insulin] 100 unit/mL insulin pen 25 unit subcut DAILY Lantus Solostar U-100 Insulin 100 unit/mL (3 mL) insulin pen See Rx Instructions .ROUTE .COMPLEX Rx Instructions: Pt states she takes 50units SC at night duloxetine [Cymbalta] 30 mg Capsule,Delayed Release(Dr/Ec) 30 mg PO DAILY Qty: 60 2RF gabapentin 300 mg capsule 1 cap PO TID Qty: 90 3RF tamsulosin 0.4 mg capsule 0.4 mg PO BEDTIME 14 Days Qty: 14 0RF ondansetron 4 mg tablet,disintegrating 4 mg PO Q6-8H PRN (Reason: Vomiting) Qty: 10 0RF aspirin 81 mg tablet,delayed release (DR/EC) 81 mg PO DAILY metoprolol succinate 25 mg tablet extended release 24 hr 12.5 mg PO BID furosemide 20 mg tablet 20 mg PO DAILY atorvastatin 80 mg tablet 80 mg PO DAILY levothyroxine 88 mcg capsule 88 mcg PO DAILY metformin 500 mg tablet extended release 24 hr 500 mg PO DAILY buprenorphine-naloxone [Suboxone] 8-2 mg film 3 film buccal DAILY Hold Instructions: Resume on 04/07/21. Rx Instructions: place 1 film on inside of (each) cheek (DME) lancets [TRUEplus Lancets] 33 gauge misc See Rx Instructions Not Applicable TID Qty: 100 Rx Instructions: As directed (DME) pen needle, diabetic [Pentips] 32 gauge x 5/32 needle See Rx Instructions .ROUTE TID Qty: 50 Rx Instructions: As directed loratadine 10 mg tablet 10 mg PO DAILY docusate sodium 100 mg capsule 100 mg PO BID pantoprazole 40 mg tablet,delayed release (DR/EC) 40 mg PO DAILY (DME) FreeStyle Lite Strips Strip See Rx Instructions Not Applicable TID Qty: 10 Rx Instructions: As directed Interventions: ED Discharge Assessment Last Done: 05/24/23 22:38 Discharge Date/Time: 05/24/23 22:38
[2023-05-24 16:02] VITALS: BP 115/88; PULSE 101; RESP 20; TEMP 36.8; O2SAT 96; BMI 37.0
[2023-05-24 17:03] LABS: MANUAL DIFF FLAG NO
[2023-05-24 17:04] LABS: Basophils Absolute Auto 0.1 X10*3/uL (0.0-0.2); Basophils Percent Auto 0.4 % (0-2); Eosinophils Absolute Auto 0.3 X10*3/uL (0.0-0.4); Eosinophils Percent Auto 2.3 % (0-4); Hematocrit 38.1 % (37.0-47.0); Hemoglobin 12.5 g/dl (12.0-16.0); Imm Gran Abs Auto 0.07 X10*3/uL (0.00-0.03); Imm Gran Pct Auto 0.6 % (0.0-0.4); Lymphocytes Absolute Auto 2.4 X10*3/uL (1.2-4.9); Lymphocytes Percent Auto 19.4 % (20-40); Mean Corpuscular HGB Conc 32.8 g/dl (31.0-35.0); Mean Corpuscular Hemoglobin 30.3 pg (27.0-33.0); Mean Corpuscular Volume 92.3 fL (80.0-98.0); Mean Platelet Volume 10.2 fL (9.4-12.3); Monocytes Absolute Auto 0.7 X10*3/uL (0.1-1.2); Monocytes Percent Auto 5.7 % (2-11); Neutrophils Absolute Auto 8.8 x10*3/uL (2.0-8.3); Neutrophils Percent Auto 71.6 % (45-73); Platelet Count 250 X10*3/uL (160-400); Red Blood Count 4.13 X10*6/uL (4.20-5.50); Red Cell Distribution Width 13.1 % (11.0-16.0); White Blood Count 12.4 X10*3/uL (4.8-10.8)
[2023-05-24 17:19] LABS: Alanine Aminotransferase 44 U/L (0-31); Albumin Level 4.4 g/dL (3.5-5.0); Alkaline Phosphatase 129 U/L (39-117); Anion Gap 16 (12-20); Aspartate Amino Transferase 44 U/L (5-31); Bilirubin Direct 0.1 mg/dL (0.0-0.5); Bilirubin Total 0.4 mg/dL (0.0-1.0); Blood Urea Nitrogen 30 mg/dL (9-16); Calcium 9.9 mg/dL (8.4-10.2); Carbon Dioxide 21 mmol/L (22-29); Chloride 105 mmol/L (96-108); Creatinine Clr Calc Pharmacy 55.8; Estimated Glomerular Filt Rate 43; Glucose Random 142 mg/dL (60-115); Potassium 3.9 mmol/L (3.3-5.1); Sodium 138 mmol/L (135-145); Total Protein 8.4 g/dL (6.5-8.0)
[2023-05-24 17:24] LABS: B Type Natriuretic Peptide < 10 pg/mL (<100)
[2023-05-24 17:25] LABS: Troponin-I High Sensitivity 3.3 ng/L (<3.5-17.0)
[2023-05-24 17:40] LABS: Influenza A PCR NEGATIVE (Negative); Influenza B PCR NEGATIVE (Negative); Resp Syncy Virus RNA Qual PCR NEGATIVE (Negative); SARS COV2 PCR INHOUSE NEGATIVE (Negative)
[2023-05-24] MEDS: Acetaminophen 325 MG TABLET 975 MG PO (18:32)
[2023-05-24 20:01] VITALS: BP 144/98; PULSE 102; RESP 20; TEMP 35.8; O2SAT 97
[2023-05-24 21:52] VITALS: BP 108/68; PULSE 97; RESP 17; TEMP 36.9; O2SAT 97
[2023-05-24 22:11] LABS: Appearance Urine Clear; Color Urine Yellow; Glucose Urine UA Negative (Negative); Leukocyte Esterase Urine Small (1+) (Negative); Nitrite Urine Negative (Negative); Specific Gravity - Urine 1.015 (1.005-1.025); UMIC TRIGGER UACC YES; Urine Blood Trace (Negative); Urine Ketones Negative (Negative); Urine Protein Negative (Neg-Trace)
[2023-05-24 22:13] LABS: Bacteria Urine 1+ (None Seen); Hyaline Casts Urine 0-2 /LPF (0-2); UACC Culture Trigger YES; WBC Urine 21-50 /HPF (0-5)
[2023-05-24] MEDS: traMADoL HCL 50 MG TABLET PO (22:34)
[2023-05-24] MEDS: Cyclobenzaprine HCl 10 MG TABLET PO (22:34)
== END 2023-05-24 22:38 | disposition home or self-care (01) ==
PROVIDERS: Physician Assistant Medical; Emergency Provider Internal Medicine; PCP Family Medicine
DX: R07.89 Other chest pain (principal); R06.02 Shortness of breath; M79.10 Myalgia, unspecified site; Z20.822 Contact with and (suspected) exposure to COVID-19; Z20.828 Contact with and (suspected) exposure to other viral communicable diseases; Z87.891 Personal history of nicotine dependence; Z79.899 Other long term (current) drug therapy
CPT/HCPCS: 0241U; 36415; 71046; 80048; 80076; 81001; 83880; 84484; 85025; 87086; 93005; 99284

== ENCOUNTER 2023-06-06 08:45 | Outpatient (REF) | payer MEDICAID, SELFPAY ==
[2023-06-06 12:05] LABS: Alanine Aminotransferase 57 U/L (0-31); Albumin Level 4.4 g/dL (3.5-5.0); Alkaline Phosphatase 136 U/L (39-117); Aspartate Amino Transferase 36 U/L (5-31); Bilirubin Direct 0.1 mg/dL (0.0-0.5); Bilirubin Total 0.3 mg/dL (0.0-1.0); Total Protein 8.5 g/dL (6.5-8.0)
[2023-06-06 12:26] LABS: Vitamin B12 425 pg/mL (200-900)
[2023-06-06 12:46] LABS: Creatinine Urine 90.17 mg/dL; Microalbumin Urine < 5.0 mg/L
== END 2023-06-06 08:46 | disposition home or self-care (01) ==
LOC: HO.HHCL 08:45
PROVIDERS: Visit Provider Family Medicine
DX: E11.22 Type 2 diabetes mellitus with diabetic chronic kidney disease (principal); N18.30 Chronic kidney disease, stage 3 unspecified
CPT/HCPCS: 36415; 80076; 82043; 82570; 82607

== ENCOUNTER 2023-06-07 12:58 | Outpatient (AMB) | payer MEDICAID, SELFPAY ==
--- NOTE | 2023-06-07 13:01 | MHC.OFFVIS ---
Intake Vital Signs 06/07/23 13:03 Height 5 ft 4 in Weight 202 lb 13.204 oz BMI 34.8 BP 120/70 Blood Pressure Location Lt brachial Position Sitting Pulse 98 Intake Visit Reasons: Overdue follow up Intake Note: overdue follow up Seo Specialist Required: No Accompanied by: Self / Same As Patient Allergies No Known Allergies [No Known Allergies*] Allergy (Verified 06/07/23 13:05) Medication List - Last Reconciled 06/07/23 by Lex Escudero MD acetaminophen ER 650 mg PO Q8H PRN albuterol sulfate 1 amp inhalation Q6H PRN albuterol sulfate 90 mcg/actuation (ProAir HFA) 2 puffs PO Q4-6H PRN aspirin 81 mg PO DAILY blood sugar diagnostic (FreeStyle Lite Strips) As directed buprenorphine-naloxone 8-2 mg (Suboxone) 3 film buccal DAILY clopidogrel 75 mg PO DAILY 90 days cyclobenzaprine 10 mg PO Q8H docusate sodium 100 mg PO BID duloxetine (Cymbalta) 30 mg PO DAILY fluticasone propionate 220 mcg/actuation (Flovent HFA) 2 puffs PO BID fluticasone propionate 50 mcg/actuation 2 sprays intranasal DAILY furosemide 20 mg PO DAILY gabapentin 300 mg PO TID insulin glargine (Lantus Solostar U-100 Insulin) Pt states she takes 50units SC at night insulin lispro (Humalog KwikPen (U-100) Insulin) 25 units subcut DAILY lancets (TRUEplus Lancets) As directed levothyroxine 88 mcg PO DAILY loratadine 10 mg PO DAILY metformin ER 500 mg PO DAILY metoprolol succinate ER 12.5 mg PO BID ondansetron 4 mg PO Q6-8H PRN pantoprazole 40 mg PO DAILY pen needle, diabetic (Pentips) As directed quetiapine (Seroquel) 1 tab PO BEDTIME tamsulosin 0.4 mg PO BEDTIME tramadol 50 mg PO Q6H PRN HPI HPI Comments History of Present Illness Details Pleasant 58-year-old female here for follow-up. She was seen for NSTEMI and was transferred to [facility] she underwent cardiac catheterization which showed severe left circumflex artery stenosis which was treated with drug-eluting stent. She has been on aspirin and Plavix since then. No bleeding issues. She underwent chemo for colon cancer. 06/07/2023: She returns for follow-up. She had non anginal left-sided chest pains. She went to the emergency department and was ruled out and underwent chest CTA. She is saying that she was told she may have fibromyalgia. Also her atorvastatin was discontinued because she was having myalgias. Overall otherwise doing well. [facility] Medical History (Updated 06/07/23 @ 13:21 by Lex Escudero MD) Renal calculi Colon cancer Hypothyroidism Hypertensive cardiovascular disease Diabetes mellitus Hx of drug abuse Back pain GERD (gastroesophageal reflux disease) CAD (coronary artery disease) On beta tiffanie at home NSTEMI (non-ST elevated myocardial infarction) Adhesive capsulitis of right shoulder Bursitis of right shoulder History of MRSA infection High cholesterol Diabetes Hyperthyroidism Hepatitis C Surgical History History of colon surgery Stented coronary artery Hx of colonoscopy Hx of repair of left rotator cuff Hx of heart artery stent Hx of cholecystectomy History of umbilical hernia repair History of back surgery Family History Father No problems noted. Mother No problems noted. Social History Household Members: Spouse Housing: Apartment Are you a primary progressive care unit registered nurse to a significant other at home: No Do you presently have visiting nurse or other home services: No Alcohol intake: former Patient Tobacco Use Status: Former Tobacco user Quit Date: 09/2021 Tobacco use type: Cigarette Years Smoked: 35 Second Hand Smoke Exposure: Yes service: No Current occupational status: disabled Current occupation: right handed Review of Systems Const Denies weakness ENT Denies dizziness Card Denies chest pain, Denies chest pain with activity, Denies syncope, Denies rapid heart rate, Denies pedal edema, Denies edema, Denies leg edema, Denies lightheadedness, Denies palpitations, Denies dyspnea, Denies dyspnea on exertion and Denies orthopnea Resp Denies cough, Denies dyspnea and Denies dyspnea on exertion GI Denies hematochezia and Denies change in stool character Musc Denies abnormal gait, Denies muscle cramps, Denies muscle weakness, Denies numbness, Denies radiating pain into limb and Denies tingling Neuro Denies abnormal gait, Denies dizziness, Denies syncope, Denies numbness, Denies tingling and Denies weakness Endo Denies palpitations Physical Exam Vital Signs: Last Vital Signs Pulse 98 06/07/23 13:03 BP 120/70 06/07/23 13:03 BMI result Body Mass Index 34.8 GENERAL APPEARANCE: in no acute distress, pleasant. NECK: no carotid bruit, no jugular venous distention. SKIN: no suspicious lesions, warm and dry. HEART: no murmurs, regular rate and rhythm. LUNGS: clear to auscultation bilaterally. ABDOMEN: soft, nontender. EXTREMITIES: no edema. PERIPHERAL PULSES: equal. NEUROLOGIC: No gross deficits, AAO X 3 Assessment & Plan Assessment & Plan (1) Stable angina: Code(s): I20.8 - Other forms of angina pectoris (2) High cholesterol: Code(s): E78.00 - Pure hypercholesterolemia, unspecified Plan [age] female here for follow-up. She has known history of coronary disease with previous circumflex PCI for NSTEMI. She had indigestion like discomfort at that time. She is saying that since the PCI she has not had any similar discomfort. She has noncardiac chest pain episodes. In terms of her statins, she did have some myalgia as which could be related to atorvastatin. She has stop atorvastatin and is feeling better. I am starting her on rosuvastatin 10 mg on Monday. If she can tolerate this then will go to once a day regimen in a month. Blood pressure control is good. She is still low dual antiplatelet therapy which can be continued as there is data for long-term dual antiplatelet therapy. If there is any concern on part of the patient or bleeding issues in the future then aspirin can be discontinued. Would favor Plavix monotherapy in that case. Thank you for allowing me to participate in the care of your patient. Please feel free to contact me if you have any questions. Medications: New rosuvastatin 10 mg PO .mwf 60 tabs 3RF E78.00 - Pure hypercholesterolemia, unspecified Changed From gabapentin 1 cap PO TID 90 caps 3RF To gabapentin 300 mg PO TID From tamsulosin 0.4 mg PO BEDTIME 14 days 14 caps 0RF To tamsulosin 0.4 mg PO BEDTIME Coding Level of Care Code Est Pt Level 4 (30097) Diagnoses Stable angina I20.8 High cholesterol E78.00
[2023-06-07 13:03] VITALS: BP 120/70; PULSE 98; BMI 34.8
== END 2023-06-07 13:26 | disposition home or self-care (01) ==
PROVIDERS: PCP Family Medicine; Visit Provider Internal Medicine Cardiovascular Disease
DX: I20.8 Other forms of angina pectoris (principal); E78.00 Pure hypercholesterolemia, unspecified
CPT/HCPCS: 99214

== ENCOUNTER → 2023-06-07 12:58 | Outpatient (BNVA) | payer MEDICAID, SELFPAY | PROVIDERS: PCP Family Medicine; Visit Provider Internal Medicine Cardiovascular Disease | DX: I20.89 Other forms of angina pectoris (principal); E78.00 Pure hypercholesterolemia, unspecified | CPT/HCPCS: 99212 ==

== ENCOUNTER 2023-06-23 17:25 | Outpatient (REF) | payer MEDICAID, SELFPAY ==
[2023-06-23 18:11] LABS: Influenza A PCR NEGATIVE (Negative); Influenza B PCR NEGATIVE (Negative); Resp Syncy Virus RNA Qual PCR NEGATIVE (Negative); SARS COV2 PCR INHOUSE NEGATIVE (Negative)
== END 2023-06-23 17:26 | disposition home or self-care (01) ==
LOC: HO.HHCLNP 17:25
PROVIDERS: Visit Provider Emergency Medicine
DX: J45.30 Mild persistent asthma, uncomplicated (principal); Z11.52 Encounter for screening for COVID-19
CPT/HCPCS: 0241U; 87070

== ENCOUNTER 2023-09-19 13:49 | Outpatient (REF) | payer MEDICAID, SELFPAY ==
--- NOTE | ~2023-09-19 | CT_ITS ---
EXAMINATION: CT ABDOMEN AND PELVIS WITHOUT CONTRAST CLINICAL INFORMATION: Surveillance COMPARISON: 05/12/2022 TECHNIQUE: Multidetector volumetric imaging was performed from the superior aspect of the liver through the pubic symphysis. Sagittal and coronal reformatted images were obtained on the technologist's workstation. This CT examination was performed using dose optimization techniques as appropriate, variously including the following: *Automated exposure control *Adjustment of mA and/or kV according to patient size (this includes techniques or standardized protocols for targeted exams where dose is matched to indication/reason for exam; i.e. extremities or head) *Use of iterative reconstruction technique DLP: 801 mGy-cm FINDINGS: LUNG BASES: The visualized lung bases are unremarkable. LIVER, GALLBLADDER, AND BILIARY TREE: Relative hypoattenuation of the hepatic parenchyma is consistent with steatosis. No focal lesions are identified on this unenhanced study. Liver is normal in size and contour. No appreciable biliary ductal dilatation. Gallbladder is surgically absent. PANCREAS: Unremarkable. SPLEEN: Unremarkable. ADRENAL GLANDS: Unremarkable. KIDNEYS AND URETERS: Numerous bilateral nonobstructing renal calculi are again noted, not definitely changed as compared to prior. These calculi measure between 1 and 4 mm in diameter and are not appreciably changed in number as compared to prior. No hydronephrosis or hydroureter. No ureteral calculi. Kidneys normal in size with a few areas of mild cortical thinning, potentially due to scarring or focal atrophy. No focal lesions are identified. BLADDER: Unremarkable. GASTROINTESTINAL TRACT: Stomach, small bowel, and colon are normal in caliber. No bowel wall thickening or surrounding inflammatory changes. Anastomotic olive at the expected location of the sigmoid colon are consistent with prior sigmoidectomy. Appendix is normal. No intraperitoneal free fluid or free air. ABDOMINAL WALL: There is a fat-containing incisional hernia around the umbilicus. No involvement. LYMPH NODES: Normal. VASCULAR: Calcific atherosclerosis in the abdominal aorta and iliac arteries. No aneurysmal dilatation. PELVIC VISCERA: Anteverted uterus. No adnexal lesions. OSSEOUS STRUCTURES: Status post L4 S1 posterior and interbody fusion. Mild degenerative spondylosis throughout the lumbar spine. Mild osteoarthritis in the hips. No acute osseous findings. CT/CT abdomen pelvis wo IV con IMPRESSION: 1. No acute intra-abdominal or intrapelvic abnormalities. 2. Numerous bilateral nonobstructing renal calculi. No evidence of obstructive uropathy. 3. Hepatic steatosis. Fleischner guidelines were followed.
[2023-09-19 16:02] LABS: Blood Urea Nitrogen 31 mg/dL (9-16); Estimated Glomerular Filt Rate 18
== END 2023-09-19 13:50 | disposition home or self-care (01) ==
LOC: HO.CT 13:49
PROVIDERS: PCP Family Medicine; Visit Provider Internal Medicine
DX: C18.9 Malignant neoplasm of colon, unspecified (principal); Z90.49 Acquired absence of other specified parts of digestive tract
CPT/HCPCS: 36415; 74176; 82565; 84520

== ENCOUNTER 2023-09-29 13:38 | Outpatient (AMB) | payer MEDICAID, SELFPAY ==
[2023-09-29 13:49] VITALS: BP 90/60; PULSE 97; O2SAT 98; BMI 38.1
--- NOTE | 2023-09-29 13:49 | HO.NEPHOV ---
HPI HPI Comments History of Present Illness Details I had the privilege of seeing Anuradha in consultation for DANYA. She has CKD stage 3 at baseline. She has history of coronary artery disease with NSTEMI . Her cardiac catheterization which showed severe left circumflex artery stenosis which was treated with drug-eluting stent. 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 She has H/O chemo for colon cancer. She is history of renal calculi. She denies any skin rashes, joint swellings, edema, orthostatic symptoms, microscopic hematuria, recent sore throat, photosensitivity, epistaxis, recurrent sinusitis, active cocaine use. She denies nausea, vomiting or diarrhea. He does not have any paroxysmal nocturnal dyspnea, orthopnea. She claims to be compliant with her medications. Recently her serum creatinine has gone up to 2.73. She is good concerned about decline in renal functions. [facility] Medical History (Updated 10/09/23 @ 21:36 by Vj Bangura MD) Renal calculi Colon cancer Hypothyroidism Hypertensive cardiovascular disease Diabetes mellitus Hx of drug abuse Back pain GERD (gastroesophageal reflux disease) CAD (coronary artery disease) On beta tiffanie at home NSTEMI (non-ST elevated myocardial infarction) Adhesive capsulitis of right shoulder Bursitis of right shoulder History of MRSA infection High cholesterol Diabetes Hyperthyroidism Hepatitis C Surgical History History of colon surgery Stented coronary artery Hx of colonoscopy Hx of repair of left rotator cuff Hx of heart artery stent Hx of cholecystectomy History of umbilical hernia repair History of back surgery Family History Father No problems noted. Mother No problems noted. Other Spouse Social History Household Members: None Housing: Apartment Are you a primary childcare administrator to a significant other at home: No Do you presently have visiting nurse or other home services: No Alcohol intake: former Patient Tobacco Use Status: Former Tobacco user Quit Date: 09/2021 Tobacco use type: Cigarette Years Smoked: 35 Second Hand Smoke Exposure: Yes service: No Current occupational status: disabled Current occupation: right handed Vital Signs 09/29/23 13:49 Height 5 ft 4 in Weight 222 lb 2 oz BMI 38.1 BP 90/60 Blood Pressure Location Rt brachial Position Sitting Pulse 97 Pulse Source Pulse Oximeter Pulse Oximetry (%) 98 Oxygen Delivery Method Room Air Physical Exam Vital Signs: Last Vital Signs Pulse 97 09/29/23 13:49 BP 90/60 09/29/23 13:49 Pulse Ox 98 09/29/23 13:49 Oxygen Delivery Method Room Air 09/29/23 13:49 BMI result Body Mass Index 38.1 Const General: comfortable and no acute distress Orientation/consciousness: patient oriented x3 HEENT Head: Yes normocephalic Mouth: Normal oral and palatal mucosa present Eyes EOM: EOMs intact bilaterally Neck Neck: Yes supple Resp Auscultation: clear to auscultation bilaterally Cardio Jugular venous distension: no JVD Rate: regular rate GI Palpation (GI): Soft to palpation Auscultation: normal bowel sounds General: Yes no CVA tenderness Back/Spine/Pelvis Back: no CVA tenderness Skin General skin exam: no rashes or lesions noted Neuro General: patient oriented x3 and moves all extremities Extrem General: Yes no pedal edema Assessment & Plan Assessment & Plan (1) Acute kidney failure: Code(s): N17.9 - Acute kidney failure, unspecified Qualifiers: Acute renal failure type: with acute tubular necrosis Qualified Code(s): N17.0 - Acute kidney failure with tubular necrosis (2) CKD (chronic kidney disease) stage 3, GFR 30-59 ml/min: Code(s): N18.30 - Chronic kidney disease, stage 3 unspecified Qualifiers: Chronic kidney disease stage 3 subtype: stage 3a (GFR 45-59) Qualified Code(s): N18.31 - Chronic kidney disease, stage 3a (3) Renal calculi: Code(s): N20.0 - Calculus of kidney (4) Hypertension: Code(s): I10 - Essential (primary) hypertension Qualifiers: Hypertension type: primary hypertension Qualified Code(s): I10 - Essential (primary) hypertension Plan Anuradha most likely has DANYA from tubular injury. Her urine output is good. There is no reason to suspect any obstructive uropathy. I ordered renal ultrasound. Differential diagnosis are quite broad at this point. She has CKD stage 3 at baseline most likely from vascular disease. She has not taking any EVELYN inhibitor or ARB. She has not on any diuretics. She has not actively using drugs. She has history of chemotherapy for colon cancer. She avoids nonsteroidal anti-inflammatories. I have ordered extensive workup. She needs to maintain good hydration. If serum creatinine does not settled down, she will need a renal biopsy. All these possibilities have been discussed in great detail. Answered all questions. She she is going to be followed up in the office in couple of weeks. Further management is pending evolving data. Orders: Orders Anti DNA DS Antibody 10/06/23 N17.9 - Acute kidney failure, unspecified Myeloperoxidase Antibody 10/06/23 N17.9 - Acute kidney failure, unspecified Proteinase 3 PR3 Antibodies 10/06/23 N17.9 - Acute kidney failure, unspecified Creatinine 10/06/23 N17.9 - Acute kidney failure, unspecified Blood Urea Nitrogen 10/06/23 N17.9 - Acute kidney failure, unspecified Calcium 10/06/23 N17.9 - Acute kidney failure, unspecified Lactate Dehydrogenase 10/06/23 N17.9 - Acute kidney failure, unspecified Complete Blood Count Auto Diff 10/06/23 N17.9 - Acute kidney failure, unspecified US renal BI 09/29/23 N17.9 - Acute kidney failure, unspecified TOM Reflex Titer and Pattern 10/06/23 N17.9 - Acute kidney failure, unspecified Anti Glomerular Basement Memb 10/06/23 N17.9 - Acute kidney failure, unspecified Immunofixation Pnl, Serum 10/06/23 N17.9 - Acute kidney failure, unspecified Complement C4 10/06/23 N17.9 - Acute kidney failure, unspecified Complement C3 10/06/23 N17.9 - Acute kidney failure, unspecified Phospholipase A2 Receptor Pnl 10/06/23 N17.9 - Acute kidney failure, unspecified Electrolytes 10/06/23 N17.9 - Acute kidney failure, unspecified Cryoglobulin 10/06/23 N17.9 - Acute kidney failure, unspecified Rheumatoid Factor 10/06/23 N17.9 - Acute kidney failure, unspecified UA and rflx microscopic 10/06/23 N17.9 - Acute kidney failure, unspecified Protein Creatinine Ratio, Ur 10/06/23 N17.9 - Acute kidney failure, unspecified Prothrombin Time INR 10/06/23 N17.9 - Acute kidney failure, unspecified Coding Level of Care Code New Pt Level 4 (03156) Diagnoses Acute renal failure with tubular necrosis N17.0 Acute renal failure type: with acute tubular necrosis Stage 3a chronic kidney disease N18.31 Chronic kidney disease stage 3 subtype: stage 3a (GFR 45-59) Renal calculi N20.0 Primary hypertension I10 Hypertension type: primary hypertension Results Reviewed Nephrology Results: Hgb 12.9 g/dl (12.0-16.0) 10/06/23 WBC 11.3 X10*3/uL (4.8-10.8) H 10/06/23 Plt Count 237 X10*3/uL (160-400) 10/06/23 Sodium 137 mmol/L (135-145) 10/06/23 Potassium 4.1 mmol/L (3.3-5.1) 10/06/23 Chloride 107 mmol/L (96-108) 10/06/23 Carbon Dioxide 19 mmol/L (22-29) L 10/06/23 BUN 25 mg/dL (9-16) H 10/06/23 Creatinine 1.47 mg/dL (0.5-1.4) H 10/06/23 Calcium 9.1 mg/dL (8.4-10.2) 10/06/23 Urine Protein Negative mg/dL (Neg-Trace) 10/06/23 Urine Creatinine 112.09 mg/dL 10/06/23 Protein/Creatinin Ratio 0.13 (<0.2) 10/06/23
== END 2023-09-29 14:29 | disposition home or self-care (01) ==
PROVIDERS: PCP Family Medicine; Referring Provider Internal Medicine; Visit Provider Internal Medicine Nephrology
DX: N17.0 Acute kidney failure with tubular necrosis (principal); N18.31 Chronic kidney disease, stage 3a; N20.0 Calculus of kidney; I10 Essential (primary) hypertension
CPT/HCPCS: 99204

== ENCOUNTER → 2023-09-29 13:38 | Outpatient (BNVA) | payer MEDICAID, SELFPAY | PROVIDERS: PCP Family Medicine; Referring Provider Internal Medicine; Visit Provider Internal Medicine Nephrology | DX: I12.9 Hypertensive chronic kidney disease with stage 1 through stage 4 chronic kidney disease, or unspecified chronic kidney disease (principal); N18.31 Chronic kidney disease, stage 3a; N17.0 Acute kidney failure with tubular necrosis; N20.0 Calculus of kidney | CPT/HCPCS: 99202 ==

== ENCOUNTER 2023-10-06 06:44 | Outpatient (REF) | payer MEDICAID, SELFPAY ==
[2023-10-06 08:06] LABS: Basophils Absolute Auto 0.1 X10*3/uL (0.0-0.2); Basophils Percent Auto 0.5 % (0-2); Eosinophils Absolute Auto 0.3 X10*3/uL (0.0-0.4); Eosinophils Percent Auto 2.4 % (0-4); Hematocrit 39.3 % (37.0-47.0); Hemoglobin 12.9 g/dl (12.0-16.0); Imm Gran Abs Auto 0.12 X10*3/uL (0.00-0.03); Imm Gran Pct Auto 1.1 % (0.0-0.4); Lymphocytes Absolute Auto 3.1 X10*3/uL (1.2-4.9); Lymphocytes Percent Auto 27.7 % (20-40); MANUAL DIFF FLAG SCAN; Mean Corpuscular HGB Conc 32.8 g/dl (31.0-35.0); Mean Corpuscular Hemoglobin 29.6 pg (27.0-33.0); Mean Corpuscular Volume 90.1 fL (80.0-98.0); Mean Platelet Volume 11.8 fL (9.4-12.3); Monocytes Absolute Auto 0.7 X10*3/uL (0.1-1.2); Monocytes Percent Auto 5.8 % (2-11); Neutrophils Absolute Auto 7.1 x10*3/uL (2.0-8.3); Neutrophils Percent Auto 62.5 % (45-73); PLT CLUMP 1; Red Blood Count 4.36 X10*6/uL (4.20-5.50); Red Cell Distribution Width 12.9 % (11.0-16.0); SCAN SMEAR FLAG 1
[2023-10-06 08:07] LABS: Platelet Count 237 X10*3/uL (160-400); White Blood Count 11.3 X10*3/uL (4.8-10.8)
[2023-10-06 08:36] LABS: SLIDE REVIEW VERIFIED
[2023-10-06 08:39] LABS: Rheumatoid Factor < 13.0 IU/mL (<15.0)
[2023-10-06 08:43] LABS: Anion Gap 15 (12-20); Blood Urea Nitrogen 25 mg/dL (9-16); Calcium 9.1 mg/dL (8.4-10.2); Carbon Dioxide 19 mmol/L (22-29); Chloride 107 mmol/L (96-108); Estimated Glomerular Filt Rate 37; Lactate Dehydrogenase 213 U/L (122-220); Potassium 4.1 mmol/L (3.3-5.1); Sodium 137 mmol/L (135-145)
[2023-10-06 09:00] LABS: Appearance Urine Clear; Color Urine Yellow; Glucose Urine UA Negative (Negative); Leukocyte Esterase Urine Small (1+) (Negative); Nitrite Urine Negative (Negative); Specific Gravity - Urine 1.015 (1.005-1.025); UMIC TRIGGER UA YES; Urine Blood Negative (Negative); Urine Ketones Negative (Negative); Urine Protein Negative (Neg-Trace)
[2023-10-06 09:14] LABS: Creatinine Urine 112.09 mg/dL; Protein/Creatinine Ratio, Ur 0.13 (<0.2); Total Protein Urine Random 15 mg/dL (<12)
[2023-10-06 09:39] LABS: Bacteria Urine 3+ (None Seen); Hyaline Casts Urine 0-2 /LPF (0-2); RBC Urine 0-2 /HPF (0-2)
[2023-10-09 21:48] LABS: Anti DNA DS Antibody <1 IU/mL; Anti Glomerular Basement Memb <1.0 AI; Myeloperoxidase Antibody <1.0 AI; Proteinase 3 PR3 Antibodies <1.0 AI
[2023-10-10 14:59] LABS: IgA 198 mg/dL (47-310); IgG 1516 mg/dL (600-1640); IgM 108 mg/dL (50-300)
[2023-10-11 05:23] LABS: Complement C3 201 mg/dL (83-193)
[2023-10-13 12:28] LABS: Anti Nuclear Antibody Screen NEGATIVE (NEGATIVE)
[2023-10-15 00:14] LABS: Phospholipase A2 IgG ELISA <4 RU/mL; Phospholipase A2 IgG IFA NEGATIVE (NEGATIVE)
== END 2023-10-06 06:45 | disposition home or self-care (01) ==
LOC: HO.LAB 06:44
PROVIDERS: PCP Family Medicine; Visit Provider Internal Medicine Nephrology
DX: N17.9 Acute kidney failure, unspecified (principal)
CPT/HCPCS: 36415; 80051; 81001; 81003; 82310; 82565; 82570; 82595; 82784; 83520; 83615; 84156; 84520; 85025; 85610; 86021; 86038; 86160; 86225; 86255; 86334; 86431

== ENCOUNTER 2023-10-10 15:18 | Outpatient (REF) | payer MEDICAID, SELFPAY ==
--- NOTE | ~2023-10-10 | US_ITS ---
EXAMINATION: US RETROPERITONEAL LIMITED (RENAL ONLY) CLINICAL INFORMATION: Acute kidney failure, unspecified. COMPARISON: CT scan abdomen and pelvis 09/19/2023, KUB 10/03/2021, renal ultrasound 08/11/2021 TECHNIQUE: Real-time imaging of the kidneys. FINDINGS: RIGHT KIDNEY: 11.2 x 4.5 x 5.4 cm (SAG x AP x TRV). The kidney is normal in size, contour, and echogenicity. Renal cortical thickness is normal. No focal parenchymal lesions. No hydronephrosis. There are many nonobstructing renal calculi, the largest in each full were measured and include: 0.5 x 0.3 x 0.3 cm in the upper pole, 0.5 x 0.4 x 0.3 cm in the mid kidney and 0.6 x 0.3 x 0.5 cm in the lower pole. LEFT KIDNEY: 11.1 x 5.0 x 5.1 cm (SAG x AP x TRV). The kidney is normal in size, contour, and echogenicity. Renal cortical thickness is normal. No focal parenchymal lesions. No hydronephrosis. There are many nonobstructing renal calculi, the largest in each pole were measured and include: 0.3 x 0.3 x 0.3 cm upper pole, 0.9 x 0.8 x 0.7 cm mid kidney and 0.7 x 0.5 x 0.5 cm lower pole. US/US renal BI IMPRESSION: Bilateral nonobstructing renal calculi, measuring up to 6 mm on the right and up to 9 mm on the left.
== END 2023-10-10 15:19 | disposition home or self-care (01) ==
LOC: HO.US 15:18
PROVIDERS: PCP Family Medicine; Visit Provider Internal Medicine Nephrology
DX: N17.9 Acute kidney failure, unspecified (principal)
CPT/HCPCS: 76775

== ENCOUNTER 2023-10-18 14:44 | Outpatient (AMB) | payer MEDICAID, SELFPAY ==
--- NOTE | 2023-10-18 14:54 | HO.NEPHOV ---
HPI HPI Comments History of Present Illness Details I had the privilege of seeing Anuradha in following for DANYA on a backdrop of CKD. She has CKD stage 3 at baseline. She has history of coronary artery disease with NSTEMI . Her last cardiac catheterization which showed severe left circumflex artery stenosis which was treated with drug-eluting stent. 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 She has H/O chemo for colon cancer. She has a history of renal calculi. She denies any active cocaine use. She denies nausea, vomiting or diarrhea. He does not have any paroxysmal nocturnal dyspnea, orthopnea. She claims to be compliant with her medications. Recently her serum creatinine had gone up to 2.73 which has improved to 1.47. She feels well. [facility] Medical History (Updated 10/09/23 @ 21:36 by Vj Bangura MD) Renal calculi Colon cancer Hypothyroidism Hypertensive cardiovascular disease Diabetes mellitus Hx of drug abuse Back pain GERD (gastroesophageal reflux disease) CAD (coronary artery disease) On beta tiffanie at home NSTEMI (non-ST elevated myocardial infarction) Adhesive capsulitis of right shoulder Bursitis of right shoulder History of MRSA infection High cholesterol Diabetes Hyperthyroidism Hepatitis C Surgical History History of colon surgery Stented coronary artery Hx of colonoscopy Hx of repair of left rotator cuff Hx of heart artery stent Hx of cholecystectomy History of umbilical hernia repair History of back surgery Family History Father No problems noted. Mother No problems noted. Other Spouse Social History Household Members: None Housing: Apartment Are you a primary medicare sales representative to a significant other at home: No Do you presently have visiting nurse or other home services: No Alcohol intake: former Patient Tobacco Use Status: Former Tobacco user Quit Date: 09/2021 Tobacco use type: Cigarette Years Smoked: 35 Second Hand Smoke Exposure: Yes service: No Current occupational status: disabled Current occupation: right handed Vital Signs 10/18/23 14:55 Height 5 ft 4 in Weight 227 lb BMI 39.0 BP 110/70 Blood Pressure Location Rt brachial Position Sitting Pulse 100 Pulse Source Pulse Oximeter Pulse Oximetry (%) 96 Oxygen Delivery Method Room Air Physical Exam Vital Signs: Last Vital Signs Pulse 100 03/06/24 14:55 BP 110/70 10/18/23 14:55 Pulse Ox 96 10/18/23 14:55 Oxygen Delivery Method Room Air 10/18/23 14:55 BMI result Body Mass Index 39.0 Const General: comfortable and no acute distress Orientation/consciousness: patient oriented x3 HEENT Head: Yes normocephalic Mouth: Normal oral and palatal mucosa present Eyes EOM: EOMs intact bilaterally Neck Neck: Yes supple Resp Auscultation: clear to auscultation bilaterally Cardio Jugular venous distension: no JVD Rate: regular rate GI Palpation (GI): Soft to palpation Auscultation: normal bowel sounds General: Yes no CVA tenderness Back/Spine/Pelvis Back: no CVA tenderness Skin General skin exam: no rashes or lesions noted Neuro General: patient oriented x3 and moves all extremities Extrem General: Yes no pedal edema Assessment & Plan Assessment & Plan (1) Hypertension: Code(s): I10 - Essential (primary) hypertension Qualifiers: Hypertension type: primary hypertension Qualified Code(s): I10 - Essential (primary) hypertension (2) CKD (chronic kidney disease) stage 3, GFR 30-59 ml/min: Code(s): N18.30 - Chronic kidney disease, stage 3 unspecified Qualifiers: Chronic kidney disease stage 3 subtype: stage 3a (GFR 45-59) Qualified Code(s): N18.31 - Chronic kidney disease, stage 3a (3) Renal calculi: Code(s): N20.0 - Calculus of kidney Plan Anuradha had DANYA from tubular injury which has resolved. Her urine output is good. There is no reason to suspect any obstructive uropathy. Renal ultrasound showed bilateral non obstructing calculi measuring up to 6 mm on the right and up to 9 mm on the left. She has CKD stage 3 at baseline most likely from vascular disease. She has not taking any EVELYN inhibitor or ARB. She has not on any diuretics. She has not actively using drugs. She has history of chemotherapy for colon cancer. She avoids nonsteroidal anti-inflammatories. Her workup has been negative. She needs to maintain good hydration. She does not need a renal biopsy now. I did not make any medication changes today. Answered all questions. Further management is pending evolving data Orders: Orders Creatinine 10/18/23 I10 - Essential (primary) hypertension, N18.30 - Chronic kidney disease, stage 3 unspecified, N17.9 - Acute kidney failure, unspecified Blood Urea Nitrogen 10/18/23 I10 - Essential (primary) hypertension, N18.30 - Chronic kidney disease, stage 3 unspecified, N17.9 - Acute kidney failure, unspecified Electrolytes 10/18/23 I10 - Essential (primary) hypertension, N18.30 - Chronic kidney disease, stage 3 unspecified, N17.9 - Acute kidney failure, unspecified Coding Level of Care Code Est Pt Level 4 (72346) Diagnoses Primary hypertension I10 Hypertension type: primary hypertension Stage 3a chronic kidney disease N18.31 Chronic kidney disease stage 3 subtype: stage 3a (GFR 45-59) Renal calculi N20.0 Results Reviewed Nephrology Results: Hgb 12.9 g/dl (12.0-16.0) 10/06/23 WBC 11.3 X10*3/uL (4.8-10.8) H 10/06/23 Plt Count 237 X10*3/uL (160-400) 10/06/23 Sodium 137 mmol/L (135-145) 10/06/23 Potassium 4.1 mmol/L (3.3-5.1) 10/06/23 Chloride 107 mmol/L (96-108) 10/06/23 Carbon Dioxide 19 mmol/L (22-29) L 10/06/23 BUN 25 mg/dL (9-16) H 10/06/23 Creatinine 1.47 mg/dL (0.5-1.4) H 10/06/23 Calcium 9.1 mg/dL (8.4-10.2) 10/06/23 Urine Protein Negative mg/dL (Neg-Trace) 10/06/23 Urine Creatinine 112.09 mg/dL 10/06/23 Protein/Creatinin Ratio 0.13 (<0.2) 10/06/23 Renal US 10/10/23
[2023-10-18 14:55] VITALS: BP 110/70; PULSE 100; O2SAT 96; BMI 39.0
== END 2023-10-18 15:18 | disposition home or self-care (01) ==
PROVIDERS: PCP Family Medicine; Visit Provider Internal Medicine Nephrology
DX: I10 Essential (primary) hypertension (principal); N18.31 Chronic kidney disease, stage 3a; N20.0 Calculus of kidney
CPT/HCPCS: 99214

== ENCOUNTER → 2023-10-18 14:44 | Outpatient (BNVA) | payer MEDICAID, SELFPAY | PROVIDERS: PCP Family Medicine; Visit Provider Internal Medicine Nephrology | DX: I12.9 Hypertensive chronic kidney disease with stage 1 through stage 4 chronic kidney disease, or unspecified chronic kidney disease (principal); N18.31 Chronic kidney disease, stage 3a; N20.0 Calculus of kidney | CPT/HCPCS: 99212 ==

== ENCOUNTER 2023-11-13 18:43 | Outpatient (REF) | payer MEDICAID, SELFPAY ==
[2023-11-17 22:14] LABS: HPV mRNA E6/E7 rflx Not Detected (Not Detected)
== END 2023-11-13 18:44 | disposition home or self-care (01) ==
LOC: HO.HHCLNP 18:43
PROVIDERS: Visit Provider Advanced Practice Midwife
DX: Z12.4 Encounter for screening for malignant neoplasm of cervix (principal); Z11.51 Encounter for screening for human papillomavirus (HPV)
CPT/HCPCS: 87624; 88142

== ENCOUNTER 2023-12-26 11:46 | Outpatient (AMB) | payer MEDICAID, SELFPAY ==
--- NOTE | 2023-12-26 11:51 | A.OFFVIS_ITS ---
Vital Signs 12/26/23 11:53 Height 5 ft 4 in Weight 224 lb BMI 38.4 BP 90/64 Blood Pressure Location Lt brachial Position Sitting Pulse 90 Intake Visit Reasons: Hx Colon Cancer Intake Note: Patient follow up for Hx Colon Ca Patient cc: acid reflex with burning sensation, and constipation. Fixer Boarding Room Required: No Accompanied by: Self / Same As Patient Allergies atorvastatin Adverse Reaction (Intermediate, Verified 12/26/23 11:50) Myalgias resolved when stopped Medication List - Last Reconciled 12/26/23 by Susu Chavez PA-C albuterol sulfate 1 amp inhalation Q6H PRN albuterol sulfate 90 mcg/actuation (ProAir HFA) 2 puffs PO Q4-6H PRN aspirin 81 mg PO DAILY blood sugar diagnostic (FreeStyle Lite Strips) As directed buprenorphine-naloxone 8-2 mg (Suboxone) 1 film buccal DAILY docusate sodium 100 mg PO BID dulaglutide (Trulicity) 1.5 mg subcut QWEEK duloxetine (Cymbalta) 30 mg PO DAILY fluticasone propionate 220 mcg/actuation (Flovent HFA) 2 puffs PO BID gabapentin 300 mg PO TID lancets (TRUEplus Lancets) As directed levothyroxine 88 mcg PO DAILY loratadine 10 mg PO DAILY metformin ER 500 mg PO DAILY metoprolol succinate ER 12.5 mg PO BID pen needle, diabetic (Pentips) As directed rosuvastatin 10 mg PO DAILY tamsulosin 0.4 mg PO BEDTIME HPI Comments Details: A 58-year-old female with history of colon cancer s/p sigmoid resection 2020- Follows with Dr. Small Q 3 months. Doing well-normal bowels- Appetite is good-no issues No N/V/D/ abdominal pain PFSH Medical History Renal calculi Colon cancer Hypothyroidism Hypertensive cardiovascular disease Diabetes mellitus Hx of drug abuse Back pain GERD (gastroesophageal reflux disease) CAD (coronary artery disease) On beta tiffanie at home NSTEMI (non-ST elevated myocardial infarction) Adhesive capsulitis of right shoulder Bursitis of right shoulder History of MRSA infection High cholesterol Diabetes Hyperthyroidism Hepatitis C Surgical History History of colon surgery Stented coronary artery Hx of colonoscopy Hx of repair of left rotator cuff Hx of heart artery stent Hx of cholecystectomy History of umbilical hernia repair History of back surgery Family History Father No problems noted. Mother No problems noted. Other Spouse Social History Household Members: None Housing: Apartment Are you a primary morning caregiver to a significant other at home: No Do you presently have visiting nurse or other home services: No Alcohol intake: former Patient Tobacco Use Status: Former Tobacco user Quit Date: 09/2021 Tobacco use type: Cigarette Years Smoked: 35 Second Hand Smoke Exposure: Yes service: No Current occupational status: disabled Current occupation: right handed Review of Systems Const All systems reviewed & are unremarkable except as noted in HPI and below Physical Exam Vital Signs: Last Vital Signs Pulse 90 12/26/23 11:53 BP 90/64 12/26/23 11:53 BMI result Body Mass Index 38.4 Const General: cooperative, healthy appearing, comfortable and no acute distress Orientation/consciousness: patient oriented x3 Limitations: no limitations Eyes Sclerae: sclerae normal Resp Effort & Inspection: normal respiratory effort and able to speak in complete sentences Auscultation: clear to auscultation bilaterally, no rhonchi and no wheezes Cardio Rate: regular rate Rhythm: regular rhythm Heart sounds: S1 normal heart sound present and S2 normal heart sound present Neuro General: patient oriented x3 Extrem General: Yes full ROM Psych Appearance: well kempt Mental Status: mental status grossly normal Speech and movement: Normal speech and movement present Affect: normal affect Attitude: cooperative Thought process: Normal thought process present Thought content: Normal thought content present Insight: Good insight present (Psych) Judgement: Good judgement present (Psych) Results Reviewed Results Reviewed: mpression and Post Procedure Diagnosis: sigmoid mass polyps internal hemorrhoids Plan: High fiber diet leaflet Avoid straining at stool, epsom salts and sitz bath, anusol supps or cream Repeat Colonoscopy in 1 year, refer colorectal surgery Assessment & Plan Assessment & Plan (1) History of colon cancer: Comment: 2020, sigmoid resection Discussed procedure, rare risks need for escort, prep and medication Code(s): Z85.038 - Personal history of other malignant neoplasm of large intestine Category: Medical Plan: Colon Plan Colonoscopy- DESAI MG prep Hold Trulicity for 1 week prior to procedure omit metformin day before 1/2 dose insulin No DM meds a.m of procedures Orders: Orders Colonoscopy - GI Use Only Today Z85.038 - Personal history of other malignant neoplasm of large intestine Medications: New bisacodyl (Dulcolax (bisacodyl)) Day before procedure @ 12 noon Take 4 tablets by mouth followed by large glass of water 20 mg (4 x 5 mg) PO ONCE PRN 4 tabs 0RF colonoscopy prep 1 day Z12.11 - Encounter for screening for malignant neoplasm of colon polyethylene glycol 3350 (Miralax) Take as directed by mouth the day before your procedure. 238 grams PO ONCE PRN 238 grams 0RF laxative effect 1 day Patient Instructions: MG prep reviewed literature given Hold Trulicity 1 week prior to procedure omit metformin day before 1/2 dose insulin No DM meds a.m of procedures Coding Level of Care Code New Pt Level 3 (79839) Diagnoses History of colon cancer Z85.038 Time Spent (min) 30
[2023-12-26 11:53] VITALS: BP 90/64; PULSE 90; BMI 38.4
== END 2023-12-26 12:45 | disposition home or self-care (01) ==
PROVIDERS: PCP Family Medicine; Visit Provider Physician Assistant
DX: Z85.038 Personal history of other malignant neoplasm of large intestine (principal)
CPT/HCPCS: 99203

== ENCOUNTER → 2023-12-26 11:46 | Outpatient (BNVA) | payer MEDICAID, SELFPAY | PROVIDERS: PCP Family Medicine; Visit Provider Physician Assistant | DX: Z85.038 Personal history of other malignant neoplasm of large intestine (principal) | CPT/HCPCS: 99212 ==

== ENCOUNTER 2024-02-07 22:04 | Emergency (ER) | payer MEDICAID, SELFPAY ==
--- NOTE | 2024-02-07 | ECG_ITS ---
Test Reason : CP Blood Pressure : / mmHG Vent. Rate : 091 BPM Atrial Rate : 091 BPM P-R Int : 130 ms QRS Dur : 078 ms QT Int : 362 ms P-R-T Axes : 018 037 047 degrees QTc Int : 445 ms Normal sinus rhythm Normal ECG When compared to the previous EKG of No significant changes seen Referred By: Generic ED Physician Electronically Signed By:HENOK HERRON MD
--- NOTE | ~2024-02-07 | XR_ITS ---
EXAMINATION: XR CHEST CLINICAL INFORMATION: Chest pain. Cough. COMPARISON: 05/24/2023 TECHNIQUE: Frontal view of the chest was obtained. FINDINGS: Normal lung volumes. No consolidation, pneumothorax, or pleural effusion. Cardiac and mediastinal contours are normal. Pulmonary vasculature is unremarkable. Degenerative spondylosis is present in the thoracic spine. Prior left rotator cuff repair. XR/XR chest 1V IMPRESSION: No acute pulmonary disease.
[2024-02-07 22:15] VITALS: BP 129/71; PULSE 91; RESP 20; TEMP 36.4; O2SAT 95; BMI 38.7
[2024-02-07 22:31] VITALS: BP 118/70; PULSE 91; RESP 15; TEMP 36.5; O2SAT 97
--- NOTE | 2024-02-07 22:53 | ED.CHESTPAIN ---
HPI - Chest Pain General Chief Complaint: Chest Pain Stated Complaint: Chest pain when breathing, palpitations Time Seen by Provider: 02/07/24 22:38 Source: patient Mode of arrival: ambulatory Limitations: no limitations History of Present Illness ED Provider: Dr. Chitra Cedillo HPI narrative: Patient comes to the emergency room complaining of left-sided chest pain for more than 24 hours. Patient states that she has occasionally left-sided chest pain that gets worse with deep inspirations. Patient has been seen multiple times in the ED and by Cardiology. Patient does have history of an NSTEMI with stents, currently taking aspirin and Plavix. Patient states it feels like sharp needles into her heart. Denies pressure, denies shortness of breath. Patient has occasional palpitations. At this time, no chest pain or shortness of breath. Patient states that today she had an appointment with cardiology with Dr. Escudero. However, patient was unable to attend her appointment due to a family emergency. Patient denies any recent URI or UTI symptoms. Related Data Home Medications ?Medication ?Instructions ?Recorded ?Confirmed aspirin 81 mg tablet,delayed 81 mg PO DAILY 11/09/20 02/08/24 release levothyroxine 88 mcg capsule 88 mcg PO DAILY 11/09/20 02/08/24 metoprolol succinate 25 mg 12.5 mg PO BID 11/09/20 02/08/24 tablet,extended release 24 hr metformin 500 mg tablet,extended 500 mg PO DAILY 12/30/20 02/08/24 release 24 hr albuterol sulfate 90 mcg/actuation 2 puff PO Q4-6H PRN wheezing 03/18/21 02/08/24 aerosol inhaler (ProAir HFA) fluticasone propionate 220 2 puff PO BID 03/18/21 02/08/24 mcg/actuation HFA aerosol inhaler (Flovent HFA) blood sugar diagnostic (FreeStyle #10 ea 10/28/21 12/26/23 Lite Strips) lancets 33 gauge (TRUEplus Lancets) #100 ea 10/28/21 12/26/23 loratadine 10 mg tablet 10 mg PO DAILY 10/28/21 02/08/24 pen needle, diabetic 32 gauge x #50 ea 10/28/21 12/26/2332 (Pentips) rosuvastatin 10 mg tablet 10 mg PO DAILY 09/29/23 02/08/24 buprenorphine 8 mg-naloxone 2 mg 1 film buccal DAILY 12/26/23 02/08/24 sublingual film (Suboxone) clopidogrel 75 mg tablet 75 mg PO DAILY 02/08/24 02/08/24 empagliflozin 10 mg tablet 10 mg PO DAILY 02/08/24 02/08/24 (Jardiance) insulin degludec 200 unit/mL (3 72 unit subcut QPM 02/08/24 02/08/24 mL) subcutaneous pen (Tresiba FlexTouch U-200 insulin) lamotrigine 100 mg tablet 100 mg PO BEDTIME 02/08/24 02/08/24 tirzepatide 2.5 mg/0.5 mL 2.5 mg subcut QWEEK 02/08/24 02/08/24 subcutaneous pen injector (Mounjaro) zaleplon 10 mg capsule 10 mg PO BEDTIME PRN insomnia 02/08/24 02/08/24 Previous Rx's ?Medication ?Instructions ?Recorded gabapentin 300 mg capsule 300 mg PO TID #90 caps 12/17/23 bisacodyl 5 mg tablet,delayed 20 mg (4 x 5 mg) PO ONCE PRN 12/26/23 release (Dulcolax (bisacodyl)) colonoscopy prep 1 day #4 tabs duloxetine 30 mg capsule,delayed 30 mg PO DAILY #60 caps 01/17/24 release (Cymbalta) Allergies Allergy/AdvReac Type Severity Reaction Status Date / Time atorvastatin AdvReac Intermediate Myalgias Verified 02/07/24 22:18 resolved when stopped Review of Systems Review of Systems: Constitutional : No Weight loss, No Fever, No Chills, No Night Sweats, No Fatigue, No Malaise ENT/Mouth : No Hearing loss, No Ear Pain, No Nasal Congestion, No Sinus Pain, No Hoarseness, No sore throat, No Rhinorrhea, No Swallowing Difficulty Eyes: No Eye Pain, No Swelling, No Redness, No Foreign Body, No Discharge, No Vision Changes Cardiovascular : Complaining of sharp chest pain intermittently for 24+ hours. States it is worse with deep inspiration, occasional palpitations Respiratory : No Cough, No Sputum, No Wheezing, No Smoke Exposure, No Dyspnea Gastrointestinal : No Nausea, No Vomiting, No Diarrhea, No Constipation, No abdominal Pain, No Hematochezia, No Melena Genitourinary : no irregular bleeding, No Dysuria, No Urinary Frequency, No Hematuria, No Urinary Incontinence, No Urgency, No Flank Pain, No Urinary Flow Changes, No Hesitancy Musculoskeletal : No joint pain, No Myalgias, No Joint Swelling Skin : No Skin Lesions, No rash Neuro : No Weakness, No Numbness, No Paresthesias, No Loss of Consciousness, No Dizziness, No Headache Psych : No Anxiety/Panic, No Depression, No SI/HI/AH/VH, No Social Issues, Heme/Lymph: No Bruising, No Bleeding,No Lymphadenopathy Endocrine : No Polyuria, No Polydipsia, No Temperature Intolerance FOR[facility]LY [facility], [facility] Past Medical History Medical History Renal calculi Colon cancer Hypothyroidism Hypertensive cardiovascular disease Diabetes mellitus Hx of drug abuse Back pain GERD (gastroesophageal reflux disease) CAD (coronary artery disease) On beta tiffanie at home NSTEMI (non-ST elevated myocardial infarction) Adhesive capsulitis of right shoulder Bursitis of right shoulder History of MRSA infection High cholesterol Diabetes Hyperthyroidism Hepatitis C Surgical History History of colon surgery Stented coronary artery Hx of colonoscopy Hx of repair of left rotator cuff Hx of heart artery stent Hx of cholecystectomy History of umbilical hernia repair History of back surgery Family History Family History Father No problems noted. Mother No problems noted. Other Spouse Social History Social History Household Members: None Housing: Apartment Are you a primary interior plant caretaker to a significant other at home: No Do you presently have visiting nurse or other home services: No Alcohol intake: former Patient Tobacco Use Status: Former Tobacco user Tobacco use type: Cigarette Years Smoked: 35 Smoked in Last 30 Days: No Second Hand Smoke Exposure: Yes Advance Directives: No Advance Directives Information Provided: No Do you have a plan to hurt others: No Plan service: No Current occupational status: disabled Current occupation: right handed Physical Exam Vital Signs: Vital Signs: Last Vital Signs Temp 98.3 F 02/08/24 08:08 Pulse 84 02/08/24 08:08 Resp 16 02/08/24 08:08 BP 118/48 L 02/08/24 08:08 Pulse Ox 98 02/08/24 08:08 O2 Del Method Room Air 02/08/24 08:08 BMI result Body Mass Index 38.7 Const: Other: Appearance: Alert. Oriented X3. No acute distress. Well-appearing Eyes: Pupils equal, round and reactive to light. ENT: Pharynx normal. Neck: Normal inspection. Neck supple. No lymph nodes noted. No crepitus CVS: Normal heart rate and rhythm. Pulses normal. Normal S1 and S2 Respiratory: No respiratory distress. Breath sounds normal. No Wheezing. No rales Abdomen: Soft and nontender. No rigidity. No distention. Skin: Skin warm and dry. Normal skin color. Normal skin turgor. Extremities: No lower extremity edema. No Lacerations. No Rash Neuro: Oriented X 3. No motor deficit. No sensory deficit. Moving all extremities. No slurred speech. CN 2 through 12 grossly intact Psych: calm, cooperative, normal affect Course Course Course Narrative: -all of patient's labs pending -imaging pending Reevaluation(s) Reevaluation #1: does not want to get admitted after Dr. Michele saw her and explained reasons to stay and testing she declines alert and oriented Medications Administered Discontinued Medications Generic Name Dose Route Start Last Admin Trade Name Jaja PRN Reason Stop Dose Admin Acetaminophen 650 mg 02/08/24 00:21 02/08/24 07:08 Acetaminophen 325 Mg Tablet PO 02/08/24 00:22 Not Given ONCE ONE Cyclobenzaprine HCl 5 mg 02/08/24 00:21 02/08/24 07:08 Cyclobenzaprine Hcl 5 Mg Tablet PO 02/08/24 00:22 Not Given ONCE ONE Sodium Chloride 1,000 mls @ 999 mls/hr 02/08/24 00:08 02/08/24 00:58 Ns IVCONT 02/08/24 01:08 Infused .Q1H1M ONE Infusion Medical Decision Making Medical Decision Making [facility] Narrative: -my interpretation of EKG: Normal sinus rhythm, heart rate 91, no ST segment depression or elevation, no T-wave inversion, QTC 445 Lab Data 02/07/24 23:19 02/08/24 02:50 Labs: Lab Results 02/07/24 02/08/24 Range/Units 23:19 02:50 WBC 12.5 H (4.8-10.8) X10*3/uL RBC 4.26 (4.20-5.50) X10*6/uL Hgb 12.7 (12.0-16.0) g/dl Hct 37.0 (37.0-47.0) % MCV 86.9 (80.0-98.0) fL MCH 29.8 (27.0-33.0) pg MCHC 34.3 (31.0-35.0) g/dl RDW 13.6 (11.0-16.0) % Plt Count 232 (160-400) X10*3/uL MPV 10.6 (9.4-12.3) fL Immature Gran % (Auto) 0.7 H (0.0-0.4) % Neut % (Auto) 62.7 (45-73) % Lymph % (Auto) 28.2 (20-40) % [place] % (Auto) 5.8 (2-11) % Eos % (Auto) 2.2 (0-4) % Baso % (Auto) 0.4 (0-2) % Lymph # (Auto) 3.5 (1.2-4.9) X10*3/uL [place] # (Auto) 0.7 (0.1-1.2) X10*3/uL Eos # (Auto) 0.3 (0.0-0.4) X10*3/uL Baso # (Auto) 0.1 (0.0-0.2) X10*3/uL Abs Immat Gran (auto) 0.09 H (0.00-0.03) X10*3/uL Absolute Neuts (auto) 7.8 (2.0-8.3) x10*3/uL Absolute Nucleated RBC 0.000 (0.0-0.012) X10*3/uL Nucleated RBC % (auto) 0.0 (0.0-0.2) /100WBC PT 11.1 (11.1-13.3) SEC INR 0.9 (0.9-1.1) D-Dimer High Sensitivty 236 NG/ML Sodium 139 141 (135-145) mmol/L Potassium 4.9 3.6 D (3.3-5.1) mmol/L Chloride 110 H 112 H (96-108) mmol/L Carbon Dioxide 18 L 19 L (22-29) mmol/L Anion Gap 16 14 (12-20) BUN 26 H 28 H (9-16) mg/dL Creatinine 1.89 H 1.80 H (0.5-1.4) mg/dL Estim Creat Clear Calc 38.7 40.6 Estimated GFR 28 29 Random Glucose 127 H 115 (60-115) mg/dL Calcium 9.8 9.3 (8.4-10.2) mg/dL Total Bilirubin 0.3 (0.0-1.0) mg/dL Direct Bilirubin 0.1 (0.0-0.5) mg/dL AST 31 (5-31) U/L ALT 27 (0-31) U/L Alkaline Phosphatase 107 (39-117) U/L Troponin I High Sens 4.4 (<3.5-17.0) ng/L B-Natriuretic Peptide < 10 (<100) pg/mL Total Protein 8.3 H (6.5-8.0) g/dL Albumin 4.0 (3.5-5.0) g/dL Lipase 16 (8-78) U/L TSH 1.38 (0.32-4.0) uIU/mL Discharge Plan Discharge Clinical Impression: Atypical chest pain, DANYA (acute kidney injury) Patient Disposition: Home, Self-Care Instructions: Chest Pain (ED), Acute Kidney Injury (DC) Additional Instructions: you were offered admission and the hospitalist spoke to you as well you need to have your kidney function rechecked next week by your doctor return for any worsening symptoms or pain rest and take it easy follow up with your physician extender. as planned Prescriptions: No Action fluticasone propionate [Flovent HFA] 220 mcg/actuation HFA aerosol inhaler 2 puff PO BID albuterol sulfate [ProAir HFA] 90 mcg/actuation HFA aerosol inhaler 2 puff PO Q4-6H PRN (Reason: wheezing) gabapentin 300 mg capsule 300 mg PO TID Qty: 90 3RF duloxetine [Cymbalta] 30 mg Capsule,Delayed Release(Dr/Ec) 30 mg PO DAILY Qty: 60 2RF zaleplon 10 mg capsule 10 mg PO BEDTIME PRN (Reason: insomnia) lamotrigine 100 mg tablet 100 mg PO BEDTIME insulin degludec [Tresiba FlexTouch U-200] 200 unit/mL (3 mL) insulin pen 72 unit subcut QPM Jardiance 10 mg tablet 10 mg PO DAILY Mounjaro 2.5 mg/0.5 mL pen injector 2.5 mg subcut QWEEK clopidogrel 75 mg Tablet 75 mg PO DAILY aspirin 81 mg tablet,delayed release (DR/EC) 81 mg PO DAILY metoprolol succinate 25 mg tablet extended release 24 hr 12.5 mg PO BID levothyroxine 88 mcg capsule 88 mcg PO DAILY metformin 500 mg tablet extended release 24 hr 500 mg PO DAILY (DME) lancets [TRUEplus Lancets] 33 gauge misc See Rx Instructions Not Applicable TID Qty: 100 Rx Instructions: As directed (DME) pen needle, diabetic [Pentips] 32 gauge x 5/32 needle See Rx Instructions .ROUTE TID Qty: 50 Rx Instructions: As directed loratadine 10 mg tablet 10 mg PO DAILY (DME) FreeStyle Lite Strips Strip See Rx Instructions Not Applicable TID Qty: 10 Rx Instructions: As directed rosuvastatin 10 mg tablet 10 mg PO DAILY buprenorphine-naloxone [Suboxone] 8-2 mg film 1 film buccal DAILY bisacodyl [Dulcolax (bisacodyl)] 5 mg tablet,delayed release (DR/EC) 20 mg PO ONCE PRN (Reason: colonoscopy prep) 1 Days Qty: 4 0RF Rx Instructions: Day before procedure @ 12 noon Take 4 tablets by mouth followed by large glass of water Print Language: Romanian
[2024-02-07 23:24] LABS: MANUAL DIFF FLAG NO
[2024-02-07 23:26] LABS: Basophils Absolute Auto 0.1 X10*3/uL (0.0-0.2); Basophils Percent Auto 0.4 % (0-2); Eosinophils Absolute Auto 0.3 X10*3/uL (0.0-0.4); Eosinophils Percent Auto 2.2 % (0-4); Hemoglobin 12.7 g/dl (12.0-16.0); Imm Gran Abs Auto 0.09 X10*3/uL (0.00-0.03); Imm Gran Pct Auto 0.7 % (0.0-0.4); Lymphocytes Absolute Auto 3.5 X10*3/uL (1.2-4.9); Lymphocytes Percent Auto 28.2 % (20-40); Mean Corpuscular HGB Conc 34.3 g/dl (31.0-35.0); Mean Corpuscular Hemoglobin 29.8 pg (27.0-33.0); Mean Corpuscular Volume 86.9 fL (80.0-98.0); Mean Platelet Volume 10.6 fL (9.4-12.3); Monocytes Absolute Auto 0.7 X10*3/uL (0.1-1.2); Monocytes Percent Auto 5.8 % (2-11); Neutrophils Absolute Auto 7.8 x10*3/uL (2.0-8.3); Neutrophils Percent Auto 62.7 % (45-73); Platelet Count 232 X10*3/uL (160-400); Red Blood Count 4.26 X10*6/uL (4.20-5.50); Red Cell Distribution Width 13.6 % (11.0-16.0); White Blood Count 12.5 X10*3/uL (4.8-10.8)
[2024-02-07 23:31] LABS: INTERNATIONAL NORM RATIO 0.9 (0.9-1.1); Prothrombin Time 11.1 SEC (11.1-13.3)
[2024-02-07 23:33] LABS: D Dimer High Sensitivity 236 NG/ML
[2024-02-07 23:50] LABS: B Type Natriuretic Peptide < 10 pg/mL (<100); Troponin-I High Sensitivity 4.4 ng/L (<3.5-17.0)
[2024-02-07 23:51] LABS: Alanine Aminotransferase 27 U/L (0-31); Alkaline Phosphatase 107 U/L (39-117); Anion Gap 16 (12-20); Aspartate Amino Transferase 31 U/L (5-31); Bilirubin Direct 0.1 mg/dL (0.0-0.5); Bilirubin Total 0.3 mg/dL (0.0-1.0); Blood Urea Nitrogen 26 mg/dL (9-16); Calcium 9.8 mg/dL (8.4-10.2); Carbon Dioxide 18 mmol/L (22-29); Chloride 110 mmol/L (96-108); Creatinine Clr Calc Pharmacy 38.7; Estimated Glomerular Filt Rate 28; Glucose Random 127 mg/dL (60-115); Lipase 16 U/L (8-78); Potassium 4.9 mmol/L (3.3-5.1); Sodium 139 mmol/L (135-145); Total Protein 8.3 g/dL (6.5-8.0)
[2024-02-08] VITALS: BP 118/54; PULSE 89; RESP 18; TEMP 36.6; O2SAT 98
[2024-02-08 00:05] LABS: TSH reflex Free T4 1.38 uIU/mL (0.32-4.0)
[2024-02-08] MEDS: 0.9 % Sodium Chloride 1,000 ML 999 ML IVCONT (00:18)
[2024-02-08 06:13] VITALS: BP 138/66; PULSE 83; RESP 16; TEMP 36.9; O2SAT 96
[2024-02-08 06:22] LABS: Anion Gap 14 (12-20); Blood Urea Nitrogen 28 mg/dL (9-16); Calcium 9.3 mg/dL (8.4-10.2); Carbon Dioxide 19 mmol/L (22-29); Chloride 112 mmol/L (96-108); Creatinine Clr Calc Pharmacy 40.6; Estimated Glomerular Filt Rate 29; Glucose Random 115 mg/dL (60-115); Potassium 3.6 mmol/L (3.3-5.1); Sodium 141 mmol/L (135-145)
[2024-02-08 08:08] VITALS: BP 118/48; PULSE 84; RESP 16; TEMP 36.8; O2SAT 98
--- NOTE | 2024-02-08 08:37 | PC.NURSE ---
this RN resumed care of pt at 0645. a&ox4. vss and up to date. nsr on the air sampling and monitoring. pt presents to the ED w/ left sided chest pain that radiates to lower back bilaterally and sob x yesterday. pt described pain in chest as being stabbed with needles. pt verbalizes not doing anything specific to induce the sx. pt had a follow up appt w/ resource analyst yesterday but unable to attend d/t family emergency. pt states being compliant w/ meds for cardiac hx. since arriving to the ED, pt currently denies pain/states all sx have subsided at this time. 20gIV placed in the left forearm by previous RN. no sob/wob noted. respirations even/unlabored. lungs CTA. pt aware of status in regards to pending admission. plan of care ongoing. call fernando placed within reach.
--- NOTE | 2024-02-08 10:35 | PC.NURSE ---
pt originally pending admission. pt spoke w/ admitting provider/told him that she did not want to be admitted. pt now ready for d/c. pt provided w/ education in regards to worsening sx and importance of coming in to be evaluated.
[2024-02-08 10:39] VITALS: BP 118/48; PULSE 84; RESP 16; TEMP 36.8; O2SAT 98
--- NOTE | 2024-02-08 10:46 | PHA.MEDREC ---
Pharmacy Consult ? Medication Reconciliation Pharmacy has completed the medication reconciliation. Spoke to patient at bedside, she was able to remember most of her mediactions with prompting. Stated she was chanced from [facility] to [facility]. Said she took all her medications yesterday. Also Confirmed that she is on clopidogrel, I added it to the med list though it has not been filled since 07/2023.
== END 2024-02-08 11:01 | disposition home or self-care (01) ==
PROVIDERS: Emergency Provider Emergency Medicine; PCP Family Medicine
DX: N17.9 Acute kidney failure, unspecified (principal); R07.9 Chest pain, unspecified; R07.1 Chest pain on breathing; Z79.899 Other long term (current) drug therapy; E11.9 Type 2 diabetes mellitus without complications; Z79.4 Long term (current) use of insulin; B19.20 Unspecified viral hepatitis C without hepatic coma; I10 Essential (primary) hypertension; E03.9 Hypothyroidism, unspecified; K21.9 Gastro-esophageal reflux disease without esophagitis; Z85.038 Personal history of other malignant neoplasm of large intestine
CPT/HCPCS: 36415; 71045; 80048; 80076; 83690; 83880; 84443; 84484; 85025; 85379; 85610; 93005; 96360; 99284; 99285

== ENCOUNTER 2024-02-09 14:46 | Outpatient (AMB) | payer MEDICAID, SELFPAY ==
[2024-02-09 15:14] VITALS: BP 110/70; O2SAT 98; BMI 38.1
--- NOTE | 2024-02-09 15:14 | HO.NEPHOV ---
Vital Signs 02/09/24 15:14 Height 5 ft 4 in Weight 222 lb 2 oz BMI 38.1 BP 110/70 Blood Pressure Location Lt brachial Position Sitting Pulse Oximetry (%) 98 Oxygen Delivery Method Room Air Intake Visit Reasons: Hospital discharge follow up from 02.08.24 Laboratory Phlebotomist Required: No Accompanied by: Self / Same As Patient Allergies atorvastatin Adverse Reaction (Intermediate, Verified 02/26/24 11:15) Myalgias resolved when stopped HPI Comments Details: I had the privilege of seeing Anuradha in following for DANYA on a backdrop of CKD. She has CKD stage 3 at baseline. She has history of coronary artery disease with NSTEMI . Her last cardiac catheterization which showed severe left circumflex artery stenosis which was treated with drug-eluting stent. 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 She has H/O chemo for colon cancer. She has a history of renal calculi. She denies any active cocaine use. She denies nausea, vomiting or diarrhea. He does not have any paroxysmal nocturnal dyspnea, orthopnea. She claims to be compliant with her medications. She recently was seen in emergency room complaining of left-sided chest pain for more than 24 hours. Patient states that she has occasionally left-sided chest pain that gets worse with deep inspirations. Patient has been seen multiple times in the ED and by Cardiology. Patient does have history of an NSTEMI with stents, currently taking aspirin and Plavix. Patient denies any recent URI or UTI symptoms. Her serum creatinine has gone up to 1.8 PFSH Medical History Renal calculi Colon cancer Hypothyroidism Hypertensive cardiovascular disease Diabetes mellitus Hx of drug abuse Back pain GERD (gastroesophageal reflux disease) CAD (coronary artery disease) On beta tiffanie at home NSTEMI (non-ST elevated myocardial infarction) Adhesive capsulitis of right shoulder Bursitis of right shoulder History of MRSA infection High cholesterol Diabetes Hyperthyroidism Hepatitis C Surgical History History of colon surgery Stented coronary artery Hx of colonoscopy Hx of repair of left rotator cuff Hx of heart artery stent Hx of cholecystectomy History of umbilical hernia repair History of back surgery Family History Father No problems noted. Mother No problems noted. Other Spouse Social History Household Members: None Housing: Apartment Are you a primary critical care nurse specialist to a significant other at home: No Do you presently have visiting nurse or other home services: No Alcohol intake: former Patient Tobacco Use Status: Former Tobacco user Tobacco use type: Cigarette Years Smoked: 35 Second Hand Smoke Exposure: Yes service: No Current occupational status: disabled Current occupation: right handed Review of Systems Const All systems reviewed & are unremarkable except as noted in HPI and below Physical Exam Vital Signs: Last Vital Signs BP 110/70 02/09/24 15:14 Pulse Ox 98 02/09/24 15:14 Oxygen Delivery Method Room Air 02/09/24 15:14 BMI result Body Mass Index 38.1 Const General: comfortable and no acute distress Orientation/consciousness: patient oriented x3 HEENT Head: Yes normocephalic Mouth: Normal oral and palatal mucosa present Eyes EOM: EOMs intact bilaterally Neck Neck: Yes supple Resp Auscultation: clear to auscultation bilaterally Cardio Jugular venous distension: no JVD Rate: regular rate GI Palpation (GI): Soft to palpation Auscultation: normal bowel sounds General: Yes no CVA tenderness Back/Spine/Pelvis Back: no CVA tenderness Skin General skin exam: no rashes or lesions noted Neuro General: patient oriented x3 and moves all extremities Extrem General: Yes no pedal edema Results Reviewed Nephrology Results: Hgb 11.6 g/dl (12.0-16.0) L 02/20/24 WBC 8.3 X10*3/uL (4.8-10.8) 02/20/24 Plt Count 215 X10*3/uL (160-400) 02/20/24 Sodium 140 mmol/L (135-145) 02/20/24 Potassium 4.2 mmol/L (3.3-5.1) 02/20/24 Chloride 111 mmol/L (96-108) H 02/20/24 Carbon Dioxide 22 mmol/L (22-29) 02/20/24 BUN 32 mg/dL (9-16) H 02/20/24 Creatinine 1.43 mg/dL (0.5-1.4) H 02/20/24 Calcium 9.3 mg/dL (8.4-10.2) 02/20/24 Urine Creatinine 56.64 mg/dL 02/20/24 Renal US 02/21/24 Assessment & Plan Assessment & Plan (1) Acute kidney failure: Code(s): N17.9 - Acute kidney failure, unspecified Category: Medical Qualifiers: Acute renal failure type: with acute tubular necrosis Qualified Code(s): N17.0 - Acute kidney failure with tubular necrosis (2) CKD (chronic kidney disease) stage 3, GFR 30-59 ml/min: Code(s): N18.30 - Chronic kidney disease, stage 3 unspecified Category: Medical Qualifiers: Chronic kidney disease stage 3 subtype: stage 3a (GFR 45-59) Qualified Code(s): N18.31 - Chronic kidney disease, stage 3a (3) Renal calculi: Code(s): N20.0 - Calculus of kidney Category: Medical Plan Anuradha likely has DANYA from tubular injury . Her urine output is good. There is no reason to suspect any obstructive uropathy. Renal ultrasound in the past showed bilateral non obstructing calculi measuring up to 6 mm on the right and up to 9 mm on the left. She has CKD stage 3 at baseline most likely from vascular disease. She has not taking any EVELYN inhibitor or ARB. She has not on any diuretics. She has not actively using drugs. She has history of chemotherapy for colon cancer. She avoids nonsteroidal anti-inflammatories. Her workup has been negative. She needs to maintain good hydration. I did not make any medication changes today but ordered work up including USS. Answered all questions. Further management is pending evolving data Orders: Orders Creatinine 02/09/24 N17.0 - Acute kidney failure with tubular necrosis, N18.31 - Chronic kidney disease, stage 3a, N20.0 - Calculus of kidney Electrolytes 02/09/24 N17.0 - Acute kidney failure with tubular necrosis, N18.31 - Chronic kidney disease, stage 3a, N20.0 - Calculus of kidney US renal BI 02/09/24 N17.0 - Acute kidney failure with tubular necrosis Blood Urea Nitrogen 02/09/24 N17.0 - Acute kidney failure with tubular necrosis, N18.31 - Chronic kidney disease, stage 3a, N20.0 - Calculus of kidney Coding Level of Care Code Est Pt Level 4 (21883) Diagnoses Acute renal failure with tubular necrosis N17.0 Acute renal failure type: with acute tubular necrosis Stage 3a chronic kidney disease N18.31 Chronic kidney disease stage 3 subtype: stage 3a (GFR 45-59) Renal calculi N20.0
== END 2024-02-09 15:43 | disposition home or self-care (01) ==
PROVIDERS: PCP Family Medicine; Visit Provider Internal Medicine Nephrology
DX: N17.0 Acute kidney failure with tubular necrosis (principal); N18.31 Chronic kidney disease, stage 3a; N20.0 Calculus of kidney
CPT/HCPCS: 99214

== ENCOUNTER → 2024-02-09 14:46 | Outpatient (BNVA) | payer MEDICAID, SELFPAY | PROVIDERS: PCP Family Medicine; Visit Provider Internal Medicine Nephrology | DX: N17.0 Acute kidney failure with tubular necrosis (principal); N18.31 Chronic kidney disease, stage 3a; N20.0 Calculus of kidney | CPT/HCPCS: 99212 ==

== ENCOUNTER 2024-02-20 08:13 | Outpatient (REF) | payer MEDICAID, SELFPAY ==
[2024-02-20 11:34] LABS: Hematocrit 36.3 % (37.0-47.0); Hemoglobin 11.6 g/dl (12.0-16.0); Mean Corpuscular Hemoglobin 29.5 pg (27.0-33.0); Mean Corpuscular Volume 92.4 fL (80.0-98.0); Mean Platelet Volume 11.3 fL (9.4-12.3); Platelet Count 215 X10*3/uL (160-400); Red Blood Count 3.93 X10*6/uL (4.20-5.50); Red Cell Distribution Width 14.3 % (11.0-16.0); White Blood Count 8.3 X10*3/uL (4.8-10.8)
[2024-02-20 11:55] LABS: Estimated Average Glucose 151 mg/dL; Hemoglobin A1c % 6.9 % (<6.0)
[2024-02-20 12:12] LABS: HBS Num1 3.83 mIU/mL (0-7.99); HBsAGNum1 0.33 S/CO (0.00-0.99); HIV AB/AG Nonreactive (Nonreactive); HIV Num 1 0.05 S/CO (0.00-0.99); Hepatitis B Surface Antigen Negative (Negative); ~HepC Num1 14.36 S/CO (0.00-0.79); ~Hepatitis B Surface Antibody NONREACTIVE (Nonreactive); ~Hepatitis C Antibody Reactive (Nonreactive)
[2024-02-20 12:13] LABS: Hepatitis A Antibody IgG REACTIVE (Nonreactive)
[2024-02-20 12:22] LABS: Alanine Aminotransferase 56 U/L (0-31); Alkaline Phosphatase 108 U/L (39-117); Anion Gap 11 (12-20); Aspartate Amino Transferase 56 U/L (5-31); Bilirubin Direct 0.1 mg/dL (0.0-0.5); Bilirubin Total 0.3 mg/dL (0.0-1.0); Blood Urea Nitrogen 32 mg/dL (9-16); Calcium 9.3 mg/dL (8.4-10.2); Carbon Dioxide 22 mmol/L (22-29); Chloride 111 mmol/L (96-108); Cholesterol 229 mg/dL (<200); Estimated Glomerular Filt Rate 38; Free T4 (Free Thyroxine) 1.01 ng/dL (0.71-1.85); Glucose Random 155 mg/dL (60-115); HDL Cholesterol 34 mg/dL (>40); LDL Cholesterol Calculated 140 mg/dL (<100); Potassium 4.2 mmol/L (3.3-5.1); Sodium 140 mmol/L (135-145); Total Protein 7.7 g/dL (6.5-8.0); Triglycerides 277 mg/dL (<150); Vitamin D 25-OH Total 15.4 ng/mL (>30)
[2024-02-20 13:34] LABS: Creatinine Urine 56.64 mg/dL; Microalbum/Creatinine Ratio Ur 40.6 ug/mg cr (<30)
[2024-02-20 14:27] LABS: HBc Num2 5.17 S/CO; Hepatitis B Core Antibody Reactive (Nonreactive)
[2024-02-21 11:43] LABS: Hepatitis B Core Antibody IgM NON-REACTIVE (NON-REACTIVE)
[2024-02-21 12:13] LABS: RPR Rapid Plasma Reagin NON-REACTIVE (NON-REACTIVE)
[2024-02-23 15:14] LABS: HCV Log PCR <1.18 NOT DETECTED Log IU/mL (NOT DETECTED); HepC Viral Load <15 NOT DETECTED IU/mL (NOT DETECTED)
== END 2024-02-20 08:14 | disposition home or self-care (01) ==
LOC: HO.HHCL 08:13
PROVIDERS: Referring Provider Internal Medicine Nephrology; Visit Provider Family Medicine
DX: N18.30 Chronic kidney disease, stage 3 unspecified (principal); E11.22 Type 2 diabetes mellitus with diabetic chronic kidney disease
CPT/HCPCS: 36415; 80048; 80061; 80076; 82043; 82306; 82570; 83036; 84439; 84443; 85027; 86592; 86704; 86705; 86706; 86708; 86803; 87340; 87389; 87522

== ENCOUNTER 2024-02-21 13:17 | Outpatient (REF) | payer MEDICAID, SELFPAY ==
--- NOTE | ~2024-02-21 | US_ITS ---
EXAMINATION: US RETROPERITONEAL LIMITED (RENAL ONLY) CLINICAL INFORMATION: Acute renal failure. COMPARISON: None available. TECHNIQUE: Real-time imaging of the kidneys. FINDINGS: RIGHT KIDNEY: 10.7 x 3.9 x 4.9 cm (SAG x AP x TRV). The kidney is normal in size, contour, and echogenicity. Renal cortical thickness is normal. No focal parenchymal lesions. No hydronephrosis. At the upper pole, a 2 mm nonobstructing calculus is seen. At the interpolar aspect, a 3 mm nonobstructing calculus is seen. At the lower pole, a 2 mm nonobstructing calculus is seen. LEFT KIDNEY: 11.0 x 5.2 x 4.3 cm (SAG x AP x TRV). The kidney is normal in size, contour, and echogenicity. There is a hypertrophic column of [place]. Renal cortical thickness is normal. No calculi or focal parenchymal lesions. No hydronephrosis. At the upper pole, a 4 mm nonobstructing calculus is seen. At the interpolar aspect, a 2 mm nonobstructing calculus is seen. At the lower pole, a 2 mm nonobstructing calculus is seen. US/US renal BI IMPRESSION: There are multiple nonobstructing bilateral renal calculi, as detailed. No hydronephrosis is seen.
== END 2024-02-21 13:18 | disposition home or self-care (01) ==
LOC: HO.US 13:17
PROVIDERS: PCP Family Medicine; Visit Provider Internal Medicine Nephrology
DX: N17.0 Acute kidney failure with tubular necrosis (principal)
CPT/HCPCS: 76775

== ENCOUNTER 2024-02-26 10:50 | Outpatient (AMB) | payer MEDICAID, SELFPAY ==
--- NOTE | 2024-02-26 11:12 | HO.NEPHOV_ITS ---
Vital Signs 02/26/24 11:13 Height 5 ft 4 in Weight 228 lb BMI 39.1 BP 102/70 Blood Pressure Location Lt brachial Position Sitting Pulse 101 H Pulse Source Pulse Oximeter Pulse Oximetry (%) 100 Oxygen Delivery Method Room Air Intake Visit Reasons: 2 wk follow up/ Conf Accompanied by: Self / Same As Patient Allergies atorvastatin Adverse Reaction (Intermediate, Verified 02/26/24 11:15) Myalgias resolved when stopped HPI Comments Details: I had the privilege of seeing Anuradha in following for DANYA on a backdrop of CKD. She has CKD stage 3 at baseline. She has history of coronary artery disease with NSTEMI . Her last cardiac catheterization which showed severe left circumflex artery stenosis which was treated with drug-eluting stent. 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 She has H/O chemo for colon cancer. She has a history of renal calculi. She denies any active cocaine use. She denies nausea, vomiting or diarrhea. He does not have any paroxysmal nocturnal dyspnea, orthopnea. She claims to be compliant with her medications. Her serum creatinine had gone up to 1.8 but settled now to 1.4. ON LICENSE OF [facility] Medical History Renal calculi Colon cancer Hypothyroidism Hypertensive cardiovascular disease Diabetes mellitus Hx of drug abuse Back pain GERD (gastroesophageal reflux disease) CAD (coronary artery disease) On beta tiffanie at home NSTEMI (non-ST elevated myocardial infarction) Adhesive capsulitis of right shoulder Bursitis of right shoulder History of MRSA infection High cholesterol Diabetes Hyperthyroidism Hepatitis C Surgical History History of colon surgery Stented coronary artery Hx of colonoscopy Hx of repair of left rotator cuff Hx of heart artery stent Hx of cholecystectomy History of umbilical hernia repair History of back surgery Family History Father No problems noted. Mother No problems noted. Other Spouse Social History Household Members: None Housing: Apartment Are you a primary special needs caregiver to a significant other at home: No Do you presently have visiting nurse or other home services: No Alcohol intake: former Patient Tobacco Use Status: Former Tobacco user Tobacco use type: Cigarette Years Smoked: 35 Second Hand Smoke Exposure: Yes service: No Current occupational status: disabled Current occupation: right handed Review of Systems Const All systems reviewed & are unremarkable except as noted in HPI and below Physical Exam Vital Signs: Last Vital Signs Pulse 101 H 02/26/24 11:13 BP 102/70 02/26/24 11:13 Pulse Ox 100 02/26/24 11:13 Oxygen Delivery Method Room Air 02/26/24 11:13 BMI result Body Mass Index 39.1 Results Reviewed Nephrology Results: 2 Hgb 11.6 g/dl (12.0-16.0) L 02/20/24 WBC 8.3 X10*3/uL (4.8-10.8) 02/20/24 Plt Count 215 X10*3/uL (160-400) 02/20/24 Sodium 140 mmol/L (135-145) 02/20/24 Potassium 4.2 mmol/L (3.3-5.1) 02/20/24 Chloride 111 mmol/L (96-108) H 02/20/24 Carbon Dioxide 22 mmol/L (22-29) 02/20/24 BUN 32 mg/dL (9-16) H 02/20/24 Creatinine 1.43 mg/dL (0.5-1.4) H 02/20/24 Calcium 9.3 mg/dL (8.4-10.2) 02/20/24 Urine Creatinine 56.64 mg/dL 02/20/24 Renal US 02/21/24 Assessment & Plan Assessment & Plan (1) CKD (chronic kidney disease) stage 3, GFR 30-59 ml/min: Code(s): N18.30 - Chronic kidney disease, stage 3 unspecified Category: Medical Qualifiers: Chronic kidney disease stage 3 subtype: stage 3a (GFR 45-59) Qualified Code(s): N18.31 - Chronic kidney disease, stage 3a (2) Hypertension: Code(s): I10 - Essential (primary) hypertension Category: Medical Qualifiers: Hypertension type: primary hypertension Qualified Code(s): I10 - Essential (primary) hypertension Plan Anuradha likely had DANYA from tubular injury which has resolved. Her urine output is good. There is no reason to suspect any obstructive uropathy. Renal ultrasound in the past showed bilateral non obstructing calculi . She has CKD stage 3 at baseline most likely from vascular disease. She has not taking any EVELYN inhibitor or ARB. She has not on any diuretics. She has not actively using drugs. She has history of chemotherapy for colon cancer. She avoids nonsteroidal anti-inflammatories. Her workup has been negative. She needs to maintain good hydration. I did not make any medication changes today. Answered all questions. Further management is pending evolving data Orders: Orders Creatinine Today I10 - Essential (primary) hypertension, N18.31 - Chronic kidney disease, stage 3a Electrolytes Today I10 - Essential (primary) hypertension, N18.31 - Chronic kidney disease, stage 3a Blood Urea Nitrogen Today I10 - Essential (primary) hypertension, N18.31 - Chronic kidney disease, stage 3a Coding Level of Care Code Est Pt Level 4 (00214) Diagnoses Stage 3a chronic kidney disease N18.31 Chronic kidney disease stage 3 subtype: stage 3a (GFR 45-59) Primary hypertension I10 Hypertension type: primary hypertension
[2024-02-26 11:13] VITALS: BP 102/70; PULSE 101; O2SAT 100; BMI 39.1
== END 2024-02-26 11:41 | disposition home or self-care (01) ==
PROVIDERS: PCP Family Medicine; Visit Provider Internal Medicine Nephrology
DX: N18.31 Chronic kidney disease, stage 3a (principal); I10 Essential (primary) hypertension
CPT/HCPCS: 99214

== ENCOUNTER → 2024-02-26 10:50 | Outpatient (BNVA) | payer MEDICAID, SELFPAY | PROVIDERS: PCP Family Medicine; Visit Provider Internal Medicine Nephrology | DX: I12.9 Hypertensive chronic kidney disease with stage 1 through stage 4 chronic kidney disease, or unspecified chronic kidney disease (principal); N18.31 Chronic kidney disease, stage 3a | CPT/HCPCS: 99212 ==

== ENCOUNTER → 2024-03-06 15:01 | Outpatient (BNVA) | payer MEDICAID, SELFPAY | PROVIDERS: PCP Family Medicine; Visit Provider Physician Assistant Surgical ==

== ENCOUNTER 2024-03-20 15:05 | Outpatient (AMB) | payer MEDICAID, SELFPAY ==
[2024-03-20 15:48] VITALS: BP 110/64; PULSE 86; BMI 38.8
--- NOTE | 2024-03-20 15:48 | A.OFFVIS_ITS ---
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 Required: No Accompanied by: Self / Same As Patient Allergies atorvastatin Adverse Reaction (Intermediate, Verified 03/11/24 13:59) Myalgias resolved when stopped Medication List - Last Reconciled 03/20/24 by Lex Escudero MD albuterol sulfate 90 mcg/actuation (ProAir HFA) 2 puffs PO Q4-6H PRN aspirin 81 mg PO DAILY bisacodyl (Dulcolax (bisacodyl)) 20 mg (4 x 5 mg) PO ONCE PRN 1 day blood sugar diagnostic (FreeStyle Lite Strips) As directed buprenorphine-naloxone 8-2 mg (Suboxone) 1 film buccal DAILY clopidogrel 75 mg PO DAILY duloxetine (Cymbalta) 30 mg PO DAILY empagliflozin (Jardiance) 10 mg PO DAILY fluticasone propionate 220 mcg/actuation (Flovent HFA) 2 puffs PO BID gabapentin 300 mg PO BID insulin degludec (Tresiba FlexTouch U-200 insulin) 72 units subcut QPM insulin lispro 24 units subcut BID lamotrigine 100 mg PO BEDTIME lancets (TRUEplus Lancets) As directed levothyroxine 88 mcg PO DAILY meclizine 25 mg PO .weekly metformin ER 500 mg PO DAILY metoprolol succinate ER 12.5 mg PO BID pen needle, diabetic (Pentips) As directed rosuvastatin 10 mg PO DAILY tirzepatide (Mounjaro) 2.5 mg subcut QWEEK zaleplon 10 mg PO BEDTIME PRN HPI Comments Details: Pleasant 58-year-old female here for follow-up. She was seen for NSTEMI and was transferred to [facility] she underwent cardiac catheterization which showed severe left circumflex artery stenosis which was treated with drug- eluting stent. She has been on aspirin and Plavix since then. No bleeding issues. She underwent chemo for colon cancer. 06/07/2023: She returns for follow-up. She had non anginal left-sided chest pains. She went to the emergency department and was ruled out and underwent chest CTA. She is saying that she was told she may have fibromyalgia. Also her atorvastatin was discontinued because she was having myalgias. Overall otherwise doing well. 03/20/2024: She is here for follow-up. She had lipid panel done in 03/02/2024 showing total cholesterol 229, triglycerides 277, LDL 140 and HDL 34. She is taking 10 mg of rosuvastatin daily. She was initially started on 3 times a week because of statin intolerance. She is tolerating the 10 mg daily dose currently. She is denying any chest pain. She has gained weight and feels short of breath with activities. She is thinking about bariatric surgery. [facility] Medical History Renal calculi Colon cancer Hypothyroidism Hypertensive cardiovascular disease Diabetes mellitus Hx of drug abuse Back pain GERD (gastroesophageal reflux disease) CAD (coronary artery disease) On beta tiffanie at home NSTEMI (non-ST elevated myocardial infarction) Adhesive capsulitis of right shoulder Bursitis of right shoulder History of MRSA infection High cholesterol Diabetes Hyperthyroidism Hepatitis C Surgical History History of colon surgery Stented coronary artery Hx of colonoscopy Hx of repair of left rotator cuff Hx of heart artery stent Hx of cholecystectomy History of umbilical hernia repair History of back surgery Family History Father No problems noted. Mother No problems noted. Other Spouse Social History Household Members: None Housing: Apartment Are you a primary home care associate to a significant other at home: No Do you presently have visiting nurse or other home services: No Alcohol intake: former Patient Tobacco Use Status: Former Tobacco user Tobacco use type: Cigarette Years Smoked: 35 Second Hand Smoke Exposure: Yes service: No Current occupational status: disabled Current occupation: right handed Review of Systems Const Denies chills, Denies fatigue, Denies fever(s), Denies frequent falls, Denies weakness, Denies weight gain and Denies weight loss ENT Denies dizziness Card Denies chest pain, Denies leg edema, Denies lightheadedness, Denies palpitations, Denies dyspnea and Denies dyspnea on exertion Resp Denies cough, Denies dyspnea and Denies dyspnea on exertion GI Denies hematochezia Musc Denies abnormal gait, Denies muscle weakness, Denies numbness, Denies radiating pain into limb and Denies tingling Neuro Denies abnormal gait, Denies dizziness, Denies frequent falls, Denies numbness, Denies tingling and Denies weakness Endo Denies fatigue and Denies palpitations Physical Exam Vital Signs: Last Vital Signs Pulse 86 03/20/24 15:48 BP 110/64 03/20/24 15:48 BMI result Body Mass Index 38.8 GENERAL APPEARANCE: in no acute distress, pleasant. NECK: no carotid bruit, no jugular venous distention. SKIN: no suspicious lesions, warm and dry. HEART: no murmurs, regular rate and rhythm. LUNGS: clear to auscultation bilaterally. ABDOMEN: soft, nontender. EXTREMITIES: no edema. PERIPHERAL PULSES: equal. NEUROLOGIC: No gross deficits, AAO X 3 Assessment & Plan Assessment & Plan (1) Coronary artery disease: Code(s): I25.10 - Atherosclerotic heart disease of [place] coronary artery without angina pectoris Category: Medical (2) Stable angina: Code(s): I20.8 - Other forms of angina pectoris Category: Medical (3) High cholesterol: Code(s): E78.00 - Pure hypercholesterolemia, unspecified Category: Medical Plan Pleasant 58 year female who is here for follow-up. She has known history of coronary disease with previous PCI. She has been stable from cardiovascular point of view and has no chest discomfort. She has some dyspnea with activity which is related to weight gain and she is looking into diet exercise and bariatric surgery. Blood pressure is well controlled currently. Her cholesterol is quite high currently. Her LDL is 140 and her target is less than 70. She is on Crestor 10 mg daily. I have advised her to increase the Crestor to 20 mg if she tolerates it for a week then go to 40 mg. If she can not tolerate higher dose of Crestor then we will add ezetimibe and eventually PCSK9 inhibitor. Her LDL target as mentioned is less than 70. She will have repeat fasting lipid panel before the next appointment. We will see her back in 2-3 months. Thank you for allowing me to participate in the care of your patient. Please feel free to contact me if you have any questions. Orders: Orders Lipid Panel Today E78.00 - Pure hypercholesterolemia, unspecified Medications: New rosuvastatin 20 mg PO DAILY 100 tabs 3RF Coding Level of Care Code Est Pt Level 4 (98836) Diagnoses Coronary artery disease I25.10 Stable angina I20.8 High cholesterol E78.00
== END 2024-03-20 16:02 | disposition home or self-care (01) ==
PROVIDERS: PCP Family Medicine; Referring Provider Family Medicine; Visit Provider Internal Medicine Cardiovascular Disease
DX: I25.118 Atherosclerotic heart disease of native coronary artery with other forms of angina pectoris (principal); E78.00 Pure hypercholesterolemia, unspecified
CPT/HCPCS: 99214

== ENCOUNTER → 2024-03-20 15:05 | Outpatient (BNVA) | payer MEDICAID, SELFPAY | PROVIDERS: PCP Family Medicine; Visit Provider Internal Medicine Cardiovascular Disease | DX: I25.118 Atherosclerotic heart disease of native coronary artery with other forms of angina pectoris (principal); E78.00 Pure hypercholesterolemia, unspecified | CPT/HCPCS: 99212 ==

== ENCOUNTER 2024-04-05 09:05 | Outpatient (AMB) | payer MEDICAID, SELFPAY ==
--- NOTE | 2024-04-05 12:50 | MHC.OFFVISWM ---
Intake Visit Reasons: [employer] BMI 38.0 Allergies atorvastatin Adverse Reaction (Intermediate, Verified 04/05/24 12:50) Myalgias resolved when stopped Medication List - Last Reconciled 04/05/24 by Alejandro Carmona MD albuterol sulfate 90 mcg/actuation (ProAir HFA) 2 puffs PO Q4-6H PRN aspirin 81 mg PO DAILY bisacodyl (Dulcolax (bisacodyl)) 20 mg (4 x 5 mg) PO ONCE PRN 1 day blood sugar diagnostic (FreeStyle Lite Strips) As directed buprenorphine-naloxone 8-2 mg (Suboxone) 1 film buccal DAILY clopidogrel 75 mg PO DAILY duloxetine (Cymbalta) 30 mg PO DAILY empagliflozin (Jardiance) 10 mg PO DAILY fluticasone propionate 220 mcg/actuation (Flovent HFA) 2 puffs PO BID gabapentin 300 mg PO BID insulin degludec (Tresiba FlexTouch U-200 insulin) 72 units subcut QPM insulin lispro 24 units subcut BID lamotrigine 100 mg PO BEDTIME lancets (TRUEplus Lancets) As directed levothyroxine 88 mcg PO DAILY meclizine 25 mg PO .weekly metformin ER 500 mg PO DAILY metoprolol succinate ER 12.5 mg PO BID pen needle, diabetic (Pentips) As directed rosuvastatin 20 mg PO DAILY tirzepatide (Mounjaro) 2.5 mg subcut QWEEK zaleplon 10 mg PO BEDTIME PRN HPI HPI [employer] BMI 38.0: Details: Start time: 12.29pm, End time: 1.29pm ?I spent 45 minutes speaking with the patient on the phone plus an additional 15 minutes reviewing and updating records for a total of 60 minutes HPI Comments Details: Previous weight loss efforts: self diets Wakes up: 12pm. Sleeps: 5am Breakfast: skips Lunch: skips Dinner: 4pm (chicken with fries and bread) Snacks: crackers. ice cream at least 2 times Exercise: none Fluids: Coffee 3-4 cups/day (cream and sugar), tea: none, juice: iced tea, ETOH: none PFSH Medical History (Updated 04/05/24 @ 13:24 by Alejandro Carmona MD) Fibromyalgia Insomnia Anxiety Depression Renal calculi Colon cancer Hypothyroidism Hypertensive cardiovascular disease Diabetes mellitus Hx of drug abuse Back pain GERD (gastroesophageal reflux disease) CAD (coronary artery disease) On beta tiffanie at home NSTEMI (non-ST elevated myocardial infarction) Adhesive capsulitis of right shoulder Bursitis of right shoulder History of MRSA infection High cholesterol Diabetes Hyperthyroidism Hepatitis C Surgical History History of colon surgery Stented coronary artery Hx of colonoscopy Hx of repair of left rotator cuff Hx of heart artery stent Hx of cholecystectomy History of umbilical hernia repair History of back surgery Family History Father No problems noted. Mother No problems noted. Other Spouse Social History Household Members: None Housing: Apartment Are you a primary career law clerk to a significant other at home: No Do you presently have visiting nurse or other home services: No Alcohol intake: former Patient Tobacco Use Status: Former Tobacco user Tobacco use type: Cigarette Years Smoked: 35 Second Hand Smoke Exposure: Yes service: No Current occupational status: disabled Current occupation: right handed Telehealth Telehealth Telehealth Platform: Telephone Location of provider rendering services: practice address Location of patient: address on file Patient Identification confirmed using: Name, : Yes Telehealth method: voice only Patient verbally consented to treatment: Yes Patient verbally consented to billing insurance company: Yes Patient informed of any privacy concerns related to visit: Yes Minutes spent on Phone/Video with Pt.: 60 Assessment & Plan Assessment & Plan (1) Obesity: Code(s): E66.9 - Obesity, unspecified Category: Medical Qualifiers: Obesity type: due to excess calories Obesity classification: adult class 2 (BMI 35 - 39.9) Serious obesity comorbidity presence: with serious comorbidity Body mass index: BMI 38.0-38.9 Qualified Code(s): E66.01 - Morbid (severe) obesity due to excess calories; Z68.38 - Body mass index [BMI] 38.0-38.9, adult Plan: We had an extensive discussion with the patient. I also reviewed her records. She had stage III colon cancer with positive lymph nodes which required surgical resection and chemotherapy in 2020. We will contact Dr. Warner first to determine if it is appropriate to proceed with sleeve gastrectomy at this time, or we should wait longer due to the risk for recurrence. Once this is clarified, further recommendations will follow.
== END 2024-04-05 13:29 | disposition home or self-care (01) ==
LOC: HO.HBS 09:05
PROVIDERS: PCP Family Medicine; Visit Provider Surgery
DX: E66.01 Morbid (severe) obesity due to excess calories (principal); Z68.38 Body mass index [BMI] 38.0-38.9, adult
CPT/HCPCS: 99205

== ENCOUNTER → 2024-04-05 09:05 | Outpatient (BNVA) | payer MEDICAID, SELFPAY | PROVIDERS: PCP Family Medicine; Visit Provider Surgery ==

== ENCOUNTER 2024-07-08 12:05 | Outpatient (REF) | payer MEDICAID, SELFPAY ==
[2024-07-08 13:35] LABS: INTERNATIONAL NORM RATIO 0.9 (0.9-1.1); Prothrombin Time 10.1 SEC (10.9-12.4)
[2024-07-08 13:38] LABS: Hematocrit 41.4 % (37.0-47.0); Hemoglobin 13.5 g/dl (12.0-16.0); Mean Corpuscular HGB Conc 32.6 g/dl (31.0-35.0); Mean Corpuscular Hemoglobin 29.1 pg (27.0-33.0); Mean Corpuscular Volume 89.2 fL (80.0-98.0); Mean Platelet Volume 11.8 fL (9.4-12.3); Platelet Count 275 X10*3/uL (160-400); Red Blood Count 4.64 X10*6/uL (4.20-5.50); Red Cell Distribution Width 13.9 % (11.0-16.0); White Blood Count 12.1 X10*3/uL (4.8-10.8)
[2024-07-08 13:45] LABS: Estimated Average Glucose 143 mg/dL; Hemoglobin A1C 159.7675 umol/L; Hemoglobin A1c % 6.6 % (<6.0); Total Hemoglobin (HGBA1C) 3279.6893 umol/L
[2024-07-08 14:12] LABS: Free T4 (Free Thyroxine) 1.23 ng/dL (0.71-1.85); TSH reflex Free T4 3.22 uIU/mL (0.32-4.0); Vitamin D 25-OH Total 11.7 ng/mL (>30)
[2024-07-08 14:15] LABS: Alanine Aminotransferase 75 U/L (0-31); Albumin Level 4.3 g/dL (3.5-5.0); Alkaline Phosphatase 129 U/L (39-117); Anion Gap 18 (12-20); Aspartate Amino Transferase 68 U/L (5-31); Bilirubin Total 0.4 mg/dL (0.0-1.0); Blood Urea Nitrogen 27 mg/dL (9-16); Calcium 9.7 mg/dL (8.4-10.2); Carbon Dioxide 16 mmol/L (22-29); Chloride 108 mmol/L (96-108); Cholesterol 297 mg/dL (<200); Estimated Glomerular Filt Rate 32; Glucose Random 110 mg/dL (60-115); HDL Cholesterol 37 mg/dL (>40); LDL Cholesterol Calculated 205 mg/dL (<100); Potassium 3.8 mmol/L (3.3-5.1); Sodium 138 mmol/L (135-145); Thyroid Stimulating Hormone 2.65 uIU/mL (0.32-4.0); Total Protein 8.1 g/dL (6.5-8.0); Triglycerides 277 mg/dL (<150)
[2024-07-08 14:30] LABS: Folate 10.1 ng/mL (> or = 4.0); Vitamin B12 370 pg/mL (200-900)
[2024-07-09 08:09] LABS: HBS Num1 2.82 mIU/mL (0-7.99); Hepatitis B Surface Antigen Negative (Negative); ~Hepatitis B Surface Antibody NONREACTIVE (Nonreactive)
[2024-07-09 10:37] LABS: HBc Num2 6.11 S/CO; HBc Num3 6.15 S/CO; Hepatitis B Core Antibody Reactive (Nonreactive)
[2024-07-11 05:09] LABS: Hepatitis B Core Antibody IgM NON-REACTIVE (NON-REACTIVE)
== END 2024-07-08 12:06 | disposition home or self-care (01) ==
LOC: HO.HHCL 12:05
PROVIDERS: Internal Medicine Nephrology; Visit Provider Student in an Organized Health Care Education/Training Program
DX: Z00.00 Encounter for general adult medical examination without abnormal findings (principal); N17.9 Acute kidney failure, unspecified; E03.9 Hypothyroidism, unspecified
CPT/HCPCS: 36415; 80053; 80061; 82306; 82607; 82746; 83036; 84439; 84443; 85027; 85610; 86704; 86705; 86706; 87340

== ENCOUNTER 2024-07-22 14:21 | Outpatient (AMB) | payer MEDICAID, SELFPAY ==
--- NOTE | 2024-07-22 14:45 | HO.NEPHOV_ITS ---
Vital Signs 07/22/24 14:50 Height 5 ft 4 in Weight 219 lb 8 oz BMI 37.7 BP 90/60 Blood Pressure Location Lt brachial Position Sitting Intake Visit Reasons: 3 mon follow up-Conf Hse Advisor Required: No Accompanied by: Self / Same As Patient Allergies atorvastatin Adverse Reaction (Intermediate, Verified 07/22/24 14:50) Myalgias resolved when stopped HPI Comments Details: Anuradha was seen in follow up of her renal calculi and CKD. She has CKD stage 3 at baseline. She has history of coronary artery disease with NSTEMI . Her last cardiac catheterization which showed severe left circumflex artery stenosis which was treated with drug-eluting stent. 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 She has H/O chemo for colon cancer. She has a history of renal calculi. She denies any active cocaine use. She denies nausea, vomiting or diarrhea. He does not have any paroxysmal nocturnal dyspnea, orthopnea. She claims to be compliant with her medications. She had right flank pain and was seen in [facility]. She says she had a CT scan and was told she has renal calculi ( I have not seen the report but requested it). She does not have any urinary symptoms, hematuria, nausea, fever, chills or rigor. [facility] Medical History (Updated 04/05/24 @ 13:24 by Alejandro Carmona MD) Fibromyalgia Insomnia Anxiety Depression Renal calculi Colon cancer Hypothyroidism Hypertensive cardiovascular disease Diabetes mellitus Hx of drug abuse Back pain GERD (gastroesophageal reflux disease) CAD (coronary artery disease) On beta tiffanie at home NSTEMI (non-ST elevated myocardial infarction) Adhesive capsulitis of right shoulder Bursitis of right shoulder History of MRSA infection High cholesterol Diabetes Hyperthyroidism Hepatitis C Surgical History History of colon surgery Stented coronary artery Hx of colonoscopy Hx of repair of left rotator cuff Hx of heart artery stent Hx of cholecystectomy History of umbilical hernia repair History of back surgery Family History Father No problems noted. Mother No problems noted. Other Spouse Social History Household Members: None Housing: Apartment Are you a primary campground caretaker to a significant other at home: No Do you presently have visiting nurse or other home services: No Alcohol intake: former Patient Tobacco Use Status: Former Tobacco user Tobacco use type: Cigarette Years Smoked: 35 Second Hand Smoke Exposure: Yes service: No Current occupational status: disabled Current occupation: right handed Review of Systems Const All systems reviewed & are unremarkable except as noted in HPI and below Physical Exam Vital Signs: Last Vital Signs BP 90/60 07/22/24 14:50 BMI result Body Mass Index 37.7 Const General: comfortable and no acute distress Orientation/consciousness: patient oriented x3 HEENT Head: Yes normocephalic Mouth: Normal oral and palatal mucosa present Eyes EOM: EOMs intact bilaterally Neck Neck: Yes supple Resp Auscultation: clear to auscultation bilaterally Cardio Jugular venous distension: no JVD Rate: regular rate GI Palpation (GI): Soft to palpation Auscultation: normal bowel sounds General: Yes no CVA tenderness Back/Spine/Pelvis Back: no CVA tenderness Skin General skin exam: no rashes or lesions noted Neuro General: patient oriented x3 and moves all extremities Extrem General: Yes no pedal edema Results Reviewed Nephrology Results: Hgb 13.5 g/dl (12.0-16.0) 07/08/24 WBC 12.1 X10*3/uL (4.8-10.8) H 07/08/24 Plt Count 275 X10*3/uL (160-400) 07/08/24 Sodium 138 mmol/L (135-145) 07/08/24 Potassium 3.8 mmol/L (3.3-5.1) 07/08/24 Chloride 108 mmol/L (96-108) 07/08/24 Carbon Dioxide 16 mmol/L (22-29) L 07/08/24 BUN 27 mg/dL (9-16) H 07/08/24 Creatinine 1.64 mg/dL (0.5-1.4) H 07/08/24 Calcium 9.7 mg/dL (8.4-10.2) 07/08/24 Renal US 02/21/24 Assessment & Plan Assessment & Plan (1) CKD (chronic kidney disease) stage 3, GFR 30-59 ml/min: Code(s): N18.30 - Chronic kidney disease, stage 3 unspecified Category: Medical Qualifiers: Chronic kidney disease stage 3 subtype: stage 3a (GFR 45-59) Qualified Code(s): N18.31 - Chronic kidney disease, stage 3a (2) Renal calculi: Code(s): N20.0 - Calculus of kidney Category: Medical (3) Hypertension: Code(s): I10 - Essential (primary) hypertension Category: Medical Qualifiers: Hypertension type: primary hypertension Qualified Code(s): I10 - Essential (primary) hypertension Macario Ling has CKD 3 and her renal function has been stable. Her urine output is good. Renal ultrasound in the past showed bilateral non obstructing calculi . She had a CT scan in [place] and I have requested report.( She has CKD stage 3 at baseline most likely from vascular disease). She has not taking any EVELYN inhibitor or ARB. She has not been actively using drugs. She has history of chemotherapy for colon cancer. She avoids nonsteroidal anti-inflammatories. Her workup has been negative. I started her on HCTZ 12.5 mg daily. She may need addition of K citrate. She needs to maintain good hydration. I did not make any other medication changes today. Answered all questions. Further management is pending evolving data Orders: Orders Creatinine 3 Weeks N18.31 - Chronic kidney disease, stage 3a Blood Urea Nitrogen 3 Weeks N18.31 - Chronic kidney disease, stage 3a Electrolytes 3 Weeks N18.31 - Chronic kidney disease, stage 3a Calcium 3 Weeks N18.31 - Chronic kidney disease, stage 3a Medications: New hydrochlorothiazide 12.5 mg PO DAILY 30 tabs 3RF Coding Level of Care Code Est Pt Level 4 (65900) Diagnoses Stage 3a chronic kidney disease N18.31 Chronic kidney disease stage 3 subtype: stage 3a (GFR 45-59) Renal calculi N20.0 Primary hypertension I10 Hypertension type: primary hypertension
[2024-07-22 14:50] VITALS: BP 90/60; BMI 37.7
== END 2024-07-22 15:57 | disposition home or self-care (01) ==
PROVIDERS: PCP Family Medicine; Visit Provider Internal Medicine Nephrology
DX: I12.9 Hypertensive chronic kidney disease with stage 1 through stage 4 chronic kidney disease, or unspecified chronic kidney disease (principal); N18.31 Chronic kidney disease, stage 3a; N20.0 Calculus of kidney
CPT/HCPCS: 99214

== ENCOUNTER → 2024-07-22 14:21 | Outpatient (BNVA) | payer MEDICAID, SELFPAY | PROVIDERS: PCP Family Medicine; Visit Provider Internal Medicine Nephrology | DX: N20.0 Calculus of kidney (principal); I12.9 Hypertensive chronic kidney disease with stage 1 through stage 4 chronic kidney disease, or unspecified chronic kidney disease; N18.31 Chronic kidney disease, stage 3a | CPT/HCPCS: 99212 ==

== ENCOUNTER 2024-08-23 13:07 | Outpatient (AMB) | payer MEDICAID, SELFPAY ==
[2024-08-23 14:11] VITALS: BP 110/72; PULSE 119; O2SAT 95; BMI 37.1
--- NOTE | 2024-08-23 14:11 | HO.NEPHOV ---
Vital Signs 08/23/24 14:11 Height 5 ft 4 in Weight 216 lb BMI 37.1 BP 110/72 Blood Pressure Location Rt brachial Position Sitting Pulse 119 H Pulse Source Pulse Oximeter Pulse Oximetry (%) 95 Oxygen Delivery Method Room Air Intake Visit Reasons: CKD-Conf Bonderizer Operator Required: No Accompanied by: Self / Same As Patient Allergies atorvastatin Adverse Reaction (Intermediate, Verified 08/23/24 14:12) Myalgias resolved when stopped HPI Comments Details: Anuradha was seen in follow up of her renal calculi and CKD. She has CKD stage 3 at baseline. She has history of coronary artery disease with NSTEMI . Her last cardiac catheterization which showed severe left circumflex artery stenosis which was treated with drug-eluting stent. 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 She has H/O chemo for colon cancer. She has a history of renal calculi. She denies any active cocaine use. She denies nausea, vomiting or diarrhea. He does not have any paroxysmal nocturnal dyspnea, orthopnea. She claims to be compliant with her medications. she has renal calculi by the last CT in [facility]. She does not have any urinary symptoms, hematuria, nausea, fever, chills or rigor [facility] Medical History (Updated 04/05/24 @ 13:24 by Alejandro Carmona MD) Fibromyalgia Insomnia Anxiety Depression Renal calculi Colon cancer Hypothyroidism Hypertensive cardiovascular disease Diabetes mellitus Hx of drug abuse Back pain GERD (gastroesophageal reflux disease) CAD (coronary artery disease) On beta tiffanie at home NSTEMI (non-ST elevated myocardial infarction) Adhesive capsulitis of right shoulder Bursitis of right shoulder History of MRSA infection High cholesterol Diabetes Hyperthyroidism Hepatitis C Surgical History History of colon surgery Stented coronary artery Hx of colonoscopy Hx of repair of left rotator cuff Hx of heart artery stent Hx of cholecystectomy History of umbilical hernia repair History of back surgery Family History Father No problems noted. Mother No problems noted. Other Spouse Social History Household Members: None Housing: Apartment Are you a primary day care worker to a significant other at home: No Do you presently have visiting nurse or other home services: No Alcohol intake: former Patient Tobacco Use Status: Former Tobacco user Tobacco use type: Cigarette Years Smoked: 35 Second Hand Smoke Exposure: Yes service: No Current occupational status: disabled Current occupation: right handed Review of Systems Const All systems reviewed & are unremarkable except as noted in HPI and below Physical Exam Vital Signs: Last Vital Signs Pulse 119 H 08/23/24 14:11 BP 110/72 08/23/24 14:11 Pulse Ox 95 08/23/24 14:11 Oxygen Delivery Method Room Air 08/23/24 14:11 BMI result Body Mass Index 37.1 Const General: comfortable and no acute distress Orientation/consciousness: patient oriented x3 HEENT Head: Yes normocephalic Mouth: Normal oral and palatal mucosa present Eyes EOM: EOMs intact bilaterally Neck Neck: Yes supple Resp Auscultation: clear to auscultation bilaterally Cardio Jugular venous distension: no JVD Rate: regular rate GI Palpation (GI): Soft to palpation Auscultation: normal bowel sounds General: Yes no CVA tenderness Back/Spine/Pelvis Back: no CVA tenderness Skin General skin exam: no rashes or lesions noted Neuro General: patient oriented x3 and moves all extremities Extrem General: Yes no pedal edema Results Reviewed Nephrology Results: Hgb 13.5 g/dl (12.0-16.0) 07/08/24 WBC 12.1 X10*3/uL (4.8-10.8) H 07/08/24 Plt Count 275 X10*3/uL (160-400) 07/08/24 Sodium 138 mmol/L (135-145) 07/08/24 Potassium 3.8 mmol/L (3.3-5.1) 07/08/24 Chloride 108 mmol/L (96-108) 07/08/24 Carbon Dioxide 16 mmol/L (22-29) L 07/08/24 BUN 27 mg/dL (9-16) H 07/08/24 Creatinine 1.64 mg/dL (0.5-1.4) H 07/08/24 Calcium 9.7 mg/dL (8.4-10.2) 07/08/24 Assessment & Plan Assessment & Plan (1) CKD (chronic kidney disease) stage 3, GFR 30-59 ml/min: Code(s): N18.30 - Chronic kidney disease, stage 3 unspecified Category: Medical Qualifiers: Chronic kidney disease stage 3 subtype: stage 3a (GFR 45-59) Qualified Code(s): N18.31 - Chronic kidney disease, stage 3a (2) Renal calculi: Code(s): N20.0 - Calculus of kidney Category: Medical (3) Hypertension: Code(s): I10 - Essential (primary) hypertension Category: Medical Qualifiers: Hypertension type: primary hypertension Qualified Code(s): I10 - Essential (primary) hypertension Plan Anuradha has CKD 3 and her renal function has been stable. Her urine output is good. Renal ultrasound in the past showed bilateral non obstructing calculi . ( She has CKD stage 3 at baseline most likely from vascular disease). She has not taking any EVELYN inhibitor or ARB. She has not been actively using drugs. She has history of chemotherapy for colon cancer. She avoids nonsteroidal anti-inflammatories. Her workup has been negative. She is tolerating HCTZ 12.5 mg daily. She may need addition of K citrate. She needs to maintain good hydration. I did not make any other medication changes today. Answered all questions. Further management is pending evolving data Orders: Orders Creatinine 08/23/24 N18.31 - Chronic kidney disease, stage 3a Electrolytes 08/23/24 N18.31 - Chronic kidney disease, stage 3a Creatinine 3 Months N18.31 - Chronic kidney disease, stage 3a Electrolytes 3 Months N18.31 - Chronic kidney disease, stage 3a Blood Urea Nitrogen 08/23/24 N18.31 - Chronic kidney disease, stage 3a Blood Urea Nitrogen 3 Months N18.31 - Chronic kidney disease, stage 3a Coding Level of Care Code Est Pt Level 4 (97610) Diagnoses Stage 3a chronic kidney disease N18.31 Chronic kidney disease stage 3 subtype: stage 3a (GFR 45-59) Renal calculi N20.0 Primary hypertension I10 Hypertension type: primary hypertension
== END 2024-08-23 16:37 | disposition home or self-care (01) ==
PROVIDERS: PCP Family Medicine; Visit Provider Internal Medicine Nephrology
DX: I12.9 Hypertensive chronic kidney disease with stage 1 through stage 4 chronic kidney disease, or unspecified chronic kidney disease (principal); N18.31 Chronic kidney disease, stage 3a; N20.0 Calculus of kidney
CPT/HCPCS: 99214

== ENCOUNTER → 2024-08-23 13:07 | Outpatient (BNVA) | payer MEDICAID, SELFPAY | PROVIDERS: PCP Family Medicine; Visit Provider Internal Medicine Nephrology | DX: I12.9 Hypertensive chronic kidney disease with stage 1 through stage 4 chronic kidney disease, or unspecified chronic kidney disease (principal); N18.31 Chronic kidney disease, stage 3a; N20.0 Calculus of kidney | CPT/HCPCS: 99212 ==

== ENCOUNTER 2024-10-07 07:13 | Outpatient (REF) | payer MEDICAID, SELFPAY ==
--- NOTE | ~2024-10-07 | US_ITS ---
CLINICAL HISTORY: ELEVATED LFTS, CALCULUS OF KIDNEY,PAIN US abdomen complete Comparison: 09/19/2023 Findings: The visualized pancreas is normal. The aorta and inferior vena cava are normal caliber. The appearance of the liver suggests fatty infiltration without focal lesion. There is no intrahepatic bile duct dilatation. The common duct is 12 mm in diameter. There are no abnormal findings in the gallbladder fossa. There is no sonographic Goldman sign. The main portal vein is antegrade. The right kidney is 10.5 cm in length. The left kidney is 11.0 cm in length. There are bilateral renal parenchymal calculi. The spleen is normal. No ascites. IMPRESSION: 1. Hepatic steatosis. This document has been electronically signed by: Dao Andrade MD on 10/07/2024 08:45:29
--- OUTSIDE RECORDS SUMMARY | 2024-10-07 07:16 | XMS_ITS | Encounter Summary ---
Author Organization [facility] Address [address] [place] [address] 7[address] [place] [address] Care Team Providers Care Meter Record Clerk Name Role Phone Ericka Phillips DO Primary Care Provider [phone] PuiaLeilasa PharmD Unavailable [phone] Encounter Details Date Type Department Care Team (Late st Contact Info) Description 08/26/2022 Orders Only [facility] [address] [place] [address] Alba Keita RN Uncomplicated opioid dependence (CMS/HCC) Social History Tobacco Use Types Packs/Day Years Used Date Smoking Tobacco: Never Assessed Comments Unknown Sex and Gender Information Value Date Recorded Sex Assigned at Female 06/13/2022 10:19 AM EDT Legal Sex Female 10:19 AM EDT Gender Identity Female 06/13/2022 10:19 AM EDT Sexual Orientation Straight 06/13/2022 10 :19 AM EDT documented as of this encounter Plan of Treatment Upcoming Encounters Date Type Department Care Team ([facility] Contact Info) Description 10/24/2024 2:30 PM EDT Telemedicine [facility] [address] [place] [address] Puia, Tonya, PharmD [address] [place] [address] Scheduled Orders Name Type Priority Associated Diagnoses Orde r Schedule Hepatic Function Panel Lab Routine Uncomplicated opioid dependence (CMS/HCC) Expected: 08/26/2022 (Approximate), Expires: 08/26/2023 Hepatitis C Antibody with Reflex to HCV, RNA, Quantitative, Real-Time PCR Lab Routine Uncomplicated opioid dependence (CMS/HCC) Expected: 08/26/2022 (Approximate), Expires: 08/26/2023 HIV-1/2 Antigen and Antibodies, Fourth Generation, with Reflexes Lab Routine Uncomplicated opioid dependence (CMS/HCC) Expected: 08/26/2022 (Approximate), Expires: 08/26/2023 QUANTIFERON TB GOLD Lab Routine Uncomplicated opioid dependence (CMS/HCC) Expected: 08/26/2022 (Approximate), Expires: 08/26/2023 RPR (Monitor) with Reflex to??Titer Lab Routine Uncomplicated opioid dependence (CMS/HCC) Expected: 08/26/2022 (Approximate), Expires: 08/26/2023 documented as of this encounter Visit Diagnoses Diagnosis Uncomplicated opioid dependence (CMS/HCC) documented in this encounter Care Teams Meter Record Clerk Relationship Specialty Start Date End Date Ericka Phillips DO [address] [place] [address] PCP - General Family Medicine 01/09/13 Tonya Person PharmD [address] [place] [address] Pharmacist Internal Medicine 05/29/23 documented as of this encounter
--- OUTSIDE RECORDS SUMMARY | 2024-10-07 07:16 | XMS_ITS | Encounter Summary ---
Author Organization [facility] Address [address] [place] [address] 7[address] [place] [address] Care Team Providers Care Media Director Name Role Phone Ericka Phillips DO Primary Care Provider [phone] Tonya Person PharmD Unavailable Encounter Details Date Type Department Care Team (Latest Contact Info) Description 05/22/2019 Abstract [facility] CONVERSIONS Dental, Provider, DDS Social History Tobacco Use Types Packs/Day Years [...] Upcoming Encounters Date Type Department Care Team (Late st Contact Info) Description 10/24/2024 2:30 PM EDT Telemedicine [facility] MEDICINE [address] [place] [address] PuiaFrankTonya, PharmD [address] [place] [address] documented as of this encounter Visit Diagnoses Not on filedocumented in this encounter Care Teams Media Director Relationship Specialty Start Date End Date Ericka Phillips DO [address] [place] [address] PCP - General Family Medicine 01/09/13 Puia, Tonya, PharmD [address] [place] [address] Pharmacist Internal Medicine 05/29/23 documented as of this encounter
--- OUTSIDE RECORDS SUMMARY | 2024-10-07 07:16 | XMS_ITS | Encounter Summary ---
Author Organization [employer] Address [address] 7[address] [place] [address] Care Team Providers Care Aviation Mechanic Name Role Phone LuisEricka coreas Primary Care Provider [phone] Tonya Person PharmD Unavailable [phone] Reason for Visit * Reason Comments Med Refill Encounter Details Date Type Department Care Team ([facility] st Contact Info) Description 07/31/2023 Refill [facility] [address] [place] [address] Elmer Sidhu MD [address] [place] [address] Tobacco dependence Social History Tobacco Use Types Packs/Day Years Used Date Smoking Tobacco: Former Cigarettes Smokeless Tobacco: Never Alcohol Use Standard Drinks/Week Comments Never 0 (1 standard drink = 0.6 oz pur e alcohol) Depression Answer Date Recorded Patient Health Questionnaire-9 Score 18 05/15/2023 Housing Stability Answer Date Recorded What is your housing situation today? I have ba claudio 05/29/[address] you li ve. Do you have problems with any of the following? None of the above 05/29/2023 Food Insecurity Answer Date Recorded Within the past 12 months, y ou worried that your food would run out before you got money to buy more: Never True 05/29/2023 Within the past 12 months,th e food you bought just didn't last and you didn't have enough money to get more: Never True Transportation Answer Date Recorded In the past 12 months, has l ack of transportation kept you from medical appts, meetings, work or from getting things needed for daily living? No 05/29/2023 Utilities Answer Date Recorded In the past 12 months, has t he electric, gas, oil or water company threatened to shut off services in your home? No 05/29/2023 Depression Answer Date Recorded Patient Health Questionnaire-2 Score 4 05/15/2023 Comments Unknown Sex and Gender Information Value Date Recorded Sex Assigned at Female 06/13/2022 10:19 AM EDT Legal Sex Female 10:19 AM EDT Gender Identity Female 06/13/2022 10:19 AM EDT Sexual Orientation Straight 06/13/2022 10 :19 AM EDT documented as of this encounter Plan of Treatment Upcoming Encounters Date Type Department Care Team (Late st Contact Info) Description 10/24/2024 2:30 PM EDT Telemedicine [facility] [address] [place], [place] [phone] PuTonya bradford, PharmD [address] [place], [place] [phone] documented as of this encounter Goals Goal Patient Goal Type Associated Problems Recent Progress Patient-Stated? Author Patient will adhere to medication regimen General No PuiaFrankTonya, PharmD Hemoglobin A1c < 7 Result Component 6.9( 5 11:39 AM EST) No Raza Tonya, PharmD Record your blood sugar as directed Result Component No Frank Personyssa PharmD Note: Use CGM, ensuring sensor is scanned at least once every 8 hours to capture 24H data. Check BG manually, as directed. documented as of this encounter Visit Diagnoses Diagnosis Tobacco dependence Tobacco use disorder documented in this encounter Additional Health Concerns Assessment Noted Time PHQ-9 Depression Total Score: 18 023 1:24 PM EDT documented as of this encounter Care Teams Aviation Mechanic Relationship Specialty Start Date End Date Ericka Phillips DO [address] [place], [place] [phone] PCP - General Family Medicine 01/09/13 PuiaFrankTonya, PharmD [address] [place] [address] Pharmacist Internal Medicine 05/29/23 documented as of this encounter
--- OUTSIDE RECORDS SUMMARY | 2024-10-07 07:16 | XMS_ITS | Encounter Summary ---
Author Organization [employer] Address [address]t [place] [address] Care Team Providers Care Fish Icer Name Role Phone LuisEricka coreas Primary Care Provider [phone] Tonya Person PharmD Unavailable [phone] Reason for Visit * Reason Comments Med Refill Encounter Details Date Type Department Care Team ([facility] st Contact Info) Description 12/15/2023 Refill [facility] [address] [place] [address] Elmer Sidhu MD [address] [place] [address] Opioid dependence, uncomplicated (CMS/HCC) Social History Tobacco Use Types Packs/Day Years Used Date Smoking Tobacco: Former Cigarettes Passive Smoke Exposure: Past Smokeless Tobacco: Never Comments:Started 17 y of age until 58 y,used to smoke for 43 -stopped 5 mo ago, used to smoke 15 cig a day PQT calc 30.75 Alcohol Use Standard Drinks/Week Comments Never 0 [...] Patient Health Questionnaire-2 Score 4 05/15/2023 Comments No Sex and Gender Information Value Date Recorded Sex Assigned at Female 06/13/2022 10:19 AM EDT Legal Sex Female 10:19 AM EDT Gender Identity Female 06/13/2022 10:19 AM EDT Sexual Orientation Straight 06/13/2022 10 :19 AM EDT documented as of this encounter Plan of Treatment Upcoming Encounters Date Type Department Care Team (Late st Contact Info) Description 10/24/2024 2:30 PM EDT Telemedicine [facility] [address] [place] [address] RolandoiaTonya PharmD [address] [place] [address] documented as of this encounter Goals Goal Patient Goal Type Associated Problems Recent Progress Patient-Stated? Author Patient will adhere to medication regimen General No PuiaLeilasa, PharmD Hemoglobin A1c < 7 Result Component 6.9( 5 11:39 AM EST) No PuiaFrankTonya, PharmD Record your blood sugar as directed Result Component No Frank Personyssa PharmD Note: Use CGM, ensuring sensor is scanned at least once every 8 hours to capture 24H data. Check BG manually, as directed. documented as of this encounter Visit Diagnoses Diagnosis Opioid dependence, uncomplicated (CMS/HCC) documented in this encounter Additional Health Concerns Assessment Noted Time PHQ-9 Depression Total Score: 18 023 1:24 PM EDT documented as of this encounter Care Teams Fish Icer Relationship Specialty Start Date End Date Ericka Phillips DO [address] [place] [address] PCP - General Family Medicine 01/09/13 Tonya Person, Cruz [address] [place] [address] Pharmacist Internal Medicine 05/29/23 documented as of this encounter
--- OUTSIDE RECORDS SUMMARY | 2024-10-07 07:16 | XMS_ITS | Encounter Summary ---
Author Organization [employer] Address [address] [place] [address] Care Team Providers Care Director Of Market Analysis Name Role Phone JacquelineEricka Primary Care Provider [phone] Tonya Person PharmD Unavailable [phone] Reason for Visit * Reason Onset Date Comments anum Recall 09/11/2024 Encounter Details Date Type Department Care Team ([facility] Contact Info) Description 09/11/2024 Telephone [facility] [address] [place] [address] [place], [place] november Recall Social History Tobacco Use Types Packs/Day Years [...] Answer Date Recorded Patient Health Questionnaire-9 Score 0 08/20/2024 Patient Health Questionnaire-9 Score 0 08/20/2024 Last PHQ-9: Questionnaire Data Not on file 0 08/20/2024 Housing Stability Answer Date Recorded What is [...] Answer Date Recorded Patient Health Questionnaire-2 Score 0 08/20/2024 Comments No Sex and Gender Information Value Date Recorded Sex Assigned at Female 06/13/2022 10:19 AM EDT Legal Sex Female 10:19 AM EDT Gender Identity Female 06/13/2022 10:19 AM EDT Sexual Orientation Straight 06/13/2022 10 :19 AM EDT documented as of this encounter Miscellaneous Notes * Telephone Encounter - Graciela Ivory [place] - 09/11/2024 4:00 PM EST T/c to pt to book her for an annual pelvic exam 15min in November no answer phone kept hanging up. documented in this encounter Plan of Treatment Upcoming Encounters Date Type Department Care Team (Late st Contact Info) Description 10/24/2024 2:30 PM EDT Telemedicine [facility] [address] [place] [address] Tonya Person, PharmD [address] [place] [address] documented as of this encounter Goals Goal Patient Goal Type Associated Problems Recent Progress Patient-Stated? Author Patient will adhere to medication regimen General No Puia, Tonya, PharmD Hemoglobin A1c < 7 Result Component 6.9( 11:39 AM EST) No Puia, Tonya, PharmD Record your blood sugar as directed Result Component No Puia Tonya, PharmD Note: Use CGM, ensuring sensor is scanned at least once every 8 hours to capture 24H data. Check BG manually, as directed. documented as of this encounter Visit Diagnoses Not on filedocumented in this encounter Additional Health Concerns Assessment Noted Time PHQ-9 Depression Total Score: 0 08/20/19 25 11:32 AM EST documented as of this encounter Care Teams Director Of Market Analysis Relationship Specialty Start Date End Date Ericka Phillips DO [address] [place] [address] PCP - General Family Medicine 01/09/13 Tonya Person PharmD [address] [place] [address] Pharmacist Internal Medicine 05/29/23 documented as of this encounter
--- OUTSIDE RECORDS SUMMARY | 2024-10-07 07:16 | XMS_ITS | Encounter Summary ---
Author Organization [employer] [facility] Address [address] [place] [address] [address]t [place] [address] Care Team Providers Care Hosiery Mater Name Role Phone Ericka Phillips DO Primary Care Provider [phone] Tonya Person PharmD Unavailable Encounter Details Date Type Department Care Team (Late st Contact Info) Description 08/26/2022 Orders Only [facility] MED[facility]INE [address] [place] [address] Alba Keita RN Social History Tobacco Use Types Packs/Day Years [...] Info) Description 10/24/2024 2:30 PM EDT Telemedicine [facility] [address] [place] [address] Puia Tonya, PharmD [address] [place] [address] documented as of this encounter Visit Diagnoses Not on filedocumented in this encounter Care Teams Hosiery Mater Relationship Specialty Start Date End Date Ericka Phillips DO [address] [place] [address] PCP - General Family Medicine 01/09/13 Tonya Person, PharmD [address] [place] [address] Pharmacist Internal Medicine 05/29/23 documented as of this encounter
--- OUTSIDE RECORDS SUMMARY | 2024-10-07 07:16 | XMS_ITS | Encounter Summary ---
Author Organization [employer] Address [address] [place] [address] [address] Team Providers Care [address] Lab Technician Name Role Phone Ericka Phillips DO Primary Care Provider [phone] Tonya Person PharmD Unavailable [phone] Reason for Visit * Reason Onset Date Comments Appointment Request 09/18/2024 Encounter Details Date Type Department Care Team ([facility] st Contact Info) Description 09/18/2024 Telephone [facility] [address] [place] [address] Ericka Phillips DO [address] [place] [address] Appointment Request Social History Tobacco Use Types Packs/Day Years [...] encounter Miscellaneous Notes * Telephone Encounter - Peter Carvalho - 09/18/2024 12:28 PM EST Tc from pt requesting to reschedule CDTM visit for 09/19. Pt states due to the snow she will not be able to make it and would like to reschedule for a different day or have it changed to a telephone visit. Please contact pt at [phone]. documented in this encounter Plan of Treatment Upcoming Encounters Date Type Department Care Team ([facility] st Contact Info) Description 10/24/2024 2:30 PM EDT Telemedicine [facility]INE [address] [place] [address] Tonya Person, PharmD [address] [place] [address] documented as of this encounter Goals Goal Patient Goal Type Associated Problems Recent Progress Patient-Stated? Author Patient will adhere to medication regimen General No PuiaFrankTonya, PharmD Hemoglobin A1c < 7 Result Component 6.9( 11:39 AM EST) No Puia Tonya, PharmD Record your blood sugar as directed Result Component No Tonya Person PharmD Note: Use CGM, ensuring sensor is scanned at least once every 8 hours to capture 24H data. Check BG manually, as directed. documented as of this encounter Visit Diagnoses Not on filedocumented in this encounter Additional Health Concerns Assessment Noted Time PHQ-9 Depression Total Score: 0 08/20/19 25 11:32 AM EST documented as of this encounter Care Teams Rd Lab Technician Relationship Specialty Start Date End Date Ericka Phillips DO [address] [place] [address] PCP - General Family Medicine 01/09/13 Tonya Person PharmD [address] [place] [address] Pharmacist Internal Medicine 05/29/23 documented as of this encounter
--- OUTSIDE RECORDS SUMMARY | 2024-10-07 07:16 | XMS_ITS | Encounter Summary ---
Author Organization [employer] [facility] Address [address] [place] [address] [address] [place] [address] Care Team Providers Care Petroleum Sampler Name Role Phone Ericka Phillips DO Primary Care Provider [phone] Tonya Person PharmD Unavailable [phone] Encounter Details Date Type Department Care Team (Latest Contact Info) Description 05/06/2021 Abstract [facility] CONVERSIONS Dental, Provider, DDS Social History Tobacco [...] Info) Description 10/24/2024 2:30 PM EDT Telemedicine [facility] [address] [place] [address] Puia, Tonya, PharmD [address] [place] [address] documented as of this encounter Visit Diagnoses Not on filedocumented in this encounter Care Teams Petroleum Sampler Relationship Specialty Start Date End Date Ericka Phillips DO [address] [place] [address] PCP - General Family Medicine 01/09/13 Puia, Tonya, PharmD [address] [place] [address] Pharmacist Internal Medicine 05/29/23 documented as of this encounter
--- OUTSIDE RECORDS SUMMARY | 2024-10-07 07:16 | XMS_ITS | Clinical Summary ---
Author Organization [facility], Address [address] [place] [address] [place] [address] Phone Care Team Providers Care Inspector Watch Train Name Role Phone Ericka Phillips DO Primary Care Provider Unava ilable Allergies No known active allergies Medications QUEtiapine (SEROquel) 200 MG tablet Take 1 tablet by mouth at bed time Active pantoprazole (Protonix) 40 MG EC tablet Take 1 tablet by mouth 1 (one) time each day Active loratadine (CLARITIN) 10 MG tablet Active lithium (ESKALITH) 450 MG CR tablet Take 1 tablet by mouth 2 (two) times a day Active levothyroxine (SYNTHROID, LEVOTHROID) 88 MCG tablet Take 1 tablet by mouth 1 (one) time each day Active gabapentin (NEURONTIN) 800 MG tablet Take 1 tablet by mouth 3 (three) times a day Active docusate sodium (Colace) 100 MG capsule Take 1 capsule by mouth 2 (two) times a day Active Buprenorphine HCl-Naloxone HCl (Suboxone) 8-2 MG per SL film Place 1 Film under the tongue 2 (two) times a day Active benzonatate (Tessalon Perles) 100 MG capsule Take 1 capsule by mouth 3 (three) times a day Active atorvastatin (Lipitor) 80 MG tablet Take 1 tablet by mouth at bed time Active fluticasone (Flonase) 50 MCG/ACT nasal spray Active acetaminophen (TYLENOL 8 HOUR) 650 MG 8 hr tablet Take 650 mg by mouth every 8 (eight) hours if needed 1 Active amitriptyline (ELAVIL) 10 MG tablet Take 10 mg by mouth at bed time 1 Active SM Aspirin Adult Low Strength 81 MG EC tablet Take 81 mg by mouth daily 1 Active cyclobenzaprin e (FLEXERIL) 5 MG tablet TAKE 1 TABLET BY MOUTH THREE TIMES DAILY 0 Active furosemide (LASIX) 20 MG tablet Take 20 mg by mouth 1 (one) time each day if needed 1 Active glipiZIDE (GLUCOTROL) 5 MG tablet TAKE 4 TABLETS BY MOUTH TWICE DAILY BEFORE BREAKFAST AND BEFORE SUPPER 1 Active Lantus SoloStar 100 UNIT/ML injection INJECT 50 UNITS SUBCUTANEOUSLY EVERY DAY 1 Active metoprolol tartrate (LOPRESSOR) 25 MG tablet Take 12.5 mg by mouth twice a day 1 Active Active Problems Problem Noted Date Diagnosed Date Coronary arteriosclerosis 03/23/2020 Renal disorder due to type 2 diabetes mellitus 0 12/17/2019 Stage 3a chronic kidney disease 12/16/2019 Resolved Problems Problem Noted Date Diagnosed Date Resolved Date Renal disorder due to type 2 diabetes mellitus 03/23/2020 09/05/2021 On lithium 12/17/2019 09/05/2021 Long-term use of nonsteroida l anti-inflammatories 12/17/2019 09/05/2021 Anemia 12/16/2019 09/05/2021 Chronic bronchitis 12/16/2019 0 Gastroesophageal reflux disease 12/16/2019 12/16/2019 Hyperlipidemia 12/16/2019 12/16/2019 Hypothyroidism 12/16/2019 12/16/2019 Posttraumatic stress disorder 12/16/2019 12/16/2019 Family History Relation Status Comments Father Unknown Mother Unknown Social History Tobacco Use Types Packs/Day Years Used Date Smoking Tobacco: Never Alcohol Use Standard Drinks/Week Comments No 0 (1 standard drink = 0.6 oz pur e alcohol) Comments Unknown Sex and Gender Information Value Date Recorded Sex Assigned at Not on file Legal Sex Female 4:37 PM EST Gender Identity Not on file Sexual Orientation Not on file Plan of Treatment Health Maintenance Due Date Last Done Comments Breast Cancer Screening 1967 Pneumococcal Vaccine: Pediat rics (0 to 5 Years) and At-Risk Patients (6 to 64 Years) (1 of 2 - PCV) 1973 Hepatitis B Vaccine (1 of 3 - 19+ 3-dose series) 05/27 Colorectal Cancer Screening: Annual FOBT 2016 Colorectal Cancer Screening: Colonoscopy 2016 Colorectal Cancer Screening: Sigmoidoscopy 2016 Diabetes: Hemoglobin A1C 12/17/2019 Diabetes: Ophthalmology Exam 12/17/2019 Diabetes: Pedal Pulse Checked 12/17/2019 Diabetes: Sensory Foot Exam 12/17/2019 Diabetes: Visual Foot Exam 12/17/2019 Influenza Vaccine (#1) 2024 Insurance MEDICAID [place] Care Teams Inspector Watch Train Relationship Specialty Start Date End Date Ericka Phillips DO PCP - General Family Medicine 10/29/19
--- OUTSIDE RECORDS SUMMARY | 2024-10-07 07:16 | XMS_ITS | Encounter Summary ---
Author Organization [employer] Address [address] [facility] [address] [place] [address] Care Team Providers Care Pot Room Tapper Name Role Phone Ericka Phillips DO Primary Care Provider [phone] Tonya Person PharmD Unavailable Reason for Visit * Reason Comments Med Refill Encounter Details Date Type Department Care Team ([facility] st Contact Info) Description 09/29/2024 Refill [facility] [address] [place] [address] Ericka Phillips DO [address] [place] [address] Type 2 diabetes mellitus with other specified complication, unspecified whether buttermilk drier operator insulin use ([facility]) Social History Tobacco Use Types Packs/Day Years [...] the past 12 months, has t he [email or web address], gas, oil or water company threatened to [...] Info) Description 10/24/2024 2:30 PM EDT Telemedicine [facility] [address] [place] [address] Tonya Person PharmD [address] [place] [address] documented as of this encounter Goals Goal Patient Goal Type Associated Problems Recent Progress Patient-Stated? Author Patient will adhere to medication regimen General No Tonya Person PharmD Hemoglobin A1c < 7 Result Component 6.9( 5 11:39 AM EST) No Tonya Person, PharmD Record your blood sugar as directed Result Component No Tonya Person PharmDamian Note: Use CGM, ensuring sensor is scanned at least once every 8 hours to capture 24H data. Check BG manually, as directed. documented as of this encounter Visit Diagnoses Diagnosis Type 2 diabetes mellitus with other specified complication, unspecified whether residential insulin use ([facility]) documented in this encounter Additional Health Concerns Assessment Noted Time PHQ-9 Depression Total Score: 0 08/20/19 25 11:32 AM EST documented as of this encounter Care Teams Pot Room Tapper Relationship Specialty Start Date End Date Ericka Phillips DO [address] [place] [address] PCP - General Family Medicine 01/09/13 Tonya Person PharmD [address] [place] [address] Pharmacist Internal Medicine 05/29/23 documented as of this encounter
--- OUTSIDE RECORDS SUMMARY | 2024-10-07 07:16 | XMS_ITS | Encounter Summary ---
Author Organization [employer] Address [address] [facility] 7t [place] [address] Care Team Providers Care Water Technician Name Role Phone LuisEricka coreas Primary Care Provider [phone] Tonya Person PharmD Unavailable [phone] Reason for Visit * Reason Comments Med Refill Encounter Details Date Type Department Care Team ([facility] st Contact Info) Description 04/08/2024 Refill [facility] [address] [place] [address] Elmer Sidhu MD [address] [place] [address] Opioid dependence, uncomplicated (CMS/HCC) Social History Tobacco [...] 10/24/2024 2:30 PM EDT Telemedicine [facility] [address] [place] [address] RolandoiaTonya PharmD [address] [place] [address] documented as of this encounter Goals Goal [...] documented as of this encounter Care Teams Water Technician Relationship Specialty Start Date End Date Ericka Phillips DO [address] [place] [address] PCP - General Family Medicine 01/09/13 Tonya Person, Cruz [address] [place] [phone] Pharmacist Internal Medicine 05/29/23 documented as of this encounter
--- OUTSIDE RECORDS SUMMARY | 2024-10-07 07:16 | XMS_ITS | Encounter Summary ---
Author Organization [employer] [facility] Address [address] [place] [address] 7t [place] [address] Care Team Providers Care E Commerce Specialist Name Role Phone Ericka Phillips DO Primary Care Provider [phone] Tonya Person PharmD Unavailable [phone] Reason for Referral * Consultation (STAT) - Authorized Specialty Diagnoses / Procedures Referred By Contac t Referred To Contact Hematology and Oncology Diagnoses Adenocarcinoma of large intestine (CMS/HCC) Ericka Phillips DO [address] [place] [address] Phone: tel: fax: Hematology & Oncology, [address] Phone: tel: fax: Referral ID Status Reason Start Date Expiration Date Visits Requested Visits Authorized [id number] Authorized Specialty Services Required 09/26/2024 09/26/2025 9 9 Encounter Details Date Type Department Care Team (Late st Contact Info) Description 09/23/2024 Orders Only [facility] [address] [place] [address] Ericka Phillips DO [address] [place] [address] Adenocarcinoma of large intestine (CMS/HCC) (Primary Dx) Social History Tobacco Use Types Packs/Day Years [...] your housing situation today? I have ba gonzález 05/29/[address] you li [...] AM EDT documented as of this encounter Progress Notes * Ericka Phillips DO - 09/23/2024 1:34 AM EST Oncology referral placed. documented in this encounter Plan of Treatment Upcoming Encounters Date Type Department Care Team (Late st Contact Info) Description 10/24/2024 2:30 PM EDT Telemedicine [facility] [address] [place] [address] Tonya Person PharmD [address] [place] [address] Scheduled Referrals Name Type Priority Associated Diagnoses Order Schedule Referral to Hematology / Oncology Outpatient Referral STAT Adenocarcinoma of large intestine (CMS/HCC) Expected: 09/23/2024 (Approximate), Expires: 09/23/2025 documented as of this encounter Goals Goal Patient Goal Type Associated Problems Recent Progress Patient-Stated? Author Patient will adhere to medication regimen General No Tonya Person, PharmD Hemoglobin A1c < 7 Result Component 6.9( 5 11:39 AM EST) No Tonya Person PharmD Record your blood sugar as directed Result Component No Tonya Person PharmD Note: Use CGM, ensuring sensor is scanned at least once every 8 hours to capture 24H data. Check BG manually, as directed. documented as of this encounter Visit Diagnoses Diagnosis Adenocarcinoma of large intestine (CMS/HCC)- Primary Malignant neoplasm of colon, unspecified site documented in this encounter Additional Health Concerns Assessment Noted Time PHQ-9 Depression Total Score: 0 08/20/19 25 11:32 AM EST documented as of this encounter Care Teams E Commerce Specialist Relationship Specialty Start Date End Date Ericka Phillips DO [address] [place] [address] PCP - General Family Medicine 01/09/13 Tonya Person, PharmD [address] [place] [phone] Pharmacist Internal Medicine 05/29/23 documented as of this encounter
--- OUTSIDE RECORDS SUMMARY | 2024-10-07 07:16 | XMS_ITS | Encounter Summary ---
Author Organization [facility] Address [address] [place] [address] [address] [place] [address] Care Team Providers Care Checker Cashier Name Role Phone Ericka Phillips DO Primary Care Provider Tonya Person PharmD Unavailable Reason for Visit * Reason Comments Med Refill Encounter Details Date Type Department Care Team ([facility] Contact Info) Description 03/27/2023 Refill [facility] [address] [place] [phone] Ericka Phillips DO [address] [place] [address] Social History Tobacco Use Types Packs/Day Years Used Date Smoking Tobacco: Former Cigarettes Smokeless Tobacco: Never Comments Unknown Sex and Gender Information Value Date Recorded Sex Assigned at Female 06/13/2022 10:19 AM EDT Legal Sex Female 10:19 AM EDT Gender Identity Female 06/13/2022 10:19 AM EDT Sexual Orientation Straight 06/13/2022 10 :19 AM EDT documented as of this encounter Plan of Treatment Upcoming Encounters Date Type Department Care Team ([facility] Contact Info) Description 10/24/2024 2:30 PM EDT Telemedicine [facility] [address] [place] [phone] Tonya Person, PharmD [address] [place] [address] documented as of this encounter Visit Diagnoses Not on filedocumented in this encounter Care Teams Checker Cashier Relationship Specialty Start Date End Date Ericka Phillips DO [address] [place] [address] PCP - General Family Medicine 01/09/13 Tonya Person, Cruz [address] [place] [address] Pharmacist Internal Medicine 05/29/23 documented as of this encounter
--- OUTSIDE RECORDS SUMMARY | 2024-10-07 07:16 | XMS_ITS | Clinical Summary ---
Author Organization [employer] [facility] Address [address] [place] [address] Care Team Providers Care Drawbridge Operator Name Role Phone LuisEricka coreas Primary Care Provider [phone] Tonya Person PharmD Unavailable [phone] Allergies No known active allergies Medications * This document contains information received from the source organization and may not represent a complete record from that organization. clopidogrel (Plavix) 75 MG tablet TAKE 1 TABLET BY MOUTH EVERYDAY AT NOON 022 Active naloxone (Narcan) 4 mg/0.1 mL nasal spray spray 0.1 milliliter by intranasal route in 1 nostril may repeat dose every 2-3 minutes as needed alternating nostrils with each dose 021 Active TRUEplus Lancets 33G misc TEST BLOOD SUGAR THREE TIMES DAILY 100 each 11 023 Active Blood Glucose Monitoring Suppl (FreeStyle Lite) w/Device kitIndications:Ty pe 2 diabetes mellitus without complication, with long-term current use of insulin (CMS/[facility]) 1 kit 3 times daily. 1 kit 023 Active Continuous Blood Gluc Firer Helper (FreeStyle Starla 2 [place]) device 1 each 3 times daily. 1 each 023 Active albuterol 108 (90 Base) MCG/ACT inhaler Inhale 2 puffs every 4 (four) hours if needed for wheezing or shortness of breath. 18 g 1 023 Active UltiGuard SafePack Pen Needle 32G X 4 MM miscIndications:T ype 2 diabetes mellitus with other specified complication, unspecified whether joint terminal attack controller insulin use (CMS/HCC) USE THREE TIMES DAILY 100 each 11 023 Active lamoTRIgine (LaMICtal) 100 MG tablet TAKE 1 TABLET BY MOUTH AT BEDTIME DIRECTED 024 Active estradiol (Estrace) 0.1 MG/GM vaginal cream Insert 1 g into the vagina in the morning. 1g vaginally x 14d, then twice weekly thereafter 45 g 2 024 Active docusate sodium (Colace) 100 MG capsuleIndication s:Chronic constipation TAKE 1 CAPSULE BY MOUTH TWICE DAILY AT NOON AND BEDTIME 180 capsule 1 024 Active Tirzepatide (Mounjaro) 5 MG/0.5ML solution pen-injectorIndic ations:Type 2 diabetes mellitus with stage 3 chronic kidney disease, without long-term current use of insulin, unspecified whether stage 3a or 3b CKD ([facility]) Inject 5 mg under the skin 1 (one) time per week. 2 mL 11 024 Active meclizine (Antivert) 25 MG tablet TAKE 1 TABLET BY MOUTH TWICE DAILY IN THE MORNING AND AT BEDTIME NEEDED FOR DIZZINESS 20 tablet 024 Active gabapentin (Neurontin) 400 MG capsuleIndication s:Fibromyalgia Take 1 capsule (400 mg) by mouth 2 times daily. 60 capsule 024 2024 Active Continuous Glucose Sensor (FreeStyle Starla 2 Sensor) [facility] [place] DIRECTED TO TEST BLOOD SUGAR THREE TIMES DAILY CHANGE EVERY 14 DAYS 2 each 024 Active insulin degludec (Tresiba FlexTouch) 200 UNIT/ML injectionIndicati ons:Type 2 diabetes mellitus with stage 3 chronic kidney disease, without long-term current use of insulin, unspecified whether stage 3a or 3b CKD ([facility]) INJECT 74 UNITS SUBCUTANEOUSLY EVERY DAY IN THE EVENING 9 mL 5 024 Active empagliflozin (Jardiance) 10 MGIndications:Typ e 2 diabetes mellitus with stage 3 chronic kidney disease, without long-term current use of insulin, unspecified whether stage 3a or 3b CKD ([facility]) Take 1 tablet (10 mg) by mouth Once per day. 90 tablet 1 024 Active insulin lispro (HumaLOG) 100 UNIT/ML injectionIndicati ons:Type 2 diabetes mellitus with stage 3 chronic kidney disease, without long-term current use of insulin, unspecified whether stage 3a or 3b CKD ([facility]) Inject 24 Units under the skin with evening meal. 15 mL 3 024 Active metFORMIN XR (Glucophage-XR) 500 MG 24 hr tabletIndications :Type 2 diabetes mellitus with stage 3 chronic kidney disease, without long-term current use of insulin, unspecified whether stage 3a or 3b CKD ([facility]) TAKE 1 TABLET BY MOUTH ONCE DAILY WITH DINNER 90 tablet 1 024 Active rosuvastatin (Crestor) 20 MG tablet Take 20 mg by mouth Once per day. 024 Active metoprolol succinate XL (Toprol-XL) 25 MG 24 hr tablet TAKE 1 TABLET BY MOUTH ONCE DAILY. DO NOT BREAK, CRUSH, DISSOLVE OR CHEW. 90 tablet 3 024 Active levothyroxine (Synthroid, Levoxyl) 88 MCG tabletIndications :Hypothyroidism, unspecified type TAKE 1 TABLET BY MOUTH EVERY MORNING 90 tablet 1 024 Active varenicline (Chantix) 1 MG tabletIndications :Tobacco dependence Take 1 tablet (1 mg) by mouth 2 times daily. Take with full glass of water. 60 tablet 5 024 Active Buprenorphine HCl-Naloxone HCl (Suboxone) 8-2 MG SL filmIndications:O pioid dependence, uncomplicated ([facility]) Place 1 Film under the tongue 3 times daily for 28 days. 84 Film 3 024 Active glucose blood (FreeStyle Precision Tanner Test) test strip USE DIRECTED TO TEST BLOOD SUGAR UP TO THREE TIMES DAILY 100 strip 5 024 Active eszopiclone (Lunesta) 2 MG tablet Take 2 mg by mouth if needed at bedtime for sleep. Active hydroCHLOROthiazi de 12.5 MG tablet Take 1 tablet by mouth Once per day. Active lamoTRIgine (LaMICtal) 25 MG tablet TAKE 1 TABLET BY MOUTH EVERY EVENING FOR 2 WEEKS, THEN TAKE 2 TABLETS BY MOUTH EVERY EVENING Active fluticasone furoate (Arnuity Ellipta) 100 MCG/ACT inhaler Inhale 1 puff Once per day. Rinse mouth with water after use to reduce aftertaste and incidence of candidiasis. Do not swallow. 1 each 08/20/2 025 2025 Active Icosapent Ethyl (Vascepa) 1 g capsuleIndication s:Type 2 diabetes mellitus with stage 3 chronic kidney disease, without long-term current use of insulin, unspecified whether stage 3a or 3b CKD ([facility]),Coronar y arteriosclerosis, Other hyperlipidemia TAKE 2 CAPSULES TWICE DAILY WITH BREAKFAST AND WITH DINNER 120 capsule 11 025 Active DULoxetine (Cymbalta) [address] capsule Take 1 capsule by mouth Once per day. 025 Active albuterol (2.5 MG/3ML) 0.083% nebulizer solution INHALE 1 AMPULE USING A NEBULIZER EVERY 6 HOURS NEEDED FOR WHEEZING OR SHORTNESS OF BREATH 90 mL 1 025 Active Aspirin Adult Low Strength 81 MG EC tabletIndications :Type 2 diabetes mellitus with other specified complication, unspecified whether long-term insulin use ([facility]) TAKE 1 TABLET BY MOUTH EVERY DAY AT NOON 90 tablet 025 Active Aspirin Adult Low Strength 81 MG EC tabletIndications :Type 2 diabetes mellitus with other specified complication, unspecified whether joint terminal attack controller insulin use ([facility]) TAKE 1 TABLET BY MOUTH EVERYDAY AT NOON 90 tablet 1 024 2024 Discontinued albuterol (2.5 MG/3ML) 0.083% nebulizer solution INHALE 1 AMPULE USING A NEBULIZER EVERY 6 HOURS NEEDED FOR WHEEZING OR SHORTNESS OF BREATH 90 mL 1 024 2024 Discontinued Active Problems Problem Noted Date Diagnosed Date Dental calculus 02/26/2024 Generalized gingival recession, severe BMI 37.0-37.9, adult 10/17/2023 Assessment & Plan (10/17/2023 7:17 PM EST): BMI 38 -pt requesting bariatric surgery referral -sent today -refusing hydrometeorologist -advised to f w PCP to change or increase GLP1 at next apt if no contraindications Health care maintenance 10/17/2023 Assessment & Plan (10/17/2023 7:18 PM EST): -pap smear wnl/HPV negative SEP 2016 per PCP records--referred to see Mady here for pap smear -MM 04/2023 BIRADS 1 -colonoscopy f w hem/onc and per note referred back to GI per pt no apt --referred from here today to GI -vaccines hep B x1, Flu 09/2023, covid 2 And last booster 09/2023 ,P20 X1, tdap 04/2023 shingrix x2 04/2023 Microal + TPA + RPR neg -s/p tx , hep C VL UD ab + , HIV neg , hep B not immune -repeat rest of annual labs to come in fasting and hep B panel cause interested in vaccine if not immune -pt will f weight,lab results w PCP next month Asthma 10/17/2023 Assessment & Plan (10/17/2023 7:18 PM EST): -cont flovent BID -cont albuterol as needed --using once a week Depression 05/15/2023 Opioid use disorder in remission 05/15/2023 Adenocarcinoma of large intestine 04/19/2023 Assessment & Plan (10/17/2023 7:19 PM EST): Sigmoid colon cancer stage III -dxed in March 2021 -colonoscopy 2020 :invasive colonic adenocarcinoma, moderately differentiated, 3.5 cm. Tumor invades through muscularis propria into carlos colorectal tissue. Lymphovascular invasion seen. Surgical margins negative for tumor. Two of 10 lymph nodes positive for metastatic adenocarcinoma. -s/p adjuvant chemotherapy and segmental resection -continue to f w her oncologist -has apt this week per pt -pt was advised to f back w her GI but not seen yet-referred today to GI to resume care Status post laparoscopic-assisted sigmoidectomy 04/19/2023 Status post non-ST elevation myocardial infarcti on (NSTEMI) 04/19/2023 Assessment & Plan (10/17/2023 7:19 PM EST): She has history of coronary artery disease with NSTEMI . Her cardiac catheterization which showed severe left circumflex artery stenosis which was treated with drug-eluting stent -Seen by cards 05/2023 -BB and lipitor -continue aspirin and plavix daily--will need to f w cards plan until when for dual antiplatelet tx? -cont lasix daily Type 2 diabetes mellitus 04/19/2023 Assessment & Plan (10/17/2023 7:21 PM EST): Tresiba 64 units from 60 u increased today at pharmacy, Humalog 24 units w/ dinner & Trulicity 0.75 mg weekly. States meds are well tolerated. Metformin ER 500 mg once daily with dinner (max d/t renal function) -referred today to independent agent music education -pt was referred to tyre retreader in -DM labs History of tobacco use 09/05/2022 Assessment & Plan (10/17/2023 7:17 PM EST): -Started 17 y of age until 58 y,used to smoke for 41 -stopped 5 mo ago, used to smoke 15 cig a day PQT calc 30.75-- -CT angiogram of the chest w w/o contrast 05/2023: Left lung Scattered areas of micronodularity. No nodule over 4 mm. 4 mm nodule seen -will need to continue lung ca f up in 05/2024 Coronary arteriosclerosis 03/23/2020 Diabetic nephropathy associa ramy with type 2 diabetes mellitus 12/17/2019 Assessment & Plan (10/17/2023 7:19 PM EST): CKD stage 3 at baseline most likely from vascular disease. -f w hatchery manager 10/17 -Referred for renal image and labs Chronic kidney disease 12/16/2019 Anemia 07/30/2015 Anxiety 07/30/2015 Assessment & Plan (05/15/2023 1:51 PM EDT): Assessment: Patient with crying spells, body shakes, anhedonia, depressed, insomnia, fatigue, poor appetite, low self-esteem, diminished ability to concentrate, restlessness, anxiousness, persistent worry, diminished ability to relax,and fearfulness. Factors contributing to her symptoms are loneliness, Hx if trauma in childhood, Hx of SI attempt during her teen years, Hx of substance use. Patient will benefit from Ind. Therapy. At this time Anuradha Rogel meets criteria for Visit Diagnoses: Problem List Items Addressed This Visit Other Moderately severe depression Opioid use disorder in remission Severe anxiety Patient ready to address current needs Yes Strengths include willing to engage in MH services PLAN: 1. Follow up with [facility]: Recommended for follow-up: during [facility]AT appt 2. Patient goal is to improve mental health 3. Behavioral Recommendations a. Ind. Therapy, referral will be submitted. b. Use of coping skills provided c. [facility] contact info for support Bipolar disorder 07/30/2015 Carpal tunnel syndrome 07/30/2015 Chronic pain syndrome 07/30/2015 Chronic gastroesophageal reflux disease 07/30/20 15 Hyperlipidemia 07/30/2015 Polysubstance dependence 07/30/2015 Posttraumatic stress disorder 07/30/2015 Vitamin D deficiency 07/30/2015 Resolved Problems Problem Noted Date Diagnosed Date Resolved Date Missing teeth, acquired 02/26/202402/2025 Loud snoring 10/17/2023 08/20/2024 Assessment & Plan (10/17/2023 7:16 PM EST): -Referred today to sleep med for fatigue,loud snoring and obesity to r/o BHANU Hepatitis A antibody positive 11/16/2020 01/04/2024 Knee pain 07/30/2015 08/20/2024 Encounters Date Type Department Care Team Description 09/29/[address] [facility] MED[facility]INE [address] [place] [phone] Ericka Phillips DO Type 2 diabetes mellitus with other specified complication, unspecified whether joint terminal attack controller insulin use ([facility]) 09/27/[address] [facility] WALK[facility]IN [facility]ENTER [address] [place] [phone] Ericka Phillips DO 09/25/[address] [facility] MEDICINE [address] [place] [phone] Ericka Phillips DO [facility] (Disposable pad for incontinence, non-steril gloves (per box)) 09/23/2024 Orders Only [facility] MEDICINE [address] [place] [phone] Ericka Phillips DO Adenocarcinoma of large intestine ([facility]/HCC) (Primary Dx) 09/18/[address] [facility] MEDICINE [address] [place] [address] [phone] Ericka Phillips DO Appointment Request 09/11/[address] [facility] MEDICINE [address] [place] [address] Graciela Ivory MA november09/06/2024 2:30 PM EST Office Visit [facility] OPTOMETRY [address] [place] [address] Bassam, Odalys, OD Diabetes mellitus without ophthalmic manifestations (CMS/HCC) (Primary Dx); Suspicious optic nerve cupping of both eyes; Dry eye syndrome of both eyes; Combined forms of age-related cataract of both eyes; Presbyopia 09/06/2024 Travel 08/30/2024 9:45 AM EST Telemedicine [facility] MEDICINE [address] [place] [address] Alba Keita RN Uncomplicated opioid dependence (CMS/HCC) 08/30/2024 Travel 08/22/[address] [facility] MEDICINE [address] [place] [address] Tonya Person PharmD Type 2 diabetes mellitus with stage 3 chronic kidney disease, without long-term current use of insulin, unspecified whether stage 3a or 3b CKD (CMS/HCC); Coronary arteriosclerosis; Other hyperlipidemia 08/20/2024 11:30 AM EST Office Visit [facility] MED[facility]INE [address] [place] [phone] Ericka Phillips DO Type 2 diabetes mellitus with stage 3 chronic kidney disease, with long-term current use of insulin, unspecified whether stage 3a or 3b CKD (CMS/HCC) (Primary Dx); Other hyperlipidemia; Chronic bipolar disorder (CMS/HCC); Stage 3 chronic kidney disease, unspecified whether stage 3a or 3b CKD (CMS/HCC); Adenocarcinoma of large intestine (CMS/HCC); Coronary arteriosclerosis; Chronic gastroesophageal reflux disease; Mild persistent asthma without complication; Fibromyalgia; Elevated LFTs; Sleep-disordered breathing; Nephrolithiasis; Healthcare maintenance; Encounter for screening mammogram for malignant neoplasm of breast 08/20/2024 Travel 08/13/2024 Patient Outreach [facility] MEDICINE [address] [place] [address] Ericka Phillips DO Pre-visit Planning (SDOH screening completed on 09/14/2023) 08/05/[address] [facility] MEDICINE [address] [place] [phone] Ericka Phillips DO 08/05/[address] [facility] MEDICINE [address] [place] [address] Alba Keita RN 07/16/2024 Telephone [facility] [address] [place] [address] Chitra Christianson MA 07/16/2024 Travel 07/08/2024 1:15 PM EST Clinical Support [facility] MEDICINE [address] [place] [address] Alba Keita, EMY Uncomplicated opioid dependence (CMS/HCC) (Primary Dx) 07/08/2024 Orders Only GENERIC EXTERNAL DATA DEPARTMENT Provider, Generic External Data 07/08/2024 Travel from Last 3 Months Immunizations Name Administration Dates Next Due Hep A, Adult 01/16/2024(Deferred: No longer needed - immune per titers) Hep B, adult 01/16/2024(Deferred: No longer needed - immune per titers) HepB-CpG 06/28/2022 Influenza Injectable Quadriv alant Preservative Free IIV4 MDCK 06/28/2022 Influenza injectable quadriv alent preservative free 09/22/2023,07/21/2021,09/25/2018 Influenza, IIV3, injectable 05/22/2014 Influenza, Split (incl. khurram fied surface antigen) 05/31/2013,05/07/2012 [employer] SARS-CoV-2 Vaccination 10/28/2020 Pfizer Covid-19 Vaccine 12+ 09/22/2023 Pneumococcal Conjugate PCV 20 06/28/2022 Pneumococcal Polysaccharide PPSV23 02/22/2021, Tdap 04/19/2023,05/31/2013 Zoster, Recombinant 06/28/2022,10/19/2021 Family History Medical History Relation Name Comments Blindness Maternal Grandfather Hypertension Maternal Grandmother Kidney disease Maternal Grandmother Mental illness Mother's Brother Asthma Mother's Sister HIV Sister Relation Name Status Comments Maternal Grandfather Maternal Grandmother Mother's Brother Mother's Sister Sister Social History Tobacco Use Types Packs/Day Years Used Date Smoking Tobacco: Former Cigarettes Passive Smoke Exposure: Past Smokeless Tobacco: Never Tobacco Cessation:Counseling Given: Not Answered Comments:Started 17 y of age until 58 [...] Orientation Straight 06/13/2022 10 :19 AM EDT Last Filed Vital Signs Vital Sign Reading Time Taken Comments Blood Pressure 128/78 08/20/2024 11:31 AM EST Pulse 84 08/20/2024 11:31 AM EST Temperature 36.1 ??C (97 ??F) 08/20/2024 11:31 AM EST Respiratory Rate 20 08/20/2024 11:31 AM EST Oxygen Saturation 97% 11/24/2023 8:40 AM EDT Inhaled Oxygen Concentration - - Weight 99.3 kg (219 lb) 08/20/2024 11:31 AM EST Height 162.6 cm (5' 4 ) 08/20/2024 11:31 AM EST Body Mass Index 37.59 08/20/2024 11:31 AM EST Plan of Treatment Upcoming Encounters Date Type Department Care Team (Late st Contact Info) Description 10/24/2024 2:30 PM EDT Telemedicine [facility] MEDICINE [address] [place] [address] Tonya Person, PharmD [address] [place] [phone] Health Maintenance Due Date Last Done Comments Diabetes: Foot Exam 1977 Dental X-Ray: Full Mouth 02/28/2024 02/26/2021, 03/2014 COVID-19 Vaccine ( season) 2024 09/22/2023, 07/13/2021, 10/28/2020 Influenza Vaccine (#1) 2024 , 06/28/2022, 07/21/2021, Additional history exists Dental Oral Exam 08/29/2024 02/26/2024, , 08/02/2019, Additional history exists Dental Prophylaxis 08/29/2024 02/26/2024, 0 05/06/2021, 05/22/2019, Additional history exists SDOH Screening 09/14/2024 09/14/2023 Diabetes: Hemoglobin A1C 02/17/2025 025, 07/08/2024, 02/20/2024, Additional history exists Dental X-Ray: Bitewings 04/27/2025 04/26/20 24, 02/26/2024, 08/21/2013 Mammogram 05/08/2025 05/08/2023, 01/13, 05/21/2019, Additional history exists Lipid Panel 07/08/2025 07/08/2024, 0 04/2024, 04/19/2023, Additional history exists Alcohol/Substance Use Screening 08/20/2025 08/20/2024 Depression Screening 08/20/2025 08/20/2024, 08/20/19 Tobacco Screening 09/24/2025 09/24/2024 Eye Exam 09/06/2026 09/06/2024, 08/15, 09/06/2024, Additional history exists Pap Smear 11/12/2026 11/13/2023 Cervical Cancer Screening 11/12/2028 HPV/Cotest 11/12/2028 11/13/2023, 09/30/2016 DTaP/Tdap/Td Vaccines (3 - Td or Tdap) 04/19/2033 04/19/2023, 05/31/2013 RSV Patients and Patients Aged 60 years or older (1 - 1-dose 75+ series) 2042 Hepatitis B Vaccines Discontinued 06/28/2022 Pneumococcal Vaccine: 50+ Years Completed 06/28/2022, 02/22/2021, 05/16/2012 Zoster Vaccines Completed 06/28/2022, 10/19/2021 HIV Screening Completed 02/20/2024, 01/2023, 10/28/2020 Hepatitis C Screening Completed 02/20/2024 , 02/20/2024, 04/19/2023, Additional history exists HIB Vaccines Aged Out No longer eligi ble based on patient's age to complete this topic HPV Vaccines Aged Out No longer eligi ble based on patient's age to complete this topic Hepatitis A Vaccines Discontinued IPV Vaccines Aged Out No longer eligi ble based on patient's age to complete this topic Meningococcal Vaccine Aged Out No yunior tarah eligible based on patient's age to complete this topic RSV under 20 months Aged Out No longe r eligible based on patient's age to complete this topic Rotavirus Vaccines Aged Out No longer eligible based on patient's age to complete this topic Goals Goal Patient Goal Type Associated Problems Recent Progress Patient-Stated? Author Patient will adhere to medication regimen General No Tonya Person, PharmD Hemoglobin A1c < 7 Result Component 6.9( 11:39 AM EST) No Tonya Person, PharmD Record your blood sugar as directed Result Component No Tonya Person PharmD Note: Use CGM, ensuring sensor is scanned at least once every 8 hours to capture 24H data. Check BG manually, as directed. Procedures Procedure Name Priority Date/Time Associated Diagnosis Comments OCT, OPTIC NERVE - OU - BOTH EYES Routine 09/06/2024 2:30 PM EST Suspicious optic nerve cupping of both eyes POCT GLYCATED HEMOGLOBIN, TOTAL Routine 08/20/2024 11:39 AM EST Type 2 diabetes mellitus with stage 3 chronic kidney disease, with long-term current use of insulin, unspecified whether stage 3a or 3b CKD (CMS/HCC) POCT GLUCOSE Routine 08/20/2024 11:36 AM EST Type 2 diabetes mellitus with stage 3 chronic kidney disease, with long-term current use of insulin, unspecified whether stage 3a or 3b CKD (CMS/HCC) POCT DARWIN-14 URINE DRUG SCREEN Routine 07/08/2024 1:22 PM EST Uncomplicated opioid dependence (CMS/HCC) HEPATITIS B CORE ANTIBODY (IGM) Routine 07/08/2024 12:10 PM EST PROTHROMBIN TIME-INR Routine 07/08/2024 12:10 PM EST T4, FREE Routine 07/08/2024 12:10 PM EST Hypothyroidism, unspecified type TSH Routine 07/08/2024 12:10 PM EST Hypothyroidism, unspecified type VITAMIN D,25-OH,TOTAL,IA Routine 07/08/2024 12:10 PM EST Annual physical exam VITAMIN B12/FOLATE, SERUM PANEL Routine 07/08/2024 12:10 PM EST Annual physical exam TSH W/REFLEX TO FT4 Routine 07/08/2024 1 2:10 PM EST Annual physical exam LIPID PANEL, STANDARD Routine 07/08/2024 12:10 PM EST Annual physical exam HEPATITIS B SURFACE ANTIGEN, EIA Routine 07/08/2024 12:10 PM EST Annual physical exam HEPATITIS B SURFACE ANTIBODY, QUALITATIVE Routine 07/08/2024 12:10 PM EST Annual physical exam HEPATITIS B CORE AB TOTAL Routine 07/08/2024 12:10 PM EST Annual physical exam HEMOGLOBIN A1C Routine 07/08/2024 12:10 PM EST Annual physical exam COMPREHENSIVE METABOLIC PANEL Routine 07/08/2024 12:10 PM EST Annual physical exam CBC Routine 07/08/2024 12:10 PM EST Annual physical exam BITEWING - SINGLE RADIOGRAPHIC IMAGE Routine 04/26/2024 3:00 PM EDT Need for full coverage dental crown Full PROPHYLAXIS - ADULT Routine 02/26/2024 1:00 PM EDT Dental calculus PERIODIC ORAL EVALUATION - ESTABLISHED PATIENT Routine 02/26/2024 1:00 PM EDT HEPATITIS C AB W/REFL TO HCV RNA, QN, PCR Routine 02/20/2024 8:16 AM EDT Type 2 diabetes mellitus with stage 3 chronic kidney disease, without long-term current use of insulin, unspecified whether stage 3a or 3b CKD (CMS/HCC) HIV 1/2 ANTIGEN/ANTIBODY, FOURTH GENERATION W/RFL Routine 02/20/2024 8:16 AM EDT Type 2 diabetes mellitus with stage 3 chronic kidney disease, without long-term current use of insulin, unspecified whether stage 3a or 3b CKD (CMS/HCC) HPV MRNA E6/E7 REFLEX TO HPV 16, 18/45 Routine 11/13/2023 1:38 PM EDT PAP SMEAR Routine 11/13/2023 1:38 PM EDT Cervical cancer screening BI MAMMOGRAM SCREENING TOMOSYNTHESIS BILATERAL Routine 05/08/2023 4:07 PM EDT INTRAORAL - COMPLETE SERIES OF RADIOGRAPHIC IMAGES Routine 08/21/2013 12:00 AM EST from Last 3 Months or Most Recently Relevant to Health Maintenance Results * (ABNORMAL) POCT HGB A1C (08/20/2024 11:39 AM EST) Hemoglobin A1C 6.9(A) 4.0 - 6.0 % QC Media Lot # [id number] Lot# Expiration Date Blood 08/20/2024 11:3 9 AM EST Ericka Jacqueline DO POINT OF CARE TEST ENTER/TAMMIE T ORDERABLES Final Result * POCT Glucose (08/20/2024 11:36 AM EST) Glucose Blood, POC 124 60 - 200 mg/dL QC Media Lot # [id number] Lot# Expiration Date Blood Capillary blood specimen / Unknown 08/20/2024 11:36 AM EST Ericka Jacqueline DO POINT OF CARE TEST ENTER/TAMMIE T ORDERABLES Final Result * POCT DARWIN-14 Urine Drug Screen (07/08/2024 1:22 PM EST) THC Negative Cocaine Screen, Urine Negative Opiate Screen, Urine Negative Methamphetamine Screen Urine Negative Amphetamine Screen, Urine Negative Benzodiazepines Screen, Urine Negative Barbiturate Screen, Urine Negative Methadone Screen, Urine Negative Buprenophine Screen, Urine Positive TCA, Urine Negative MDMA Urine Negative ng/mL Oxycodone Screen, Urine Negative Phencyclidine (PCP), Urine Negative Propoxyphene, Urine Negative Urine Urine specimen obtained by clean catch procedure / Unknown 07/08/2024 1:22 PM EST Tammy MOONEY POINT OF CARE TEST ENTER/EDIT OR DERABLES Final Result * (ABNORMAL) Vitamin D, 25-Hydroxy, Total, Immunoassay (07/08/2024 12:10 PM EST) Vitamin D 25-OH Total 11.7(L) >30 ng/mL [facility] Comment:Health Based Referen ce Values*< 20 ng/mL Vrduswust41-84 ng/mL Insufficient> 30 ng/mL Sufficient*David URRUTIA. N Engl J Med. 2007;357:266-280Care must be taken in interpreting Vitamin D results fromdifferent laboratories and methodologies. Published datademonstrated that results from patients undergoinghemodialysis may show a negative bias when tested withvarious automated 25-OH vitamin D assays when compared toLC-MS/MS.When testing samples from patients whose predominant form ofVitamin D is Vitamin D2, such as patients receiving VitaminD2 supplementation, results that are subtherapeutic shouldbe confirmed with another method such as LC-MS/MS. Blood Venous blood specimen / Unknown 07/08/2024 12:10 PM EST 07/08/2024 1:10 PM EST us Dee Nixon MD LAB BLOOD ORDERAB LES Final Result [facility] [address] [place] [phone] * Vitamin B12/Folate, Serum Panel (07/08/2024 12:10 PM EST) Vitamin B12 370 200 - 900 pg/mL [facility] Comment:NORMAL 200-900 PG/ML INDETERMINATE 160-199 PG/ML DEFICIENT < 160 PG/ML Folate 10.1 > or = 4.0 ng/mL [facility] Comment:Reference Values:> o r = 4.0 ng/mL< 4.0 ng/mL suggests folate deficiency Methotrexate, aminopterin and folinic acid(leucovorin) are chemotherapeutic agents whose molecularstructures are similar to folate; therefore, the Architectfolate assay cannot be used for patients using these drugs. 07/08/2024 12:1 0 PM EST 07/08/2024 1:10 PM EST us Dee Nixon MD LAB BLOOD ORDERAB LES Final Result [facility] [address] [place] [phone] * TSH with Reflex to Free T4 (07/08/2024 12:10 PM EST) Pathologist [facility] TSH reflex Free T4 3.22 0.32 - 4.0 uIU/mL [facility] Blood 07/08/2024 12:1 0 PM EST 07/08/2024 1:10 PM EST Dee Nixon MD LAB BLOOD ORDERAB LES Final Result Performing Organization Address [facility]/[facility] Co de Phone Number [facility] [address] [place] [phone] * Hepatitis B Core??Antibody (IgM) (07/08/2024 12:10 PM EST) [facility] Hepatitis B Core Antibody IgM NON-REACTI VE NON-REACTI VE [facility] Comment:For additional infor matyesenia, please refer tohttp://education.CrossTx/faq/RMP999(This link is being provided for informational/educational purposes only.)THIS TEST WAS PERFORMED AT:[employer] [place] [phone] TUTTLE MD 07/08/2024 12:1 0 PM EST 07/08/2024 1:10 PM EST Result [facility] Dee Nixon MD LAB BLOOD ORDERAB LES Final Result Performing Organization Address [facility] [place]/[facility] Co de Phone Number [facility] [address] [place] [phone] * Hepatitis B surface antigen, EIA (07/08/2024 12:10 PM EST) Pathologist [facility] Hepatitis B Surface Ag Negative Negative [facility] Blood Venous blood specimen / Unknown 07/08/2024 12:10 PM EST 07/08/2024 1:10 PM EST Result [facility] Dee Nixon MD LAB BLOOD ORDERAB LES Final Result Performing Organization Address [facility] [place]/[facility] Co de Phone Number [facility] [address] [place] [phone] * Hepatitis B Core Antibody, Total (07/08/2024 12:10 PM EST) Pathologist [facility] Hepatitis B Core Antibody Reactive Nonreactive [facility] Comment:Presumptive evidence of anti-HBc. Blood Venous blood specimen / Unknown 07/08/2024 12:10 PM EST 07/08/2024 1:10 PM EST Dee Nixon MD LAB BLOOD ORDERAB LES Final Result Performing Organization Address [facility] Number [facility] [address] [place] [phone] * Hepatitis B Surface Antibody, Qualitative (07/08/2024 12:10 PM EST) Pathologist [facility] ~Hepatitis B Surface Antibody NONREACTIVE Nonreactive [facility] Comment:Nonreactive: < 8.00 mIU/mL Blood Venous blood specimen / Unknown 07/08/2024 12:10 PM EST 07/08/2024 1:10 PM EST Dee Nixon MD LAB BLOOD ORDERAB LES Final Result Performing Organization Address [facility] [place]/[facility] Co de Phone Number [facility] [address] [place] [phone] * (ABNORMAL) Prothrombin Time-INR (07/08/2024 12:10 PM EST) Pathologist [facility] Prothrombin Time 10.1(L) 10.9 - 12.4 SEC [facility] INTERNATIONAL NORM RATIO 0.9 0.9 - 1.1 [facility] Comment:INTERNATIONAL NORMAL IZED RATIO (INR) REFERENCE RANGES Reference RangeFor patients not on anticoagulant therapy: 0.9 - 1.1INR ranges for oral anticoagulanttherapy:For prevention and treatment of venous thrombosis and pulmonary embolism: 2.0 - 3.0For acute myocardial infarction with aspirin therapy: 2.0 - 3.0For acute myocardial infarction without aspirin therapy: 3.0 - 4.0For patients with mechanical prosthetic heart valves: 2.5 - 3.5 07/08/2024 12:1 0 PM EST 07/08/2024 1:14 PM EST us Generic External Data Provider LAB BLOOD ORDERAB LES Final Result [facility] [address] [place] [phone] * (ABNORMAL) CBC (07/08/2024 12:10 PM EST) White Blood Count 12.1(H) 4.8 - 10.8 X10*3/uL [facility] Red Blood Count 4.64 4.20 - 5.50 X10*6/uL [facility] Hemoglobin 13.5 12.0 - 16.0 g/dl [facility] Hematocrit 41.4 37.0 - 47.0 % [facility] Mean Corpuscular Volume 89.2 80.0 - 98.0 fL [facility] Mean Corpuscular Hemoglobin 29.1 27.0 - 33.0 pg [facility] Mean Corpuscular HGB Conc 32.6 31.0 - 35.0 g/dl [facility] Red Cell Distribution Width 13.9 11.0 - 16.0 % [facility] Platelet Count 275 160 - 400 X10*3/uL [facility] Mean Platelet Volume 11.8 9.4 - 12.3 fL [facility] NRBC Pct Auto 0.0 0.0 - 0.2 /100WBC [facility] NRBC Abs Auto 0.000 0.0 - 0.012 X10*3/uL [facility] Blood Venous blood specimen / Unknown 07/08/2024 12:10 PM EST 07/08/2024 1:10 PM EST Dee Nixon MD LAB BLOOD ORDERAB LES Final Result Performing Organization Address City/[facility]/ZIP Co de Phone Number [facility] [address] [place] [phone] * TSH (07/08/2024 12:10 PM EST) Thyroid Stimulating Hormone 2.65 0.32 - 4.0 uIU/mL [facility] Comment:Note: A sustained TS H level above 2.5 uIU/mL may warrant further investigation. TSH 3rd Generation ([facility]) Blood Venous blood specimen / Unknown 07/08/2024 12:10 PM EST 07/08/2024 1:10 PM EST Dee Nixon MD LAB BLOOD ORDERAB LES Final Result Performing Organization Address [facility] [place]/[facility]/ZIP Co de Phone Number [facility] [address] [place] [phone] * T4, Free (07/08/2024 12:10 PM EST) Free T4 (Free Thyroxine) 1.23 0.71 - 1.85 ng/dL [facility] Blood Venous blood specimen / Unknown 07/08/2024 12:10 PM EST 07/08/2024 1:10 PM EST Dee Nixon MD LAB BLOOD ORDERAB LES Final Result Performing Organization Address City/[facility]/ZIP Co de Phone Number [facility] [address] [place] [phone] * (ABNORMAL) Hemoglobin A1c (07/08/2024 12:10 PM EST) Hemoglobin A1c 6.6(H) <6.0 % [facility] Comment:Hemoglobin A1C Refer ence Range Adults: 4.8 - 6.0 % Non diabetic: < 6.0 % Goal: < 7.0 %Additional Action Suggested: > 8.0 %Note: Hemoglobin A1c results are invalid for patients with abnormal amounts of HbF. Blood transfusions may impact the HbA1c concentration in the patient sample. Estimated Average Glucose 143 mg/dL [facility] Comment:eAG = Estimated ave rage glucose which is %A1C expressed asaverage glucose, using the formula of the O2F-LkhmrjySqejjiq Glucose study (ADAG), Diabetes Care, Vol.31,#8,Mar. 2007 Blood Venous blood specimen / Unknown 07/08/2024 12:10 PM EST 07/08/2024 1:14 PM EST us Dee Nixon MD LAB BLOOD ORDERAB LES Final Result [facility] [address] [place] [phone] * (ABNORMAL) Lipid Panel, Standard (07/08/2024 12:10 PM EST) Triglycerides 277(H) <150 mg/dL [facility] Comment:Desirable Triglyceri de: less than 150 mg/dLBorderline High Triglyceride 150-199 mg/dLHigh Triglyceride: 200-499 mg/dLVery High Triglyceride: greater than or equal to 5OO mg/dL Cholesterol 297(H) <200 mg/dL [facility] Comment:Desirable Cholestero l: less than 200 mg/dLBorderline High Cholesterol: 200-239 mg/dLHigh Cholesterol: greater than 239 mg/dL LDL Cholesterol Calculated 205(H) <100 mg/dL [facility] Comment:Desirable LDL: less than 100 mg/dLNear Optimal/Above Optimal LDL: 110- 129 mg/dLBorderline High LDL: 130-159 mg/dLHigh LDL: 160-189 mg/dLVery High LDL: greater than or equal to 190 mg/dL HDL Cholesterol 37(L) >40 mg/dL [facility] Comment:Desirable HDL: great er than 40 mg/dL Note: This HDL assay may give artificially low results in patients with liver disease. Blood Venous blood specimen / Unknown 07/08/2024 12:10 PM EST 07/08/2024 1:10 PM EST us Dee Nixon MD LAB BLOOD ORDERAB LES Final Result [facility] [address] [place] [phone] * (ABNORMAL) Comprehensive Metabolic Panel (07/08/2024 12:10 PM EST) Sodium 138 135 - 145 mmol/L [facility] Potassium 3.8 3.3 - 5.1 mmol/L [facility] Chloride 108 96 - 108 mmol/L [facility] Carbon Dioxide 16(L) 22 - 29 mmol/L [facility] Anion Gap 18 12 - 20 [facility] Urea Nitrogen (BUN) 27(H) 9 - 16 mg/dL [facility] Creatinine, Serum 1.64(H) 0.5 - 1.4 mg/dL [facility] Estimated Glomerular Filt Rate 32 [facility] Comment:Chronic Kidney Disea se: Estimated GFR < 60 mL/min/1.47r3Piuwdz Kidney Disease: Estimated GFR < 15 mL/min/1.73m2 Glucose 110 60 - 115 mg/dL [facility] Calcium 9.7 8.4 - 10.2 mg/dL [facility] Bilirubin, Total 0.4 0.0 - 1.0 mg/dL [facility] Aspartate Amino Transferase 68(H) 5 - 31 U/L [facility] Alanine Aminotransferase 75(H) 0 - 31 U/L [facility] Total Protein 8.1(H) 6.5 - 8.0 g/dL [facility] Albumin Level 4.3 3.5 - 5.0 g/dL [facility] Alkaline Phosphatase 129(H) 39 - 117 U/L [facility] Blood Venous blood specimen / Unknown 07/08/2024 12:10 PM EST 07/08/2024 1:10 PM EST us Dee Nixon MD LAB BLOOD ORDERAB LES Final Result Performing Organization Address [facility] [place]/[facility] Co de Phone Number [facility] [address] [place] [phone] * (ABNORMAL) Hepatitis C Antibody with Reflex to HCV, RNA, Quantitative, Real- Time PCR (02/20/2024 8:16 AM EDT) Hepatitis C Antibody Reactive( A) Nonreactive [facility] Comment:Presumptive evidence of antibodies to HCV. Blood Venous blood specimen / Unknown 02/20/2024 8:16 AM EDT 02/20/2024 11:17 AM EDT us Ericka Phillips DO LAB BLOOD ORDERABLES Final R esult Performing Organization Address [facility] [place]/[facility] Co de Phone Number [facility] [address] [place] [phone] * HIV-1/2 Antigen and Antibodies, Fourth Generation, with Reflexes (02/20/2024 8:16 AM EDT) HIV AB/AG Nonreactive Nonreactive [facility] Comment:HIV-1 p24 Ag and/or HIV-1/HIV-2 Ab not detected.A test result that is nonreactive does not exclude thepossibility of exposure to or infection with HIV-1 and/orHIV-2. Nonreactive results in this assay for individualswith prior exposure to HIV-1 and/or HIV-2 may be due toantigen and antibody levels that are below the limit ofdetection of this assay.The [employer] HIV Ag/Ab Combo assay result andsupplemental assay results should be interpreted inconjunction with the patient's clinical presentation,history and other laboratory results. If the results areinconsistent with clinical evidence, additional testing issuggested to confirm the result. Blood Venous blood specimen / Unknown 02/20/2024 8:16 AM EDT 02/20/2024 11:17 AM EDT us Ericka Jurcsak DO LAB BLOOD ORDERABLES Final R esult Performing Organization Address [facility]/[facility]/ZIP Co de Phone Number [facility] [address] [place] [phone] * HPV mRNA E6/E7 w/Reflex to HPV Genotypes 16, 18/45 (11/13/2023 1:38 PM EDT) HPV nRNA E6/E7 Not Detected Not Detected [facility] Comment:Methodology: Transcr iption-Mediated AmplificationThis assay detects E6/E7 viral messenger RNA (mRNA) from 14high-risk HPV types (16,18,31,33,35,39,45,51,52,56,58,59,66,68).Cervical sources are required for HPV testing.If a vaginal source from a patient who has had atotal hysterectomy with removal of cervix wassubmitted, please contact the testing laboratoryfor alternative testing options.For additional information, please refer tohttp://education.CrossTx/faq/DLG607z5(This link if provided for information/educational purposes only.)THIS TEST WAS PERFORMED AT:[employer] [place] [phone] TUTTLE MD HPV mRNA E6/E7 [facility] HPV 16 RNA [facility] HPV 18/45 RNA [facility] 11/13/2023 1:38 PM EDT 11/14/2023 7:00 AM EDT us Mady Epperson [facility] CYTOLOGY ORDERABLES F inal Result Performing Organization Address [facility] [place]/[facility]/ZIP Co de Phone Number [facility] [address] [place] [phone] * Pap Smear (11/13/2023 1:38 PM EDT) Swab Cervix uteri structure / Unknown 11/13/2023 1:38 PM EDT 11/14/2023 7:00 AM EDT Narrative [facility] - 12/01/2023 9:23 AM EDT ----- ------- Name: Anuradha Palacio ?Age/Sex: 58/F ? : 1965 Unit#: [id number] ?? Attend Dr: MADY EPPERSON CNM ?Re11/13/23 ?Status: DEP REF ? [facility] ? Disch: ? ----- ------- SPEC : [id number] ? RECD: 11/14/23 ? STATUS: ??SOUT ? REQ NUM: [id number] ? RADHA: 11/13/231337 ? SUBM DR: MADY EPPERSON CNM ? ENTERED: ??11/14/23 ?SP TYPE: Pap Smr ?OTHR : ? ORDERED: ??Pap Smear ? Interpretation ?? Satisfactory for evaluation. ?? Negative for intraepithelial lesion or malignancy. ?HPV mRNA E6/E7: ?NOT DETECTED ? This assay detects E6/E7 viral messenger RNA (mRNA) from 14 high-risk HPV types (16, 18, ?? 31, 33, 35, 39, 45, 51, 52, 56, 58, 59, 66, 68) ?? HPV testing performed by [facility], [place], [place]. ??See reference laboratory ?? portion of the EMR for entire report. ?Clinical Information LMP: Unknown date Previous PAP test: Unknown date/findings ? Material Received ?? ThinPrep-Vaginal/Cervical ----- ------- Signed (signature on file) FLEX Burnett (ASCP) 12/01/23 0923 ? ----- ------- ? END OF REPORT ? us Mady Epperson CNM LAB CYTOLOGY ORDERABLES F inal Result [facility] [address] [place] [phone] * BI Mammogram Screening Tomosynthesis Bilateral (05/08/2023 4:07 PM EDT) Anatomical Region Laterality Modality Breast Bilateral Mammography 05/08/2023 4:07 PM EDT Narrative 05/23/2023 3:26 PM EDT ? [facility] ? [address] ?[place] [id number] ? Mammography Report ? Signed ? Patient: Anuradha Ahn ?MR#: [id number] ?? [id number] ? : 1965 ?Acct:[id number] ? Age/Sex: 57 / F ?ADM Date: 05/08/23 ? Loc: HO.MAMMO ? Attending Dr: Ericka Phillips DO ? Ordering Physician: Ericka Phillips DO ?Results: 1N ?? egative ? Date of Service: 05/08/ ?Follow Up: 1 Year From Orig ?? inal Mammogram ? Procedure(s): MM tomosynthesis screening BI ?? Accession Number(s): [id number] ? cc: Ericka Phillips DO ? EXAMINATION: ?? MM SCREENING DIGITAL BREAST TOMOSYNTHESIS, BILATERAL ? CLINICAL INFORMATION: ? Screening. Asymptomatic. ? COMPARISON: ?? Mammography: This study is compared with prior exams dating back to ?? 2018. ? TECHNIQUE: ?? Digital breast tomosynthesis is performed in both the craniocaudal and ?? mediolateral oblique views along with computer-aided detection (CAD). ?? Synthesized 2D images are generated from the tomosynthesis. ? FINDINGS: ?? The breasts are heterogeneously dense, which may obscure small masses ?? (ACR BI-RADS breast composition Category c). ? There are no significant masses, abnormal calcifications, or other ?? abnormalities. ? MM/MM tomosynthesis screening BI ?? IMPRESSION: ?? No mammographic evidence of malignancy. ? ASSESSMENT: ? BI-RADS BI-RADS 1 - Negative ? RECOMMENDATION: ?? Routine annual mammography screening. ? 1 year F/U ? This examination should not preclude the clinical evaluation of a ?? suspicious palpable abnormality. ? This patient's information was entered into a reminder system with a ?? target due date for their next mammogram. ? Dictated By: ?Carmen Sol MD ? Signed By: ?<Electronically signed by Carmen Sol MD in OV> ? 05/23/23 1522 ? DD/ [id number] ? TD/TT: ? Pediatric Dental Hygienist: ? Procedure Note Osman, Image - 05/23/2023 [facility] [address] [place], [place] [address] Mammography Report Signed Patient: Blair RogelFranciscoGus#: M [id number] : 1965Acct:[id number] Age/Sex: 57 / FADM Date: 05/08/23 Loc: HO.MAMMO Attending Dr: Ericka Phillips DO Ordering Physician: Ericka Phillipsults: 1N egative Date of Service: 05/08/23Follow Up: 1 Year From Orig inal Mammogram Procedure(s): MM tomosynthesis screening BI Accession Number(s): [id number] cc: Ericka Phillips DO EXAMINATION: MM SCREENING DIGITAL BREAST TOMOSYNTHESIS, BILATERAL CLINICAL INFORMATION: Screening. Asymptomatic. COMPARISON: Mammography: This study is compared with prior exams dating back to 2018. TECHNIQUE: Digital breast tomosynthesis is performed in both the craniocaudal and mediolateral oblique views along with computer-aided detection (CAD). Synthesized 2D images are generated from the tomosynthesis. FINDINGS: The breasts are heterogeneously dense, which may obscure small masses (ACR BI-RADS breast composition Category c). There are no significant masses, abnormal calcifications, or other abnormalities. MM/MM tomosynthesis screening BI IMPRESSION: No mammographic evidence of malignancy. ASSESSMENT: BI-RADS BI-RADS 1 - Negative RECOMMENDATION: Routine annual mammography screening. 1 year F/U This examination should not preclude the clinical evaluation of a suspicious palpable abnormality. This patient's information was entered into a reminder system with a target due date for their next mammogram. 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
--- OUTSIDE RECORDS SUMMARY | 2024-10-07 07:16 | XMS_ITS | Clinical Summary ---
Author Organization [facility] Address [address] [place] [address] Care Team Providers Care Tearoom Host Name Role Phone Provider, Conversion MD Primary Care Provider Un available Allergies No known active allergies Medications Medication Sig Dispensed Refills Start Date End Date Status oxyCODONE (ROXICODONE) 5 MG immediate release tablet Take 1 tablet (5 mg total) by mouth Every 4 (four) to 6 (six) hours as needed for severe pain. Max Daily Amount: 30 mg 10 tablet 07/18/2024 Active methocarbamol (ROBAXIN) 750 MG tablet Take 1 tablet (750 mg total) by mouth 3 (three) times a day as needed for muscle spasms (pain). 30 tablet 07/18/2024 Active ondansetron (ZOFRAN-ODT) 4 MG disintegrating tablet Take 1 tablet (4 mg total) by mouth 3 times daily (every 8 hours) as needed for nausea or vomiting. Place tablet on tongue to dissolve. 10 tablet 07/18/2024 Active Encounters Date Type Department Care Team Description 07/18/2024 11:46 AM EST - 07/18/2024 3:03 PM EST Emergency [facility] Emergency Department [address] [place] [phone] Willie Oliva MD Right flank pain (Primary Dx) Discharge Disposition: Home or Self Care 07/18/2024 Travel from Last 3 Months Social History Tobacco Use Types Packs/Day Years Used Date Smoking Tobacco: Never Assessed Sex and Gender Information Value Date Recorded Sex Assigned at Female 07/18/2024 12:40 PM EST Gender Identity Female 07/18/2024 12:40 PM EST Sexual Orientation Heterosexual (straight) 07/18 12:40 PM EST Last Filed Vital Signs Vital Sign Reading Time Taken Comments Blood Pressure 110/71 07/18/2024 2:52 PM EST Pulse 92 07/18/2024 2:52 PM EST Temperature 36.3 ??C (97.4 ??F) 07/18/2024 2:52 PM ES T Respiratory Rate 20 07/18/2024 2:52 PM EST Oxygen Saturation 95% 07/18/2024 2:52 PM EST Inhaled Oxygen Concentration - - Weight 93 kg (205 lb) 07/18/2024 11:44 AM EST Height 162.6 cm (5' 4 ) 07/18/2024 11:44 AM EST Body Mass Index 35.19 07/18/2024 11:44 AM EST Plan of Treatment Health Maintenance Due Date Last Done Comments Hepatitis C Virus Screening 1967 Chronic Controlled Substance Toxicology Screening 1985 Chronic Controlled Substance User PDMP Review 1985 Controlled Substance Agreement Initial and Annual Review 1985 DTaP/Tdap/Td Vaccines (1 - Tdap) 1986 Hepatitis B Vaccines (1 of 3 - 19+ 3-dose series) 1986 Pap Smear (Ages 21-65) 1988 Mammogram 2007 Colonoscopy 2012 Pneumococcal Vaccines 50+ (1 of 1 - PCV) 2017 Zoster (Shingles) Vaccine (1 of 2) 2017 Influenza Vaccine 03/14/2024 09/22/2023, , 07/21/2021, Additional history exists COVID-19 Vaccine ( season) 2024 09/22/2023, 10/28/2020 HIV Screening Completed 02/20/2024 Pneumococcal Vaccine: Pediatric (0-5 Years) and At-Risk Patients (6 to 49 Years) Aged Out No longer eligible based on patient's age to complete this topic Procedures Procedure Name Priority Date/Time Associated Diagnosis Comments CT KIDNEY/URETER/BLADDER- ABDOMEN+PELVIS W/O CONTRAST STAT 07/18/2024 1:23 PM EST URINALYSIS W/ REFLEX TO MICROSCOPIC AND CULTURE STAT 07/18/2024 12:15 PM EST LIPASE STAT 07/18/2024 12:15 PM EST MAGNESIUM STAT 07/18/2024 12:15 PM EST COMPREHENSIVE METABOLIC PANEL STAT 07/18/2024 12:15 PM EST COMPLETE BLOOD COUNT, WITH DIFFERENTIAL STAT 07/18/2024 12:15 PM EST from Last 3 Months Results * CT Kidney/ureter/bladder-Abdomen+pelvis w/o contrast (07/18/2024 1:23 PM EST) Anatomical Region Laterality Modality Abdomen, Pelvis Computed Tomogra phy 07/18/2024 1:25 PM EST Impressions 07/18/2024 1:27 PM EST 1. ??Innumerable small bilateral renal calcifications/stones, no evidence of obstruction. ??These stones are new since 2010. Narrative 07/18/2024 1:[address] abdomen and pelvis, compared to prior April 09, 2011 HISTORY: right flank pain TECHNIQUE: Helical CT images were acquired from the lung base through the lesser trochanters without contrast, with coronal and sagittal reformations. ??Automatic exposure control was utilized. FINDINGS: ??There are coronary artery calcifications. ??Lung bases are clear. ??Heart size is normal. The liver, spleen, adrenal glands, pancreas demonstrate no acute disease. ??There has been cholecystectomy. ??There are innumerable small calcifications along the calyceal margins of both kidneys, which appear new since 2010. ??No obstructing stones are seen. ??No ureteral or bladder stones. ??The bladder is decompressed. The bowel is nonobstructed. ??The appendix is normal. ??No free fluid or free air. ??Previous sigmoid surgery. Previous lumbosacral fixation. ??No acute osseous abnormalities. Procedure Note David Snider MD - 07/18/2024 CT abdomen and pelvis, compared to prior April 09, 2011 HISTORY: right flank pain TECHNIQUE: Helical CT images were acquired from the lung base through thelesser trochanters without contrast, with coronal and sagittalreformations. Automatic exposure control was utilized. FINDINGS: There are coronary artery calcifications. Lung bases areclear. Heart size is normal. The liver, spleen, adrenal glands, pancreas demonstrate no acute disease.There has been cholecystectomy. There are innumerable smallcalcifications along the calyceal margins of both kidneys, which appearnew since 2010. No obstructing stones are seen. No ureteral or bladder stones. The bladder is decompressed. The bowel is nonobstructed. The appendix is normal. No free fluid orfree air. Previous sigmoid surgery. Previous lumbosacral fixation. No acute osseous abnormalities. IMPRESSION: 1. Innumerable small bilateral renal calcifications/stones, no evidenceof obstruction. These stones are new since 2010. Willie Oliva MD IMG CT ORDERABLE S * (ABNORMAL) Urinalysis with Reflex to Microscopic and Culture (07/18/2024 12:15 PM EST) Color Yellow 07/18/2024 12:37 PM [facility] Clarity Slightly cloudy 07/18/2024 12:37 PM [facility] Specific [place] 1.021 1.003 - 1.030 07/18/2024 12:37 PM [facility] pH 6.0 5.0 - 8.0 07/18/2024 12:37 PM [facility] Leukocyte Esterase Negative Negative 07/18/2024 12:37 PM [facility] Nitrite Negative Negative 07/18/2024 12:37 PM [facility] Protein Small (30 mg/dL)(A) Negative 07/18/2024 12:37 PM [facility] Glucose Large(A) Negative mg/dL 07/18/2024 12:37 PM [facility] Ketones Negative Negative 07/18/2024 12:37 PM [facility] Blood Negative Negative 07/18/2024 12:37 PM [facility] Bilirubin Negative Negative 07/18/2024 12:37 PM [facility] WBC 1 0 - 4 per hpf 07/18/2024 12:37 PM [facility] RBC 0 0 - 4 per hpf 07/18/2024 12:37 PM [facility] Squamous Epithelial Cells 5(H) 0 - 4 PER HPF 07/18/2024 12:37 PM [facility] X-Specimen 16 Voided urine specimen / Unknown 07/18/2024 12:15 PM EST 07/18/2024 12:26 PM EST Willie Oliva MD URINE ORDERABLES [address] [address], [facility] [address] [place] [address] * (ABNORMAL) Complete Blood Count, with Differential (07/18/2024 12:15 PM EST) White Blood Cell Count 13.0(H) 4.0 - 11.0 Thou/uL 07/18/2024 12:26 PM [facility] Platelet Count 263 150 - 450 Thou/uL 07/18/2024 12:26 PM [facility] Hemoglobin 13.7 11.7 - 15.7 g/dL 07/18/2024 12:26 PM [facility] Hematocrit 42.3 35.0 - 47.0 % 07/18/2024 12:26 PM [facility] Red Blood Cell Count 4.74 4.00 - 5.40 Mil/uL 07/18/2024 12:26 PM [facility] MCV 89 80 - 100 fL 07/18/2024 12:26 PM [facility] MCH 28.9 27.0 - 31.0 pg 07/18/2024 12:26 PM [facility] MCHC 32.4 30.0 - 36.0 g/dL 07/18/2024 12:26 PM [facility] RDW 13.2 11.5 - 14.5 % 07/18/2024 12:26 PM [facility] MPV 10.8 7.5 - 12.5 fL 07/18/2024 12:26 PM [facility] Neutrophils Auto 72.7 % 07/18/20 24 12:26 PM [facility] Immature Granulocytes 0.5 % 07/18/2024 12:26 PM [facility] Lymphocytes Auto 19.4 % 07/18/20 24 12:26 PM [facility] Monocytes Auto 5.2 % 07/18/2024 12:26 PM [facility] Eosinophils Auto 1.7 % 07/18/20 12:26 PM [facility] Basophils Auto 0.5 % 07/18/2024 12:26 PM [facility] Abs Neutrophils Auto 9.48(H) 2.00 - 7.50 Thou/uL 07/18/2024 12:26 PM [facility] Abs Immature Granulocytes 0.06 0.00 - 0.10 Thou/uL 07/18/2024 12:26 PM [facility] Abs Lymphocytes Auto 2.52 1.50 - 4.50 Thou/uL 07/18/2024 12:26 PM [facility] Abs Monocytes Auto 0.68 0.20 - 1.50 Thou/uL 07/18/2024 12:26 PM [facility] Abs Eosinophils Auto 0.22 0.00 - 0.70 Thou/uL 07/18/2024 12:26 PM [facility] Abs Basophils Auto 0.06 0.00 - 0.20 Thou/uL 07/18/2024 12:26 PM [facility] Blood Blood specimen / Unknown 07/18/2024 12:15 PM EST 07/18/2024 12:23 PM EST Willie Oliva MD LAB BLOOD ORDERA BLES Performing Organization Address City/[facility]/[place] [address], [place] [address] * Magnesium (07/18/2024 12:15 PM EST) Magnesium 1.9 1.6 - 2.7 mg/dL 07/18/2024 12:46 PM [facility] Blood (Plasma/Serum) 07/18/2024 12:15 PM EST 07/18/2024 12:23 PM EST Willie Oliva MD LAB BLOOD ORDERA BLES [place] [id number], [facility] [address] [place] [address] * Lipase (07/18/2024 12:15 PM EST) Lipase 22 13 - 60 U/L 07/18/2024 12:46 PM [facility] Blood (Plasma/Serum) 07/18/2024 12:15 PM EST 07/18/2024 12:23 PM EST Willie Oliva MD LAB BLOOD ORDERA BLES [facility] [address] [place] [address], [address] [address] * (ABNORMAL) Comprehensive Metabolic Panel (07/18/2024 12:15 PM EST) Glucose 159(H) 65 - 99 mg/dL 07/18/2024 12:46 PM [facility] Comment:Fasting: <100 mg/dL, Non-Fasting: <200 mg/dL (ADA 2005) Blood Urea Nitrogen (BUN) 27(H) 8 - 21 mg/dL 07/18/2024 12:46 PM [facility] Creatinine 1.4(H) 0.4 - 1.1 mg/dL 07/18/2024 12:46 PM [facility] eGFR 44(L) >59 07/18/2024 12:46 PM [facility] Comment:CKD-EPI (2020) in mL /min/1.73 sq meters. Sodium 138 136 - 145 mmol/L 07/18/2024 12:46 PM [facility] Potassium 4.9 3.4 - 5.3 mmol/L 07/18/2024 12:46 PM [facility] Chloride 102 98 - 107 mmol/L 07/18/2024 12:46 PM [facility] CO2 22 22 - 33 mmol/L 07/18/2024 12:46 PM [facility] Calcium 9.3 8.7 - 10.5 mg/dL 07/18/2024 12:46 PM [facility] Alkaline Phosphatase 129(H) 32 - 122 U/L 07/18/2024 12:46 PM [facility] Aspartate Aminotrans (AST) 38 10 - 50 U/L 07/18/2024 12:46 PM [facility] Alanine Aminotrans (ALT) 36 10 - 50 U/L 07/18/2024 12:46 PM [facility] Bilirubin, Total 0.4 0.2 - 1.0 mg/dL 07/18/2024 12:46 PM [facility] Protein, Total 8.0 6.3 - 8.3 g/dL 07/18/2024 12:46 PM [facility] Albumin 4.1 3.5 - 5.0 g/dL 07/18/2024 12:46 PM [facility] BUN/Creatinine Ratio 19 10.0 - 25.0 Ratio 07/18/2024 12:46 PM [facility] Globulin 3.9 1.5 - 3.9 g/dL 07/18/2024 12:46 PM [facility] Albumin/Globulin Ratio 1.1 1.0 - 3.0 Ratio 07/18/2024 12:46 PM [facility] Anion Gap 14 7 - 17 07/18/2024 12:46 PM [facility] Blood (Plasma/Serum) 07/18/2024 12:15 PM EST 07/18/2024 12:23 PM EST Willie Oliva MD LAB BLOOD ORDERA BLES [address] [address], [address] [address] from Last 3 Months Care Teams Tearoom Host Relationship Specialty Start Date End Date Provider, MD Dillon PCP - General 08/05/12
--- OUTSIDE RECORDS SUMMARY | 2024-10-07 07:16 | XMS_ITS | Encounter Summary ---
Author Organization [employer] Address [address] [place] [address] Care Team Providers Care Utility Maintenance Worker Name Role Phone Ericka Phillips DO Primary Care Provider [phone] Tonya Person PharmD Unavailable [phone] Reason for Visit * Reason Comments Med Refill Encounter Details Date Type Department Care Team ([facility] st Contact Info) Description 09/27/2024 Refill [facility] [address] [place] [address] Ericka Phillips DO [address] [place] [address] Social History Tobacco Use Types Packs/Day Years [...] Info) Description 10/24/2024 2:30 PM EDT Telemedicine [facility] MEDICINE [address] [place] [address] Puia, Tonya, PharmD [address] [place] [address] documented as of this encounter Goals Goal Patient Goal Type Associated Problems Recent Progress Patient-Stated? Author Patient will adhere to medication regimen General No Puia, Tonya, PharmD Hemoglobin A1c < 7 Result Component 6.9( 11:39 AM EST) No Puia, Tonya, PharmD Record your blood sugar as directed Result Component No Puia, Tonya, PharmD Note: Use CGM, ensuring sensor is scanned at least once every 8 hours to capture 24H data. Check BG manually, as directed. documented as of this encounter Visit Diagnoses Not on filedocumented in this encounter Additional Health Concerns Assessment Noted Time PHQ-9 Depression Total Score: 0 08/20/19 25 11:32 AM EST documented as of this encounter Care Teams Utility Maintenance Worker Relationship Specialty Start Date End Date Ericka Phillips DO [address] [place] [address] PCP - General Family Medicine 01/09/13 Tonya Person PharmD [address] [place] [address] Pharmacist Internal Medicine 05/29/23 documented as of this encounter
--- OUTSIDE RECORDS SUMMARY | 2024-10-07 07:16 | XMS_ITS | Clinical Summary ---
Author Organization [facility] Address [address] [place] [address] Care Team Providers Care Fishing Game Warden Name Role Phone Ericka Phillips DO Primary Care Provider Social History Tobacco Use Types Packs/Day Years Used Date Smoking Tobacco: Never Assessed Sex and Gender Information Value Date Recorded Sex Assigned at Not on file Gender Identity Not on file Sexual Orientation Not on file Plan of Treatment Health Maintenance Due Date Last Done Comments Hepatitis B Vaccines (1 of 3 - 3-dose series) 1967 Hepatitis C Screening 1967 COVID-19 Vaccine (#1) 1967 Depression Screening 1979 Preventative Health Evaluation 1985 DTap / Tdap / Td (1 - Tdap) 1986 Cervical Cancer Screening (P ap Smear) 1988 Colon Cancer Screening (Colonoscopy) 2012 Breast Cancer Screening (Mammogram) 2017 Shingrix-Zoster Vaccine (1 of 2) 2017 Influenza Vaccine (#1) 2024 Pneumococcal Vaccine Aged Out No long er eligible based on patient's age to complete this topic RSV Ped < 20 months Aged Out No longe r eligible based on patient's age to complete this topic Care Teams Fishing Game Warden Relationship Specialty Start Date End Date Ericka Phillips DO [address] [place] [phone] PCP - General Family Medicine 03/06/17
--- OUTSIDE RECORDS SUMMARY | 2024-10-07 07:16 | XMS_ITS | Encounter Summary ---
Author Organization [employer] Address [address] [place] [address] Care Team Providers Care Ordnance Corps Officer Name Role Phone Ericka Phillips DO Primary Care Provider [phone] Tonya Person PharmD Unavailable [phone] Reason for Visit * Reason Onset Date Comments [facility] 09/25/2024 Disposable pad for incontinence, non-steril gloves (per box) Encounter Details Date Type Department Care Team ([facility] Contact Info) Description 09/25/2024 Telephone [facility] [address] [place], [place] [phone] Ericka Phillips DO [address] [place], [place] [phone] [facility] (Disposable pad for incontinence, non-steril gloves (per box)) Social History Tobacco Use Types Packs/Day Years [...] encounter Miscellaneous Notes * Telephone Encounter - Jaqueline Carvalho - 10/02/2024 2:46 PM EST Incontinence product form for Diapers/pull ups , Gloves , and inserts/liners signed and faxed to [facility] . Confirmation received and sent to scan. If patient calls to check status on above, please advise them to contact [facility] Phone: . * Telephone Encounter - Madisyn Riley MA - 09/25/2024 11:49 AM EST [facility] Disposable pad for incontinence, non-steril gloves (per box). Form has been placed on PCP's desk for their signature. documented in this encounter Plan of Treatment Upcoming Encounters Date Type Department Care Team (Late st Contact Info) Description 10/24/2024 2:30 PM EDT Telemedicine [facility] [address] [place] [address] Tonya Person PharmD [address] [place] [address] documented as of this encounter Goals Goal [...] documented as of this encounter Care Teams [employer]ance [employer] Officer Relationship Specialty Start Date End Date Ericka Phillips DO [address] [place] [address] PCP - General Family Medicine 01/09/13 Tonya Person PharmD [address] [place] [address] Pharmacist Internal Medicine 05/29/23 documented as of this encounter
--- OUTSIDE RECORDS SUMMARY | 2024-10-07 07:16 | XMS_ITS | Encounter Summary ---
Author Organization [facility] Address [address] [place] [address] 7t [place] [address] Care Team Providers Care Paper Machine Back Tender Name Role Phone Ericka Phillips DO Primary Care Provider [phone] Tonya Person PharmD Unavailable Reason for Visit * Reason Comments Med Refill Encounter Details Date Type Department Care Team (Late Contact Info) Description 04/13/2023 Refill [facility] [address] [place] [phone] Ericka Phillips DO [address] [place] [address] Seasonal allergic rhinitis, unspecified trigger Social History Tobacco Use Types Packs/Day Years [...] Encounters Date Type Department Care Team (Late Contact Info) Description 10/24/2024 2:30 PM EDT Telemedicine [facility] [address] [place] [phone] Tonya Person, PharmD [address] [place] [address] documented as of this encounter Visit Diagnoses Diagnosis Seasonal allergic rhinitis, unspecified trigger documented in this encounter Care Teams Paper Machine Back Tender Relationship Specialty Start Date End Date Ericka Phillips DO [address] [place] [address] PCP - General Family Medicine 01/09/13 Tonya Person PharmD [address] [place] [address] Pharmacist Internal Medicine 05/29/23 documented as of this encounter
--- OUTSIDE RECORDS SUMMARY | 2024-10-07 07:16 | XMS_ITS | Encounter Summary ---
Author Organization [facility] Address [address] [place] [address] Phone Care Team Providers Care Promotions Executive Producer Name Role Phone Ericka Phillips DO Primary Care Provider Unava ilable Encounter Details Date Type Department Care Team (Late st Contact Info) Description 08/23/2021 Documentation Only [facility], [address] [place] [address] James Tan MD [address] [place] [address] Social History Tobacco Use Types Packs/Day Years Used Date Smoking Tobacco: Never Alcohol Use Standard Drinks/Week Comments No 0 (1 standard drink = 0.6 oz pur e alcohol) Comments Unknown Sex and Gender Information Value Date Recorded Sex Assigned at Not on file Legal Sex Female 4:37 PM EST Gender Identity Not on file Sexual Orientation Not on file documented as of this encounter Plan of Treatment Not on file documented as of this encounter Visit Diagnoses Not on filedocumented in this encounter Care Teams Promotions Executive Producer Relationship Specialty Start Date End Date Ericka Phillips DO PCP - General Family Medicine 10/29/19 documented as of this encounter
--- OUTSIDE RECORDS SUMMARY | 2024-10-07 07:16 | XMS_ITS | Encounter Summary ---
Author Organization [employer] Address [address] [facility] 7[address] [place] [address] Care Team Providers Care Steel Analyst Name Role Phone JacquelineEricka Primary Care Provider [phone] Tonya Person PharmD Unavailable [phone] Reason for Visit * Reason Onset Date Comments filling fell out RCT 03/29/2024 Encounter Details Date Type Department Care Team ([facility] Contact Info) Description 03/29/[address] [facility] [address] [place] [address] Jacob-FournierRichieLynette, DDS [address] [place] [address] filling fell out RCT Social History Tobacco Use Types Packs/Day Years [...] encounter Miscellaneous Notes * Telephone Encounter - Essence Barahona - 03/29/2024 8:15 AM EDT Message for Dr. Fournier Patient called in to inform that filling from RCT fell out. She is not in pain and has upcoming appt on 04/05 for crown. She wants to know if she can be seen to fix tooth to hold her over until 04/05. If so pls coordinate with director of front office for scheduling and to reach out patient to let her know whereshe stands DR documented in this encounter Plan of Treatment Upcoming Encounters Date Type Department Care Team (Late st Contact Info) Description 10/24/2024 2:30 PM EDT Telemedicine [facility] [address] [place] [address] Tonya Person PharmD [address] [place] [address] documented as of this encounter Goals Goal Patient Goal Type Associated Problems Recent Progress Patient-Stated? Author Patient will adhere to medication regimen General No Tonya Person, PharmD Hemoglobin A1c < 7 Result Component 6.9( 11:39 AM EST) No Tonya Person PharmD [...] documented as of this encounter Care Teams Steel Analyst Relationship Specialty Start Date End Date Ericka Phillips DO [address] [place] [address] PCP - General Family Medicine 01/09/13 Tonya Person PharmD [address] [place] [address] Pharmacist Internal Medicine 05/29/23 documented as of this encounter
== END 2024-10-07 07:14 | disposition home or self-care (01) ==
LOC: HO.US 07:13
PROVIDERS: PCP Family Medicine; Visit Provider Family Medicine
DX: G47.30 Sleep apnea, unspecified (principal)
CPT/HCPCS: 76700

== ENCOUNTER → 2024-10-07 07:18 | Outpatient (BNV) | payer MEDICAID, SELFPAY | PROVIDERS: PCP Family Medicine; Visit Provider Specialist | DX: K76.0 Fatty (change of) liver, not elsewhere classified (principal) | CPT/HCPCS: 76700 ==

== ENCOUNTER 2024-10-23 13:50 | Outpatient (REF) | payer MEDICARE, SELFPAY ==
--- NOTE | ~2024-10-23 | CT_ITS ---
CLINICAL HISTORY: History of colon cancer, surveillance CT chest without contrast Comparison: None Findings: The heart size is normal. No significant pericardial effusion. Coronary artery disease. No aneurysm of the thoracic aorta. No consolidation or effusion. No pneumothorax. No pulmonary nodule or mass. Thyroid and thoracic esophagus within normal limits The visualized upper abdomen demonstrates no acute process No acute fractures. Degenerative changes mid to lower thoracic spine. IMPRESSION: 1. No acute findings. This document has been electronically signed by: Basilia Vieira MD on 10/24/2024 18:35:59
--- NOTE | ~2024-10-23 | CT_ITS ---
CLINICAL HISTORY: History of colon cancer, surveillance CT abdomen and pelvis without contrast Comparison: CT/REG/SR - CT ABDOMEN PELVIS WO IV CON - 09/19/23 16:16 EST Findings: No consolidation or pleural effusion. The gallbladder is surgically absent. No biliary ductal dilatation. Unenhanced liver, spleen, pancreas and adrenal glands within normal limits. Numerous bilateral punctate nonobstructing renal stones the largest 4 mm. No ureteral stones and no hydronephrosis or hydroureter. No bowel obstruction, pneumoperitoneum, or pneumatosis. Stable postoperative changes of the sigmoid colon with surgical anastomosis. Normal appendix. Uterus within normal limits. 1.5 cm left ovarian cyst. Urinary bladder nearly empty. Atherosclerotic vascular disease with no aneurysm of the abdominal aorta. No acute osseous process. Stable postoperative changes with posterior hardware fusion from L4-S1 and disc prosthesis at L4-5. IMPRESSION: 1. No acute findings. 2. Numerous bilateral nonobstructing renal stones. 3. Stable postoperative changes of the sigmoid colon. 4. 1.5 cm left ovarian cyst. This document has been electronically signed by: Basilia Vieira MD on 10/24/2024 17:06:06
--- OUTSIDE RECORDS SUMMARY | 2024-10-23 16:18 | XMS_ITS | Encounter Summary ---
Author Organization [employer] Address [address] [place] [address] Care Team Providers Care P 3 Armament/Ordnance Ima Technician Name Role Phone LuisEricka coreas Primary Care Provider [phone] Tonya Person PharmD Unavailable [phone] Encounter Details Date Type Department Care Team (Latest Contact Info) Description 10/18/2024 Travel Social History Tobacco Use Types Packs/Day Years [...] Info) Description 10/24/2024 2:30 PM EDT Telemedicine [address] [address] Tonya Person PharmD [address] [place] [phone] 10/28/2024 2:00 PM EDT Office Visit [address] [address] Elmer Sidhu MD [address] [place] [address] 12/31/2024 9:15 AM EDT Office Visit [address] [address] Ericka Phillips DO [address] [place] [address] documented as of this encounter Goals Goal Patient Goal Type Associated Problems Recent Progress Patient-Stated? Author Patient will adhere to medication regimen General No Tonya Person PharmDamian Hemoglobin A1c < 7 Result Component 6.9( [...] documented as of this encounter Care Teams P 3 Armament/Ordnance Ima Technician Relationship Specialty Start Date End Date Ericka Phillips DO [address] [place] [address] PCP - General Family Medicine 01/09/13 Tonya Person PharmD [address] [place] [address] Pharmacist Internal Medicine 05/29/23 documented as of this encounter
--- OUTSIDE RECORDS SUMMARY | 2024-10-23 16:18 | XMS_ITS | Clinical Summary ---
Author Organization [employer] [facility] ity Address [address] [place] [address] Care Team Providers Care Metal Furniture Panel Coverer Name Role Phone Ericka Phillips DO Primary Care Provider [phone] Social History Tobacco Use Types Packs/Day Years Used Date Smoking Tobacco: Never Assessed Comments Unknown Sex and Gender Information Value Date Recorded Sex Assigned at Not on file Legal Sex Female 3:50 AM EST Gender Identity Not on file Sexual Orientation Not on file Plan of Treatment Health Maintenance Due Date Last Done Comments Breast Cancer Screening 1967 DTaP,Tdap,and Td Vaccines (1 - Tdap) 1986 Hepatitis B Vaccines (1 of 3 - 19+ 3-dose series) 1986 Cervical Cancer Screening: P ap Smear 1988 Pneumococcal Vaccine: 50+ Ye ars (1 of 1 - PCV) 2017 Zoster Vaccines (1 of 2) 2017 COVID-19 Vaccine ( - 2023-2 5 season) 2024 Influenza Vaccine (#1) 2024 HIB Vaccines Aged Out No longer eligi ble based on patient's age to complete this topic HPV Vaccines Aged Out No longer eligi ble based on patient's age to complete this topic Hepatitis A Vaccines Aged Out No long er eligible based on patient's age to complete this topic IPV Vaccines Aged Out No longer eligi ble based on patient's age to complete this topic MMR Vaccines Aged Out No longer eligi ble based on patient's age to complete this topic Meningococcal ACWY Vaccine Aged Out N o longer eligible based on patient's age to complete this topic Meningococcal B Vacine Aged Out No lo nger eligible based on patient's age to complete this topic Pneumococcal Vaccine: Pediat rics (0 to 5 Years) and At-Risk Patients (6 to 64 Years) Aged Out No longer eligible b ased on patient's age to complete this topic RSV Immunization Patients Un iker 20 months Aged Out No longer eligible b ased on patient's age to complete this topic Varicella Vaccines Aged Out No longer eligible based on patient's age to complete this topic Care Teams Metal Furniture Panel Coverer Relationship Specialty Start Date End Date Ericka Phillips DO [address] [place] [address] PCP - General Family Medicine 03/06/17
--- OUTSIDE RECORDS SUMMARY | 2024-10-23 16:18 | XMS_ITS | Encounter Summary ---
Author Organization [employer] Address [address] [facility] [address] 7t [place] [address] Care Team Providers Care Brush Holder Assembler Name Role Phone LuisEricka coreas Primary Care Provider [phone] Tonya Person PharmD Unavailable [phone] Reason for Visit * Reason Onset Date Comments Med Refill 10/21/2024 Encounter Details Date Type Department Care Team (Late st Contact Info) Description 10/21/2024 Refill [facility] [address] [place] [address] Alba Keita RN Opioid dependence, uncomplicated (CMS/HCC) Social History Tobacco [...] Info) Description 10/24/2024 2:30 PM EDT Telemedicine [facility] [address] [place] [address] Tonya Person, PharmD [address] [place] [address] 10/28/2024 2:00 PM EDT Office Visit [address] [address] Elmer Sidhu MD [address] [place] [address] 12/31/2024 9:15 AM EDT Office Visit [address] [address] Ericka Phillips DO [address] [place] [address] documented as of this encounter Goals Goal [...] documented as of this encounter Care Teams Brush Holder Assembler Relationship Specialty Start Date End Date Ericka Phillips DO [address] [place] [address] PCP - General Family Medicine 01/09/13 Tonya Person PharmD [address] [place] [address] Pharmacist Internal Medicine 05/29/23 documented as of this encounter
--- OUTSIDE RECORDS SUMMARY | 2024-10-23 16:19 | XMS_ITS | Encounter Summary ---
Author Organization [employer] Address 75 [facility] [address] 7t [place] [address] Care Team Providers Care Transit Clerk Name Role Phone Ericka Phillips DO Primary Care Provider [phone] Tonya Person PharmD Unavailable Reason for Visit * Reason Comments Med Refill Encounter Details Date Type Department Care Team ([facility] st Contact Info) Description 09/27/2024 Refill [facility] [address] [place] [address] Ericka Phillips DO [address] [place] [address] Social History Tobacco Use Types Packs/Day Years [...] Telemedicine [facility] MEDICINE [address] [place] [address] Tonya Person PharmD [address] [place] [address] 10/28/2024 2:00 PM EDT Office Visit [address] [address] Elmer Sidhu MD [address] [place] [address] 12/31/2024 9:15 AM EDT Office Visit [address] [address] Ericka Phillips DO [address] [place] [address] documented as of this encounter Goals Goal Patient Goal Type Associated Problems Recent Progress Patient-Stated? Author Patient will adhere to medication regimen General No Tonya Person, PharmD Hemoglobin A1c < 7 Result Component 6.9(01/07/202 5 11:39 AM EST) No Tonya Person [...] documented as of this encounter Care Teams Transit Clerk Relationship Specialty Start Date End Date Ericka Phillips DO [address] [place] [address] PCP - General Family Medicine 01/09/13 Tonya Person PharmD [address] [place] [address] Pharmacist Internal Medicine 05/29/23 documented as of this encounter
--- OUTSIDE RECORDS SUMMARY | 2024-10-23 16:19 | XMS_ITS | Encounter Summary ---
Author Organization [employer] Address 75 [facility] 7t [place] [address] Care Team Providers Care Strap Machine Operator Name Role Phone LuisEricka coreas Primary Care Provider [phone] Tonya Person PharmD Unavailable Reason for Visit * Reason Comments Med Refill Encounter Details Date Type Department Care Team ([facility] st Contact Info) Description 10/18/2024 Refill [facility] 230 [place] [address] Emler Sidhu MD [address] [place] [address] Opioid dependence, uncomplicated (CMS/HCC) Social History Tobacco [...] Info) Description 10/24/2024 2:30 PM EDT Telemedicine [facility] MED[facility] [address] [place] [address] Tonya Person PharmD [address] [place] [address] 10/28/2024 2:00 PM EDT Office Visit [address] [address] Elmer Sidhu MD [address] [place] [address] 12/31/2024 9:15 AM EDT Office Visit [address] [address] Ericka Phillips DO [address] [place] [address] documented as of this encounter Goals Goal Patient Goal Type Associated Problems Recent Progress Patient-Stated? Author Patient will adhere to medication regimen General No Tonya Person, Cruz Hemoglobin A1c < 7 Result Component 6.9(01/07/202 [...] documented as of this encounter Care Teams Strap Machine Operator Relationship Specialty Start Date End Date Ericka Phillips DO [address] [place] [address] PCP - General Family Medicine 01/09/13 Tonya Person PharmD [address] [place] [address] Pharmacist Internal Medicine 05/29/23 documented as of this encounter
--- OUTSIDE RECORDS SUMMARY | 2024-10-23 16:19 | XMS_ITS | Encounter Summary ---
Author Organization [employer] Address [address] [facility] [address] 7t [place] [address] Care Team Providers Care Fisher Reef Net Name Role Phone JacquelineEricka Primary Care Provider Tonya Person PharmD Unavailable [phone] Encounter Details Date Type Department Care Team ([facility] st Contact Info) Description 10/23/2024 10:00 AM EDT Office Visit [facility] [address] [place] [address] Bassam, Odalys, OD [address] [place] [address] Presbyopia (Primary Dx) Social History Tobacco Use Types [...] as of this encounter Progress Notes * Odalys Banegas OD - 10/23/2024 10:00 AM EDT MH glasses were dispensed. documented in this encounter Plan of Treatment Upcoming Encounters Date Type Department Care Team (Late st Contact Info) Description 10/24/2024 2:30 PM EDT Telemedicine [facility] MEDICINE [address] [place] [address] Tonya Person, PharmD [address] [place] [address] 10/28/2024 2:00 PM EDT Office Visit [facility] [address] [place] [address] Elmer Sidhu MD [address] [place] [address] 12/31/2024 9:15 AM EDT Office Visit [address] [address] Ericka Phillips DO [address] [place] [address] documented as of this encounter Goals Goal [...] as of this encounter Visit Diagnoses Diagnosis Presbyopia- Primary documented in this encounter Additional Health Concerns Assessment Noted Time PHQ-9 Depression Total Score: 0 08/20/19 25 11:32 AM EST documented as of this encounter Care Teams Fisher Reef Net Relationship Specialty Start Date End Date Ericka Phillips DO 230 [place] [address] PCP - General Family Medicine 01/09/13 Tonya Person PharmD [address] [place] [address] Pharmacist Internal Medicine 05/29/23 documented as of this encounter
--- OUTSIDE RECORDS SUMMARY | 2024-10-23 16:19 | XMS_ITS | Encounter Summary ---
Author Organization [facility] Address [address] [place] [address] 7t [place] [address] Care Team Providers Care Silviculturist Name Role Phone Ericka Phillips DO Primary Care Provider [phone] Tonya Person PharmD Unavailable [phone] Reason for Referral * Consultation (STAT) - Authorized Specialty Diagnoses / Procedures Referred By Contac t Referred To Contact Hematology and Oncology Diagnoses Adenocarcinoma of large intestine (CMS/HCC) Ericka Phillips DO [address] [place] [address] Phone: tel: fax: Hematology & Oncology, [address] Phone: tel: fax: Referral ID Status Reason Start Date Expiration Date Visits Requested Visits Authorized [id number] Authorized Specialty Services Required 09/26/2024 09/26/2025 9 9 Encounter Details Date Type Department Care Team (Late st Contact Info) Description 09/23/2024 Orders Only [facility] MEDICINE [address] [place] [address] Ericka Phillips DO [address] [place] [address] Adenocarcinoma of large intestine (CMS/HCC) (Primary Dx) [...] Info) Description 10/24/2024 2:30 PM EDT Telemedicine [address] [address] PuiaFrankTonya, PharmD [address] [place] [address] 10/28/2024 2:00 PM EDT Office Visit [address] [address] Elmer Sidhu MD [address] [place] [address] 12/31/2024 9:15 AM EDT Office Visit [address] [address] Ericka Phillips DO [address] [place] [address] Scheduled Referrals Name Type Priority Associated Diagnoses [...] documented as of this encounter Care Teams Silviculturist Relationship Specialty Start Date End Date Ericka Phillips DO [address] [place] [address] [phone] PCP - General Family Medicine 01/09/13 Tonya Person, PharmD [address] [place] [address] Pharmacist Internal Medicine 05/29/23 documented as of this encounter
--- OUTSIDE RECORDS SUMMARY | 2024-10-23 16:19 | XMS_ITS | Encounter Summary ---
Author Organization [employer] Address 75 [facility] 7t [place] [address] Care Team Providers Care Senior Data Warehouse Architect Name Role Phone Ericka Phillips DO Primary Care Provider [phone] Tonya Person PharmD Unavailable Reason for Visit * Reason Comments Med Refill Encounter Details Date Type Department Care Team ([facility] st Contact Info) Description 09/29/2024 Refill [facility] MED[facility] 230 [place] [address] Ericka Phillips DO 230 [place] [address] Type 2 diabetes mellitus with other specified complication, unspecified whether intermediate insulin use ([facility]) Social History Tobacco Use Types Packs/Day Years [...] the past 12 months, has t he [employer], gas, oil or water [employer] threatened to shut off services in your [...] Info) Description 10/24/2024 2:30 PM EDT Telemedicine [facility] MEDICINE [address] [place] [address] Tonya Person PharmD [address] [place] [address] 10/28/2024 2:00 PM EDT Office Visit [facility] MEDICINE [address] [place] [address] Elmer Sidhu MD [address] [place] [address] 12/31/2024 9:15 AM EDT Office Visit [facility] MEDICINE [address] [place] [address] Ericka Phillips DO [address] [place] [address] documented as of this encounter Goals Goal Patient Goal Type Associated Problems Recent Progress Patient-Stated? Author Patient will adhere to medication regimen General No PuiaTonya PharmD Hemoglobin A1c < 7 Result Component [...] whether joint terminal attack controller insulin use ([facility]) documented in this encounter Additional Health Concerns Assessment Noted Time PHQ-9 Depression Total Score: 0 08/20/19 25 11:32 AM EST documented as of this encounter Care Teams Senior Data Warehouse Architect Relationship Specialty Start Date End Date Ericka Phillips DO [address] [place] [address] PCP - General Family Medicine 01/09/13 Tonya Person PharmD 230 [place] [address] Pharmacist Internal Medicine 05/29/23 documented as of this encounter
--- OUTSIDE RECORDS SUMMARY | 2024-10-23 16:19 | XMS_ITS | Encounter Summary ---
Author Organization [employer] Address [address] [facility] [address] 7t [place] [address] Care Team Providers Care Travel Money Advisor Name Role Phone LuisEricka coreas Primary Care Provider [phone] Tonya Person PharmD Unavailable [phone] Reason for Visit * Reason Onset Date Comments Med Refill 10/22/2024 Encounter Details Date Type Department Care Team (Late st Contact Info) Description 10/22/2024 Refill [facility] [address] [place] [address] Alba Keita RN Opioid dependence, uncomplicated (CMS/HCC) [...] Info) Description 10/24/2024 2:30 PM EDT Telemedicine [facility] MED[facility] [address] [place] [address] Tonya Person, PharmD [address] [place] [address] 10/28/2024 2:00 PM EDT Office Visit [address] [address] Elmer Sidhu MD [address] [place] [address] 12/31/2024 9:15 AM EDT Office Visit [address] [address] Ericka Phillips DO [address] [place] [address] documented as of this encounter Goals Goal [...] documented as of this encounter Care Teams Travel Money Advisor Relationship Specialty Start Date End Date Ericka Phillips DO 230 [place] [address] PCP - General Family Medicine 01/09/13 Tonya Person PharmD [address] [place] [address] Pharmacist Internal Medicine 05/29/23 documented as of this encounter
--- OUTSIDE RECORDS SUMMARY | 2024-10-23 16:19 | XMS_ITS | Encounter Summary ---
Author Organization [employer] Address 75 [facility] 7t [place] [address] Care Team Providers Care Keyseater Operator Name Role Phone LuisEricka coreas Primary Care Provider [phone] PuTonya bradford PharmD Unavailable Reason for Visit * Reason Comments Med Refill Encounter Details Date Type Department Care Team ([facility] st Contact Info) Description 10/13/2024 Refill [facility] [address] [place] [address] Puia, Tonya, PharmD [address] [place] [address] Type 2 diabetes mellitus with stage 3 chronic kidney disease, without long-term current use of insulin, unspecified whether stage 3a or 3b CKD (CMS/HCC) Social History Tobacco Use Types Packs/Day [...] t he electric, gas, oil or water [employer] threatened to shut off services in your [...] encounter Miscellaneous Notes * Telephone Encounter - Tonya Person PharmD - 10/14/2024 2:01 PM EST Not seen since Apr but has upcoming apt with me 10/24. Sending 1 refill w/ 0 additional today to prevent gap in use. Apt needed for next steps documented in this encounter Plan of Treatment Upcoming Encounters Date Type Department Care Team (Late st Contact Info) Description 10/24/2024 2:30 PM EDT Telemedicine [facility] [address] [place] [address] Tonya Person PharmD 230 [place] [address] 10/28/2024 2:00 PM EDT Office Visit [facility] [address] [place] [address] Elmer Sidhu MD 230 [place] [address] 12/31/2024 9:15 AM EDT Office Visit [facility] [address] [place] [address] Ericka Phillips DO [address] [place] [address] documented as of this encounter Goals Goal [...] Diagnoses Diagnosis Type 2 diabetes mellitus with stage 3 chronic kidney disease, without long-term current use of insulin, unspecified whether stage 3a or 3b CKD ([facility]) documented in this encounter Additional Health Concerns Assessment Noted Time PHQ-9 Depression Total Score: 0 08/20/19 25 11:32 AM EST documented as of this encounter Care Teams Keyseater Operator Relationship Specialty Start Date End Date Ericka Phillips DO [address] [place] [address] PCP - General Family Medicine 01/09/13 Tonya Person PharmD [address] [place] [address] Pharmacist Internal Medicine 05/29/23 documented as of this encounter
--- OUTSIDE RECORDS SUMMARY | 2024-10-23 16:19 | XMS_ITS | Encounter Summary ---
Author Organization [employer] Address [address] [facility] [address] 7t [place] [address] Care Team Providers Care Administrative Support Assistant Name Role Phone LuisEricka coreas Primary Care Provider Tonya Person PharmD Unavailable [phone] Encounter Details Date Type Department Care Team (Latest Contact Info) Description 10/23/2024 Travel Social History Tobacco Use Types Packs/Day [...] Info) Description 10/24/2024 2:30 PM EDT Telemedicine [address] [address] Tonya Person PharmD [address] [place] [address] 10/28/2024 2:00 PM EDT Office Visit [address] [address] Elmer Sidhu MD [address] [place] [address] 12/31/2024 9:15 AM EDT Office Visit [address] [address] Ericka Phillips DO [address] [place] [address] documented as of this encounter Goals Goal [...] documented as of this encounter Care Teams Administrative Support Assistant Relationship Specialty Start Date End Date Ericka Phillips DO [address] [place] [address] PCP - General Family Medicine 01/09/13 Tonya Person PharmD [address] [place] [address] Pharmacist Internal Medicine 05/29/23 documented as of this encounter
--- OUTSIDE RECORDS SUMMARY | 2024-10-23 16:19 | XMS_ITS | Encounter Summary ---
Author Organization [employer] Address 75 [facility] 7t [place] [address] Care Team Providers Care Psychiatric Nursing Aide Name Role Phone Ericka Phillips DO Primary Care Provider [phone] Tonya Person PharmD Unavailable [phone] Reason for Visit * Reason Onset Date Comments DME Order Form 10/14/2024 DME-Incontinence Order Form([employer]) Encounter Details Date Type Department Care Team ([facility] st Contact Info) Description 10/14/2024 Telephone [facility] MED[facility] [address] [place] [address] Ericka Phillips DO [address] [place], [place] [phone] DME Order Form (DME-Incontinence Order Form([employer])) Social History Tobacco Use Types Packs/Day Years [...] encounter Miscellaneous Notes * Telephone Encounter - Jaquelin Graham MA - 10/14/2024 3:29 PM EST DME generated Incontinence Form sign and fax to [facility]. documented in this encounter Plan of Treatment Upcoming Encounters Date Type Department Care Team (Late st Contact Info) Description 10/24/2024 2:30 PM EDT Telemedicine [facility] MEDICINE [address] [place] [address] Tonya Person, PharmD [address] [place] [address] 10/28/2024 2:00 PM EDT Office Visit [facility] [address] [place] [address] Elmer Sidhu MD [address] [place] [address] 12/31/2024 9:15 AM EDT Office Visit [facility] 230 [place] [address] Ericka Phillips DO [address] [place] [address] documented as of this encounter Goals Goal Patient Goal Type Associated Problems Recent Progress Patient-Stated? Author Patient will adhere to medication regimen General No Tonya Person, PharmDamian Hemoglobin A1c < 7 Result Component 6.9( 5 11:39 AM EST) No Tonya Person, PharmDamian Record your blood sugar as directed Result [...] documented as of this encounter Care Teams Psychiatric Nursing Aide Relationship Specialty Start Date End Date Ericka Phillips DO [address] [place] [address] PCP - General Family Medicine 01/09/13 Tonya Person PharmD [address] [place] [address] Pharmacist Internal Medicine 05/29/23 documented as of this encounter
--- OUTSIDE RECORDS SUMMARY | 2024-10-23 16:19 | XMS_ITS | Encounter Summary ---
Author Organization [facility] Address [address] [place] [address] 7t [place] [address] Care Team Providers Care Content Engineer Name Role Phone NatividadEricka nguyen Primary Care Provider [phone] Tonya Person PharmD Unavailable [phone] Encounter Details Date Type Department Care Team (Latest Contact Info) Description 05/22/2019 Abstract [facility] CONVERSIONS Dental, Provider, DDS Social History Tobacco [...] 10/24/2024 2:30 PM EDT Telemedicine [facility] MEDICINE [address] [place] [address] Tonya Person, PharmD [address] [place] [address] 10/28/2024 2:00 PM EDT Office Visit [address] [address] Elmer Sidhu MD [address] [place] [address] 12/31/2024 9:15 AM EDT Office Visit [address] [address] Ericka Phillips DO [address] [place] [address] documented as of this encounter Visit Diagnoses Not on filedocumented in this encounter Care Teams Content Engineer Relationship Specialty Start Date End Date Ericka Phillips DO [address] [place] [address] PCP - General Family Medicine 01/09/13 Tonya Person PharmD [address] [place] [address] [phone] Pharmacist Internal Medicine 05/29/23 documented as of this encounter
--- OUTSIDE RECORDS SUMMARY | 2024-10-23 16:19 | XMS_ITS | Encounter Summary ---
Author Organization [employer] Address [address] [facility] [address] 7t [place] [address] Care Team Providers Care Telecommunication Tower Technician Name Role Phone JacquelineEricka Primary Care Provider [phone] Tonya Person PharmD Unavailable [phone] Reason for Visit * Reason Comments Med Refill Encounter Details Date Type Department Care Team ([facility] st Contact Info) Description 07/31/2023 Refill [facility] [address] [place] [address] Elmer Sidhu MD 230 [place] [address] Tobacco dependence Social History Tobacco Use Types [...] Info) Description 10/24/2024 2:30 PM EDT Telemedicine [address] [address] Tonya Person PharmD [address] [place] [address] 10/28/2024 2:00 PM EDT Office Visit [address] [address] Elmer Sidhu MD [address] [place] [address] 12/31/2024 9:15 AM EDT Office Visit [address] [address] Ericka Phillips DO [address] [place] [address] documented as of this encounter Goals Goal Patient Goal Type Associated Problems Recent Progress Patient-Stated? Author Patient will adhere to medication regimen General No Tonya Person PharmD Hemoglobin A1c < 7 Result Component 6.9( 11:39 AM EST) No Frank Personyssa PharmD Record your blood sugar as directed Result Component No Pusuzette Tonya PharmD Note: Use CGM, ensuring sensor is scanned at least once every 8 hours to capture 24H data. Check BG manually, as directed. documented as of this encounter Visit Diagnoses Diagnosis Tobacco dependence Tobacco use disorder documented in this encounter Additional Health Concerns Assessment Noted Time PHQ-9 Depression Total Score: 18 023 1:24 PM EDT documented as of this encounter Care Teams Telecommunication Tower Technician Relationship Specialty Start Date End Date Ericka Phillips DO 230 [place] [address] PCP - General Family Medicine 01/09/13 Tonya Person PharmD 230 [place] [address] Pharmacist Internal Medicine 05/29/23 documented as of this encounter
--- OUTSIDE RECORDS SUMMARY | 2024-10-23 16:19 | XMS_ITS | Encounter Summary ---
Author Organization [employer] Address [address] [facility] [address] 7[address] [place] [address] Care Team Providers Care Switchboard Operator Name Role Phone LuisEricka coreas Primary Care Provider [phone] Tonya Person PharmD Unavailable [phone] Reason for Visit * Reason Comments Med Refill Encounter Details Date Type Department Care Team ([facility] st Contact Info) Description 12/15/2023 Refill [facility] 230 [place] [address] Elmer Sidhu MD [address] [place] [address] Opioid dependence, uncomplicated (CMS/HCC) Social History Tobacco [...] Info) Description 10/24/2024 2:30 PM EDT Telemedicine [address] [address] Tonya Person PharmD [address] [place] [address] 10/28/2024 2:00 PM EDT Office Visit [address] [address] Elmer Sidhu MD [address] [place] [address] 12/31/2024 9:15 AM EDT Office Visit [address] [address] Ericka Phillips DO [address] [place] [address] documented as of this encounter Goals Goal [...] documented as of this encounter Care Teams Switchboard Operator Relationship Specialty Start Date End Date Ericka Phillips DO [address] [place] [address] PCP - General Family Medicine 01/09/13 Tonya Person PharmD [address] [place] [address] Pharmacist Internal Medicine 05/29/23 documented as of this encounter
--- OUTSIDE RECORDS SUMMARY | 2024-10-23 16:19 | XMS_ITS | Encounter Summary ---
Author Organization [employer] Address [address] [facility] [address] 7t [place] [address] Care Team Providers Care Therapist Occupational Name Role Phone LuisEricka coreas Primary Care Provider [phone] Tonya Person PharmD Unavailable [phone] Reason for Visit * Reason Onset Date Comments Med Refill 10/21/2024 Encounter Details Date Type Department Care Team (Late st Contact Info) Description 10/21/2024 Refill [facility] 230 [place] [address] Alba Keita RN Opioid dependence, uncomplicated (CMS/HCC) [...] PM EDT Telemedicine [facility] [address] [place] [address] Tonya Person, PharmD [address] [place] [address] 10/28/2024 2:00 PM EDT Office Visit [address] [address] Elmer Sidhu MD [address] [place] [address] 12/31/2024 9:15 AM EDT Office Visit [address] [address] Ericka Phillips DO [address] [place] [address] documented as of this encounter Goals Goal [...] documented as of this encounter Care Teams Therapist Occupational Relationship Specialty Start Date End Date Ericka Phillips DO 230 [place] [address] PCP - General Family Medicine 01/09/13 Tonya Person PharmD 230 [place] [address] Pharmacist Internal Medicine 05/29/23 documented as of this encounter
--- OUTSIDE RECORDS SUMMARY | 2024-10-23 16:19 | XMS_ITS | Clinical Summary ---
Author Organization [facility] Address [address] [place] [address] Care Team Providers Care Auto Body Technician Name Role Phone Provider, Conversion MD Primary [...] tongue to dissolve. 10 tablet 07/18/2024 Active Social History Tobacco Use Types Packs/Day Years [...] , 07/21/2021, Additional history exists COVID-19 Vaccine (2023- season) 2024 09/22/2023, 10/28/2020 HIV Screening Completed 02/20/2024 Pneumococcal Vaccine: Pediatric (0-5 Years) and At-Risk Patients (6 to 49 Years) Aged Out No longer eligible based on patient's age to complete this topic Care Teams Auto Body Technician Relationship Specialty Start Date End Date Provider, MD Dillon PCP - General 08/05/12
--- OUTSIDE RECORDS SUMMARY | 2024-10-23 16:19 | XMS_ITS | Encounter Summary ---
Author Organization [facility] Address [address] [place] [address] Phone Care Team Providers Care Hat Sizer Name Role Phone Ericka Phillips DO Primary Care Provider Unava ilable Encounter Details Date Type Department Care Team (Late st Contact Info) Description 08/23/2021 Documentation Only [facility], [address] [place] [address] James Tan MD [address] [place] [address] Social History Tobacco Use Types [...] on filedocumented in this encounter Care Teams Hat Sizer Relationship Specialty Start Date End Date Ericka Phillips DO PCP - General Family Medicine 10/29/19 documented as of this encounter
--- OUTSIDE RECORDS SUMMARY | 2024-10-23 16:19 | XMS_ITS | Encounter Summary ---
Author Organization [employer] Address [address] 7t [place] [address] Care Team Providers Care Front Desk Team Member Name Role Phone Ericka Phillips DO Primary Care Provider Tonya Person PharmD Unavailable [phone] Reason for Visit * Reason Onset Date Comments Appointment Request 09/18/2024 Encounter Details Date Type Department Care Team ([facility] st Contact Info) Description 09/18/2024 Telephone [facility] 230 [place] [address] Ericka Phillips DO 230 [place] [address] Appointment Request Social History Tobacco Use Types [...] a telephone visit. Please contact pt at [phone]. documented in this encounter Plan of Treatment Upcoming Encounters Date Type Department Care Team (Late st Contact Info) Description 10/24/2024 2:30 PM EDT Telemedicine [facility] [address] [place] [address] Tonya Person, PharmD 230 [place] [address] 10/28/2024 2:00 PM EDT Office Visit [facility] [address] [place] [address] Elmer Sidhu MD 230 [place] [address] 12/31/2024 9:15 AM EDT Office Visit [facility] [address] [place] [address] Ericka Phillips DO 230 [place] [address] documented as of this encounter Goals Goal [...] documented as of this encounter Care Teams Front Desk Team Member Relationship Specialty Start Date End Date Ericka Phillips DO [address] [place] [address] PCP - General Family Medicine 01/09/13 Tonya Person PharmD [address] [place] [address] Pharmacist Internal Medicine 05/29/23 documented as of this encounter
--- OUTSIDE RECORDS SUMMARY | 2024-10-23 16:19 | XMS_ITS | Encounter Summary ---
Author Organization [employer] Address [address] [facility] 7t [place] [address] Care Team Providers Care Fast Foods Worker Name Role Phone Ericka Phillips DO Primary Care Provider [phone] Tonya Person PharmD Unavailable Reason for Visit * Reason Onset Date Comments [facility] 09/25/2024 Disposable pad for incontinence, non-steril gloves (per box) Encounter Details Date Type Department Care Team ([facility] Contact Info) Description 09/25/2024 Telephone [facility] 230 [place], [place] [phone] Ericka Phillips DO 230 [place], [place] [phone] [facility] (Disposable pad for incontinence, non-steril [...] AM EST Re[facility] necessity [facility] for Disposable pad for incontinence, non-steril gloves (per box). Form has been placed on PCP's desk for their signature. documented in this encounter Plan of Treatment Upcoming Encounters Date Type Department Care Team (Late st Contact Info) Description 10/24/2024 2:30 PM EDT Telemedicine [address] [address] Tonya Person PharmD [address] [place] [address] 10/28/2024 2:00 PM EDT Office Visit [address] [address] Elmer Sidhu MD 230 [place] [address] 12/31/2024 9:15 AM EDT Office Visit [address] [address] Ericka Phillips DO [address] [place] [address] documented as of this encounter Goals Goal Patient Goal Type Associated Problems Recent Progress Patient-Stated? Author Patient will adhere to medication regimen General No Tonya Person, PharmD Hemoglobin A1c < 7 Result Component 6.9( 11:39 AM EST) No Tonya Person PharmDamian Record your blood sugar as directed [...] documented as of this encounter Care Teams Fast Foods Worker Relationship Specialty Start Date End Date Ericka Phillips DO [address] [place] [address] [phone] PCP - General Family Medicine 01/09/13 Tonya Person PharmD [address] [place] [address] Pharmacist Internal Medicine 05/29/23 documented as of this encounter
--- OUTSIDE RECORDS SUMMARY | 2024-10-23 16:19 | XMS_ITS | Encounter Summary ---
Author Organization [employer] Address [address] [facility] 7t [place] [address] Care Team Providers Care Associate Professor Of Media Arts Name Role Phone JacquelineEricka Primary Care Provider [phone] Tonya Person PharmD Unavailable [phone] Reason for Visit * Reason Onset Date Comments Forms/questionnaires 10/23/2024 Encounter Details Date Type Department Care Team ([facility] Contact Info) Description 10/23/2024 Telephone [facility] [address] [place] [address] Chely Enriquez, EMY [address] [place] [address] Forms/questionnaires Social History Tobacco Use Types Packs/Day Years [...] encounter Miscellaneous Notes * Telephone Encounter - Chely Enriquez RN - 10/23/2024 9:41 AM EDT Chronic conditions release of information form received from [employer]'s Medicare Advantage Plan. Form completed, signed, faxed back and confirmation received documented in this encounter Plan of Treatment Upcoming Encounters Date Type Department Care Team (Late st Contact Info) Description 10/24/2024 2:30 PM EDT Telemedicine [facility] [address] [place] [address] Tonya Person, PharmD [address] [place] [address] 10/28/2024 2:00 PM EDT Office Visit [facility] [address] [place] [address] Elmer Sidhu MD [address] [place] [address] 12/31/2024 9:15 AM EDT Office Visit [facility] [address] [place] [address] Ericka Phillips DO 230 [place] [address] documented as of this encounter Goals Goal [...] documented as of this encounter Care Teams Associate Professor Of Media Arts Relationship Specialty Start Date End Date Ericka Phillips DO [address] [place] [address] PCP - General Family Medicine 01/09/13 Tonya Person PharmD [address] [place] [address] Pharmacist Internal Medicine 05/29/23 documented as of this encounter
--- OUTSIDE RECORDS SUMMARY | 2024-10-23 16:19 | XMS_ITS | Clinical Summary ---
Author Organization [facility] Address [address] [place] [address] [place] [address] Phone Care Team Providers Care Roll Contour Grinder Name Role Phone Ericka Phillips DO Primary [...] (#1) 2024 Insurance MEDICAID [place] Care Teams Roll Contour Grinder Relationship Specialty Start Date End Date Ericka Phillips DO PCP - General Family Medicine 10/29/19
--- OUTSIDE RECORDS SUMMARY | 2024-10-23 16:20 | XMS_ITS | Clinical Summary ---
Author Organization [facility] Address [address] [place] [address] Care Team Providers Care Card Setter Name Role Phone Ericka Phillips DO Primary [...] age to complete this topic Care Teams Card Setter Relationship Specialty Start Date End Date Ericka Phillips DO [address] [place] [phone] PCP - General Family Medicine 03/06/17
--- OUTSIDE RECORDS SUMMARY | 2024-10-23 16:20 | XMS_ITS | Encounter Summary ---
Author Organization [employer] [facility] Address [address] [place] [address] 7t [place] [address] Care Team Providers Care Strip Machine Operator Name Role Phone Ericka Phillips DO Primary Care Provider [phone] Tonya Person PharmD Unavailable Reason for Visit * Reason Comments Med Refill Encounter Details Date Type Department Care Team (Late st Contact Info) Description 04/13/2023 Refill [facility] [address] [place] [address] Ericka Phillips DO [address] [place] [address] Seasonal allergic rhinitis, unspecified trigger Social History [...] 2:30 PM EDT Telemedicine [facility] [address] [place] [address] RolandoiaTonya, PharmD [address] [place] [address] 10/28/2024 2:00 PM EDT Office Visit [facility] [address] [place] [address] Elmer Sidhu MD 230 [place] [address] 12/31/2024 9:15 AM EDT Office Visit [facility] [address] [place] [address] Ericka Phillips DO [address] [place] [address] documented as of this encounter Visit Diagnoses Diagnosis Seasonal allergic rhinitis, unspecified trigger documented in this encounter Care Teams Strip Machine Operator Relationship Specialty Start Date End Date Ericka Phillips DO [address] [place] [phone] PCP - General Family Medicine 01/09/13 Tonya Person PharmD [address] [place] [address] [phone] Pharmacist Internal Medicine 05/29/23 documented as of this encounter
--- OUTSIDE RECORDS SUMMARY | 2024-10-23 16:20 | XMS_ITS | Encounter Summary ---
Author Organization [employer] [facility] Address [address] [place] [address] 7t [place] [address] Care Team Providers Care Tailings Dam Pumper Name Role Phone Ericka Phillips Primary Care Provider [phone]- [phone] PuTonya bradford PharmD Unavailable [phone] Encounter Details Date Type Department Care Team (Late st Contact Info) Description 08/26/2022 Orders Only [facility] [address] [place] [address] Alba Keita RN Uncomplicated opioid dependence ([facility]) Social History Tobacco Use Types [...] Info) Description 10/24/2024 2:30 PM EDT Telemedicine [facility] [address] [place] [address] Puia, Tonya, PharmD [address] [place] [address] 10/28/2024 2:00 PM EDT Office Visit [facility] [address] [place] [address] Elmer Sidhu MD [address] [place] [address] 12/31/2024 9:15 AM EDT Office Visit [facility] [address] [place] [address] Ericka Phillips DO [address] [place] [address] Scheduled Orders Name Type Priority Associated Diagnoses [...] (CMS/HCC) documented in this encounter Care Teams Tailings Dam Pumper Relationship Specialty Start Date End Date Ericka Phillips DO [address] [place] [address] PCP - General Family Medicine 01/09/13 Tonya Person, DavidD [address] [place] [address] Pharmacist Internal Medicine 05/29/23 documented as of this encounter
--- OUTSIDE RECORDS SUMMARY | 2024-10-23 16:20 | XMS_ITS | Encounter Summary ---
Author Organization [employer] [facility] Address [address] [place] [address] 7t [place] [address] Care Team Providers Care Anode Rebuilder Name Role Phone NatividadEricka nguyen Primary Care Provider [phone]- [phone] Tonya Person PharmD Unavailable Encounter Details Date Type Department Care Team (Latest Contact Info) Description 05/06/2021 Abstract [facility] CONVERSIONS Dental, Provider, DDS Social [...] Info) Description 10/24/2024 2:30 PM EDT Telemedicine [facility] [address] [place] [address] Tonya Person, PharmD [address] [place] [address] 10/28/2024 2:00 PM EDT Office Visit [address] [address] Elmer Sidhu MD [address] [place] [address] 12/31/2024 9:15 AM EDT Office Visit [address] [address] Ericka Phillips DO [address] [place] [address] documented as of this encounter Visit Diagnoses Not on filedocumented in this encounter Care Teams Anode Rebuilder Relationship Specialty Start Date End Date Ericka Phillips DO [address] [place] [address] PCP - General Family Medicine 01/09/13 Tonya Person, DavidD [address] [place] [address] Pharmacist Internal Medicine 05/29/23 documented as of this encounter
--- OUTSIDE RECORDS SUMMARY | 2024-10-23 16:20 | XMS_ITS | Clinical Summary ---
Author Organization Chloe + Isabel [facility] Address [address] [facility] [address] [place] [address] Care Team Providers Care Utilization Management Um Nurse Name Role Phone LuisEricka coreas Primary Care Provider [phone] Tonya Person PharmD Unavailable [phone] Allergies No known active allergies Medications [...] Blood Glucose Monitoring Suppl (FreeStyle Lite) w/Device kitIndications:T ype 2 diabetes mellitus without complication, with long-term current use of insulin ([facility]) 1 kit 3 times daily. 1 kit 023 Active Continuous Blood Gluc Parts Inspector (FreeStyle Starla 2 [place]) device 1 each 3 times daily. 1 each 023 Active albuterol 108 (90 Base) MCG/ACT inhaler Inhale 2 puffs every 4 (four) hours if needed for wheezing or shortness of breath. 18 g 1 023 Active UltiGuard SafePack Pen Needle 32G X 4 MM miscIndications: Type 2 diabetes mellitus with other specified complication, unspecified whether shelter insulin use (CMS/HCC) USE THREE TIMES DAILY 100 each 11 023 Active lamoTRIgine (LaMICtal) 100 MG tablet TAKE 1 TABLET BY MOUTH AT BEDTIME DIRECTED Active estradiol (Estrace) 0.1 MG/GM vaginal cream Insert 1 g into the vagina in the morning. 1g vaginally x 14d, then twice weekly thereafter 45 g 2 024 Active docusate sodium (Colace) 100 MG capsuleIndicatio ns:Chronic constipation TAKE 1 CAPSULE BY MOUTH TWICE DAILY AT NOON AND BEDTIME 180 capsule 1 024 Active Tirzepatide (Mounjaro) 5 MG/0.5ML solution pen-injectorIndi cations:Type 2 diabetes mellitus with stage 3 chronic kidney disease, without long-term current use of insulin, unspecified whether stage 3a or 3b CKD ([facility]) Inject 5 mg under the skin 1 (one) time per week. 2 mL 11 024 Active meclizine (Antivert) 25 MG tablet TAKE 1 TABLET BY MOUTH TWICE DAILY IN THE MORNING AND AT BEDTIME NEEDED FOR DIZZINESS 20 tablet Active gabapentin (Neurontin) 400 MG capsuleIndicatio ns:Fibromyalgia Take 1 capsule (400 mg) by mouth 2 times daily. 60 capsule 024 2024 Active Continuous Glucose Sensor (FreeStyle Starla 2 Sensor) [facility] USE DIRECTED TO TEST BLOOD SUGAR THREE TIMES DAILY CHANGE EVERY 14 DAYS 2 each Active empagliflozin (Jardiance) 10 MGIndications:Ty pe 2 diabetes mellitus with stage 3 chronic kidney disease, without long-term current use of insulin, unspecified whether stage 3a or 3b CKD ([facility]) Take 1 tablet (10 mg) by mouth Once per day. 90 tablet 1 Active insulin lispro (HumaLOG) 100 UNIT/ML injectionIndicat ions:Type 2 diabetes mellitus with stage 3 chronic kidney disease, without long-term current use of insulin, unspecified whether stage 3a or 3b CKD ([facility]) Inject 24 Units under the skin with evening meal. 15 mL 3 024 Active metFORMIN XR (Glucophage-XR) 500 MG 24 hr tabletIndication s:Type 2 diabetes mellitus with stage 3 chronic kidney disease, without long-term current use of insulin, unspecified whether stage 3a or 3b CKD (CMS/HCC) TAKE 1 TABLET BY MOUTH ONCE DAILY WITH DINNER 90 tablet 1 Active rosuvastatin (Crestor) 20 MG tablet Take 20 mg by mouth Once per day. Active metoprolol succinate XL (Toprol-XL) 25 MG 24 hr tablet TAKE 1 TABLET BY MOUTH ONCE DAILY. DO NOT BREAK, CRUSH, DISSOLVE OR CHEW. 90 tablet 3 Active levothyroxine (Synthroid, Levoxyl) 88 MCG tabletIndication s:Hypothyroidism , unspecified type TAKE 1 TABLET BY MOUTH EVERY MORNING 90 tablet 1 024 Active varenicline (Chantix) 1 MG tabletIndication s:Tobacco dependence Take 1 tablet (1 mg) by mouth 2 times daily. Take with full glass of water. 60 tablet 5 Active glucose blood (FreeStyle Precision Tanner Test) test strip USE DIRECTED TO TEST BLOOD SUGAR UP TO THREE TIMES DAILY 100 strip 5 Active eszopiclone (Lunesta) 2 MG tablet Take 2 mg by mouth if needed at bedtime for sleep. Active hydroCHLOROthiaz luke 12.5 MG tablet Take 1 tablet by [...] of candidiasis. Do not swallow. 1 each 2025 Active Icosapent Ethyl (Vascepa) 1 g capsuleIndicatio ns:Type 2 diabetes mellitus with stage 3 chronic kidney disease, without long-term current use of insulin, unspecified whether stage 3a or 3b CKD (CMS/HCC),Kim ry arteriosclerosis ,Other hyperlipidemia TAKE 2 CAPSULES TWICE DAILY WITH BREAKFAST AND WITH DINNER 120 capsule 11 Active DULoxetine (Cymbalta) [address] capsule Take 1 capsule by mouth Once per day. 01/21/2 025 Active albuterol (2.5 MG/3ML) 0.083% nebulizer solution INHALE 1 AMPULE USING A NEBULIZER EVERY 6 HOURS NEEDED FOR WHEEZING OR SHORTNESS OF BREATH 90 mL 1 025 Active Aspirin Adult Low Strength 81 MG EC tabletIndication s:Type 2 diabetes mellitus with other specified complication, unspecified whether shelter insulin use ([facility]) TAKE 1 TABLET BY MOUTH EVERY DAY AT NOON 90 tablet 025 Active insulin degludec (Tresiba FlexTouch) 200 UNIT/ML injectionIndicat ions:Type 2 diabetes mellitus with stage 3 chronic kidney disease, without long-term current use of insulin, unspecified whether stage 3a or 3b CKD ([facility]) INJECT 74 UNITS SUBCUTANEOUSLY EVERY DAY IN THE EVENING 9 mL 025 Active Buprenorphine HCl-Naloxone HCl (Suboxone) 8-2 MG SL filmIndications: Opioid dependence, uncomplicated ([facility]) Place 1 Film under the tongue 3 times daily. 84 Film 1 025 2024 Active Aspirin Adult Low Strength 81 MG EC tabletIndication s:Type 2 diabetes mellitus with other specified complication, unspecified whether continuous churn buttermaker insulin use ([facility]) TAKE 1 TABLET BY MOUTH EVERYDAY AT NOON 90 tablet 1 024 2024 Discontinued insulin degludec (Tresiba FlexTouch) 200 UNIT/ML injectionIndicat ions:Type 2 diabetes mellitus with stage 3 chronic kidney disease, without long-term current use of insulin, unspecified whether stage 3a or 3b CKD ([facility]) INJECT 74 UNITS SUBCUTANEOUSLY EVERY DAY IN THE EVENING 9 mL 5 024 2024 Discontinued albuterol (2.5 MG/3ML) 0.083% nebulizer solution INHALE 1 AMPULE USING A NEBULIZER EVERY 6 HOURS NEEDED FOR WHEEZING OR SHORTNESS OF BREATH 90 mL 1 024 2024 Discontinued Buprenorphine HCl-Naloxone HCl (Suboxone) 8-2 MG SL filmIndications: Opioid dependence, uncomplicated ([facility]) Place 1 Film under the tongue 3 times daily for 28 days. 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 -f w hemstitcher 10/17 -Referred for renal image and labs [...] MH services PLAN: 1. Follow up with [facility]: Recommended for follow-up: during OBAT appt 2. Patient goal is to improve mental health 3. Behavioral Recommendations a. Ind. Therapy, referral will be submitted. b. Use of coping skills provided c. [facility] contact info for support Bipolar disorder 07/30/2015 Carpal tunnel syndrome 07/30/2015 Chronic pain syndrome 07/30/2015 Chronic gastroesophageal reflux disease 07/30/20 15 Hyperlipidemia 07/30/2015 Polysubstance dependence 07/30/2015 Posttraumatic stress disorder 07/30/2015 Vitamin D deficiency 07/30/2015 Resolved Problems Problem Noted Date Diagnosed Date Resolved Date Missing teeth, acquired 02/26/2024/0 02/2025 Loud snoring 10/17/2023 08/20/2024 Assessment & Plan (10/17/2023 7:16 PM EST): -Referred today to sleep med for fatigue,loud snoring and obesity to r/o BHANU Hepatitis A antibody positive 11/16/2020 01/04/2024 Knee pain 07/30/2015 08/20/2024 Encounters Date Type Department Care Team Description 10/23/2024 10:00 AM EDT Office Visit [facility] [address] [place] [address] Bassam, Odalys, OD Presbyopia (Primary Dx) 10/23/2024 Travel 10/23/2024 Telephone [facility] [address] [place] [address] Chely Enriquez, EMY Forms/questionnaires 10/22/2024 Refill [facility] [address] [place] [address] Alba Keita RN Opioid dependence, uncomplicated [place] 10/21/2024 Refill [facility] [address] [place] [address] Alba Keita RN Opioid dependence, uncomplicated ([facility]) 10/21/2024 Refill [facility] [address] [place] [address] Alba Keita RN Opioid dependence, uncomplicated [place] 10/18/2024 Travel 10/18/2024 Refill [facility] [address] [place] [phone] Elmer Sidhu MD Opioid dependence, uncomplicated [place] 10/14/2024 Telephone [facility] [address] [place] [phone] Ericka Phillips DO DME Order Form (DME-Incontinence Order Form([employer])) 10/13/2024 Refill [facility] [address] [place] [phone] Tonya Person PharmD Type 2 diabetes mellitus with stage 3 chronic kidney disease, without long-term current use of insulin, unspecified whether stage 3a or 3b CKD ([facility]) 09/29/2024 Refill [facility] [address] [place] [phone] Ericka Phillips DO Type 2 diabetes mellitus with other specified complication, unspecified whether shelter insulin use ([facility]) 09/27/2024 Refill [facility] [address] [place] [phone] Ericka Phillips DO 09/25/2024 Telephone [facility] [address] [place] [phone] Ericka Phillips DO [facility] (Disposable pad for incontinence, non-steril gloves (per box)) 09/23/2024 Orders Only [facility] [address] [place] [phone] Ericka Phillips DO Adenocarcinoma of large intestine (CMS/HCC) (Primary Dx) 09/18/2024 Telephone [facility] [address] [place] [address] Ericka Phillips DO Appointment Request 09/11/2024 Telephone [facility] [address] [place] [address] Dianelys GracielaMICHELLE sena november Recall 09/06/2024 2:30 PM EST Office Visit [facility] [address] [place] [address] Bassam, Odalys, OD Diabetes mellitus without ophthalmic manifestations (CMS/HCC) (Primary Dx); Suspicious optic nerve cupping of both eyes; Dry eye syndrome of both eyes; Combined forms of age-related cataract of both eyes; Presbyopia 09/06/2024 Travel 08/30/2024 9:45 AM EST Telemedicine [facility] [address] [place] [address] Alba Keita RN Uncomplicated opioid dependence (CMS/HCC) 08/30/2024 Travel 08/22/2024 Refill [facility] [address] [place] [address] Tonya Person PharmD Type 2 diabetes mellitus with stage 3 chronic kidney disease, without long-term current use of insulin, unspecified whether stage 3a or 3b CKD (CMS/HCC); Coronary arteriosclerosis; Other hyperlipidemia 08/20/2024 11:30 AM EST Office Visit [facility] [address] [place] [address] Ericka Phillips DO Type 2 diabetes mellitus [...] of breast 08/20/2024 Travel 08/13/2024 Patient Outreach [facility] [address] [place] [phone] Ericka Phillips DO Pre-visit Planning ([facility] screening completed on 09/14/2023) 08/05/2024 Refill [facility] [address] [place] [address] Ericka Phillips DO 08/05/2024 Refill [facility] [address] [place] [address] Alba Keita RN from Last 3 Months Immunizations Name Administration Dates Next Due Hep A, Adult 01/16/2024(Deferred: No longer needed - immune per titers) Hep B, adult 01/16/2024(Deferred: No longer needed - immune per titers) HepB-CpG 06/28/2022 Influenza Injectable Quadriv alant Preservative Free IIV4 MDCK 06/28/2022 Influenza injectable quadriv alent preservative free 09/22/2023,07/21/2021,09/25/2018 Influenza, IIV3, injectable 05/22/2014 Influenza, Split (incl. khurram fied surface antigen) 05/31/2013,05/07/2012 Headroom SARS-CoV-2 Vaccination 10/28/2020 Pfizer Covid-19 Vaccine 12+ [...] EDT Telemedicine [facility] [address] [place] [phone] Tonya Person, Cruz [address] [place] [phone] 10/28/2024 2:00 PM EDT Office Visit [address] [phone] Elmer Sidhu MD [address] [place], [place] [phone] 12/31/2024 9:15 AM EDT Office Visit [address] [phone] Ericka Phillips DO [address] [place], [place] [phone] Health Maintenance Due Date Last Done Comments [...] Additional history exists Lipid Panel 07/08/2025 07/08/2024, 04/2024, 04/19/2023, Additional history exists Alcohol/Substance Use [...] Procedure Name Priority Date/Time Associated Diagnosis Comments US ABDOMEN COMPLETE Routine 10/07/2024 8 :45 AM EST Elevated LFTs OCT, OPTIC NERVE - OU - BOTH [...] whether stage 3a or 3b CKD (CMS/HCC) LIPID PANEL, STANDARD Routine 07/08/2024 12:10 PM [...] Recently Relevant to Health Maintenance Results * US Abdomen Complete (10/07/2024 8:45 AM EST) Anatomical Region Laterality Modality Abdomen Ultrasound 10/07/2024 8:45 AM EST Narrative 10/07/2024 8:46 AM EST ? [facility] ?[address] ?[place] [address] ? Ultrasound Report ? Signed ? Patient: Anuradha Palacio ?MR#: M ?? [id number] ? : 1965 ?Acct:[id number] ? Age/Sex: 59 / F ?ADM Date: 10/07/24 ? Loc: HO.US ? Attending Dr: Ericka Phillips DO ? Ordering Physician: Ericka Phillips DO ?? Date of Service: 10/07/24 ?? Procedure(s): US abdomen complete ?? Accession Number(s): [id number] ? cc: Ericka Phillips DO ? CLINICAL HISTORY: ELEVATED LFTS, CALCULUS OF KIDNEY,PAIN ? US abdomen complete ? Comparison: 09/19/2023 ? Findings: ?? The visualized pancreas is normal. ?? The aorta and inferior vena cava are normal caliber. ? The appearance of the liver suggests fatty infiltration without focal ?? lesion. ?? There is no intrahepatic bile duct dilatation. ?? The common duct is 12 mm in diameter. ?? There are no abnormal findings in the gallbladder fossa. ?? There is no sonographic Goldman sign. ?? The main portal vein is antegrade. ? The right kidney is 10.5 cm in length. ?? The left kidney is 11.0 cm in length. ?? There are bilateral renal parenchymal calculi. ?? The spleen is normal. ?? No ascites. ? IMPRESSION: ?? 1. Hepatic steatosis. ? This document has been electronically signed by: Dao Andrade MD on ?? 10/07/2024 08:45:29 ? Dictated By: ?Dao Andrade MD ? Signed By: ?<Electronically signed by Dao Andrade MD in OV> ?10/07/24 0846 ? DD/ 0845 ? TD/TT: 10/07/24 0845 ? [employer]: ? Procedure Note Donotcierainterpreter, Image - 10/07/2024 [place] [address] Ultrasound Report Signed Patient: Devan Palacio#: M [id number] : 1965Acct:[id number] Age/Sex: 59 / FADM Date: 10/07/24 Loc: HO.US Attending Dr: Ericka Phillips DO Ordering Physician: Ericka Phillips DO Date of Service: 10/07/24 Procedure(s): US abdomen complete Accession Number(s): [id number] cc: Ericka Phillips DO CLINICAL HISTORY: ELEVATED LFTS, CALCULUS OF KIDNEY,PAIN US abdomen complete Comparison: 09/19/2023 Findings: The visualized pancreas is normal. The aorta and inferior vena cava are normal caliber. The appearance of the liver suggests fatty infiltration without focal lesion. There is no intrahepatic bile duct dilatation. The common duct is 12 mm in diameter. There are no abnormal findings in the gallbladder fossa. There is no sonographic Goldman sign. The main portal vein is antegrade. The right kidney is 10.5 cm in length. The left kidney is 11.0 cm in length. There are bilateral renal parenchymal calculi. The spleen is normal. No ascites. IMPRESSION: 1. Hepatic steatosis. This document has been electronically signed by: Dao Andrade MD on 10/07/2024 08:45:29 Dictated By: Dao Andrade MD Signed By: <Electronically signed by Dao Andrade MD in OV> 10/07/2446 DD/ TD/TT: 10/07/24844 [employer]: Ericka Phillips DO IMG US PROCEDURES Final Resu lt * (ABNORMAL) POCT HGB A1C (08/20/2024 11:39 AM EST) Hemoglobin A1C 6.9(A) 4.0 - 6.0 % QC Media Lot # [id number] Lot# Expiration Date 535 Blood 08/20/2024 11:3 9 AM EST Ericka Phillips DO POINT OF CARE TEST ENTER/TAMMIE T ORDERABLES Final Result * POCT Glucose (08/20/2024 11:36 AM EST) Glucose Blood, POC 124 60 - 200 mg/dL QC Media Lot # [id number] Lot# Expiration Date Blood Capillary blood specimen / Unknown 08/20/2024 11:36 AM EST Ericka Phillips DO POINT OF CARE TEST ENTER/TAMMIE T ORDERABLES Final Result * (ABNORMAL) Lipid Panel, Standard (07/08/2024 12:10 PM EST) Triglycerides 277(H) <150 mg/dL [facility] Comment:Desirable Triglyceri de: less than 150 mg/dLBorderline High Triglyceride 150-199 mg/dLHigh Triglyceride: 200-499 mg/dLVery High Triglyceride: greater than or equal to 5OO mg/dL Cholesterol 297(H) <200 mg/dL [facility] Comment:Desirable Cholestero l: less than 200 mg/dLBorderline High Cholesterol: 200-239 mg/dLHigh Cholesterol: greater than 239 mg/dL LDL Cholesterol Calculated 205(H) <100 mg/dL [facility] Comment:Desirable LDL: less than 100 mg/dLNear Optimal/Above Optimal LDL: 110- 129 mg/dLBorderline High LDL: 130-159 mg/dLHigh LDL: 160-189 mg/dLVery High LDL: greater than or equal to 190 mg/dL HDL Cholesterol 37(L) >40 mg/dL [facility] Comment:Desirable HDL: great er than 40 mg/dL Note: This HDL assay may give artificially low results in patients with liver disease. Blood Venous blood specimen / Unknown 07/08/2024 12:10 PM EST 07/08/2024 1:10 PM EST us Dee Nixon MD LAB BLOOD ORDERAB LES Final Result Performing Organization Address [facility] Co de Phone Number [facility] [address] [place] [phone] * (ABNORMAL) Hepatitis C Antibody with Reflex to HCV, RNA, Quantitative, Real- Time PCR (02/20/2024 8:16 AM EDT) Hepatitis C Antibody Reactive( A) Nonreactive [facility] Comment:Presumptive evidence of antibodies to HCV. Blood Venous blood specimen / Unknown 02/20/2024 8:16 AM EDT 02/20/2024 11:17 AM EDT us Ericka Phillips DO LAB BLOOD ORDERABLES Final R esult Performing Organization Address [facility] Co de Phone Number [facility] [address] [place] [phone] * HIV-1/2 Antigen and Antibodies, Fourth Generation, with Reflexes (02/20/2024 8:16 AM EDT) HIV AB/AG Nonreactive Nonreactive [facility] Comment:HIV-1 p24 Ag and/or HIV-1/HIV-2 Ab not detected.A test result that is nonreactive does not exclude thepossibility of exposure to or infection with HIV-1 and/orHIV-2. Nonreactive results in this assay for individualswith prior exposure to HIV-1 and/or HIV-2 may be due toantigen and antibody levels that are below the limit ofdetection of this assay.The MadeiraMadeiraniCono-C HIV Ag/Ab Combo assay result andsupplemental assay results should be interpreted inconjunction with the patient's clinical presentation,history and other laboratory results. If the results areinconsistent with clinical evidence, additional testing issuggested to confirm the result. Blood Venous blood specimen / Unknown 02/20/2024 8:16 AM EDT 02/20/2024 11:17 AM EDT us Ericka Phillips DO LAB BLOOD ORDERABLES Final R esult [facility] [address] [place] [phone] * HPV mRNA E6/E7 w/Reflex to HPV Genotypes 16, 18/45 (11/13/2023 1:38 PM EDT) HPV nRNA E6/E7 Not Detected Not Detected [facility] Comment:Methodology: Transcr iption-Mediated AmplificationThis assay detects E6/E7 viral messenger RNA (mRNA) from 14high-risk HPV types (16,18,31,33,35,39,45,51,52,56,58,59,66,68).Cervical sources are required for HPV testing.If a vaginal source from a patient who has had atotal hysterectomy with removal of cervix wassubmitted, please contact the testing laboratoryfor alternative testing options.For additional information, please refer tohttp://education.[employer] Sense/faq/SWA658t4(This link if provided for information/educational purposes only.)THIS TEST WAS PERFORMED AT:[facility] [place] [phone] TUTTLE MD HPV mRNA E6/E7 [facility] HPV 16 RNA [facility] HPV 18/45 RNA [facility] 11/13/2023 1:38 PM EDT 11/14/2023 7:00 AM EDT us Mady Epperson [facility] CYTOLOGY ORDERABLES F inal Result [facility] [address] [place] [address] [phone] * Pap Smear (11/13/2023 1:38 PM EDT) Swab Cervix uteri structure / Unknown 11/13/2023 1:38 PM EDT 11/14/2023 7:00 AM EDT Leticia [facility] - 12/01/2023 9:23 AM EDT ----- ------- Name: Anuradha Palacio ?Age/Sex: 58/F ? : 1965 Unit#: [id number] ?? Attend Dr: MADY EPPERSON [facility] ?Re11/13/23 ?Status: DEP REF ? Location: HO.HHCLNP ? Disch: ? ----- ------- SPEC : [id number] ? RECD: 11/14/23-699 ? STATUS: ??SOUT ? REQ NUM: [id number] ? RADHA: 11/13/23 ? SUBM DR: MADY EPPERSON CNM ? ENTERED: ??11/14/23 ?SP TYPE: Pap Smr ?OTHR DR: ? ORDERED: ??Pap Smear ? Interpretation ?? Satisfactory for evaluation. ?? Negative for intraepithelial lesion or malignancy. ?HPV mRNA E6/E7: ?NOT DETECTED ? This assay detects E6/E7 viral messenger RNA (mRNA) from 14 high-risk HPV types (16, 18, ?? 31, 33, 35, 39, 45, 51, 52, 56, 58, 59, 66, 68) ?? HPV testing performed by [facility], [place], [place]. ??See reference laboratory ?? portion of the EMR for entire report. ?Clinical Information LMP: Unknown date Previous PAP test: Unknown date/findings ? Material Received ?? ThinPrep-Vaginal/Cervical ----- ------- Signed (signature on file) FLEX [facility] ([facility]) 12/01/23 0923 ? ----- ------- ? END OF REPORT ? us Mady Epperson [facility] CYTOLOGY ORDERABLES F inal Result [facility] [address] [place] [address] [phone] * BI Mammogram Screening Tomosynthesis Bilateral (05/08/2023 4:07 PM EDT) Anatomical Region Laterality Modality Breast Bilateral Mammography 05/08/2023 4:07 PM EDT Narrative 05/23/2023 3:26 PM EDT ? [facility] ? [address] [facility] [address] ?[place] [address] ? Mammography Report ? Signed ? Patient: Anuradha Ahn ?MR#: M ?? [id number] ? : 1965 ?Acct:[id number] ? Age/Sex: 57 / F ?ADM Date: 09/25/23 ? Loc: HO.MAMMO ? Attending DrRomero Phillips DO ? Ordering Physician: Ericka Phillips DO ?Results: 1N ?? egative ? Date of Service: 05/08/23 ?Follow Up: 1 Year From Orig ?? inal Mammogram ? Procedure(s): MM tomosynthesis screening BI ?? Accession Number(s): [id number] ? cc: Ericka Phillips DO ? EXAMINATION: [...] by Carmen Sol MD in OV> ? 10/10/23 1522 ? DD/DT: 05/08/ 1607 ? TD/TT: ? [employer]: ? Procedure Note Donotuseinterpreter, Image - 05/23/2023 [place] [facility] [address] [place] [address] Mammography Report Signed Patient: Devan Ahn#: M [id number] : 1965Acct:[id number] Age/Sex: 57 / FADM Date: 05/08/23 Loc: HO.MAMMO Attending Dr: Ericka Phillips DO Ordering Physician: Ericka Phillipsults: 1N egative Date of Service: 05/08/23Follow Up: 1 Year From Orig inal Mammogram Procedure(s): MM tomosynthesis screening BI Accession Number(s): [id number] cc: Ericka Phillips DO EXAMINATION: MM SCREENING [...] in OV> 05/23/23 1522 DD/ 1607 TD/TT: Preformer [employer]: Ericka Phillips DO IMG BI PROCEDURES Final Resu lt from Last 3 Months or Most Recently Relevant to Health Maintenance Insurance * Guarantor: Anuradha Palacio Account Type Relation to Patient Date of Phone Billing Address Personal/Family Self [address] Care Teams Utilization Management Um Nurse Relationship Specialty Start Date End Date Ericka Phillips DO [address] [place] [address] PCP - General Family Medicine 01/09/13 Tonya Person, Cruz [address] [place] [address] Pharmacist Internal Medicine 05/29/23
--- OUTSIDE RECORDS SUMMARY | 2024-10-23 16:20 | XMS_ITS | Encounter Summary ---
Author Organization [facility] Address [address] [facility] 7t [place] [address] Care Team Providers Care Kitchen Steward/Stewardess Name Role Phone JacquelineEricka Primary Care Provider [phone] Tonya Person PharmD Unavailable [phone] Reason for Visit * Reason Onset Date Comments filling fell out RCT 03/29/2024 Encounter Details Date Type Department Care Team ([facility] Contact Info) Description 03/29/2024 Telephone [facility] [address] [place] [address] Jacob-FournierRichieLynette, DDS [address] [place] [address] filling fell out RCT Social History Tobacco [...] until 04/05. If so pls coordinate with front end application developer for scheduling and to reach out patient to let her know whereshe stands DR documented in this encounter Plan of Treatment Upcoming Encounters Date Type Department Care Team (Late st Contact Info) Description 10/24/2024 2:30 PM EDT Telemedicine [facility] [address] [place] [phone] Tonya Person, DavidD [address] [place] [address] 10/28/2024 2:00 PM EDT Office Visit [facility] [address] [place] [phone] Elmer Sidhu MD [address] [place] [address] 12/31/2024 9:15 AM EDT Office Visit [facility] [address] [place] [address] Ericka Phillips DO [address] [place] [address] documented as of this encounter Goals Goal [...] documented as of this encounter Care Teams Kitchen Steward/Stewardess Relationship Specialty Start Date End Date Ericka Phillips [address] [place] [address] PCP - General Family Medicine 01/09/13 Tonya Person, PharmD [address] [place] [phone] Pharmacist Internal Medicine 05/29/23 documented as of this encounter
--- OUTSIDE RECORDS SUMMARY | 2024-10-23 16:20 | XMS_ITS | Encounter Summary ---
Author Organization [employer] [facility] Address [address] [place] [address] 7t [place] [address] Care Team Providers Care Beam Warper Name Role Phone Ericka Phillips DO Primary Care Provider [phone] Tonya Person PharmD Unavailable [phone] Encounter Details Date Type Department Care Team (Late st Contact Info) Description 08/26/2022 Orders Only [facility] [address] [place] [phone] Alba Keita RN Social History Tobacco Use [...] Info) Description 10/24/2024 2:30 PM EDT Telemedicine [facility] [address] [place] [phone] PuiaFrankTonya, PharmD [address] [place] [phone] 10/28/2024 2:00 PM EDT Office Visit [facility] [address] [place] [address] Elmer Sidhu MD [address] [place] [phone] 12/31/2024 9:15 AM EDT Office Visit [facility] [address] [place] [address] Ericka Phillips DO [address] [place] [address] documented as of this encounter Visit Diagnoses Not on filedocumented in this encounter Care Teams Beam Warper Relationship Specialty Start Date End Date Ericka Phillips DO [address] [place] [phone] PCP - General Family Medicine 01/09/13 Tonya Person PharmD [address] [place] [phone] Pharmacist Internal Medicine 05/29/23 documented as of this encounter
--- OUTSIDE RECORDS SUMMARY | 2024-10-23 16:20 | XMS_ITS | Encounter Summary ---
Author Organization [employer] [facility] Address [address] [place] [address] 7t [place] [address] Care Team Providers Care Visiting Professor Name Role Phone Ericka Phillips DO Primary Care Provider [phone] Tonya Person PharmD Unavailable Reason for Visit * Reason Comments Med Refill Encounter Details Date Type Department Care Team (Late Contact Info) Description 03/27/2023 Refill [facility] [address] [place] [phone] Ericka Phillips DO [address] [place] [phone] Social History Tobacco Use Types Packs/Day Years [...] Upcoming Encounters Date Type Department Care Team ([facility] Contact Info) Description 10/24/2024 2:30 PM EDT Telemedicine [facility] [address] [place] [phone] Tonya Person, PharmD [address] [place] [address] 10/28/2024 2:00 PM EDT Office Visit [facility] [address] [place] [address] [phone] Elmer Sidhu MD [address] [place] [address] 12/31/2024 9:15 AM EDT Office Visit [facility] [address] [place] [address] Ericka Phillips DO [address] [place] [address] documented as of this encounter Visit Diagnoses Not on filedocumented in this encounter Care Teams Visiting Professor Relationship Specialty Start Date End Date Ericka Phillips DO [address] [place] [address] PCP - General Family Medicine 01/09/13 Tonya Person PharmD [address] [place] [phone] Pharmacist Internal Medicine 05/29/23 documented as of this encounter
--- OUTSIDE RECORDS SUMMARY | 2024-10-23 16:20 | XMS_ITS | Encounter Summary ---
Author Organization [employer] Address [address] [facility] [address] [place] [address] Care Team Providers Care Chaperon Name Role Phone LuisEricka coreas Primary Care Provider [phone] Tonya Person PharmD Unavailable [phone] Reason for Visit * Reason Comments Med Refill Encounter Details Date Type Department Care Team ([facility] st Contact Info) Description 04/08/[address] [facility] [address] [place] [address] Elmer Sidhu MD [address] [place] [address] Opioid dependence, uncomplicated (CMS/HCC) Social History Tobacco [...] Info) Description 10/24/2024 2:30 PM EDT Telemedicine [address] [address] Tonya Person PharmD [address] [place] [address] 10/28/2024 2:00 PM EDT Office Visit [address] [address] Elmer Sidhu MD [address] [place] [address] 12/31/2024 9:15 AM EDT Office Visit [address] [address] Ericka Phillips DO [address] [place] [address] documented as of this encounter Goals Goal [...] documented as of this encounter Care Teams Chaperon Relationship Specialty Start Date End Date Ericka Phillips DO [address] [place] [address] PCP - General Family Medicine 01/09/13 Tonya Persno PharmD [address] [place] [address] Pharmacist Internal Medicine 05/29/23 documented as of this encounter
== END 2024-10-23 13:51 | disposition home or self-care (01) ==
LOC: HO.CT 13:50
PROVIDERS: PCP Family Medicine; Visit Provider Internal Medicine
DX: Z85.038 Personal history of other malignant neoplasm of large intestine (principal)
CPT/HCPCS: 71250; 74176

== ENCOUNTER → 2024-10-23 13:52 | Outpatient (BNV) | payer MEDICARE, SELFPAY | PROVIDERS: PCP Family Medicine; Visit Provider Specialist | DX: N20.0 Calculus of kidney (principal); N83.202 Unspecified ovarian cyst, left side; Z85.038 Personal history of other malignant neoplasm of large intestine | CPT/HCPCS: 71250; 74176 ==